=== PATIENT | female | born 1950 | race Caucasian/White ===

== ENCOUNTER 2017-05-07 11:38 | Inpatient (IN) | payer MEDICARE, MEDICAID ==
[~2017-05-07] VITALS: Ht 162.6 cm; Wt 60.8 kg
[2017-05-07] MEDS ORDERED: RT-ALBUTEROL/IPRATROPIUM 3 ML (DUONEB) VIAL ONE (11:46)
[2017-05-07] MEDS ORDERED: methylPREDNISolone 125 MG (Solu-MEDROL) VIAL ONE (11:46)
[2017-05-07] MEDS ORDERED: RT-ALBUTEROL SULF 2.5 MG/3 ML PRE-MIX VIAL INH ONE (11:57)
[2017-05-07] MEDS ORDERED: RT-ALBUTEROL SULF 2.5 MG/3 ML PRE-MIX VIAL INH SCH (12:00)
[2017-05-07] MEDS ORDERED: RT-ALBUTEROL/IPRATROPIUM 3 ML (DUONEB) VIAL INH ONE (12:00)
[2017-05-07] MEDS ORDERED: methylPREDNISolone 125 MG (Solu-MEDROL) VIAL IVP ONE (12:00)
--- NOTE | 2017-05-07 12:01 | ED Cough/URI ---
General Chief Complaint: Respiratory Problems Stated Complaint: SOA, CONGESTED Source: patient Exam Limitations: no limitations History of Present Illness Time seen by provider: 11:58 Initial Comments Patient is brought to the emergency room by her with reports of shortness of breath and congested. She arrives in respiratory distress with room air oxygen saturation at 75 percent. She has pursed lip tachypneic breathing pattern. Apparently she's been ill with a cough and shortness of breath for one week. She insists that she does not want to be intubated or resuscitated should the need arise. I told her that I do expect the need for intubation or resuscitation to arise and she again states that she does not want either of these things done, then looks to her son at the bedside and states "did you hear that?". Son agrees. She continues to smoke cigarettes even this morning. Timing/Duration: week, getting worse Severity/Quality: productive cough Associated Symptoms: cough, wheezing Allergies and Home Medications Allergies Coded Allergies: No Known Drug Allergies (Unverified , 05/07/17) Home Medications Albuterol Sulfate 18 Gm Hfa.aer.ad, (Reported) Amiodarone HCl 200 Mg Tablet, (Reported) Aspirin 81 Mg Tablet.dr, (Reported) Atorvastatin Calcium 10 Mg Tablet, (Reported) Dapagliflozin Propanediol 5 Mg Tablet, (Reported) Diazepam 5 Mg Tablet, (Reported) Furosemide 20 Mg Tablet, (Reported) Gabapentin 100 Mg Capsule, (Reported) Ibuprofen 800 Mg Tablet, (Reported) Lisinopril 20 Mg Tablet, (Reported) Metformin HCl 1,000 Mg Tablet, (Reported) Sitagliptin Phosphate 100 Mg Tablet, (Reported) Umeclidinium Dearing 62.5 Mcg Blst.w.dev, (Reported) Venlafaxine HCl 150 Mg Cap.er.24h, (Reported) Constitutional: see HPI EENTM: see HPI Respiratory: see HPI, cough, short of breath, wheezing Cardiovascular: no symptoms reported Genitourinary: no symptoms reported Musculoskeletal: no symptoms reported Skin: no symptoms reported Psychiatric/Neurological: No Symptoms Reported Past Vorvlqi-Xsuxpa-Dhaayk Hx Patient Social History Recent Foreign Travel: No Contact w/Someone Who Travel: No Physical Exam Vital Signs Vital Sign - Last 12Hours 05/07/17 05/07/17 11:38 12:06 Temp 97.3 Pulse 124 Resp 32 B/P (MAP) 193/52 (99) Pulse Ox 79 O2 Delivery Room Air O2 Flow Rate 45.00 Capillary Refill : General Appearance: WD/WN, no apparent distress Eyes: Bilateral Eye Normal Inspection, Bilateral Eye PERRL, Bilateral Eye EOMI HEENT: PERRL/EOMI, normal ENT inspection Neck: non-tender, full range of motion Respiratory: respiratory distress, decreased breath sounds (very little air movement in either lung), wheezing Cardiovascular: no murmur, tachycardia Gastrointestinal: normal bowel sounds, non tender, soft Extremities: normal range of motion, non-tender Neurologic/Psychiatric: alert, normal mood/affect, oriented x 3 Skin: normal color, warm/dry Focused Exam Evaluation Lactate Level Laboratory Tests 05/07/17 11:50: Lactic Acid Level 5.67*H Lactic Acid Level Laboratory Tests Test 05/07/17 11:50 Lactic Acid Level 5.67 MMOL/L (0.50-2.00) *H Progress/Results/Core Measures Suspected Sepsis SIRS Temperature: Pulse: Respiratory Rate: Laboratory Tests 05/07/17 11:40: White Blood Count 35.0*H Blood Pressure / Mean: Laboratory Tests 05/07/17 11:50: Lactic Acid Level 5.67*H Laboratory Tests 05/07/17 11:40: Creatinine 0.85, Platelet Count 461H, Total Bilirubin 0.8 Results/Orders Lab Results Laboratory Tests Test 05/07/17 11:40 05/07/17 11:49 05/07/17 11:50 05/07/17 11:53 Range/Units White Blood Count 35.0 *H 4.3-11.0 10^3/uL Red Blood Count 5.84 4.35-5.85 10^6/uL Hemoglobin 14.1 11.5-16.0 G/DL Hematocrit 45 35-52 % Mean Corpuscular Volume 77 L 80-99 FL Mean Corpuscular Hemoglobin 24 L 25-34 PG Mean Corpuscular Hemoglobin Concent 32 32-36 G/DL Red Cell Distribution Width 16.0 H 10.0-14.5 % Platelet Count 461 H 130-400 10^3/uL Mean Platelet Volume 9.8 7.4-10.4 FL Neutrophils (%) (Auto) 92 H 42-75 % Lymphocytes (%) (Auto) 3 L 12-44 % Monocytes (%) (Auto) 5 0-12 % Eosinophils (%) (Auto) 0 0-10 % Basophils (%) (Auto) 0 0-10 % Neutrophils # (Auto) 32.0 H 1.8-7.8 X 10^3 Lymphocytes # (Auto) 0.9 L 1.0-4.0 X 10^3 Monocytes # (Auto) 1.9 H 0.0-1.0 X 10^3 Eosinophils # (Auto) 0.0 0.0-0.3 10^3/uL Basophils # (Auto) 0.1 0.0-0.1 10^3/uL Neutrophils % (Manual) 93 % Lymphocytes % (Manual) 4 % Monocytes % (Manual) 3 % Eosinophils % (Manual) 0 % Basophils % (Manual) 0 % Band Neutrophils 0 % Anisocytosis MODERATE Sodium Level 139 135-145 MMOL/L Potassium Level 4.2 3.6-5.0 MMOL/L Chloride Level 95 L 98-107 MMOL/L Carbon Dioxide Level 23 21-32 MMOL/L Anion Gap 21 H 5-14 MMOL/L Blood Urea Nitrogen 26 H 7-18 MG/DL Creatinine 0.85 0.60-1.30 MG/DL Estimat Glomerular Filtration Rate > 60 BUN/Creatinine Ratio 31 Glucose Level 357 H 70-105 MG/DL Calcium Level 10.2 H 8.5-10.1 MG/DL Total Bilirubin 0.8 0.1-1.0 MG/DL Aspartate Amino Transf (AST/SGOT) 16 5-34 U/L Alanine Aminotransferase (ALT/SGPT) 14 0-55 U/L Alkaline Phosphatase 202 H 40-136 U/L Total Protein 8.3 H 6.4-8.2 GM/DL Albumin 3.6 3.2-4.5 GM/DL Troponin I 0.47 *H <0.30 NG/ML B-Type Natriuretic Peptide 1251.6 H <100.0 PG/ML Lactic Acid Level 5.67 *H 0.50-2.00 MMOL/L Blood Gas Puncture Site r rad Blood Gas Patient Temperature 96.9 Arterial Blood pH 7.40 7.37-7.43 Arterial Blood Partial Pressure CO2 41 35-45 MMHG Arterial Blood Partial Pressure O2 101 H 79-93 MMHG Arterial Blood HCO3 25 23-27 MMOL/L Arterial Blood Total CO2 26.5 21.0-31.0 MMOL/L Arterial Blood Oxygen Saturation 99 94-100 % Arterial Blood Base Excess 0.7 -2.5-2.5 MMOL/L Jossue Test YES-POS Blood Gas Ventilator Setting NO Blood Gas Inspired Oxygen 60% bipap My Orders Orders - LETICIA JADE APRN Albuterol/Ipra Inhalation Soln (Duoneb I (05/07/17 11:46) Methylprednisolone Sod Succ (Solu-Medrol (05/07/17 11:46) Ekg Tracing (05/07/17 11:49) Arterial Blood Gas (05/07/17 11:56) Cbc With Automated Diff (05/07/17 11:57) Comprehensive Metabolic Panel (05/07/17 11:57) Saline Lock/Iv-Start (05/07/17 11:57) Chest 1 View, Ap/Pa Only (05/07/17 11:57) Methylprednisolone Sod Succ (Solu-Medrol (05/07/17 12:00) Albuterol/Ipra Inhalation Soln (Duoneb I (05/07/17 12:00) Albuterol Pre-Mix Nebs (Rt) (Proventil (05/07/17 12:00) Svn Sm Volume Nebulizer Rt-Rfs (05/07/17 11:57) Svn Sm Volume Nebulizer Rt-Rfs (05/07/17 11:57) Albuterol Pre-Mix Nebs (Rt) (Proventil (05/07/17 11:57) Troponin I (05/07/17 12:05) BNP (05/07/17 12:05) Manual Differential (05/07/17 11:40) Blood Culture (05/07/17 12:28) Lactic Acid Analyzer (05/07/17 12:28) Piperacillin Sodium/Tazobactam (Zosyn Vi (05/07/17 12:30) Ns Iv 500 Ml (Sodium Chloride 0.9%) (05/07/17 12:30) Insulin (Regular) Human (Humulin R (Per (05/07/17 12:30) Aspirin Chewable Tablet (Baby Aspirin Ch (05/07/17 12:45) Metoprolol Succinate (Xl) Tab (Toprol Xl (05/07/17 13:00) Furosemide Injection (Lasix Injection) (05/07/17 13:00) Medications Given in ED Current Medications Medications Dose Ordered Sig/Vlad Route Start Time Stop Time Status Last Admin Dose Admin Albuterol/ Ipratropium 3 ml ONCE ONCE INH 05/07/17 12:00 05/07/17 12:01 DC 05/07/17 12:03 3 ML Aspirin 324 mg ONCE ONCE PO 05/07/17 12:45 05/07/17 12:46 DC 05/07/17 12:57 324 MG Insulin Human Regular 6 unit ONCE ONCE SC 05/07/17 12:30 05/07/17 12:31 DC 05/07/17 12:57 6 UNIT Methylprednisolone Sodium Succinate 125 mg STK-MED ONCE .ROUTE 05/07/17 11:46 05/07/17 11:48 DC 05/07/17 11:59 125 MG Vital Signs/I&O Vital Sign - Last 12Hours 05/07/17 05/07/17 11:38 12:06 Temp 97.3 Pulse 124 117 Resp 32 36 B/P (MAP) 193/52 (99) Pulse Ox 79 98 O2 Delivery Room Air O2 Flow Rate 45.00 Capillary Refill : Diagnostic Imaging Diagonstic Imaging: Xray Plain Films/CT/US/NM/MRI: chest Comments NAME: MARIA DE JESUS [facility] REC#: [id number] PT STATUS: REG ER : 1950 PHYSICIAN: LETICIA JADE APRN ADMIT DATE: 05/07/17/ER Draft Date of Exam:05/07/17 CHEST 1 VIEW, AP/PA ONLY INDICATION: Chest congestion and shortness of breath. EXAM: Frontal chest obtained at 1204 hrs. p.m. COMPARISON: No prior studies for comparison. FINDINGS: There is post sternotomy change. The heart is normal in size. There are diffuse increased interstitial markings which are probably chronic. There is COPD change. There is minimal infiltrate in the right lung base IMPRESSION: COPD changes and chronic appearing increased interstitial markings. There is alveolar infiltrate in the right medial base, suspect early pneumonia. Followup is recommended. Dictated on workstation # [id number] Dict: 05/07/17 1209 Trans: 05/07/[address] [facility] [id number] Interpreted by: ALDO RENTERIA MD Electronically signed by: Departure Communication (Admissions) Time/Spoke to Admitting Phy: 12:[address] cowan. She will admit, we'll consult cardiology for the elevated troponin and pulmonology Time/Spoke to Consulting Phy: 12:59 Communication/Consulting Spoke with Dr. Morales. Recommends 12.5 mg of Toprol-XL daily, aspirin, 20 mg of Lasix IV daily for the history of CHF with elevated BNP and adequate blood pressure currently. Patient denies having chest pain at any point during this illness Family Conversation Spoke with Dr. Salazar. He agrees to consult. Progress Notes 1301-Given the elevated lactic acid, leukocytosis, tachycardia and respiratory rate the patient would meet severe sepsis criteria. However given the history of congestive heart failure with elevated BNP I will not give 30 mL/kg bolus of fluids due to the concern of fluid overload with current adequate blood pressure. She remains on BiPAP currently and is feeling much better. Heart rate is down to 120 from 140. Oxygen saturation 97 percent on 60 percent FiO2 14/7. Blood pressure 111/50. Hour-long albuterol treatment is completed. Remains tachypneic Impression Impression: Primary Impression: Pneumonia Additional Impressions: COPD exacerbation Respiratory distress Severe sepsis Disposition: ADMITTED INPATIENT Condition: Stable Admissions Decision to Admit Reason: Admit from ER (General) Decision to Admit/Date: May 07, 2017 Time/Decision to Admit Time: 12:25 Departure-Patient Inst. Referrals: MEAGAN AKHTAR (PCP) Primary Care Physician LETICIA JADE APRN May 07, 2017 12:01
[2017-05-07 12:03] LABS: BASOPHILS # (AUTO) 0.1 10^3/uL (0.0-0.1); BASOPHILS % (AUTO) 0 % (0-10); EOSINOPHILS % (AUTO) 0 % (0-10); LYMPHOCYTES # (AUTO) 0.9 X 10^3 (1.0-4.0); LYMPHOCYTES % (AUTO) 3 % (12-44); MEAN CORPUSCULAR HEMOGLOBIN 24 PG (25-34); MEAN CORPUSCULAR HGB CONC 32 G/DL (32-36); MEAN CORPUSCULAR VOLUME 77 FL (80-99); MEAN PLATELET VOLUME 9.8 FL (7.4-10.4); MONOCYTES # (AUTO) 1.9 X 10^3 (0.0-1.0); MONOCYTES % (AUTO) 5 % (0-12); NEUTROPHILS % (AUTO) 92 % (42-75); PLATELET COUNT 461 10^3/uL (130-400); RED BLOOD COUNT 5.84 10^6/uL (4.35-5.85)
[2017-05-07 12:04] LABS: ABG BASE EXCESS 0.7 MMOL/L (-2.5-2.5); ABG HCO3 25 MMOL/L (23-27); ABG OXYGEN SATURATION 99 % (94-100); ABG PCO2 41 MMHG (35-45); ABG PO2 101 MMHG (79-93); ABG TCO2 26.5 MMOL/L (21.0-31.0)
[2017-05-07 12:06] VITALS: BP 85/62
[2017-05-07 12:06] LABS: ALLENS TEST YES-POS; PATIENT TEMP 96.9
[2017-05-07] MEDS ORDERED: UMEC62.5 INH (12:19)
[2017-05-07] MEDS ORDERED: SITA100T12 PO (12:19)
[2017-05-07] MEDS ORDERED: DIAZ5TAB3 (12:19)
[2017-05-07] MEDS ORDERED: AMIO200T2 PO (12:19)
[2017-05-07] MEDS ORDERED: ASPI-983 PO (12:19)
[2017-05-07] MEDS ORDERED: VENL150C98 PO (12:19)
[2017-05-07] MEDS ORDERED: LISI-552 PO (12:19)
[2017-05-07] MEDS ORDERED: FURO20TA4 PO (12:19)
[2017-05-07] MEDS ORDERED: GABA-486 PO (12:19)
[2017-05-07] MEDS ORDERED: ALBU18HF2 INH (12:19)
[2017-05-07] MEDS ORDERED: IBUP-1780 PO (12:19)
[2017-05-07] MEDS ORDERED: ATOR10TA66 PO (12:19)
[2017-05-07] MEDS ORDERED: DAPA5TAB PO (12:19)
[2017-05-07] MEDS ORDERED: METF1000 PO (12:19)
--- NOTE | 2017-05-07 12:20 | Diagnostic Imaging Report ---
INDICATION: Chest congestion and shortness of breath. EXAM: Frontal chest obtained at 1204 hrs. p.m. COMPARISON: No prior studies for comparison. FINDINGS: There is post sternotomy change. The heart is normal in size. There are diffuse increased interstitial markings which are probably chronic. There is COPD change. There is minimal infiltrate in the right lung base IMPRESSION: COPD changes and chronic appearing increased interstitial markings. There is alveolar infiltrate in the right medial base, suspect early pneumonia. Followup is recommended. Dictated by: Dictated on workstation # [id number]
[2017-05-07 12:22] LABS: ALANINE AMINOTRANSFERASE 14 U/L (0-55); ALBUMIN 3.6 GM/DL (3.2-4.5); ANION GAP 21 MMOL/L (5-14); ASPARTATE AMINO TRANSFERASE 16 U/L (5-34); BAND NEUTROPHILS 0 %; BASOPHILS % (MANUAL) 0 %; BILIRUBIN,TOTAL 0.8 MG/DL (0.1-1.0); BLOOD UREA NITROGEN 26 MG/DL (7-18); BUN/CREATININE RATIO 31; CALCIUM 10.2 MG/DL (8.5-10.1); CARBON DIOXIDE 23 MMOL/L (21-32); CHLORIDE 95 MMOL/L (98-107); CREATININE SERUM 0.85 MG/DL (0.60-1.30); EOSINOPHILS % (MANUAL) 0 %; GFR ESTIMATED > 60; GLUCOSE 357 MG/DL (70-105); LYMPHOCYTES % (MANUAL) 4 %; NEUTROPHILS % (MANUAL) 93 %; POTASSIUM 4.2 MMOL/L (3.6-5.0); SODIUM 139 MMOL/L (135-145); TOTAL PROTEIN 8.3 GM/DL (6.4-8.2)
[2017-05-07 12:23] LABS: ANISOCYTOSIS MODERATE
[2017-05-07] MEDS ORDERED: NS IV 500 ML 500 ML IV SCH (12:30)
[2017-05-07] MEDS ORDERED: PIPERACILLIN SODIUM/TAZOBACTAM 4.5 GM in NS (IVPB) 100 ML IV ONE (12:30)
[2017-05-07] MEDS ORDERED: inSUlin (REGULAR) HUMAN 1 UNIT/0.01 ML (CHARGE PER UNIT) SC ONE (12:30)
[2017-05-07] MEDS ORDERED: ASPIRIN 81 MG CHEW (CHILDREN'S ASA) PO ONE (12:45)
[2017-05-07] MEDS ORDERED: FUROSEMIDE 40 MG/4 ML INJ (LASIX) IVP ONE (13:00)
[2017-05-07 13:40] VITALS: BP 128/61
--- NOTE | 2017-05-07 14:15 | History & Physical-Hospitalist ---
HPI History of Present Illness: HPI/Chief Complaint Pt is a 67yoCF with a PMH of COPD, CAD s/p bypass who presented to the ER with CC of SOB. She was found to be satting in high 70s on arrival and was quickly escalated to BiPAP for respiratory support. She was on BiPAP during my exam. She denied cough or sputum production and only felt short of breath. She states she feels she's breathing better now than on arrival. She denies any fevers or chills. She reports she has been on a ventilator before and she would never want that again. I discussed with her and her son the severity of her illness and she states she would like ot continue on BiPAP and receiving antibiotics but she wants no further escalation of care (including central line, pressors, high volume fluid boluses, transfer to ICU). Her son believes this is consistent with previous statements but is not sure as she has only previously said she did not want intubated. Pt states her granddaughter Emma has her advanced directive and when questioned by her son about options for care she again declined fluids, pressors, central lines, etc. She did request medication to help her breath more comfortably and was agreeable to IV morphine for that. Date Seen 05/07/17 Time Seen by Provider: 13:45 Attending Physician Anjali Sharif MD PCP No,Local Physician Referring Physician Date of Admission May 07, 2017 at 12:29 Home Medications & Allergies Home Medications Reviewed patient Home Medication Reconciliation Form Allergies Allergies Coded Allergies No Known Drug Allergies (Ocmamtexhh74/21/17) Past Zwzbpol-Qnntbz-Tfvnuh Hx Patient Social History Alcohol Use: Denies Use Recreational Drug Use: No Smoking Status: Current Everyday Smoker Recent Foreign Travel: No Contact w/other who traveled: No Recent Infectious Disease Expo: No Surgeries Yes Cardiac (CABG) Respiratory COPD Cardiovascular Coronary Artery Disease, Hypertension Genitourinary No Gastrointestinal No Musculoskeletal No Review of Systems Constitutional: No chills, No fever, No weakness EENTM: no symptoms reported, No nose congestion, No throat pain Respiratory: cough, dyspnea on exertion, No orthopnea, No phlegm, short of breath Cardiovascular: No chest pain, No edema, No palpitations Gastrointestinal: No abdominal pain, No constipation, No diarrhea, No nausea, No vomiting Genitourinary: No dysuria, No frequency Musculoskeletal: no symptoms reported Skin: no symptoms reported, No rash Psychiatric/Neurological: No Symptoms Reported, Denies Numbness, Denies Tingling Physical Exam Physical Exam Vital Signs Vital Sign - Last 12Hours 05/07/17 05/07/17 05/07/17 11:38 12:06 15:41 Temp 97.3 Pulse 124 Resp 32 B/P (MAP) 193/52 (99) Pulse Ox 79 O2 Delivery Room Air O2 Flow Rate 45.00 FiO2 45 Capillary Refill : Less Than 3 Seconds General Appearance: WD/WN, Severe Distress HEENT: PERRL/EOMI, Moist Mucous Membranes Neck: Non Tender, Supple Respiratory: Accessory Muscle Use, Decreased Breath Sounds, Respiratory Distress, Other (tachypneic on bipap) Cardiovascular: No Murmur, Tachycardia Gastrointestinal: Normal Bowel Sounds, Non Tender, Soft Extremity: No Calf Tenderness, No Pedal Edema Neurologic/Psychiatric: Alert, Oriented x3 Skin: Normal Color, Warm/Dry Results Results/Procedures Lab Laboratory Tests 05/07/17 11:40 Assessment/Plan Admission Diagnosis Septic Shock Diagnosis/Problems Diagnosis/Problems (1) Septic shock Status: Acute Assessment & Plan: WBC 35, tachycardiac, tachypneic PNA on CXR Lactic 5.67 Zosyn in ER, blood cx obtained in ER Sputum cx ordered Will order strep pna and legionella She has declined any further fluid boluses, central line, or ICU level care after discussion of risks including so she will not receive her 30cc/kg bolus Palliative Care Consult, appreciate assistance (2) CAD (coronary artery disease) Status: Chronic Assessment & Plan: s/p CABG top elevated- likely due to septic shock Cardiology consulted Will trend Received ASA in ER Again has declined further escalation of care (3) Pneumonia Status: Acute Assessment & Plan: On Zosyn Continue management as above Await cultures Rapid Flu ordered (4) Respiratory distress Status: Acute Assessment & Plan: Pulm consulted, appreciate recs Continue on BiPAP MAT Protocol (5) Essential (primary) hypertension Assessment & Plan: Hold antihypertensives for shock (6) Non-insulin dependent type 2 diabetes mellitus Status: Chronic Assessment & Plan: SSI Hold home meds Accu Cheks Q6 ANJALI SHARIF MD May 07, 2017 14:15
[2017-05-07] MEDS: NS IV 1000 ML 1,000 ML IV SCH ×2 (14:31→23:22)
[2017-05-07] MEDS: morphine INJ 4 MG/ML 1 ML (VIAL/SYRINGE) IVP PRN ×2 (14:35→19:46)
[2017-05-07] MEDS ORDERED: BACL10TA PO (15:30)
[2017-05-07] MEDS ORDERED: TRAM50TA2 PO (15:30)
[2017-05-07] MEDS ORDERED: ZOLP10TA5 PO (15:30)
[2017-05-07 15:40] VITALS: BP 100/59
[2017-05-07] MEDS ORDERED: RT-ALBUTEROL/IPRATROPIUM 3 ML (DUONEB) VIAL INH PRN (15:45)
[2017-05-07] MEDS: ENOXAPARIN 40 MG/0.4 ML (LOVENOX) SYR SC SCH (15:48)
--- NOTE | 2017-05-07 15:52 | Consultation-Cardiology ---
HPI-Cardiology Cardiology Consultation: Date of Consultation 05/07/17 Time Seen by Provider: 15:00 Date of Admission 05-07-17 Attending Physician Anjali Sharif MD Admitting Physician No,Local Physician Consulting Physician JANELLE DVUAL HPI: Chief Complaint: Dyspnea Ms. Upton is a 67 year old female admitted to 401 from the ED. She is currently on Bi-Pap. Grand-daughter at the bedside. Patient reports she has been feeling increasingly short of breath over the last few weeks. She reports sweats at home. She reports some nausea and diarrhea. She denies any CP. She does report productive cough. She continues to smoke cigs. She reports CABG at [facility] approx 3 years ago, but has not followed with any cardiology services. Her son is also present. Communication is limited with her d/t dyspnea and Bi-Pap. Review of Systems-Cardiology Review of Systems Constitutional: fever, malaise, other (sweats) Eyes: No blindness, No blurred vision Ears/Nose/Throat: no symptoms reported Respiratory: As described under HPI Cardiovascular: As described under HPI Gastrointestinal: diarrhea, nausea Genitourinary: No burning, No dysuria Musculoskeletal: muscle pain (right sided) Skin: No rash, No ulcerations Psychiatric/Neurological: No focal weakness, No syncope Hematologic: No bleeding abnormalities QSI-Jskiga-Uclobu Hx Patient Social History Alcohol Use: Denies Use Recreational Drug Use: No Smoking Status: Current Everyday Smoker Recent Foreign Travel: No Recent Infectious Disease Expo: No Hospitalization with Isolation: Denies Past Medical History PMH As described under Assessment. Allergies and Home Medications Allergies Coded Allergies: No Known Drug Allergies (Unverified , 05/07/17) Home Medications Albuterol Sulfate 18 Gm Hfa.aer.ad, 2 PUFF INH Q6H PRN for SHORTNESS OF BREATH, (Reported) Amiodarone HCl 200 Mg Tablet, 200 MG PO DAILY, (Reported) Aspirin 81 Mg Tablet.dr, 81 MG PO DAILY, (Reported) Atorvastatin Calcium 10 Mg Tablet, 10 MG PO HS, (Reported) Baclofen 10 Mg Tablet, 10 MG PO TID PRN for PAIN-MILD, (Reported) Dapagliflozin Propanediol 5 Mg Tablet, 5 MG PO DAILY, (Reported) Furosemide 20 Mg Tablet, 20 MG PO DAILY, (Reported) Gabapentin 100 Mg Capsule, 200 MG PO TID, (Reported) TAKES 2 (100MG) CAPSULES Ibuprofen 800 Mg Tablet, 800 MG PO TID PRN for PAIN-MODERATE, (Reported) Lisinopril 20 Mg Tablet, 20 MG PO DAILY, (Reported) Metformin HCl 1,000 Mg Tablet, 1,000 MG PO BID, (Reported) Sitagliptin Phosphate 100 Mg Tablet, 100 MG PO DAILY, (Reported) Tramadol HCl 50 Mg Tablet, 50 MG PO TID PRN for PAIN-MODERATE, (Reported) Umeclidinium [place] 62.5 Mcg Blst.w.dev, 1 PUFF INH DAILY, (Reported) Venlafaxine HCl 150 Mg Cap.er.24h, 150 MG PO DAILY, (Reported) Zolpidem Tartrate 10 Mg Tablet, 10 MG PO HS, (Reported) Physical Exam-Cardiology Physical Exam Vital Signs/I&O Vital Sign - Last 12Hours 05/07/17 05/07/17 05/07/17 05/07/17 11:38 12:06 13:40 14:36 Temp 97.3 99.1 Pulse 124 117 115 110 Resp 32 36 22 22 B/P (MAP) 193/52 (99) 128/61 (83) Pulse Ox 79 98 99 97 O2 Delivery Room Air NIV Bilevel NIV Bilevel O2 Flow Rate 45.00 05/07/17 05/07/17 05/07/17 05/07/17 14:59 15:40 15:41 15:41 Temp 97.8 Pulse 122 103 102 Resp 42 24 B/P (MAP) 100/59 (73) Pulse Ox 99 99 99 O2 Delivery NIV Bilevel O2 Flow Rate 45.00 FiO2 45 05/07/17 16:56 Pulse 118 Resp 38 Pulse Ox 96 O2 Flow Rate 45.00 Capillary Refill : Less Than 3 Seconds Constitutional: AAO x 3 HEENT: oral hygience is good Neck: No carotid bruit, carotid pulses are 2 + bilaterally Respiratory: respiratory distress, crackles, rhonchi (scattered) Cardiovascular: regular rate-rhythm, tachycardia, S1 and S2, systolic murmur Gastrointestinal: No tender, soft, audible bowel sounds Extremities: No significant edema Neurologic/Psychiatric: grossly intact Skin: No rash, No ulcerations Data Review Labs Laboratory Tests 05/07/17 11:40: White Blood Count 35.0*H, Red Blood Count 5.84, Hemoglobin 14.1, Hematocrit 45, Mean Corpuscular Volume 77L, Mean Corpuscular Hemoglobin 24L, Mean Corpuscular Hemoglobin Concent 32, Red Cell Distribution Width 16.0H, Platelet Count 461H, Mean Platelet Volume 9.8, Neutrophils (%) (Auto) 92H, Lymphocytes (%) (Auto) 3L , Monocytes (%) (Auto) 5, Eosinophils (%) (Auto) 0, Basophils (%) (Auto) 0, Neutrophils # (Auto) 32.0H, Lymphocytes # (Auto) 0.9L, Monocytes # (Auto) 1.9H, Eosinophils # (Auto) 0.0, Basophils # (Auto) 0.1, Neutrophils % (Manual) 93, Lymphocytes % (Manual) 4, Monocytes % (Manual) 3, Eosinophils % (Manual) 0, Basophils % (Manual) 0, Band Neutrophils 0, Anisocytosis MODERATE, Sodium Level 139, Potassium Level 4.2, Chloride Level 95L, Carbon Dioxide Level 23, Anion Gap 21H, Blood Urea Nitrogen 26H, Creatinine 0.85, Estimat Glomerular Filtration Rate > 60, BUN/Creatinine Ratio 31, Glucose Level 357H, Calcium Level 10.2H, Total Bilirubin 0.8, Aspartate Amino Transf (AST/SGOT) 16, Alanine Aminotransferase (ALT/SGPT) 14, Alkaline Phosphatase 202H, Total Protein 8.3H, Albumin 3.6 05/07/17 11:49: Troponin I 0.47*H, B-Type Natriuretic Peptide 1251.6H 05/07/17 11:50: Lactic Acid Level 5.67*H 05/07/17 11:53: Blood Gas Puncture Site r rad, Blood Gas Patient Temperature 96.9, Arterial Blood pH 7.40, Arterial Blood Partial Pressure CO2 41, Arterial Blood Partial Pressure O2 101H, Arterial Blood HCO3 25, Arterial Blood Total CO2 26.5, Arterial Blood Oxygen Saturation 99, Arterial Blood Base Excess 0.7, Jossue Test YES-POS, Blood Gas Ventilator Setting NO, Blood Gas Inspired Oxygen 60% bipap 05/07/17 14:10: Lactic Acid Level 5.15*H 05/07/17 15:58: Glucometer 321H 05/07/17 16:50: 05/07/17 17:21: Microbiology 05/07/17 Influenza Types A,B Antigen (ANATOLY) - Final, Complete Radiology NAME: MARIA DE JESUS UPTON [facility] REC#: [id number] PT STATUS: REG ER : 1950 PHYSICIAN: LETICIA JADE APRN ADMIT DATE: 05/07/17/ER Draft Date of Exam:05/07/17 CHEST 1 VIEW, AP/PA ONLY INDICATION: Chest congestion and shortness of breath. EXAM: Frontal chest obtained at 1204 hrs. p.m. COMPARISON: No prior studies for comparison. FINDINGS: There is post sternotomy change. The heart is normal in size. There are diffuse increased interstitial markings which are probably chronic. There is COPD change. There is minimal infiltrate in the right lung base IMPRESSION: COPD changes and chronic appearing increased interstitial markings. There is alveolar infiltrate in the right medial base, suspect early pneumonia. Followup is recommended. Dictated on workstation # [id number] Dict: 05/07/17 1209 Trans: 05/07/17 1220 [facility] [id number] Interpreted by: ALDO RENTERIA MD Electronically signed by: A/P-Cardiology Assessment/Admission Diagnosis Multi-factorial respiratory failure - refuses intubation Acute exac of COPD due to pneumonia Acute diastolic CHF Pneumonia with sepsis - management per Medical Services Elevated troponin likely r/t hypoxia. No evidence of acute [place] H/O CABG approx 3 years ago at [facility] in [place], [place] - details unknown H/O left CEA - details unknown HTN HLP Tobaccoism - cessation advised Desires conservative tx; DNI, DNR Discussion and Recomendations Complex management issue Respiratory failure which is multifactorial Pneumonia with sepsis which is being managed by medical services Acute exacerbation of COPD which is being managed by medical services She is currently on Bi-Pap She has a h/o CAD with CABG in the past at [facility] in [place], [place], details of which are unknown - we have requested records She wishes to be managed conservatively She does not wish to be intubated We will manage empirically Give additional Lasix now and as needed Monitor lab Palliative consult has been ordered by medical services We would like to thank medical services for this consult Further rec will be based on her hospital course This consult is being scribed by Lesia Sanford APRN on behalf of Dr. Cameron after discussion regarding plan of care Physician Assessment Physician Assessment Notes some improvement of shortness of breath on BiPAP. Denies cp or palp or syncope. Does not believe that she had any kind of a heart attack. Specifically asks to be managed conservatively only. A son by her bedside Moderately dyspneic On BiPAP Cor: reg, tachy Lungs: diminished air entry at the bases Ext: no c/c/e A&R * As documented in our note above that I updated (italics) and as noted below * I discussed her CV issues with her and her son * She wishes to be managed conservatively and empirically. Does not wish to be resuscitated in case of card/resp arrest * Use beta-nas for heart rate control * Diuretics as needed and as tolerated for CHF * Monitor labs closely * Continue aspirin because of h/o CAD JANELLE SANFORD [facility] May 07, 2017 15:52 NOE CAMERON MD [facility] May 07, 2017 18:17
[2017-05-07] MEDS ORDERED: inSUlin (REGULAR) HUMAN 1 UNIT/0.01 ML (CHARGE PER UNIT) SC SCH (16:00)
--- NOTE | 2017-05-07 16:08 | Pulmonary Consultation ---
History of Present Illness History of Present Illness Date of Consultation 05/07/17 16:02 Time Seen by Provider: 16:02 Date of Admission History of Present Illness 67yo with PMH of COPD presented to ED secondary to worsening SOB and was found to have Sp02 of 70's upon arrival. Pt was found to have Sp02 of 70's on arrival. Pt states she is a DNR and does not want to ever be on the vent again. Denies sputum production and f/NS. I am consulted for pulmonary management. Allergies and Home Medications Allergies Coded Allergies: No Known Drug Allergies (Unverified , 05/07/17) Home Medications Albuterol Sulfate 18 Gm Hfa.aer.ad, 2 PUFF INH Q6H PRN for SHORTNESS OF BREATH, (Reported) Amiodarone HCl 200 Mg Tablet, 200 MG PO DAILY, (Reported) Aspirin 81 Mg Tablet.dr, 81 MG PO DAILY, (Reported) Atorvastatin Calcium 10 Mg Tablet, 10 MG PO HS, (Reported) Baclofen 10 Mg Tablet, 10 MG PO TID PRN for PAIN-MILD, (Reported) Dapagliflozin Propanediol 5 Mg Tablet, 5 MG PO DAILY, (Reported) Furosemide 20 Mg Tablet, 20 MG PO DAILY, (Reported) Gabapentin 100 Mg Capsule, 200 MG PO TID, (Reported) TAKES 2 (100MG) CAPSULES Ibuprofen 800 Mg Tablet, 800 MG PO TID PRN for PAIN-MODERATE, (Reported) Lisinopril 20 Mg Tablet, 20 MG PO DAILY, (Reported) Metformin HCl 1,000 Mg Tablet, 1,000 MG PO BID, (Reported) Sitagliptin Phosphate 100 Mg Tablet, 100 MG PO DAILY, (Reported) Tramadol HCl 50 Mg Tablet, 50 MG PO TID PRN for PAIN-MODERATE, (Reported) Umeclidinium [place] 62.5 Mcg Blst.w.dev, 1 PUFF INH DAILY, (Reported) Venlafaxine HCl 150 Mg Cap.er.24h, 150 MG PO DAILY, (Reported) Zolpidem Tartrate 10 Mg Tablet, 10 MG PO HS, (Reported) Past Ezwwuha-Epnvkv-Ywmomh Hx Patient Social History Alcohol Use: Denies Use Recreational Drug Use: No Smoking Status: Current Everyday Smoker Recent Foreign Travel: No Contact w/Someone Who Travel: No Recent Infectious Disease Expo: No Surgeries History of Surgeries: Yes Surgeries: Cardiac (CABG) Cardiovascular Cardiac Disorders: Coronary Artery Disease, Hypertension Genitourinary History of Genitourinary Disor: No Gastrointestinal History of Gastrointestinal Di: No Musculoskeletal History of Musculoskeletal Dis: No Review of Systems Time Seen by Provider: 16:15 Exam Exam Vital Signs Date Time Temp Pulse Resp B/P (MAP) Pulse Ox O2 Delivery O2 Flow Rate FiO2 05/07/17 15:41 99 45 05/07/17 15:41 102 05/07/17 14:59 122 42 99 45.00 05/07/17 14:36 110 22 97 NIV Bilevel 05/07/17 13:40 99.1 115 22 128/61 (83) 99 NIV Bilevel 05/07/17 12:06 117 36 98 45.00 05/07/17 11:38 97.3 124 32 193/52 (99) 79 Room Air General Appearance: WD/WN, Severe Distress HEENT: PERRL/EOMI, Moist Mucous Membranes Neck: Non Tender, Supple Respiratory: Accessory Muscle Use, Decreased Breath Sounds, Respiratory Distress, Other (tachypneic on bipap) Cardiovascular: No Murmur, Tachycardia Capillary Refill: Less Than 3 Seconds Gastrointestinal: normal bowel sounds, non tender, soft Extremity: No Calf Tenderness, No Pedal Edema Neurologic/Psychiatric: Alert, Oriented x3 Skin: Normal Color, Warm/Dry Results Lab Laboratory Tests 05/07/17 11:40 Assessment/Plan Assessment/Plan severe sepsis secondary to pneumonia -Continue zoysn -cowan cultures pending -IVF Acute respiratory failure -Pt is DNR refuses Ventilation -Continue BiPAP for now Metabolic lactic acidosis -IVF -Monitor CAD Prognosis is guarded. 255 MARGARITA CHAMORRO DO May 07, 2017 16:08
[2017-05-07] MEDS ORDERED: FUROSEMIDE 40 MG/4 ML INJ (LASIX) IVP NR (16:15)
[2017-05-07] MEDS ORDERED: RT-ALBUTEROL/IPRATROPIUM 3 ML (DUONEB) VIAL INH SCH (18:00)
[2017-05-07] MEDS ORDERED: PIPERACILLIN/TAZOBACTAM 4.5 GM/NS 100 ML IVPB IV SCH ×2 (18:00)
[2017-05-07] MEDS: inSUlin ASPART (NovoLOG) 1 UNIT/0.01 ML (CHARGE PER UNIT) SC SCH ×2 (18:10→23:31)
[2017-05-07 18:13] LABS: CALCIUM 9.6 MG/DL (8.5-10.1); CREATININE SERUM 0.95 MG/DL (0.60-1.30); POTASSIUM 3.2 MMOL/L (3.6-5.0)
[2017-05-07 18:34] LABS: TROPONIN I 1.82 NG/ML (<0.30)
[2017-05-07] MEDS: RT-ALBUTEROL/IPRATROPIUM 3 ML (DUONEB) VIAL INH SCH ×3 (18:43→22:48)
[2017-05-07 19:45] VITALS: BP 116/61
[2017-05-07] MEDS ORDERED: inSUlin ASPART (NovoLOG) 1 UNIT/0.01 ML (CHARGE PER UNIT) SC SCH (21:00)
[2017-05-07] MEDS: methylPREDNISolone 125 MG (Solu-MEDROL) VIAL IV SCH (21:04)
[2017-05-07] MEDS: PIPERACILLIN SODIUM/TAZOBACTAM 4.5 GM in NS (IVPB) 100 ML IV SCH (21:04)
[2017-05-08] VITALS: BP 116/60
[2017-05-08] MEDS: RT-ALBUTEROL/IPRATROPIUM 3 ML (DUONEB) VIAL INH SCH ×10 (01:17→22:54)
[2017-05-08] MEDS: NS IV 1000 ML 1,000 ML IV SCH ×3 (01:18→21:14)
[2017-05-08] MEDS: PIPERACILLIN SODIUM/TAZOBACTAM 4.5 GM in NS (IVPB) 100 ML IV SCH ×3 (03:53→21:14)
[2017-05-08 04:00] VITALS: BP 151/65
[2017-05-08 06:00] LABS: BASOPHILS # (AUTO) 0.1 10^3/uL (0.0-0.1); BASOPHILS % (AUTO) 0 % (0-10); EOSINOPHILS % (AUTO) 0 % (0-10); LYMPHOCYTES % (AUTO) 4 % (12-44); MEAN CORPUSCULAR HEMOGLOBIN 24 PG (25-34); MEAN CORPUSCULAR HGB CONC 31 G/DL (32-36); MEAN CORPUSCULAR VOLUME 78 FL (80-99); MONOCYTES # (AUTO) 0.5 X 10^3 (0.0-1.0); MONOCYTES % (AUTO) 2 % (0-12); NEUTROPHILS # (AUTO) 25.4 X 10^3 (1.8-7.8); NEUTROPHILS % (AUTO) 94 % (42-75); PLATELET COUNT 273 10^3/uL (130-400); RED BLOOD COUNT 4.78 10^6/uL (4.35-5.85); RED CELL DISTRIBUTION WIDTH 15.7 % (10.0-14.5); WHITE BLOOD COUNT 26.9 10^3/uL (4.3-11.0)
[2017-05-08] MEDS: inSUlin ASPART (NovoLOG) 1 UNIT/0.01 ML (CHARGE PER UNIT) SC SCH ×3 (06:16→16:17)
[2017-05-08] MEDS: methylPREDNISolone 125 MG (Solu-MEDROL) VIAL IV SCH ×3 (06:16→21:15)
[2017-05-08] MEDS: FUROSEMIDE 40 MG/4 ML INJ (LASIX) IV SCH (06:16)
[2017-05-08 06:19] LABS: ALANINE AMINOTRANSFERASE 13 U/L (0-55); ANION GAP 15 MMOL/L (5-14); ASPARTATE AMINO TRANSFERASE 17 U/L (5-34); BILIRUBIN,TOTAL 0.5 MG/DL (0.1-1.0); BLOOD UREA NITROGEN 31 MG/DL (7-18); BUN/CREATININE RATIO 40; CALCIUM 9.3 MG/DL (8.5-10.1); CARBON DIOXIDE 26 MMOL/L (21-32); CHLORIDE 103 MMOL/L (98-107); CREATININE SERUM 0.78 MG/DL (0.60-1.30); GFR ESTIMATED > 60; GLUCOSE 249 MG/DL (70-105); MAGNESIUM 1.7 MG/DL (1.8-2.4); SODIUM 144 MMOL/L (135-145); TOTAL PROTEIN 6.6 GM/DL (6.4-8.2)
--- NOTE | 2017-05-08 07:21 | Diagnostic Imaging Report ---
Portable upright radiograph of the chest. INDICATION: Fall. COMPARISON: 05/07/2017. FINDINGS: Again seen pulmonary hyperinflation and chronic appearing interstitial thickening. There is improving right basilar mild infiltrate or atelectasis. The heart size is normal. No effusion or pneumothorax The mediastinum and pravin appear unremarkable with sternotomy wires and post CABG changes seen. IMPRESSION: COPD. Improving minimal right basilar infiltrates or atelectasis. Dictated by: Dictated on workstation # [id number]
--- NOTE | 2017-05-08 07:56 | Pulmonary Progress Note ---
Subjective Time Seen by Provider: 06:56 Subjective/Events-last exam no complications noted. Exam Exam Vital Signs Date Time Temp Pulse Resp B/P (MAP) Pulse Ox O2 Delivery O2 Flow Rate FiO2 05/08/17 06:51 96 High Flow N/C 5.00 05/08/17 06:45 80 23 98 40.00 05/08/17 05:20 75 21 94 40.00 05/08/17 04:00 97.8 79 28 151/65 (93) 99 NIV Bilevel 05/08/17 03:37 74 19 97 40.00 05/08/17 01:17 71 21 97 40.00 05/08/17 01:00 72 05/08/17 00:00 96.7 78 20 116/60 (78) 97 NIV Bilevel 05/07/17 22:49 79 23 94 40.00 05/07/17 22:26 NIV Bilevel 45.00 05/07/17 21:16 82 26 98 40.00 05/07/17 19:45 99.3 94 30 116/61 (79) 99 NIV Bilevel 05/07/17 19:00 95 05/07/17 18:43 92 31 98 45.00 05/07/17 16:56 118 38 96 45.00 05/07/17 15:41 99 45 05/07/17 15:41 102 05/07/17 15:40 97.8 103 24 100/59 (73) 99 NIV Bilevel 05/07/17 14:59 122 42 99 45.00 05/07/17 14:36 110 22 97 NIV Bilevel 05/07/17 13:40 99.1 115 22 128/61 (83) 99 NIV Bilevel 05/07/17 12:06 117 36 98 45.00 05/07/17 11:38 97.3 124 32 193/52 (99) 79 Room Air I & O 05/08/17 07:00 Intake Total 1100 ml Output Total 425 ml Balance 675 ml General Appearance: WD/WN, Severe Distress HEENT: PERRL/EOMI, Moist Mucous Membranes Neck: Non Tender, Supple Respiratory: Accessory Muscle Use, Decreased Breath Sounds, Respiratory Distress, Other (tachypneic on bipap) Cardiovascular: No Murmur, Tachycardia Capillary Refill: Less Than 3 Seconds Gastrointestinal: normal bowel sounds, non tender, soft Extremity: No Calf Tenderness, No Pedal Edema Neurologic/Psychiatric: Alert, Oriented x3 Skin: Normal Color, Warm/Dry Results Lab Laboratory Tests 05/07/17 11:40 05/07/17 17:21 05/08/17 05:45 Assessment/Plan Assessment/Plan severe sepsis secondary to pneumonia - zoysn -cowan cultures pending -IVF Acute respiratory failure -Pt is DNR refuses Ventilation -Continue BiPAP for now Metabolic lactic acidosis -IVF -Monitor CAD Prognosis is guarded. 233 Clinical Quality Measures DVT/VTE Risk/Contraindication: Risk Factor Score Per Nursin RFS Level Per Nursing on Admit: 4+=Very High MARGARITA CHAMORRO DO May 08, 2017 07:56
[2017-05-08 08:00] VITALS: BP 146/62
[2017-05-08] MEDS ORDERED: KCL 20 MEQ TAB (K-DUR) PO NR ×2 (08:15→09:30)
--- NOTE | 2017-05-08 08:21 | Progress Note-Hospitalist ---
Subjective HPI/CC On Admission Date Seen by Provider: May 08, 2017 Time Seen by Provider: 08:05 Pt is a 67yoCF with a PMH of COPD, CAD s/p bypass who presented to the ER with CC of SOB. She was found to be satting in high 70s on arrival and was quickly escalated to BiPAP for respiratory support. She was on BiPAP during my exam. She denied cough or sputum production and only felt short of breath. She states she feels she's breathing better now than on arrival. She denies any fevers or chills. She reports she has been on a ventilator before and she would never want that again. I discussed with her and her son the severity of her illness and she states she would like ot continue on BiPAP and receiving antibiotics but she wants no further escalation of care (including central line, pressors, high volume fluid boluses, transfer to ICU). Her son believes this is consistent with previous statements but is not sure as she has only previously said she did not want intubated. Pt states her granddaughter Emma has her advanced directive and when questioned by her son about options for care she again declined fluids, pressors, central lines, etc. She did request medication to help her breath more comfortably and was agreeable to IV morphine for that. Subjective/Events-last exam Pt reports feeling much better this morning. No complaints. Now off BiPAP requested coffee and breakfast. Objective Exam Vital Signs Vital Sign - Last 12Hours 05/07/17 05/07/17 05/07/17 11:38 12:06 15:41 Temp 97.3 Pulse 124 Resp 32 B/P (MAP) 193/52 (99) Pulse Ox 79 O2 Delivery Room Air O2 Flow Rate 45.00 FiO2 45 Capillary Refill : Less Than 3 Seconds General Appearance: No Apparent Distress, WD/WN Respiratory: No Accessory Muscle Use, No Respiratory Distress, Wheezing Cardiovascular: Regular Rate, Rhythm, No Murmur Gastrointestinal: Normal Bowel Sounds, Non Tender, Soft Extremity: Non Tender, No Calf Tenderness Neurologic/Psychiatric: Alert, Oriented x3 Results/Procedures Lab Laboratory Tests 05/07/17 11:40 05/07/17 17:21 05/08/17 05:45 Assessment/Plan Assessment and Plan Assess & Plan/Chief Complaint Pneumonia Diagnosis/Problems Diagnosis/Problems (1) Septic shock Status: Resolved Assessment & Plan: WBC improving PNA on CXR Lactic acidosis resolved Continue Zosyn Sputum cx ordered Await strep pna and legionella She has declined any further fluid boluses, central line, or ICU level care after discussion of risks including so she did not receive her 30cc/kg bolus Palliative Care Consult, appreciate assistance (2) Pneumonia Status: Acute Assessment & Plan: On Zosyn, Day #2 High risk CAP given COPD Continue management as above Await cultures Rapid Flu negative (3) Respiratory distress Status: Acute Assessment & Plan: Pulm consulted, appreciate recs Off BiPAP MAT Protocol Continue Solu Medrol MAT Protocol Not on oxygen at home (4) CAD (coronary artery disease) Status: Chronic Assessment & Plan: s/p CABG troponin elevated- management per cardiology ASA ordered Again has declined further escalation of care (5) Essential (primary) hypertension Assessment & Plan: Metoprolol (6) Non-insulin dependent type 2 diabetes mellitus Status: Chronic Assessment & Plan: Accu Elma ACHS SSI SLOANE WEINER MD May 08, 2017 08:21
[2017-05-08] MEDS ORDERED: INFLUENZA TRIvalent 2017-2018 0.5 ML/45 MCG SYR IM ONE (08:30)
[2017-05-08] MEDS: ASPIRIN E.C. 81 MG (ECOTRIN) TAB PO SCH (08:32)
[2017-05-08] MEDS ORDERED: ASPIRIN 325 MG (5 GR) TABLET PO SCH (09:00)
--- NOTE | 2017-05-08 09:17 | Progress Note-Cardiology ---
Cardiology SOAP Progress Note Subjective: Sitting up in bed. Off of Bi-pap. States she feels much better today. She continues to feel short of breath, but better. No c/o CP or palpitations. Continues to desire conservative tx. Son at the bedside. Objective: I&O/Vital Signs Vital Sign - Last 12Hours 05/07/17 05/07/17 05/08/17 05/08/17 22:26 22:49 00:00 01:00 Temp 96.7 Pulse 79 78 72 Resp 23 20 B/P (MAP) 116/60 (78) Pulse Ox 94 97 O2 Delivery NIV Bilevel NIV Bilevel O2 Flow Rate 45.00 40.00 05/08/17 05/08/17 05/08/17 05/08/17 01:17 03:37 04:00 05:20 Temp 97.8 Pulse 71 74 79 75 Resp 21 19 28 21 B/P (MAP) 151/65 (93) Pulse Ox 97 97 99 94 O2 Delivery NIV Bilevel O2 Flow Rate 40.00 40.00 40.00 05/08/17 05/08/17 05/08/17 05/08/17 06:45 06:51 08:00 08:26 Temp 97.8 Pulse 80 93 Resp 23 16 B/P (MAP) 146/62 (90) Pulse Ox 98 96 93 92 O2 Delivery High Flow N/C High Flow N/C High Flow N/C O2 Flow Rate 40.00 5.00 5.00 5.00 Intake and Output 05/08/17 00:00 Intake Total 0 ml Output Total 250 ml Balance -250 ml Weight (Pounds): 130 Weight (Ounces): 2.0 Weight (Calculated Kilograms): 59.614800 Constitutional: AAO x 3 Respiratory: crackles, rhonchi (scattered) Cardiovascular: regular rate-rhythm, S1 and S2, systolic murmur Gastrointestional: No tender, soft, audible bowel sounds Extremities: No significant edema Neurologic/Psychiatric: grossly intact Skin: No rash, No ulcerations Results/Procedures: Labs Laboratory Tests 05/07/17 11:40: White Blood Count 35.0*H, Red Blood Count 5.84, Hemoglobin 14.1, Hematocrit 45, Mean Corpuscular Volume 77L, Mean Corpuscular Hemoglobin 24L, Mean Corpuscular Hemoglobin Concent 32, Red Cell Distribution Width 16.0H, Platelet Count 461H, Mean Platelet Volume 9.8, Neutrophils (%) (Auto) 92H, Lymphocytes (%) (Auto) 3L , Monocytes (%) (Auto) 5, Eosinophils (%) (Auto) 0, Basophils (%) (Auto) 0, Neutrophils # (Auto) 32.0H, Lymphocytes # (Auto) 0.9L, Monocytes # (Auto) 1.9H, Eosinophils # (Auto) 0.0, Basophils # (Auto) 0.1, Neutrophils % (Manual) 93, Lymphocytes % (Manual) 4, Monocytes % (Manual) 3, Eosinophils % (Manual) 0, Basophils % (Manual) 0, Band Neutrophils 0, Anisocytosis MODERATE, Sodium Level 139, Potassium Level 4.2, Chloride Level 95L, Carbon Dioxide Level 23, Anion Gap 21H, Blood Urea Nitrogen 26H, Creatinine 0.85, Estimat Glomerular Filtration Rate > 60, BUN/Creatinine Ratio 31, Glucose Level 357H, Calcium Level 10.2H, Total Bilirubin 0.8, Aspartate Amino Transf (AST/SGOT) 16, Alanine Aminotransferase (ALT/SGPT) 14, Alkaline Phosphatase 202H, Total Protein 8.3H, Albumin 3.6 05/07/17 11:49: Troponin I 0.47*H, B-Type Natriuretic Peptide 1251.6H 05/07/17 11:50: Lactic Acid Level 5.67*H 05/07/17 11:53: Blood Gas Puncture Site r rad, Blood Gas Patient Temperature 96.9, Arterial Blood pH 7.40, Arterial Blood Partial Pressure CO2 41, Arterial Blood Partial Pressure O2 101H, Arterial Blood HCO3 25, Arterial Blood Total CO2 26.5, Arterial Blood Oxygen Saturation 99, Arterial Blood Base Excess 0.7, Jossue Test YES-POS, Blood Gas Ventilator Setting NO, Blood Gas Inspired Oxygen 60% bipap 05/07/17 14:10: Lactic Acid Level 5.15*H 05/07/17 15:58: Glucometer 321H 05/07/17 16:50: 05/07/17 17:21: Sodium Level 142, Potassium Level 3.2L, Chloride Level 99, Carbon Dioxide Level 27, Anion Gap 16H, Blood Urea Nitrogen 28H, Creatinine 0.95, Estimat Glomerular Filtration Rate 58, BUN/Creatinine Ratio 29, Glucose Level 369H, Calcium Level 9.6, Troponin I 1.82*H 05/07/17 18:01: Glucometer 344H 05/07/17 23:21: Glucometer 237H 05/08/17 05:03: Glucometer 219H 05/08/17 05:45: White Blood Count 26.9H, Red Blood Count 4.78, Hemoglobin 11.6, Hematocrit 37, Mean Corpuscular Volume 78L, Mean Corpuscular Hemoglobin 24L, Mean Corpuscular Hemoglobin Concent 31L, Red Cell Distribution Width 15.7H, Platelet Count 273, Mean Platelet Volume 10.0, Neutrophils (%) (Auto) 94H, Lymphocytes (%) (Auto) 4L , Monocytes (%) (Auto) 2, Eosinophils (%) (Auto) 0, Basophils (%) (Auto) 0, Neutrophils # (Auto) 25.4H, Lymphocytes # (Auto) 1.0, Monocytes # (Auto) 0.5, Eosinophils # (Auto) 0.0, Basophils # (Auto) 0.1, Sodium Level 144, Potassium Level 3.0L, Chloride Level 103, Carbon Dioxide Level 26, Anion Gap 15H, Blood Urea Nitrogen 31H, Creatinine 0.78, Estimat Glomerular Filtration Rate > 60, BUN /Creatinine Ratio 40, Glucose Level 249H, Lactic Acid Level 1.30, Calcium Level 9.3, Magnesium Level 1.7L, Total Bilirubin 0.5, Aspartate Amino Transf (AST/SGOT ) 17, Alanine Aminotransferase (ALT/SGPT) 13, Alkaline Phosphatase 142H, Total Protein 6.6, Albumin 3.0L Microbiology 05/07/17 Influenza Types A,B Antigen (ANATOLY) - Final, Complete Laboratory Tests 05/07/17 11:40 05/07/17 17:21 05/08/17 05:45 A/P: Assessment: Multi-factorial respiratory failure - refuses intubation Acute exac of COPD due to pneumonia Acute diastolic CHF Pneumonia with sepsis - management per Medical Services Elevated troponin likely r/t hypoxia. No evidence of acute NH H/O CABG approx 3 years ago at [facility] in [place], [place] - details unknown H/O left CEA - details unknown HTN HLP DM Type 2 Tobaccoism - cessation advised Hypokalemia likely d/t diuretics - replace Desires conservative tx; DNI, DNR Plan: Complex management issue Respiratory failure which is multifactorial Pneumonia with sepsis which is being managed by medical services Acute exacerbation of COPD which is being managed by medical services She has a h/o CAD with CABG in the past at [facility] in [place], [place], details of which are unknown - we have requested records She wishes to be managed conservatively She does not wish to be intubated We will manage empirically Continue diuretics Echocardiogram today to evaluate LVEF We will restart Lisinopril at lower dose for BP Monitor lab Replace potassium Physician Assessment Physician Assessment Notes some improvement of shortness of breath compared to yesterday. Currently off BiPAP. Denies cp or palp or syncope. Her son by her bedside Mildly to moderately dyspneic Cor: reg, tachy (improved compared to yesterday) Lungs: diminished air entry at the bases; increased exp phase; scattered wheezes Ext: no c/c/e A&R * As documented in our note above that I updated (italics) and as noted below * I discussed her CV issues with her and her son * She wishes to be managed conservatively and empirically. Does not wish to be resuscitated in case of card/resp arrest * Use beta-nas for heart rate control * Diuretics as needed and as tolerated for CHF * Replenish K * Resume WAYLON-inhibitor * Echo to eval EF and valve function * Monitor labs closely * Continue aspirin because of h/o CAD JANELLE BRANNON May 08, 2017 09:17 NOE RUIZ MD FACP [facility] May 08, 2017 09:35
[2017-05-08] MEDS ORDERED: lisINopril 10 MG (PRINIVIL) TAB PO NR (09:30)
[2017-05-08] MEDS: MAGNESIUM 1 GM/100 ML IVPB 100 ML IV SCH ×2 (09:54→10:52)
[2017-05-08 12:00] VITALS: BP 144/66
[2017-05-08] MEDS ORDERED: NICOTINE 21 MG (NICODERM) PATCH TD NR (12:45)
[2017-05-08] MEDS: ENOXAPARIN 40 MG/0.4 ML (LOVENOX) SYR SC SCH (13:29)
[2017-05-08 16:00] VITALS: BP 132/63
[2017-05-08] MEDS: guaiFENesin/DM (ROBITUSSIN DM) 10 ML UDC PO PRN ×2 (17:43→21:48)
[2017-05-08 19:05] VITALS: BP 135/61
[2017-05-08] MEDS: LORazepam INJ 2 MG/ML (ATIVAN) VIAL IVP PRN (21:48)
[2017-05-08] MEDS: inSUlin (REGULAR) HUMAN 1 UNIT/0.01 ML (CHARGE PER UNIT) SC SCH (21:48)
[2017-05-09] VITALS: BP 134/63
[2017-05-09] MEDS: RT-ALBUTEROL/IPRATROPIUM 3 ML (DUONEB) VIAL INH SCH ×5 (01:06→23:05)
[2017-05-09 04:00] VITALS: BP 133/60
[2017-05-09] MEDS: guaiFENesin/DM (ROBITUSSIN DM) 10 ML UDC PO PRN ×4 (04:19→19:35)
[2017-05-09] MEDS: PIPERACILLIN SODIUM/TAZOBACTAM 4.5 GM in NS (IVPB) 100 ML IV SCH ×3 (04:20→20:05)
[2017-05-09 05:33] LABS: BASOPHILS # (AUTO) 0.1 10^3/uL (0.0-0.1); BASOPHILS % (AUTO) 0 % (0-10); EOSINOPHILS % (AUTO) 0 % (0-10); LYMPHOCYTES # (AUTO) 1.4 X 10^3 (1.0-4.0); LYMPHOCYTES % (AUTO) 4 % (12-44); MEAN CORPUSCULAR HEMOGLOBIN 24 PG (25-34); MEAN CORPUSCULAR HGB CONC 30 G/DL (32-36); MEAN CORPUSCULAR VOLUME 79 FL (80-99); MEAN PLATELET VOLUME 10.3 FL (7.4-10.4); MONOCYTES # (AUTO) 0.8 X 10^3 (0.0-1.0); MONOCYTES % (AUTO) 2 % (0-12); NEUTROPHILS # (AUTO) 31.2 X 10^3 (1.8-7.8); NEUTROPHILS % (AUTO) 93 % (42-75); PLATELET COUNT 276 10^3/uL (130-400); RED BLOOD COUNT 4.83 10^6/uL (4.35-5.85)
[2017-05-09 05:54] LABS: WHITE BLOOD COUNT 33.4 10^3/uL (4.3-11.0)
[2017-05-09 05:57] LABS: ALANINE AMINOTRANSFERASE 20 U/L (0-55); ALBUMIN 2.9 GM/DL (3.2-4.5); ANION GAP 12 MMOL/L (5-14); ASPARTATE AMINO TRANSFERASE 28 U/L (5-34); BILIRUBIN,TOTAL 0.3 MG/DL (0.1-1.0); BLOOD UREA NITROGEN 31 MG/DL (7-18); BUN/CREATININE RATIO 42; CALCIUM 8.9 MG/DL (8.5-10.1); CARBON DIOXIDE 25 MMOL/L (21-32); CHLORIDE 108 MMOL/L (98-107); CREATININE SERUM 0.74 MG/DL (0.60-1.30); GFR ESTIMATED > 60; GLUCOSE 229 MG/DL (70-105); MAGNESIUM 2.2 MG/DL (1.8-2.4); POTASSIUM 3.8 MMOL/L (3.6-5.0); SODIUM 145 MMOL/L (135-145); TOTAL PROTEIN 6.5 GM/DL (6.4-8.2)
[2017-05-09] MEDS: FUROSEMIDE 40 MG/4 ML INJ (LASIX) IV SCH (06:03)
[2017-05-09] MEDS: methylPREDNISolone 125 MG (Solu-MEDROL) VIAL IV SCH (06:03)
[2017-05-09] MEDS: KCL 10 MEQ TAB (MICRO K) PO SCH (06:03)
[2017-05-09] MEDS: inSUlin (REGULAR) HUMAN 1 UNIT/0.01 ML (CHARGE PER UNIT) SC SCH ×4 (06:04→20:43)
--- NOTE | 2017-05-09 08:17 | Progress Note-Hospitalist ---
Subjective HPI/CC On Admission Date Seen by Provider: May 09, 2017 Time Seen by Provider: 08:00 Pt is a 67yoCF with a PMH of COPD, CAD s/p bypass who presented to the ER with CC of SOB. She was found to be satting in high 70s on arrival and was quickly escalated to BiPAP for respiratory support. She was on BiPAP during my exam. She denied cough or sputum production and only felt short of breath. She states she feels she's breathing better now than on arrival. She denies any fevers or chills. She reports she has been on a ventilator before and she would never want that again. I discussed with her and her son the severity of her illness and she states she would like ot continue on BiPAP and receiving antibiotics but she wants no further escalation of care (including central line, pressors, high volume fluid boluses, transfer to ICU). Her son believes this is consistent with previous statements but is not sure as she has only previously said she did not want intubated. Pt states her granddaughter Emma has her advanced directive and when questioned by her son about options for care she again declined fluids, pressors, central lines, etc. She did request medication to help her breath more comfortably and was agreeable to IV morphine for that. Subjective/Events-last exam Pt reports doing well this AM. Still feels wheezy but much improved. Objective Exam Vital Signs Vital Sign - Last 12Hours 05/07/17 05/07/17 05/07/17 11:38 12:06 13:40 Temp 97.3 Pulse 124 Resp 32 B/P (MAP) 193/52 (99) Pulse Ox 79 O2 Delivery Room Air O2 Flow Rate 45.00 FiO2 45 Capillary Refill : Less Than 3 SecondsLess Than 3 Seconds General Appearance: No Apparent Distress, WD/WN Respiratory: Lungs Clear, No Respiratory Distress Cardiovascular: No Murmur Gastrointestinal: Normal Bowel Sounds, Non Tender, Soft Genital/Rectal: Other (newsome in place with pink tinged urine) Extremity: Non Tender, No Calf Tenderness Neurologic/Psychiatric: Alert, Oriented x3 Results/Procedures Lab Laboratory Tests 05/09/17 04:47 Assessment/Plan Assessment and Plan Assess & Plan/Chief Complaint Pneumonia Diagnosis/Problems Diagnosis/Problems (1) Pneumonia Status: Acute Assessment & Plan: On Zosyn, Day #3 High risk CAP given COPD Continue management as above Await cultures- blood cx negative Rapid Flu negative (2) Septic shock Status: Resolved Assessment & Plan: WBC improving PNA on CXR Lactic acidosis resolved Continue Zosyn Sputum cx ordered- pending Await strep pna and legionella- pending She has declined any further fluid boluses, central line, or ICU level care after discussion of risks including so she did not receive her 30cc/kg bolus Palliative Care Consult, appreciate assistance (3) Respiratory distress Status: Acute Assessment & Plan: Pulm consulted, appreciate recs Off BiPAP- on NC MAT Protocol transition to oral steroids Not on oxygen at home (4) CAD (coronary artery disease) Status: Chronic Assessment & Plan: s/p CABG troponin elevated- management per cardiology ASA ordered Again has declined further escalation of care (5) Oliguria Status: Acute Assessment & Plan: Newsome in place for strict I/Os 0.71ml/kg/hr yesterday Will monitor today Does not want boluses so will manage conservatively Would likely tolerate small bolus if needed (6) Essential (primary) hypertension Assessment & Plan: Metoprolol (7) Non-insulin dependent type 2 diabetes mellitus Status: Chronic Assessment & Plan: Accu Elma [facility]CHS SLOANE CHOUDHURY MD May 09, 2017 08:17
[2017-05-09 08:18] VITALS: BP 152/83
[2017-05-09] MEDS: predniSONE 10 MG TAB PO SCH (09:07)
[2017-05-09] MEDS: lisINopril 10 MG (PRINIVIL) TAB PO SCH (09:08)
[2017-05-09] MEDS: ASPIRIN E.C. 81 MG (ECOTRIN) TAB PO SCH (09:08)
[2017-05-09] MEDS: NS IV 1000 ML 1,000 ML IV SCH ×2 (11:24→19:29)
--- NOTE | 2017-05-09 12:56 | Progress Note-Cardiology ---
Cardiology SOAP Progress Note Subjective: Notes some improvement of shortness of breath. Denies cp or palp or syncope. Anxious to return to home. Son by bedside Objective: I&O/Vital Signs Vital Sign - Last 12Hours 05/09/17 05/09/17 05/09/17 05/09/17 01:06 04:00 06:54 08:18 Temp 96.1 96.4 Pulse 76 92 Resp 20 22 B/P (MAP) 133/60 (84) 152/83 (106) Pulse Ox 94 97 92 94 O2 Delivery High Flow N/C High Flow N/C High Flow N/C High Flow N/C O2 Flow Rate 4.00 4.00 5.00 4.00 05/09/17 09:00 O2 Delivery High Flow N/C O2 Flow Rate 5.00 Intake and Output 05/09/17 00:00 Intake Total 1530 ml Output Total 825 ml Balance 705 ml Weight (Pounds): 135 Weight (Ounces): 0.0 Weight (Calculated Kilograms): 61.504918 Constitutional: AAO x 3 Respiratory: crackles, rhonchi (scattered) Cardiovascular: regular rate-rhythm, S1 and S2, systolic murmur Gastrointestional: No tender, soft, audible bowel sounds Extremities: No significant edema Neurologic/Psychiatric: grossly intact Skin: No rash, No ulcerations Results/Procedures: Labs Laboratory Tests 05/08/17 16:07: Glucometer 235H 05/08/17 20:49: Glucometer 217H 05/09/17 04:47: White Blood Count 33.4*H, Red Blood Count 4.83, Hemoglobin 11.6, Hematocrit 38, Mean Corpuscular Volume 79L, Mean Corpuscular Hemoglobin 24L, Mean Corpuscular Hemoglobin Concent 30L, Red Cell Distribution Width 16.0H, Platelet Count 276, Mean Platelet Volume 10.3, Neutrophils (%) (Auto) 93H, Lymphocytes (%) (Auto) 4L , Monocytes (%) (Auto) 2, Eosinophils (%) (Auto) 0, Basophils (%) (Auto) 0, Neutrophils # (Auto) 31.2H, Lymphocytes # (Auto) 1.4, Monocytes # (Auto) 0.8, Eosinophils # (Auto) 0.0, Basophils # (Auto) 0.1, Sodium Level 145, Potassium Level 3.8, Chloride Level 108H, Carbon Dioxide Level 25, Anion Gap 12, Blood Urea Nitrogen 31H, Creatinine 0.74, Estimat Glomerular Filtration Rate > 60, BUN /Creatinine Ratio 42, Glucose Level 229H, Calcium Level 8.9, Magnesium Level 2.2 , Total Bilirubin 0.3, Aspartate Amino Transf (AST/SGOT) 28, Alanine Aminotransferase (ALT/SGPT) 20, Alkaline Phosphatase 133, Total Protein 6.5, Albumin 2.9L 05/09/17 05:53: Glucometer 202H 05/09/17 11:15: Glucometer 232H Microbiology 05/07/17 Blood Culture - Preliminary, Resulted No growth 05/07/17 Influenza Types A,B Antigen (ANATOLY) - Final, Complete Laboratory Tests 05/07/17 17:21 05/08/17 05:45 05/09/17 04:47 A/P: Assessment: Multi-factorial respiratory failure - refuses intubation Acute exac of COPD due to pneumonia Acute diastolic CHF Pneumonia with sepsis - management per Medical Services Continuing marked leucocytosis, managed by the Med Svce Elevated troponin likely r/t hypoxia. No evidence of acute [place] H/O CABG approx 3 years ago at [facility] in [place], [place] - details unknown H/O left CEA - details unknown HTN HLP DM Type 2 Tobaccoism - cessation advised Hypokalemia likely d/t diuretics - improved Desires conservative tx; DNI, DNR Plan: Complex management due to multiple comorbidities (see above) She wishes to be managed conservatively Monitor labs NOE RUIZ MD FACP [facility] May 09, 2017 12:56
[2017-05-09 12:57] VITALS: BP 163/87
[2017-05-09] MEDS ORDERED: NICOTINE PATCH REMOVAL TP SCH (13:00)
[2017-05-09] MEDS: ENOXAPARIN 40 MG/0.4 ML (LOVENOX) SYR SC SCH (13:15)
[2017-05-09] MEDS: NICOTINE 21 MG (NICODERM) PATCH TD SCH (15:06)
[2017-05-09 15:24] VITALS: BP 152/67
[2017-05-09 19:10] VITALS: BP 136/65
[2017-05-09] MEDS: LORazepam INJ 2 MG/ML (ATIVAN) VIAL IVP PRN (20:05)
[2017-05-09] MEDS: morphine INJ 4 MG/ML 1 ML (VIAL/SYRINGE) IVP PRN (22:42)
[2017-05-10] VITALS: BP 137/73
[2017-05-10] MEDS: guaiFENesin/DM (ROBITUSSIN DM) 10 ML UDC PO PRN ×3 (00:01→13:12)
[2017-05-10] MEDS: morphine INJ 4 MG/ML 1 ML (VIAL/SYRINGE) IVP PRN ×2 (00:31→13:12)
[2017-05-10] MEDS: RT-ALBUTEROL/IPRATROPIUM 3 ML (DUONEB) VIAL INH SCH ×8 (00:57→22:54)
[2017-05-10 04:00] VITALS: BP 116/68
[2017-05-10] MEDS: PIPERACILLIN SODIUM/TAZOBACTAM 4.5 GM in NS (IVPB) 100 ML IV SCH ×3 (04:10→20:40)
[2017-05-10] MEDS: inSUlin (REGULAR) HUMAN 1 UNIT/0.01 ML (CHARGE PER UNIT) SC SCH ×4 (06:09→20:40)
[2017-05-10] MEDS: KCL 10 MEQ TAB (MICRO K) PO SCH (06:10)
[2017-05-10] MEDS: FUROSEMIDE 40 MG/4 ML INJ (LASIX) IV SCH (06:10)
[2017-05-10] MEDS: NS IV 1000 ML 1,000 ML IV SCH (06:10)
[2017-05-10 06:32] LABS: BASOPHILS % (AUTO) 0 % (0-10); EOSINOPHILS % (AUTO) 0 % (0-10); LYMPHOCYTES # (AUTO) 1.9 X 10^3 (1.0-4.0); LYMPHOCYTES % (AUTO) 9 % (12-44); MEAN CORPUSCULAR HEMOGLOBIN 24 PG (25-34); MEAN CORPUSCULAR HGB CONC 31 G/DL (32-36); MEAN CORPUSCULAR VOLUME 79 FL (80-99); MEAN PLATELET VOLUME 9.7 FL (7.4-10.4); MONOCYTES # (AUTO) 1.1 X 10^3 (0.0-1.0); MONOCYTES % (AUTO) 5 % (0-12); NEUTROPHILS # (AUTO) 17.2 X 10^3 (1.8-7.8); NEUTROPHILS % (AUTO) 85 % (42-75); PLATELET COUNT 249 10^3/uL (130-400); RED BLOOD COUNT 4.81 10^6/uL (4.35-5.85); RED CELL DISTRIBUTION WIDTH 15.7 % (10.0-14.5); WHITE BLOOD COUNT 20.2 10^3/uL (4.3-11.0)
[2017-05-10 06:51] LABS: ALANINE AMINOTRANSFERASE 19 U/L (0-55); ANION GAP 11 MMOL/L (5-14); ASPARTATE AMINO TRANSFERASE 16 U/L (5-34); BILIRUBIN,TOTAL 0.4 MG/DL (0.1-1.0); BLOOD UREA NITROGEN 29 MG/DL (7-18); BUN/CREATININE RATIO 41; CALCIUM 8.7 MG/DL (8.5-10.1); CARBON DIOXIDE 29 MMOL/L (21-32); CHLORIDE 104 MMOL/L (98-107); CREATININE SERUM 0.71 MG/DL (0.60-1.30); GFR ESTIMATED > 60; GLUCOSE 120 MG/DL (70-105); POTASSIUM 3.4 MMOL/L (3.6-5.0); SODIUM 144 MMOL/L (135-145)
[2017-05-10] MEDS: predniSONE 10 MG TAB PO SCH (07:52)
[2017-05-10] MEDS: ASPIRIN E.C. 81 MG (ECOTRIN) TAB PO SCH (07:52)
[2017-05-10] MEDS: lisINopril 10 MG (PRINIVIL) TAB PO SCH (07:52)
[2017-05-10] MEDS: NICOTINE 21 MG (NICODERM) PATCH TD SCH (07:52)
[2017-05-10 08:00] VITALS: BP 149/71
--- NOTE | 2017-05-10 11:19 | Progress Note-Hospitalist ---
Subjective HPI/CC On Admission Date Seen by Provider: May 10, 2017 Time Seen by Provider: 11:00 Pt is a 67yoCF with a PMH of COPD, CAD s/p bypass who presented to the ER with CC of SOB. She was found to be satting in high 70s on arrival and was quickly escalated to BiPAP for respiratory support. She was on BiPAP during my exam. She denied cough or sputum production and only felt short of breath. She states she feels she's breathing better now than on arrival. She denies any fevers or chills. She reports she has been on a ventilator before and she would never want that again. I discussed with her and her son the severity of her illness and she states she would like ot continue on BiPAP and receiving antibiotics but she wants no further escalation of care (including central line, pressors, high volume fluid boluses, transfer to ICU). Her son believes this is consistent with previous statements but is not sure as she has only previously said she did not want intubated. Pt states her granddaughter Emma has her advanced directive and when questioned by her son about options for care she again declined fluids, pressors, central lines, etc. She did request medication to help her breath more comfortably and was agreeable to IV morphine for that. Subjective/Events-last exam patient is awake and alert and has to go home today. She says she wears oxygen at home. Has no complaints. She remains a little wheezy but says she gets that way Review of Systems Pulmonary: Dyspnea Neurological: Weakness Objective Exam Vital Signs Vital Sign - Last 12Hours 05/07/17 05/07/17 05/07/17 11:38 12:06 13:40 Temp 97.3 Pulse 124 Resp 32 B/P (MAP) 193/52 (99) Pulse Ox 79 O2 Delivery Room Air O2 Flow Rate 45.00 FiO2 45 Capillary Refill : Less Than 3 SecondsLess Than 3 Seconds General Appearance: No Apparent Distress, WD/WN HEENT: Other (left eye deviates to the left) Neck: Supple Respiratory: Wheezing Cardiovascular: Regular Rate, Rhythm, No Gallop Gastrointestinal: No Organomegaly, Non Tender, Soft Extremity: Non Tender, No Calf Tenderness, No Pedal Edema Neurologic/Psychiatric: Alert, Oriented x3, No Motor/Sensory Deficits, Normal Mood/Affect Skin: Normal Color, Warm/Dry Results/Procedures Lab Laboratory Tests 05/10/17 06:25 Assessment/Plan Assessment and Plan Assess & Plan/Chief Complaint (1) Pneumonia Status: Acute Assessment & Plan: On Zosyn, Day #4 High risk CAP given COPD Continue management as above Await cultures- blood cx negative Rapid Flu negative (2) Septic shock Status: Resolved Assessment & Plan: WBC improving-currently at 20,000 PNA on CXR Lactic acidosis resolved Continue Zosyn Sputum cx ordered- results not found it does not appear that this is been collected Await strep pna and legionella- pending She has declined any further fluid boluses, central line, or ICU level care after discussion of risks including so she did not receive her 30cc/kg bolus Palliative Care Consult, appreciate assistance (3) Respiratory distress Status: Acute Assessment & Plan: Pulm consulted, appreciate recs Off BiPAP- on NC MAT Protocol transition to oral steroids Will need oxygen at home (4) CAD (coronary artery disease) Status: Chronic Assessment & Plan: s/p CABG troponin elevated- management per cardiology ASA ordered Again has declined further escalation of care (5) Oliguria Status: Acute-resolving GFR greater than 60. Patient is eating and drinking without problems so will DC IV fluids at this time Assessment & Plan: DC Caro catheter (6) Essential (primary) hypertension Assessment & Plan: Metoprolol (7) Non-insulin dependent type 2 diabetes mellitus Status: Chronic Assessment & Plan: Accu CECILIA Espana MD May 10, 2017 11:19
[2017-05-10] MEDS: ENOXAPARIN 40 MG/0.4 ML (LOVENOX) SYR SC SCH (13:12)
--- NOTE | 2017-05-10 13:53 | Progress Note-Cardiology ---
Cardiology SOAP Progress Note Subjective: No cp, palp, syncope. Shortness of breath better compared to the time of admission Objective: I&O/Vital Signs Vital Sign - Last 12Hours 05/10/17 05/10/17 05/10/17 05/10/17 03:12 04:00 06:22 06:23 Temp 96.4 Pulse 72 73 Resp 18 B/P (MAP) 116/68 (84) Pulse Ox 94 97 93 93 O2 Delivery High Flow N/C High Flow N/C High Flow N/C O2 Flow Rate 5.00 4.00 5.00 FiO2 40 05/10/17 05/10/17 05/10/17 07:59 08:00 10:13 Temp 96.1 Pulse 69 Resp 16 B/P (MAP) 149/71 (97) Pulse Ox 96 94 O2 Delivery High Flow N/C High Flow N/C High Flow N/C O2 Flow Rate 5.00 5.00 5.00 Intake and Output 05/10/17 00:00 Intake Total 1490 ml Output Total 1376 ml Balance 114 ml Weight (Pounds): 142 Weight (Ounces): 0.0 Weight (Calculated Kilograms): 64.351189 Constitutional: AAO x 3 Respiratory: crackles, rhonchi (scattered) Cardiovascular: regular rate-rhythm, S1 and S2, systolic murmur Gastrointestional: No tender, soft, audible bowel sounds Extremities: No significant edema Neurologic/Psychiatric: grossly intact Skin: No rash, No ulcerations Results/Procedures: Labs Laboratory Tests 05/09/17 16:01: Glucometer 195H 05/09/17 20:21: Glucometer 295H 05/10/17 05:58: Glucometer 130H 05/10/17 06:25: White Blood Count 20.2H, Red Blood Count 4.81, Hemoglobin 11.7, Hematocrit 38, Mean Corpuscular Volume 79L, Mean Corpuscular Hemoglobin 24L, Mean Corpuscular Hemoglobin Concent 31L, Red Cell Distribution Width 15.7H, Platelet Count 249, Mean Platelet Volume 9.7, Neutrophils (%) (Auto) 85H, Lymphocytes (%) (Auto) 9L , Monocytes (%) (Auto) 5, Eosinophils (%) (Auto) 0, Basophils (%) (Auto) 0, Neutrophils # (Auto) 17.2H, Lymphocytes # (Auto) 1.9, Monocytes # (Auto) 1.1H, Eosinophils # (Auto) 0.0, Basophils # (Auto) 0.0, Sodium Level 144, Potassium Level 3.4L, Chloride Level 104, Carbon Dioxide Level 29, Anion Gap 11, Blood Urea Nitrogen 29H, Creatinine 0.71, Estimat Glomerular Filtration Rate > 60, BUN /Creatinine Ratio 41, Glucose Level 120H, Calcium Level 8.7, Total Bilirubin 0.4 , Aspartate Amino Transf (AST/SGOT) 16, Alanine Aminotransferase (ALT/SGPT) 19, Alkaline Phosphatase 111, Total Protein 6.0L, Albumin 3.0L 05/10/17 11:26: Glucometer 169H Microbiology 05/07/17 Blood Culture - Preliminary, Resulted No growth 05/07/17 Influenza Types A,B Antigen (ANATOLY) - Final, Complete Laboratory Tests 05/09/17 04:47 05/10/17 06:25 A/P: Assessment: Multi-factorial respiratory failure, clinically better, requires continuous supplemental oxyten Acute exac of COPD due to pneumonia Acute diastolic CHF Pneumonia with sepsis - management per Medical Services Continuing marked leucocytosis, managed by the Med Svce Elevated troponin likely r/t hypoxia. No evidence of acute [place] H/O CABG approx 3 years ago at [facility] in [place], [place] - details unknown H/O left CEA - details unknown HTN HLP DM Type 2 Tobaccoism - cessation advised Hypokalemia likely d/t diuretics - improved Desires conservative tx; DNI, DNR Plan: Complex management due to multiple comorbidities (see above) She wishes to be managed conservatively Monitor labs NOE RUIZ MD FACP [facility] May 10, 2017 13:53
[2017-05-10 15:52] VITALS: BP 143/60
[2017-05-10 17:47] VITALS: BP 143/60
[2017-05-10 19:32] VITALS: BP 153/78
[2017-05-10] MEDS: LORazepam INJ 2 MG/ML (ATIVAN) VIAL IVP PRN (22:21)
[2017-05-11] VITALS (7 sets, daily range): BP systolic 104–173; BP diastolic 53–75
[2017-05-11] MEDS: guaiFENesin/DM (ROBITUSSIN DM) 10 ML UDC PO PRN ×2 (01:15→06:30)
[2017-05-11] MEDS: RT-ALBUTEROL/IPRATROPIUM 3 ML (DUONEB) VIAL INH SCH ×6 (02:05→21:21)
[2017-05-11] MEDS: PIPERACILLIN SODIUM/TAZOBACTAM 4.5 GM in NS (IVPB) 100 ML IV SCH ×3 (04:02→20:01)
[2017-05-11 05:24] LABS: BASOPHILS % (AUTO) 0 % (0-10); EOSINOPHILS % (AUTO) 0 % (0-10); LYMPHOCYTES # (AUTO) 2.4 X 10^3 (1.0-4.0); LYMPHOCYTES % (AUTO) 18 % (12-44); MEAN CORPUSCULAR HEMOGLOBIN 24 PG (25-34); MEAN CORPUSCULAR HGB CONC 31 G/DL (32-36); MEAN CORPUSCULAR VOLUME 77 FL (80-99); MONOCYTES # (AUTO) 0.8 X 10^3 (0.0-1.0); MONOCYTES % (AUTO) 6 % (0-12); NEUTROPHILS # (AUTO) 10.2 X 10^3 (1.8-7.8); NEUTROPHILS % (AUTO) 76 % (42-75); PLATELET COUNT 199 10^3/uL (130-400); RED BLOOD COUNT 4.96 10^6/uL (4.35-5.85); RED CELL DISTRIBUTION WIDTH 15.1 % (10.0-14.5); WHITE BLOOD COUNT 13.5 10^3/uL (4.3-11.0)
[2017-05-11 05:47] LABS: ALANINE AMINOTRANSFERASE 15 U/L (0-55); ALBUMIN 2.6 GM/DL (3.2-4.5); ANION GAP 11 MMOL/L (5-14); ASPARTATE AMINO TRANSFERASE 16 U/L (5-34); BILIRUBIN,TOTAL 0.7 MG/DL (0.1-1.0); BLOOD UREA NITROGEN 19 MG/DL (7-18); BUN/CREATININE RATIO 28; CALCIUM 8.4 MG/DL (8.5-10.1); CARBON DIOXIDE 32 MMOL/L (21-32); CHLORIDE 98 MMOL/L (98-107); CREATININE SERUM 0.69 MG/DL (0.60-1.30); GFR ESTIMATED > 60; GLUCOSE 117 MG/DL (70-105); POTASSIUM 3.1 MMOL/L (3.6-5.0); SODIUM 141 MMOL/L (135-145); TOTAL PROTEIN 5.5 GM/DL (6.4-8.2)
[2017-05-11] MEDS: inSUlin (REGULAR) HUMAN 1 UNIT/0.01 ML (CHARGE PER UNIT) SC SCH ×4 (06:26→20:01)
[2017-05-11] MEDS: KCL 10 MEQ TAB (MICRO K) PO SCH (06:30)
--- NOTE | 2017-05-11 08:16 | Diagnostic Imaging Report ---
Portable upright radiograph of the chest. COMPARISON: 05/08/2017. INDICATION: Shortness of breath. FINDINGS: The heart is enlarged. There is pulmonary vascular congestion and increasing bibasilar infiltrates compared to 05/08/2017. There is a small left effusion and likely tiny right effusion. No pneumothorax. The mediastinum demonstrates post CABG changes with sternotomy wires seen. There is also a stent projecting over the upper mid thorax probably in the left common carotid artery. IMPRESSION: Increasing bibasilar infiltrates. Cardiomegaly with mild vascular congestion. Dictated by: Dictated on workstation # [id number]
--- NOTE | 2017-05-11 09:08 | Progress Note-Hospitalist ---
Subjective HPI/CC On Admission Date Seen by Provider: May 11, 2017 Time Seen by Provider: 07:00 Pt is a 67yoCF with a PMH of COPD, CAD s/p bypass who presented to the ER with CC of SOB. She was found to be satting in high 70s on arrival and was quickly escalated to BiPAP for respiratory support. She was on BiPAP during my exam. She denied cough or sputum production and only felt short of breath. She states she feels she's breathing better now than on arrival. She denies any fevers or chills. She reports she has been on a ventilator before and she would never want that again. I discussed with her and her son the severity of her illness and she states she would like ot continue on BiPAP and receiving antibiotics but she wants no further escalation of care (including central line, pressors, high volume fluid boluses, transfer to ICU). Her son believes this is consistent with previous statements but is not sure as she has only previously said she did not want intubated. Pt states her granddaughter Emma has her advanced directive and when questioned by her son about options for care she again declined fluids, pressors, central lines, etc. She did request medication to help her breath more comfortably and was agreeable to IV morphine for that. Subjective/Events-last exam patient complains of the room being cold and that she's having a little bit more shortness of breath. Her BNP has doubled up to over 2200.white count is down. She is anxious to be discharged tomorrow. Review of Systems Pulmonary: Dyspnea Objective Exam Vital Signs Vital Sign - Last 12Hours 05/07/17 05/07/17 05/07/17 11:38 12:06 13:40 Temp 97.3 Pulse 124 Resp 32 B/P (MAP) 193/52 (99) Pulse Ox 79 O2 Delivery Room Air O2 Flow Rate 45.00 FiO2 45 Capillary Refill : Less Than 3 SecondsLess Than 3 Seconds General Appearance: No Apparent Distress HEENT: Normal ENT Inspection Respiratory: No Accessory Muscle Use, No Respiratory Distress, Decreased Breath Sounds, Wheezing Cardiovascular: Regular Rate, Rhythm, Systolic Murmur Gastrointestinal: Soft Extremity: No Pedal Edema Neurologic/Psychiatric: Alert, Oriented x3, Normal Mood/Affect Results/Procedures Lab Laboratory Tests 05/11/17 05:05 Assessment/Plan Assessment and Plan Assess & Plan/Chief Complaint (1) Pneumonia Status: Acute Assessment & Plan: On Zosyn, Day #5 High risk CAP given COPD Continue management as above Await cultures- blood cx negative Rapid Flu negative chest x-ray appears to be worse with increased infiltrates although this may be related to fluid overload (2) Septic shock Status: Resolved Assessment & Plan: WBC improving-currently at 13.5 PNA on CXR Lactic acidosis resolved Continue Zosyn Sputum cx ordered- results not found it does not appear that this is been collected Await strep pna and legionella- pending She has declined any further fluid boluses, central line, or ICU level care after discussion of risks including so she did not receive her 30cc/kg bolus Palliative Care Consult, appreciate assistance (3) Respiratory distress Status: Acute Assessment & Plan: Pulm consulted, appreciate recs Off BiPAP- on [place] MAT Protocol transition to oral steroids Will need oxygen at home (4) CAD (coronary artery disease) Status: Chronic Assessment & Plan: s/p CABG troponin elevated- management per cardiology ASA ordered Again has declined further escalation of care (5) Oliguria Status: Acute-resolving GFR greater than 60. Patient is eating and drinking without problems so will DC IV fluids at this time Assessment & Plan: DC Caro catheter (6) Essential (primary) hypertension Assessment & Plan: Metoprolol (7) Non-insulin dependent type 2 diabetes mellitus Status: Chronic Assessment & Plan: Accu Elma ESPINOZA 8.congestive heart failure secondary to diastolic dysfunction with increased fluid overload and vascular congestion by chest x-ray. We'll give Lasix today and recheck BMP in the morning 9. Hypokalemia-we'll replace, and we'll check magnesium in the morning CECILIA SORIA MD May 11, 2017 09:08
[2017-05-11] MEDS: predniSONE 10 MG TAB PO SCH (09:39)
[2017-05-11] MEDS: lisINopril 10 MG (PRINIVIL) TAB PO SCH (09:40)
[2017-05-11] MEDS: ASPIRIN E.C. 81 MG (ECOTRIN) TAB PO SCH (09:40)
[2017-05-11] MEDS: NICOTINE 21 MG (NICODERM) PATCH TD SCH (09:40)
[2017-05-11] MEDS: FUROSEMIDE 40 MG/4 ML INJ (LASIX) IVP NR (09:40)
--- NOTE | 2017-05-11 12:13 | Progress Note-Cardiology ---
Cardiology SOAP Progress Note Subjective: Shortness of breath improved compared to day of adm No cp or palp or syncope Objective: I&O/Vital Signs Vital Sign - Last 12Hours 05/11/17 05/11/17 05/11/17 05/11/17 02:05 04:00 07:07 07:32 Temp 97.4 97.2 Pulse 72 91 Resp 20 26 B/P (MAP) 140/72 (94) 173/72 (105) Pulse Ox 92 91 90 90 O2 Delivery High Flow N/C Nasal Cannula High Flow N/C High Flow N/C O2 Flow Rate 2.00 2.00 2.00 3.00 05/11/17 05/11/17 09:00 11:15 Pulse Ox 90 O2 Delivery High Flow N/C High Flow N/C O2 Flow Rate 3.00 2.00 Intake and Output 05/11/17 00:00 Intake Total 1100 ml Output Total 3101 ml Balance -2001 ml Weight (Pounds): 137 Weight (Ounces): 9.0 Weight (Calculated Kilograms): 62.191134 Constitutional: AAO x 3 Respiratory: crackles, rhonchi (scattered) Cardiovascular: regular rate-rhythm, S1 and S2, systolic murmur Gastrointestional: No tender, soft, audible bowel sounds Extremities: No significant edema Neurologic/Psychiatric: grossly intact Skin: No rash, No ulcerations Results/Procedures: Labs Laboratory Tests 05/10/17 15:59: Glucometer 340H 05/10/17 20:31: Glucometer 141H 05/11/17 05:05: White Blood Count 13.5H, Red Blood Count 4.96, Hemoglobin 11.9, Hematocrit 38, Mean Corpuscular Volume 77L, Mean Corpuscular Hemoglobin 24L, Mean Corpuscular Hemoglobin Concent 31L, Red Cell Distribution Width 15.1H, Platelet Count 199, Mean Platelet Volume 10.0, Neutrophils (%) (Auto) 76H, Lymphocytes (%) (Auto) 18 , Monocytes (%) (Auto) 6, Eosinophils (%) (Auto) 0, Basophils (%) (Auto) 0, Neutrophils # (Auto) 10.2H, Lymphocytes # (Auto) 2.4, Monocytes # (Auto) 0.8, Eosinophils # (Auto) 0.0, Basophils # (Auto) 0.0, Sodium Level 141, Potassium Level 3.1L, Chloride Level 98, Carbon Dioxide Level 32, Anion Gap 11, Blood Urea Nitrogen 19H, Creatinine 0.69, Estimat Glomerular Filtration Rate > 60, BUN /Creatinine Ratio 28, Glucose Level 117H, Calcium Level 8.4L, Total Bilirubin 0.7, Aspartate Amino Transf (AST/SGOT) 16, Alanine Aminotransferase (ALT/SGPT) 15, Alkaline Phosphatase 94, B-Type Natriuretic Peptide 2488.8H, Total Protein 5.5L, Albumin 2.6L 05/11/17 10:52: Glucometer 188H Microbiology 05/07/17 Blood Culture - Preliminary, Resulted No growth 05/07/17 Influenza Types A,B Antigen (ANATOLY) - Final, Complete Laboratory Tests 05/10/17 06:25 05/11/17 05:05 A/P: Assessment: Multi-factorial respiratory failure, clinically better, requires continuous supplemental oxyten Acute exac of COPD due to pneumonia Acute diastolic CHF Pneumonia with sepsis - management per Medical Services Continuing marked leucocytosis, managed by the Med Svce Elevated troponin likely r/t hypoxia. No evidence of acute [place] H/O CABG approx 3 years ago at [facility] in [place], [place] - details unknown H/O left CEA - details unknown HTN HLP DM Type 2 Tobaccoism - cessation advised Hypokalemia likely d/t diuretics - improved Desires conservative tx; DNI, DNR Plan: Complex management due to multiple comorbidities (see above) She wishes to be managed conservatively Replenish K Monitor labs NOE RUIZ MD FACP [facility] CCDS May 11, 2017 12:13
[2017-05-11] MEDS: KCL 20 MEQ TAB (K-DUR) PO SCH (13:09)
[2017-05-11] MEDS: ENOXAPARIN 40 MG/0.4 ML (LOVENOX) SYR SC SCH (16:10)
[2017-05-11] MEDS: LORazepam INJ 2 MG/ML (ATIVAN) VIAL IVP PRN (21:38)
[2017-05-12] MEDS: RT-ALBUTEROL/IPRATROPIUM 3 ML (DUONEB) VIAL INH SCH ×3 (02:44→10:24)
[2017-05-12 03:17] VITALS: BP 144/63
[2017-05-12] MEDS: PIPERACILLIN SODIUM/TAZOBACTAM 4.5 GM in NS (IVPB) 100 ML IV SCH ×2 (04:45→11:42)
[2017-05-12] MEDS: inSUlin (REGULAR) HUMAN 1 UNIT/0.01 ML (CHARGE PER UNIT) SC SCH ×2 (05:00→11:42)
[2017-05-12 05:51] LABS: BASOPHILS % (AUTO) 0 % (0-10); EOSINOPHILS % (AUTO) 0 % (0-10); LYMPHOCYTES % (AUTO) 17 % (12-44); MEAN CORPUSCULAR HEMOGLOBIN 24 PG (25-34); MEAN CORPUSCULAR HGB CONC 32 G/DL (32-36); MEAN CORPUSCULAR VOLUME 76 FL (80-99); MEAN PLATELET VOLUME 10.4 FL (7.4-10.4); MONOCYTES # (AUTO) 0.7 X 10^3 (0.0-1.0); MONOCYTES % (AUTO) 6 % (0-12); NEUTROPHILS # (AUTO) 8.9 X 10^3 (1.8-7.8); NEUTROPHILS % (AUTO) 77 % (42-75); PLATELET COUNT 191 10^3/uL (130-400); RED BLOOD COUNT 5.06 10^6/uL (4.35-5.85); RED CELL DISTRIBUTION WIDTH 14.9 % (10.0-14.5); WHITE BLOOD COUNT 11.6 10^3/uL (4.3-11.0)
[2017-05-12 06:20] LABS: ALANINE AMINOTRANSFERASE 14 U/L (0-55); ALBUMIN 2.6 GM/DL (3.2-4.5); ANION GAP 13 MMOL/L (5-14); ASPARTATE AMINO TRANSFERASE 10 U/L (5-34); BILIRUBIN,TOTAL 0.8 MG/DL (0.1-1.0); BLOOD UREA NITROGEN 20 MG/DL (7-18); BUN/CREATININE RATIO 29; CALCIUM 8.2 MG/DL (8.5-10.1); CARBON DIOXIDE 35 MMOL/L (21-32); CHLORIDE 95 MMOL/L (98-107); CREATININE SERUM 0.68 MG/DL (0.60-1.30); GFR ESTIMATED > 60; GLUCOSE 114 MG/DL (70-105); MAGNESIUM 1.5 MG/DL (1.8-2.4); POTASSIUM 2.8 MMOL/L (3.6-5.0); SODIUM 143 MMOL/L (135-145); TOTAL PROTEIN 5.4 GM/DL (6.4-8.2)
[2017-05-12 06:44] LABS: LEGIONELLA PNEU ANTIGEN URINE Negative; STREP PNEUMOCOCCUS ANTIG Negative
--- NOTE | 2017-05-12 07:06 | Pulmonary Progress Note ---
Subjective Time Seen by Provider: 07:05 Subjective/Events-last exam PT appears to be doing better. Exam Exam Vital Signs Date Time Temp Pulse Resp B/P (MAP) Pulse Ox O2 Delivery O2 Flow Rate FiO2 05/12/17 03:17 97.7 70 16 144/63 (90) 100 High Flow N/C 3.00 05/12/17 02:44 97 High Flow N/C 4.00 05/11/17 23:50 96.4 73 16 127/64 (85) 94 High Flow N/C 3.00 05/11/17 21:21 90 High Flow N/C 3.00 05/11/17 20:00 95 Nasal Cannula 4.00 05/11/17 19:24 98.6 81 24 104/53 (70) 93 High Flow N/C 3.00 05/11/17 15:41 97.5 83 20 135/63 (87) 90 High Flow N/C 4.00 05/11/17 14:55 94 High Flow N/C 4.00 05/11/17 12:00 97.8 77 22 126/75 (92) 91 High Flow N/C 3.00 05/11/17 11:15 90 High Flow N/C 2.00 05/11/17 09:00 High Flow N/C 3.00 05/11/17 07:32 97.2 91 26 173/72 (105) 90 High Flow N/C 3.00 05/11/17 07:07 90 High Flow N/C 2.00 I & O 05/12/17 07:00 Intake Total 1160 ml Output Total 100 ml Balance 1060 ml General Appearance: No Apparent Distress HEENT: Normal ENT Inspection Neck: Supple Respiratory: No Accessory Muscle Use, No Respiratory Distress, Decreased Breath Sounds, Wheezing Cardiovascular: Regular Rate, Rhythm, Systolic Murmur Capillary Refill: Less Than 3 Seconds Gastrointestinal: normal bowel sounds, non tender, soft Extremity: No Pedal Edema Neurologic/Psychiatric: Alert, Oriented x3, Normal Mood/Affect Skin: Normal Color, Warm/Dry Results Lab Laboratory Tests 05/11/17 05:05 05/12/17 05:18 Assessment/Plan Assessment/Plan pneumonia - zoysn change to Augmentin if discharged. -IVF Acute respiratory failure -Pt is DNR CAD PT wants to go home. Continue prednisone taper. I will see her in my office in 2 -3 wks after discharge. 232 Clinical Quality Measures DVT/VTE Risk/Contraindication: Risk Factor Score Per Nursin RFS Level Per Nursing on Admit: 4+=Very High MARGARITA CHAMORRO DO May 12, 2017 07:06
[2017-05-12 08:00] VITALS: BP 127/76
[2017-05-12] MEDS: predniSONE 10 MG TAB PO SCH (08:52)
[2017-05-12] MEDS: lisINopril 10 MG (PRINIVIL) TAB PO SCH (08:52)
[2017-05-12] MEDS: NICOTINE 21 MG (NICODERM) PATCH TD SCH (08:52)
[2017-05-12] MEDS: ASPIRIN E.C. 81 MG (ECOTRIN) TAB PO SCH (08:52)
--- NOTE | 2017-05-12 11:08 | Progress Note-Hospitalist ---
Standard Progress Note Progress Notes/Assess & Plan Date Seen 05/12/17 Time Seen by Provider: 11:02 Diagnosis Septic Shock Assess & Plan/Chief Complaint The patient is anxious to go home. She reports she is dedicated to giving up smoking once and for all. She states that recently she has been smoking only about 8 cigarettes per day. Her oxygen testing qualifies her for home oxygen. She has no other immediate complaints. Physical exam: She appears much older than stated age. CV is regular. Lungs show very distant breath sounds without wheezing or rhonchi. Extremities show no pedal edema. Impression: Severe COPD with home oxygen requirements. 2.septic shock/ pneumonia now resolved. 3.coronary artery disease. 4.zhr-poeuuwa-nnhltljvc diabetes mellitus. 5.hypertension. Plan: Discharge to home. Arranged for home oxygen. SEE discharge sequence for medications and routines. Labs Laboratory Tests 05/11/17 05:05 05/12/17 05:18 KRISTIAN BURROUGHS MD May 12, 2017 11:08
[2017-05-12] MEDS ORDERED: Omnicef (11:19)
--- NOTE | 2017-05-12 11:26 | Discharge Summary-Hospitalist ---
Diagnosis/Chief Complaint Date of Admission May 07, 2017 at 12:29 Date of Discharge 05/12/17 Discharge Time: 11:21 Admission Diagnosis Septic Shock. 2.apparent pneumonia. 3.severe COPD. 4.coronary artery disease post-coronary artery bypass grafting. 5.diabetes mellitus type II, non-insulin- requiring Discharge Diagnosis (1) Pneumonia Status: Acute Assessment & Plan: On Zosyn, Day #3 High risk CAP given COPD Continue management as above Await cultures- blood cx negative Rapid Flu negative (2) Septic shock Status: Resolved Assessment & Plan: WBC improving PNA on CXR Lactic acidosis resolved Continue Zosyn Sputum cx ordered- pending Await strep pna and legionella- pending She has declined any further fluid boluses, central line, or ICU level care after discussion of risks including so she did not receive her 30cc/kg bolus Palliative Care Consult, appreciate assistance (3) Respiratory distress Status: Acute Assessment & Plan: Pulm consulted, appreciate recs Off BiPAP- on [place] MAT Protocol transition to oral steroids Not on oxygen at home (4) CAD (coronary artery disease) Status: Chronic Assessment & Plan: s/p CABG troponin elevated- management per cardiology ASA ordered Again has declined further escalation of care (5) Oliguria Status: Acute Assessment & Plan: Caro in place for strict I/Os 0.71ml/kg/hr yesterday Will monitor today Does not want boluses so will manage conservatively Would likely tolerate small bolus if needed (6) Essential (primary) hypertension Assessment & Plan: Metoprolol (7) Non-insulin dependent type 2 diabetes mellitus Status: Chronic Assessment & Plan: Accu Cheks ACHS SSI Discharge Summary Discharge Physical Examination Allergies: Coded Allergies: No Known Drug Allergies (Unverified , 05/07/17) Vitals & I&Os Vital Signs Date Time Temp Pulse Resp B/P (MAP) Pulse Ox O2 Delivery O2 Flow Rate FiO2 05/12/17 10:48 91 3.50 05/12/17 10:27 High Flow N/C 05/12/17 08:00 98.9 83 18 127/76 (93) 05/10/17 06:23 40 Hospital Course The patient is a 67-year-old white female who appeared in the emergency room on 05/07 with complaints of severe shortness of breath and dwindling capabilities. She had smoked on the morning of her presentation. She showed considerable hypoxia. This improved with BiPAP. She made it very clear in the emergency room and reiterated her wishes after admission. She desired no extreme measures. This included fluid resuscitation, pressors, intubation, or chest compressions. She was treated with Zosyn and vancomycin. She improved steadily. She strongly desires discharge today. This will be accommodated. Oxygen testing is qualifying for home oxygen. This will be arranged. She promises to stop smoking and states that she had in fact presently been smoking only about 8 cigarettes per day. Her prognosis is quite guarded. She is to return to the [facility] in [place]. Labs (last 24 hrs) Laboratory Tests 05/11/17 15:13: Glucometer 328H 05/11/17 19:51: Glucometer 326H 05/12/17 04:58: Glucometer 118H 05/12/17 05:18: White Blood Count 11.6H, Red Blood Count 5.06, Hemoglobin 12.1, Hematocrit 38, Mean Corpuscular Volume 76L, Mean Corpuscular Hemoglobin 24L, Mean Corpuscular Hemoglobin Concent 32, Red Cell Distribution Width 14.9H, Platelet Count 191, Mean Platelet Volume 10.4, Neutrophils (%) (Auto) 77H, Lymphocytes (%) (Auto) 17 , Monocytes (%) (Auto) 6, Eosinophils (%) (Auto) 0, Basophils (%) (Auto) 0, Neutrophils # (Auto) 8.9H, Lymphocytes # (Auto) 2.0, Monocytes # (Auto) 0.7, Eosinophils # (Auto) 0.0, Basophils # (Auto) 0.0, Sodium Level 143, Potassium Level 2.8L, Chloride Level 95L, Carbon Dioxide Level 35H, Anion Gap 13, Blood Urea Nitrogen 20H, Creatinine 0.68, Estimat Glomerular Filtration Rate > 60, BUN /Creatinine Ratio 29, Glucose Level 114H, Calcium Level 8.2L, Magnesium Level 1.5L, Total Bilirubin 0.8, Aspartate Amino Transf (AST/SGOT) 10, Alanine Aminotransferase (ALT/SGPT) 14, Alkaline Phosphatase 84, B-Type Natriuretic Peptide 1103.5H, Total Protein 5.4L, Albumin 2.6L Microbiology 05/07/17 Blood Culture - Preliminary, Resulted No growth 05/07/17 Influenza Types A,B Antigen (ANATOLY) - Final, Complete Pending Labs Laboratory Tests 05/12/17 04:58: Glucometer 118 05/12/17 05:18: White Blood Count 11.6, Red Blood Count 5.06, Hemoglobin 12.1, Hematocrit 38, Mean Corpuscular Volume 76, Mean Corpuscular Hemoglobin 24, Mean Corpuscular Hemoglobin Concent 32, Red Cell Distribution Width 14.9, Platelet Count 191, Mean Platelet Volume 10.4, Neutrophils (%) (Auto) 77, Lymphocytes (%) (Auto) 17 , Monocytes (%) (Auto) 6, Eosinophils (%) (Auto) 0, Basophils (%) (Auto) 0, Neutrophils # (Auto) 8.9, Lymphocytes # (Auto) 2.0, Monocytes # (Auto) 0.7, Eosinophils # (Auto) 0.0, Basophils # (Auto) 0.0, Sodium Level 143, Potassium Level 2.8, Chloride Level 95, Carbon Dioxide Level 35, Anion Gap 13, Blood Urea Nitrogen 20, Creatinine 0.68, Estimat Glomerular Filtration Rate > 60, BUN/ Creatinine Ratio 29, Glucose Level 114, Calcium Level 8.2, Magnesium Level 1.5, Total Bilirubin 0.8, Aspartate Amino Transf (AST/SGOT) 10, Alanine Aminotransferase (ALT/SGPT) 14, Alkaline Phosphatase 84, B-Type Natriuretic Peptide 1103.5, Total Protein 5.4, Albumin 2.6 Discharge Home Medications: Active Scripts Active [Omnicef] 300 TTWICE A DAY Reported Zolpidem Tartrate 10 Mg Tablet 10 Mg PO HS Tramadol HCl 50 Mg Tablet 50 Mg PO TID PRN Baclofen 10 Mg Tablet 10 Mg PO TID PRN Incruse Ellipta (Umeclidinium [place]) 62.5 Mcg Blst.w.dev 1 Puff INH DAILY Farxiga (Dapagliflozin Propanediol) 5 Mg Tablet 5 Mg PO DAILY Januvia (Sitagliptin Phosphate) 100 Mg Tablet 100 Mg PO DAILY Venlafaxine HCl ER (Venlafaxine HCl) 150 Mg Cap.er.24h 150 Mg PO DAILY Metformin HCl 1,000 Mg Tablet 1,000 Mg PO BID Atorvastatin Calcium 10 Mg Tablet 10 Mg PO HS Ventolin Hfa (Albuterol Sulfate) 18 Gm Hfa.aer.ad 2 Puff INH Q6H PRN Gabapentin 100 Mg Capsule 200 Mg PO TID TAKES 2 (100MG) CAPSULES Aspirin EC (Aspirin) 81 Mg Tablet.dr 81 Mg PO DAILY Ibuprofen 800 Mg Tablet 800 Mg PO TID PRN Furosemide 20 Mg Tablet 20 Mg PO DAILY Lisinopril 20 Mg Tablet 20 Mg PO DAILY Amiodarone HCl 200 Mg Tablet 200 Mg PO DAILY Instructions to patient/family Please see electronic discharge instructions given to patient. Clinical Quality Measures DVT/VTE Risk/Contraindication: Risk Factor Score Per Nursin RFS Level Per Nursing on Admit: 4+=Very High KRISTIAN BURROUGHS MD May 12, 2017 11:26
--- NOTE | 2017-05-12 11:31 | Discharge Instructions ---
Discharge Instructions Discharge Medications New, Converted or Re-Newed RX: RX on Chart Patient Instructions Patient Instructions: Medications as indicated on the discharge sequence. Make arrangements to see your provider this week. Use your oxygen at 3.5 L/m all at rest. This may be turned up to 5 L during periods of physical activity. Return to The Hospital For: Decline in condition Activity & Diet Discharge Diet: ADA Diet Activity as Tolerated: Yes KRISTIAN BURROUGHS MD May 12, 2017 11:31
[2017-05-12] MEDS ORDERED: PRD20T PO (11:32)
[2017-05-12] MEDS: KCL 20 MEQ TAB (K-DUR) PO SCH (11:41)
[2017-05-12 12:00] VITALS: BP 132/82
[2017-05-12] MEDS ORDERED: KCL 20 MEQ TAB (K-DUR) PO NR (12:45)
[2017-05-12] MEDS: ENOXAPARIN 40 MG/0.4 ML (LOVENOX) SYR SC SCH (13:18)
[2017-05-12] MEDS ORDERED: INFLUENZA TRIvalent 2017-2018 0.5 ML/45 MCG SYR IM ONE (13:23)
--- NOTE | 2017-05-12 13:39 | Progress Note-Cardiology ---
Cardiology SOAP Progress Note Subjective: Shortness of breath now at usual baseline. No cp or palp or syncope Anxious to go home Objective: I&O/Vital Signs Vital Sign - Last 12Hours 05/12/17 05/12/17 05/12/17 05/12/17 02:44 03:17 07:16 08:00 Temp 97.7 98.9 Pulse 70 83 Resp 16 18 B/P (MAP) 144/63 (90) 127/76 (93) Pulse Ox 97 100 90 93 O2 Delivery High Flow N/C High Flow N/C High Flow N/C High Flow N/C O2 Flow Rate 4.00 3.00 3.50 3.00 05/12/17 05/12/17 05/12/17 05/12/17 08:27 10:27 10:48 12:00 Temp 98.0 Pulse 96 Resp 20 B/P (MAP) 132/82 (99) Pulse Ox 91 91 94 O2 Delivery High Flow N/C High Flow N/C High Flow N/C O2 Flow Rate 4.00 3.50 3.50 3.00 Intake and Output 05/12/17 00:00 Intake Total 810 ml Output Total 100 ml Balance 710 ml Weight (Pounds): 134 Weight (Ounces): 9.0 Weight (Calculated Kilograms): 60.659564 Constitutional: AAO x 3 Respiratory: crackles, rhonchi (scattered) Cardiovascular: regular rate-rhythm, S1 and S2, systolic murmur Gastrointestional: No tender, soft, audible bowel sounds Extremities: No significant edema Neurologic/Psychiatric: grossly intact Skin: No rash, No ulcerations Results/Procedures: Labs Laboratory Tests 05/11/17 15:13: Glucometer 328H 05/11/17 19:51: Glucometer 326H 05/12/17 04:58: Glucometer 118H 05/12/17 05:18: White Blood Count 11.6H, Red Blood Count 5.06, Hemoglobin 12.1, Hematocrit 38, Mean Corpuscular Volume 76L, Mean Corpuscular Hemoglobin 24L, Mean Corpuscular Hemoglobin Concent 32, Red Cell Distribution Width 14.9H, Platelet Count 191, Mean Platelet Volume 10.4, Neutrophils (%) (Auto) 77H, Lymphocytes (%) (Auto) 17 , Monocytes (%) (Auto) 6, Eosinophils (%) (Auto) 0, Basophils (%) (Auto) 0, Neutrophils # (Auto) 8.9H, Lymphocytes # (Auto) 2.0, Monocytes # (Auto) 0.7, Eosinophils # (Auto) 0.0, Basophils # (Auto) 0.0, Sodium Level 143, Potassium Level 2.8L, Chloride Level 95L, Carbon Dioxide Level 35H, Anion Gap 13, Blood Urea Nitrogen 20H, Creatinine 0.68, Estimat Glomerular Filtration Rate > 60, BUN /Creatinine Ratio 29, Glucose Level 114H, Calcium Level 8.2L, Magnesium Level 1.5L, Total Bilirubin 0.8, Aspartate Amino Transf (AST/SGOT) 10, Alanine Aminotransferase (ALT/SGPT) 14, Alkaline Phosphatase 84, B-Type Natriuretic Peptide 1103.5H, Total Protein 5.4L, Albumin 2.6L 05/12/17 11:11: Glucometer 170H Microbiology 05/07/17 Blood Culture - Preliminary, Resulted No growth 05/07/17 Influenza Types A,B Antigen (ANATOLY) - Final, Complete A/P: Assessment: Multi-factorial respiratory failure, clinically better, requires continuous supplemental oxyten Acute exac of COPD due to pneumonia Acute diastolic CHF Pneumonia with sepsis - management per Medical Services Continuing marked leucocytosis, managed by the Med Svce Elevated troponin likely r/t hypoxia. No evidence of acute [place] H/O CABG approx 3 years ago at [facility] in [place], [place] - details unknown H/O left CEA - details unknown HTN HLP DM Type 2 Tobaccoism - cessation advised Hypokalemia likely d/t diuretics Desires conservative tx; DNI, DNR Plan: Complex management due to multiple comorbidities (see above) She wishes to be managed conservatively Replenish K Outpatient f/u advised I spoke with her and her son and reviewed her CV issues and also educated her in management of heart failure NOE RUIZ MD FACP [facility] May 12, 2017 13:39
== END 2017-05-12 14:10 | disposition home or self-care (01) | DRG 871 ==
LOC: EDUNIT# 11:38 → ER 11:39 → 4TH 12:29
PROVIDERS: ADMIT Family Medicine; ATTEND Family Medicine
DX: A41.9 Sepsis, unspecified organism (principal); R65.21 Severe sepsis with septic shock; J18.9 Pneumonia, unspecified organism; J96.01 Acute respiratory failure with hypoxia; I11.0 Hypertensive heart disease with heart failure; I50.31 Acute diastolic (congestive) heart failure; J44.0 Chronic obstructive pulmonary disease with (acute) lower respiratory infection; J44.1 Chronic obstructive pulmonary disease with (acute) exacerbation; Z66 Do not resuscitate; E11.9 Type 2 diabetes mellitus without complications; F17.210 Nicotine dependence, cigarettes, uncomplicated; I25.10 Atherosclerotic heart disease of native coronary artery without angina pectoris; R79.89 Other specified abnormal findings of blood chemistry; E78.5 Hyperlipidemia, unspecified; Z23 Encounter for immunization; E87.6 Hypokalemia; T50.1X5A Adverse effect of loop [high-ceiling] diuretics, initial encounter; R34 Anuria and oliguria; Z95.1 Presence of aortocoronary bypass graft; Z98.890 Other specified postprocedural states; Z79.84 Long term (current) use of oral hypoglycemic drugs
CPT/HCPCS: 36415; 71010; 80048; 80053; 82805; 82962; 83605; 83735; 83880; 84484; 85007; 85025; 85027; 87040; 87449; 87804; 87899; 93005; 93306; 94640; 94660; 94760; 94761

== ENCOUNTER → 2018-10-08 | Outpatient (CLI) | payer MEDICAID, MEDICARE ==
[~2018-10-08] MED LIST: ALBU18HF2 INH; AMIO200T4 PO; ASPI-983 PO; ATOR10TA66 PO; BACL10TA PO; DAPA5TAB PO; DIAZ5TAB3; FURO20TA4 PO; GABA-486 PO; IBUP-1780 PO; LISI-552 PO; METF-399 PO; Omnicef; PRD20T PO; SITA100T12 PO; TRAM50TA2 PO; UMEC62.5 INH; VENL150C98 PO; ZOLP10TA5 PO
[2018-10-08 11:37] LABS: ABG BASE EXCESS -0.7 MMOL/L (-2.5-2.5); ABG OXYGEN SATURATION 97 % (94-100); ABG PCO2 35 MMHG (35-45); ABG PH 7.44 (7.37-7.43); ABG PO2 77 MMHG (79-93); ABG TCO2 24.2 MMOL/L (21.0-31.0)
[2018-10-08 11:38] LABS: ALLENS TEST YES-POS; INSPIRED O2 ROOM AIR
[2018-10-08 11:39] LABS: VENTILATOR NO
== END ==
LOC: LAB 11:09
PROVIDERS: ATTEND Nurse Practitioner Family
DX: J44.9 Chronic obstructive pulmonary disease, unspecified (principal); R06.89 Other abnormalities of breathing; R05 Cough; R06.00 Dyspnea, unspecified; J30.9 Allergic rhinitis, unspecified; Z72.0 Tobacco use
CPT/HCPCS: 36600; 82805

== ENCOUNTER 2018-11-17 20:25 | Emergency (ER) | payer MEDICARE, MEDICAID ==
[~2018-11-17] VITALS: Ht 162.6 cm; Wt 59.0 kg
[2018-11-17 20:30] VITALS: BP 163/81
--- OUTSIDE RECORDS SUMMARY | 2018-11-17 20:30 | XMS REPORT | Continuity of Care Document ---
Author Organization Unknown Address Unknown Allergies Active Description Code Type Severity Reaction Onset Reported/Identified Relationship to Patient Clinical Status Yes No Known Drug Allergies [id number] Drug Allergy Unknown N/A 05/07/2017 Medications There is no data. Problems Date Dx Coded Attending Type Code Diagnosis Diagnosed By 08/07/2014 MEAGAN AKHTAR GAS ENGINE OPERATOR Ot 784.99 08/07/2014 MEAGAN AKHTAR GAS ENGINE OPERATOR Ot 787.22 08/07/2014 AKHTARMEAGAN GAS ENGINE OPERATOR Ot V12.54 08/07/2014 AKHTARMEAGAN GAS ENGINE OPERATOR Ot V57.3 08/07/2014 AKHTARMEAGAN GAS ENGINE OPERATOR Ot 784.99 08/07/2014 AKHTARMEAGAN GAS ENGINE OPERATOR Ot 787.22 08/07/2014 AKHTARMEAGAN GAS ENGINE OPERATOR Ot V12.54 08/07/2014 AKHTARMEAGAN GAS ENGINE OPERATOR Ot V57.3 08/16/2014 AKHTARMEAGAN GAS ENGINE OPERATOR Ot 784.99 08/16/2014 AKHTARMEAGAN GAS ENGINE OPERATOR Ot 787.22 08/16/2014 AKHTARMEAGAN GAS ENGINE OPERATOR Ot V12.54 08/16/2014 AKHTARMEAGAN GAS ENGINE OPERATOR Ot V57.3 08/16/2014 AKHTARMEAGAN GAS ENGINE OPERATOR Ot 784.99 08/16/2014 AKHTARMEAGAN GAS ENGINE OPERATOR Ot 787.22 08/16/2014 AKHTARMEAGAN GAS ENGINE OPERATOR Ot V12.54 08/16/2014 AKHTARMEAGAN GAS ENGINE OPERATOR Ot V57.3 08/23/2014 AKHTARMEAGAN GAS ENGINE OPERATOR Ot 784.99 08/23/2014 AKHTARMEAGAN GAS ENGINE OPERATOR Ot 787.22 08/23/2014 AKHTARMEAGAN GAS ENGINE OPERATOR Ot V12.54 08/23/2014 AKHTARMEAGAN GAS ENGINE OPERATOR Ot V57.3 09/19/2014 MEAGAN AKHTAR GAS ENGINE OPERATOR Ot 784.99 09/19/2014 MEAGAN AKHTAR GAS ENGINE OPERATOR Ot 787.22 09/19/2014 MEAGAN AKHTAR GAS ENGINE OPERATOR Ot V12.54 09/19/2014 MEAGAN AKHTAR GAS ENGINE OPERATOR Ot V57.3 10/16/2014 MEAGAN AKHTAR GAS ENGINE OPERATOR Ot 784.99 OTHER SYMPTOMS INVOLVING HEAD AND NECK 10/16/2014 MEAGAN AKHTAR GAS ENGINE OPERATOR Ot 787.22 DYSPHAGIA, OROPHARYNGEAL PHASE 10/16/2014 MEAGAN AKHTAR GAS ENGINE OPERATOR Ot V12.54 PERSONAL HX OF TIA, CEREBRAL INFARCTION 10/16/2014 MEAGAN AKHTAR GAS ENGINE OPERATOR Ot V57.3 CARE INVOLVING SPEECH-LANGUAGE THERAPY 05/12/2017 SLOANE WEINER MD Ot A41.9 SEPSIS, UNSPECIFIED ORGANISM 05/12/2017 SLOANE WEINER MD Ot E11.9 TYPE 2 DIABETES MELLITUS WITHOUT COMPLIC 05/12/2017 SLOANE WEINER MD Ot E78.5 HYPERLIPIDEMIA, UNSPECIFIED 05/12/2017 SLOANE WEINER MD Ot E87.6 HYPOKALEMIA 05/12/2017 SLOANE WEINER MD Ot F17.210 NICOTINE DEPENDENCE, CIGARETTES, UNCOMPL 05/12/2017 SLOANE WEINER MD Ot I11.0 HYPERTENSIVE HEART DISEASE WITH HEART FA 05/12/2017 SLOANE WEINER MD Ot I25.10 ATHSCL HEART DISEASE OF [place] CORONARY 05/12/2017 SLOANE WEINER MD Ot I50.31 ACUTE DIASTOLIC (CONGESTIVE) HEART FAILU 05/12/2017 SLOANE WEINER MD Ot J18.9 PNEUMONIA, UNSPECIFIED ORGANISM 05/12/2017 SLOANE WEINER MD, Ot J44.0 CHRONIC OBSTRUCTIVE PULMON DISEASE W ACU 05/12/2017 SLOANE WEINER MD, Ot J44.1 CHRONIC OBSTRUCTIVE PULMONARY DISEASE W 05/12/2017 SLOANE WEINER MD, Ot J96.01 ACUTE RESPIRATORY FAILURE WITH HYPOXIA 05/12/2017 SLOANE WEINER MD Ot R34 ANURIA AND OLIGURIA 05/12/2017 SLOANE WEINER MD Ot R65.21 SEVERE SEPSIS WITH SEPTIC SHOCK 05/12/2017 SLOANE WEINER MD Ot R79.89 OTHER SPECIFIED ABNORMAL FINDINGS OF BLO 05/12/2017 SLOANE WEINER MD Ot T50.1X5A ADVERSE EFFECT OF LOOP DIURETICS, INITIA 05/12/2017 SLOANE WEINER MD Ot Z23 ENCOUNTER FOR IMMUNIZATION 05/12/2017 SLOANE WEINER MD Ot Z66 DO NOT RESUSCITATE 05/12/2017 SLOANE WEINER MD Ot Z79.84 INTERMEDIATE (CURRENT) USE OF ORAL HYPOGLYC 05/12/2017 SLOANE WEINER MD Ot Z95.1 PRESENCE OF AORTOCORONARY BYPASS GRAFT 05/12/2017 SLOANE WEINER MD Ot Z98.890 OTHER SPECIFIED POSTPROCEDURAL STATES 10/12/2018 NEFTALI KEARNEY FARMWORKER GRAIN Ot J30.9 ALLERGIC RHINITIS, UNSPECIFIED 10/12/2018 NEFTALI KEARNEY FARMWORKER GRAIN Ot J44.9 CHRONIC OBSTRUCTIVE PULMONARY DISEASE, U 10/12/2018 NEFTALI KEARNEY FARMWORKER GRAIN Ot R05 COUGH 10/12/2018 NEFTALI KEARNEY FARMWORKER GRAIN Ot R06.00 DYSPNEA, UNSPECIFIED 10/12/2018 NEFTALI KEARNEY FARMWORKER GRAIN Ot R06.89 OTHER ABNORMALITIES OF BREATHING 10/12/2018 NEFTALI KEARNEY FARMWORKER GRAIN Ot Z72.0 TOBACCO USE 10/13/2018 NEFTALI KEARNEY FARMWORKER GRAIN Ot J30.9 ALLERGIC RHINITIS, UNSPECIFIED 10/13/2018 NEFTALI KEARNEY FARMWORKER GRAIN Ot J44.9 CHRONIC OBSTRUCTIVE PULMONARY DISEASE, U 10/13/2018 NEFTALI KEARNEY FARMWORKER GRAIN Ot R05 COUGH 10/13/2018 NEFTALI KEARNEY FARMWORKER GRAIN Ot R06.00 DYSPNEA, UNSPECIFIED 10/13/2018 NEFTALI KEARNEY FARMWORKER GRAIN Ot R06.89 OTHER ABNORMALITIES OF BREATHING 10/13/2018 NEFTALI KEARNEY FARMWORKER GRAIN Ot Z72.0 TOBACCO USE 11/08/2018 NEFTALI KEARNEY FARMWORKER GRAIN Ot J30.9 ALLERGIC RHINITIS, UNSPECIFIED 11/08/2018 NEFTALI KEARNEY FARMWORKER GRAIN Ot J44.9 CHRONIC OBSTRUCTIVE PULMONARY DISEASE, U 11/08/2018 NEFTALI KEARNEY FARMWORKER GRAIN Ot R05 COUGH 11/08/2018 NEFTALI KEARNEY FARMWORKER GRAIN Ot R06.00 DYSPNEA, UNSPECIFIED 11/08/2018 CUONG KEARNEYINE Rashad ISMAEL Ot R06.89 OTHER ABNORMALITIES OF BREATHING 11/08/2018 NEFTALI KEARNEY Rashad ISMAEL Ot Z72.0 TOBACCO USE Procedures There is no data. Results Test Result Range Complete blood count (CBC) with automated white blood cell (WBC) differential - 05/07/17 11:40 Blood leukocytes automated count (number/volume) 35.0 10*3/uL 4.3-11.0 Blood erythrocytes automated count (number/volume) 5.84 10*6/uL 4.35-5.85 Venous blood hemoglobin measurement (mass/volume) 14.1 g/dL 11.5-16.0 Blood hematocrit (volume fraction) 45 % 35-52 Automated erythrocyte mean corpuscular volume 77 [foz_us] 80-99 Automated erythrocyte mean corpuscular hemoglobin (mass per erythrocyte) 24 pg 25-34 Automated erythrocyte mean corpuscular hemoglobin concentration measurement (mass/volume) 32 g/dL 32-36 Automated erythrocyte distribution width ratio 16.0 % 10.0- 14.5 Automated blood platelet count (count/volume) 461 10*3/uL 130-400 Automated blood platelet mean volume measurement 9.8 [foz_us] 7.4-10.4 Automated blood neutrophils/100 leukocytes 92 % 42-75 Automated blood lymphocytes/100 leukocytes 3 % 12-44 Blood monocytes/100 leukocytes 5 % 0-12 Automated blood eosinophils/100 leukocytes 0 % 0-10 Automated blood basophils/100 leukocytes 0 % 0-10 Blood neutrophils automated count (number/volume) 32.0 10*3 1.8-7.8 Blood lymphocytes automated count (number/volume) 0.9 10*3 1.0-4.0 Blood monocytes automated count (number/volume) 1.9 10*3 0.0- 1.0 Automated eosinophil count 0.0 10*3/uL 0.0-0.3 Automated blood basophil count (count/volume) 0.1 10*3/uL 0.0-0.1 Comprehensive metabolic panel - 05/07/17 11:40 Serum or plasma sodium measurement (moles/volume) 139 mmol/L 135-145 Serum or plasma potassium measurement (moles/volume) 4.2 mmol/L 3.6-5.0 Serum or plasma chloride measurement (moles/volume) 95 mmol/L 98-107 Carbon dioxide 23 mmol/L 21-32 Serum or plasma anion gap determination (moles/volume) 21 mmol/L 5-14 Serum or plasma urea nitrogen measurement (mass/volume) 26 mg/dL 7-18 Serum or plasma creatinine measurement (mass/volume) 0.85 mg/dL 0.60-1.30 Serum or plasma urea nitrogen/creatinine mass ratio 31 NRG Serum or plasma creatinine measurement with calculation of estimated glomerular filtration rate > NRG Serum or plasma glucose measurement (mass/volume) 357 mg/dL 70-105 Serum or plasma calcium measurement (mass/volume) 10.2 mg/dL 8.5-10.1 Serum or plasma total bilirubin measurement (mass/volume) 0.8 mg/dL 0.1-1.0 Serum or plasma alkaline phosphatase measurement (enzymatic activity/volume) 202 U/L 40-136 Serum or plasma aspartate aminotransferase measurement (enzymatic activity/volume) 16 U/L 5-34 Serum or plasma alanine aminotransferase measurement (enzymatic activity/volume) 14 U/L 0-55 Serum or plasma protein measurement (mass/volume) 8.3 g/dL 6.4-8.2 Serum or plasma albumin measurement (mass/volume) 3.6 g/dL 3.2-4.5 Blood manual differential performed detection - 05/07/17 11:40 Blood monocytes/100 leukocytes 3 % NRG Manual blood segmented neutrophils/100 leukocytes 93 % NRG Blood band neutrophils/100 leukocytes 0 % NRG Manual blood lymphocytes/100 leukocytes 4 % NRG Manual eosinophils/100 leukocytes in nose 0 % NRG Manual blood basophils/100 leukocytes 0 % NRG Blood anisocytosis detection by light microscopy MODERATE NRG Serum or plasma troponin i.cardiac measurement (mass/volume) - 05/07/17 11:49 Serum or plasma troponin i.cardiac measurement (mass/volume) 0.47 ng/mL <0.30 Serum or plasma lithium measurement (moles/volume) - 05/07/17 11:49 BNP level 1251.6 pg/mL <100.0 Blood lactic acid measurement (moles/volume) - 05/07/17 11:50 Blood lactic acid measurement (moles/volume) 5.67 mmol/L 0.50- 2.00 Bacterial blood culture - 05/07/17 11:50 Bacterial blood culture NG NRG Arterial blood gas measurement - 05/07/17 11:53 Blood pCO2 41 mm[Hg] 35-45 Blood pO2 101 mm[Hg] 79-93 Arterial blood bicarbonate measurement (moles/volume) 25 mmol/L 23-27 Arterial blood base excess by calculation 0.7 mmol/L -2.5-2.5 Arterial blood oxygen saturation measurement 99 % 94-100 * Inhaled oxygen flow rate 60% bipap NRG Arterial blood pH measurement with patient temperature correction 7.40 7.37-7.43 Arterial blood carbon dioxide, total measurement (moles/volume) 26.5 mmol/L 21.0-31.0 Body site r rad NRG Assessment of wrist artery patency prior to arterial puncture YES-POS NRG Setting of ventilation mode NO NRG Measurement of body temperature 96.9 NRG Bacterial blood culture - 05/07/17 12:46 Bacterial blood culture NG NRG Serum or plasma lactate measurement (moles/volume) - 05/07/17 14:10 Serum or plasma lactate measurement (moles/volume) 5.15 mmol/L 0.50-2.00 Capillary blood glucose measurement by glucometer (mass/volume) - 05/07/17 15:58 Capillary blood glucose measurement by glucometer (mass/volume) 321 mg/dL 70-110 Influenza virus A and B antigen detection - 05/07/17 16:20 FLU RESULT NEGATIVE FOR INFLUENZA A AND B ANTIGENS BY IA NRG Urine Legionella pneumophila antigen assay - 05/07/17 16:50 Urine Legionella pneumophila antigen assay Negative NRG Streptococcus pneumoniae antigen detection - 05/07/17 16:50 Streptococcus pneumoniae antigen detection Negative NRG Whole blood basic metabolic panel - 05/07/17 17:21 Serum or plasma sodium measurement (moles/volume) 142 mmol/L 135-145 Serum or plasma potassium measurement (moles/volume) 3.2 mmol/L 3.6-5.0 Serum or plasma chloride measurement (moles/volume) 99 mmol/L 98-107 Carbon dioxide 27 mmol/L 21-32 Serum or plasma anion gap determination (moles/volume) 16 mmol/L 5-14 Serum or plasma urea nitrogen measurement (mass/volume) 28 mg/dL 7-18 Serum or plasma creatinine measurement (mass/volume) 0.95 mg/dL 0.60-1.30 Serum or plasma urea nitrogen/creatinine mass ratio 29 NRG Serum or plasma creatinine measurement with calculation of estimated glomerular filtration rate 58 NRG Serum or plasma glucose measurement (mass/volume) 369 mg/dL 70-105 Serum or plasma calcium measurement (mass/volume) 9.6 mg/dL 8.5-10.1 Serum or plasma troponin i.cardiac measurement (mass/volume) - 05/07/17 17:21 Serum or plasma troponin i.cardiac measurement (mass/volume) 1.82 ng/mL <0.30 Capillary blood glucose measurement by glucometer (mass/volume) - 05/07/17 18:01 Capillary blood glucose measurement by glucometer (mass/volume) 344 mg/dL 70-110 Capillary blood glucose measurement by glucometer (mass/volume) - 05/07/17 23:21 Capillary blood glucose measurement by glucometer (mass/volume) 237 mg/dL 70-110 Capillary blood glucose measurement by glucometer (mass/volume) - 05/08/17 05:03 Capillary blood glucose measurement by glucometer (mass/volume) 219 mg/dL 70-110 Complete blood count (CBC) with automated white blood cell (WBC) differential - 05/08/17 05:45 Blood leukocytes automated count (number/volume) 26.9 10*3/uL 4.3-11.0 Blood erythrocytes automated count (number/volume) 4.78 10*6/uL 4.35-5.85 Venous blood hemoglobin measurement (mass/volume) 11.6 g/dL 11.5-16.0 Blood hematocrit (volume fraction) 37 % 35-52 Automated erythrocyte mean corpuscular volume 78 [foz_us] 80-99 Automated erythrocyte mean corpuscular hemoglobin (mass per erythrocyte) 24 pg 25-34 Automated erythrocyte mean corpuscular hemoglobin concentration measurement (mass/volume) 31 g/dL 32-36 Automated erythrocyte distribution width ratio 15.7 % 10.0- 14.5 Automated blood platelet count (count/volume) 273 10*3/uL 130-400 Automated blood platelet mean volume measurement 10.0 [foz_us] 7.4-10.4 Automated blood neutrophils/100 leukocytes 94 % 42-75 Automated blood lymphocytes/100 leukocytes 4 % 12-44 Blood monocytes/100 leukocytes 2 % 0-12 Automated blood eosinophils/100 leukocytes 0 % 0-10 Automated blood basophils/100 leukocytes 0 % 0-10 Blood neutrophils automated count (number/volume) 25.4 10*3 1.8-7.8 Blood lymphocytes automated count (number/volume) 1.0 10*3 1.0-4.0 Blood monocytes automated count (number/volume) 0.5 10*3 0.0- 1.0 Automated eosinophil count 0.0 10*3/uL 0.0-0.3 Automated blood basophil count (count/volume) 0.1 10*3/uL 0.0-0.1 Blood lactic acid measurement (moles/volume) - 05/08/17 05:45 Blood lactic acid measurement (moles/volume) 1.30 mmol/L 0.50- 2.00 Comprehensive metabolic panel - 05/08/17 05:45 Serum or plasma sodium measurement (moles/volume) 144 mmol/L 135-145 Serum or plasma potassium measurement (moles/volume) 3.0 mmol/L 3.6-5.0 Serum or plasma chloride measurement (moles/volume) 103 mmol/L 98-107 Carbon dioxide 26 mmol/L 21-32 Serum or plasma anion gap determination (moles/volume) 15 mmol/L 5-14 Serum or plasma urea nitrogen measurement (mass/volume) 31 mg/dL 7-18 Serum or plasma creatinine measurement (mass/volume) 0.78 mg/dL 0.60-1.30 Serum or plasma urea nitrogen/creatinine mass ratio 40 NRG Serum or plasma creatinine measurement with calculation of estimated glomerular filtration rate > NRG Serum or plasma glucose measurement (mass/volume) 249 mg/dL 70-105 Serum or plasma calcium measurement (mass/volume) 9.3 mg/dL 8.5-10.1 Serum or plasma total bilirubin measurement (mass/volume) 0.5 mg/dL 0.1-1.0 Serum or plasma alkaline phosphatase measurement (enzymatic activity/volume) 142 U/L 40-136 Serum or plasma aspartate aminotransferase measurement (enzymatic activity/volume) 17 U/L 5-34 Serum or plasma alanine aminotransferase measurement (enzymatic activity/volume) 13 U/L 0-55 Serum or plasma protein measurement (mass/volume) 6.6 g/dL 6.4-8.2 Serum or plasma albumin measurement (mass/volume) 3.0 g/dL 3.2-4.5 Magnesium - 05/08/17 05:45 Magnesium 1.7 mg/dL 1.8-2.4 Capillary blood glucose measurement by glucometer (mass/volume) - 05/08/17 11:08 Capillary blood glucose measurement by glucometer (mass/volume) 313 mg/dL 70-110 Capillary blood glucose measurement by glucometer (mass/volume) - 05/08/17 16:07 Capillary blood glucose measurement by glucometer (mass/volume) 235 mg/dL 70-110 Capillary blood glucose measurement by glucometer (mass/volume) - 05/08/17 20:49 Capillary blood glucose measurement by glucometer (mass/volume) 217 mg/dL 70-110 Complete blood count (CBC) with automated white blood cell (WBC) differential - 05/09/17 04:47 Blood leukocytes automated count (number/volume) 33.4 10*3/uL 4.3-11.0 Blood erythrocytes automated count (number/volume) 4.83 10*6/uL 4.35-5.85 Venous blood hemoglobin measurement (mass/volume) 11.6 g/dL 11.5-16.0 Blood hematocrit (volume fraction) 38 % 35-52 Automated erythrocyte mean corpuscular volume 79 [foz_us] 80-99 Automated erythrocyte mean corpuscular hemoglobin (mass per erythrocyte) 24 pg 25-34 Automated erythrocyte mean corpuscular hemoglobin concentration measurement (mass/volume) 30 g/dL 32-36 Automated erythrocyte distribution width ratio 16.0 % 10.0- 14.5 Automated blood platelet count (count/volume) 276 10*3/uL 130-400 Automated blood platelet mean volume measurement 10.3 [foz_us] 7.4-10.4 Automated blood neutrophils/100 leukocytes 93 % 42-75 Automated blood lymphocytes/100 leukocytes 4 % 12-44 Blood monocytes/100 leukocytes 2 % 0-12 Automated blood eosinophils/100 leukocytes 0 % 0-10 Automated blood basophils/100 leukocytes 0 % 0-10 Blood neutrophils automated count (number/volume) 31.2 10*3 1.8-7.8 Blood lymphocytes automated count (number/volume) 1.4 10*3 1.0-4.0 Blood monocytes automated count (number/volume) 0.8 10*3 0.0- 1.0 Automated eosinophil count 0.0 10*3/uL 0.0-0.3 Automated blood basophil count (count/volume) 0.1 10*3/uL 0.0-0.1 Comprehensive metabolic panel - 05/09/17 04:47 Serum or plasma sodium measurement (moles/volume) 145 mmol/L 135-145 Serum or plasma potassium measurement (moles/volume) 3.8 mmol/L 3.6-5.0 Serum or plasma chloride measurement (moles/volume) 108 mmol/L 98-107 Carbon dioxide 25 mmol/L 21-32 Serum or plasma anion gap determination (moles/volume) 12 mmol/L 5-14 Serum or plasma urea nitrogen measurement (mass/volume) 31 mg/dL 7-18 Serum or plasma creatinine measurement (mass/volume) 0.74 mg/dL 0.60-1.30 Serum or plasma urea nitrogen/creatinine mass ratio 42 NRG Serum or plasma creatinine measurement with calculation of estimated glomerular filtration rate > NRG Serum or plasma glucose measurement (mass/volume) 229 mg/dL 70-105 Serum or plasma calcium measurement (mass/volume) 8.9 mg/dL 8.5-10.1 Serum or plasma total bilirubin measurement (mass/volume) 0.3 mg/dL 0.1-1.0 Serum or plasma alkaline phosphatase measurement (enzymatic activity/volume) 133 U/L 40-136 Serum or plasma aspartate aminotransferase measurement (enzymatic activity/volume) 28 U/L 5-34 Serum or plasma alanine aminotransferase measurement (enzymatic activity/volume) 20 U/L 0-55 Serum or plasma protein measurement (mass/volume) 6.5 g/dL 6.4-8.2 Serum or plasma albumin measurement (mass/volume) 2.9 g/dL 3.2-4.5 Magnesium - 05/09/17 04:47 Magnesium 2.2 mg/dL 1.8-2.4 Capillary blood glucose measurement by glucometer (mass/volume) - 05/09/17 05:53 Capillary blood glucose measurement by glucometer (mass/volume) 202 mg/dL 70-110 Capillary blood glucose measurement by glucometer (mass/volume) - 05/09/17 11:15 Capillary blood glucose measurement by glucometer (mass/volume) 232 mg/dL 70-110 Capillary blood glucose measurement by glucometer (mass/volume) - 05/09/17 16:01 Capillary blood glucose measurement by glucometer (mass/volume) 195 mg/dL 70-110 Capillary blood glucose measurement by glucometer (mass/volume) - 05/09/17 20:21 Capillary blood glucose measurement by glucometer (mass/volume) 295 mg/dL 70-110 Capillary blood glucose measurement by glucometer (mass/volume) - 05/10/17 05:58 Capillary blood glucose measurement by glucometer (mass/volume) 130 mg/dL 70-110 Complete blood count (CBC) with automated white blood cell (WBC) differential - 05/10/17 06:25 Blood leukocytes automated count (number/volume) 20.2 10*3/uL 4.3-11.0 Blood erythrocytes automated count (number/volume) 4.81 10*6/uL 4.35-5.85 Venous blood hemoglobin measurement (mass/volume) 11.7 g/dL 11.5-16.0 Blood hematocrit (volume fraction) 38 % 35-52 Automated erythrocyte mean corpuscular volume 79 [foz_us] 80-99 Automated erythrocyte mean corpuscular hemoglobin (mass per erythrocyte) 24 pg 25-34 Automated erythrocyte mean corpuscular hemoglobin concentration measurement (mass/volume) 31 g/dL 32-36 Automated erythrocyte distribution width ratio 15.7 % 10.0- 14.5 Automated blood platelet count (count/volume) 249 10*3/uL 130-400 Automated blood platelet mean volume measurement 9.7 [foz_us] 7.4-10.4 Automated blood neutrophils/100 leukocytes 85 % 42-75 Automated blood lymphocytes/100 leukocytes 9 % 12-44 Blood monocytes/100 leukocytes 5 % 0-12 Automated blood eosinophils/100 leukocytes 0 % 0-10 Automated blood basophils/100 leukocytes 0 % 0-10 Blood neutrophils automated count (number/volume) 17.2 10*3 1.8-7.8 Blood lymphocytes automated count (number/volume) 1.9 10*3 1.0-4.0 Blood monocytes automated count (number/volume) 1.1 10*3 0.0- 1.0 Automated eosinophil count 0.0 10*3/uL 0.0-0.3 Automated blood basophil count (count/volume) 0.0 10*3/uL 0.0-0.1 Comprehensive metabolic panel - 05/10/17 06:25 Serum or plasma sodium measurement (moles/volume) 144 mmol/L 135-145 Serum or plasma potassium measurement (moles/volume) 3.4 mmol/L 3.6-5.0 Serum or plasma chloride measurement (moles/volume) 104 mmol/L 98-107 Carbon dioxide 29 mmol/L 21-32 Serum or plasma anion gap determination (moles/volume) 11 mmol/L 5-14 Serum or plasma urea nitrogen measurement (mass/volume) 29 mg/dL 7-18 Serum or plasma creatinine measurement (mass/volume) 0.71 mg/dL 0.60-1.30 Serum or plasma urea nitrogen/creatinine mass ratio 41 NRG Serum or plasma creatinine measurement with calculation of estimated glomerular filtration rate > NRG Serum or plasma glucose measurement (mass/volume) 120 mg/dL 70-105 Serum or plasma calcium measurement (mass/volume) 8.7 mg/dL 8.5-10.1 Serum or plasma total bilirubin measurement (mass/volume) 0.4 mg/dL 0.1-1.0 Serum or plasma alkaline phosphatase measurement (enzymatic activity/volume) 111 U/L 40-136 Serum or plasma aspartate aminotransferase measurement (enzymatic activity/volume) 16 U/L 5-34 Serum or plasma alanine aminotransferase measurement (enzymatic activity/volume) 19 U/L 0-55 Serum or plasma protein measurement (mass/volume) 6.0 g/dL 6.4-8.2 Serum or plasma albumin measurement (mass/volume) 3.0 g/dL 3.2-4.5 Capillary blood glucose measurement by glucometer (mass/volume) - 05/10/17 11:26 Capillary blood glucose measurement by glucometer (mass/volume) 169 mg/dL 70-110 Capillary blood glucose measurement by glucometer (mass/volume) - 05/10/17 15:59 Capillary blood glucose measurement by glucometer (mass/volume) 340 mg/dL 70-110 Capillary blood glucose measurement by glucometer (mass/volume) - 05/10/17 20:31 Capillary blood glucose measurement by glucometer (mass/volume) 141 mg/dL 70-110 Complete blood count (CBC) with automated white blood cell (WBC) differential - 05/11/17 05:05 Blood leukocytes automated count (number/volume) 13.5 10*3/uL 4.3-11.0 Blood erythrocytes automated count (number/volume) 4.96 10*6/uL 4.35-5.85 Venous blood hemoglobin measurement (mass/volume) 11.9 g/dL 11.5-16.0 Blood hematocrit (volume fraction) 38 % 35-52 Automated erythrocyte mean corpuscular volume 77 [foz_us] 80-99 Automated erythrocyte mean corpuscular hemoglobin (mass per erythrocyte) 24 pg 25-34 Automated erythrocyte mean corpuscular hemoglobin concentration measurement (mass/volume) 31 g/dL 32-36 Automated erythrocyte distribution width ratio 15.1 % 10.0- 14.5 Automated blood platelet count (count/volume) 199 10*3/uL 130-400 Automated blood platelet mean volume measurement 10.0 [foz_us] 7.4-10.4 Automated blood neutrophils/100 leukocytes 76 % 42-75 Automated blood lymphocytes/100 leukocytes 18 % 12-44 Blood monocytes/100 leukocytes 6 % 0-12 Automated blood eosinophils/100 leukocytes 0 % 0-10 Automated blood basophils/100 leukocytes 0 % 0-10 Blood neutrophils automated count (number/volume) 10.2 10*3 1.8-7.8 Blood lymphocytes automated count (number/volume) 2.4 10*3 1.0-4.0 Blood monocytes automated count (number/volume) 0.8 10*3 0.0- 1.0 Automated eosinophil count 0.0 10*3/uL 0.0-0.3 Automated blood basophil count (count/volume) 0.0 10*3/uL 0.0-0.1 Comprehensive metabolic panel - 05/11/17 05:05 Serum or plasma sodium measurement (moles/volume) 141 mmol/L 135-145 Serum or plasma potassium measurement (moles/volume) 3.1 mmol/L 3.6-5.0 Serum or plasma chloride measurement (moles/volume) 98 mmol/L 98-107 Carbon dioxide 32 mmol/L 21-32 Serum or plasma anion gap determination (moles/volume) 11 mmol/L 5-14 Serum or plasma urea nitrogen measurement (mass/volume) 19 mg/dL 7-18 Serum or plasma creatinine measurement (mass/volume) 0.69 mg/dL 0.60-1.30 Serum or plasma urea nitrogen/creatinine mass ratio 28 NRG Serum or plasma creatinine measurement with calculation of estimated glomerular filtration rate > NRG Serum or plasma glucose measurement (mass/volume) 117 mg/dL 70-105 Serum or plasma calcium measurement (mass/volume) 8.4 mg/dL 8.5-10.1 Serum or plasma total bilirubin measurement (mass/volume) 0.7 mg/dL 0.1-1.0 Serum or plasma alkaline phosphatase measurement (enzymatic activity/volume) 94 U/L 40-136 Serum or plasma aspartate aminotransferase measurement (enzymatic activity/volume) 16 U/L 5-34 Serum or plasma alanine aminotransferase measurement (enzymatic activity/volume) 15 U/L 0-55 Serum or plasma protein measurement (mass/volume) 5.5 g/dL 6.4-8.2 Serum or plasma albumin measurement (mass/volume) 2.6 g/dL 3.2-4.5 Serum or plasma lithium measurement (moles/volume) - 05/11/17 05:05 BNP level 2488.8 pg/mL <100.0 Capillary blood glucose measurement by glucometer (mass/volume) - 05/11/17 10:52 Capillary blood glucose measurement by glucometer (mass/volume) 188 mg/dL 70-110 Capillary blood glucose measurement by glucometer (mass/volume) - 05/11/17 15:13 Capillary blood glucose measurement by glucometer (mass/volume) 328 mg/dL 70-110 Capillary blood glucose measurement by glucometer (mass/volume) - 05/11/17 19:51 Capillary blood glucose measurement by glucometer (mass/volume) 326 mg/dL 70-110 Capillary blood glucose measurement by glucometer (mass/volume) - 05/12/17 04:58 Capillary blood glucose measurement by glucometer (mass/volume) 118 mg/dL 70-110 Complete blood count (CBC) with automated white blood cell (WBC) differential - 05/12/17 05:18 Blood leukocytes automated count (number/volume) 11.6 10*3/uL 4.3-11.0 Blood erythrocytes automated count (number/volume) 5.06 10*6/uL 4.35-5.85 Venous blood hemoglobin measurement (mass/volume) 12.1 g/dL 11.5-16.0 Blood hematocrit (volume fraction) 38 % 35-52 Automated erythrocyte mean corpuscular volume 76 [foz_us] 80-99 Automated erythrocyte mean corpuscular hemoglobin (mass per erythrocyte) 24 pg 25-34 Automated erythrocyte mean corpuscular hemoglobin concentration measurement (mass/volume) 32 g/dL 32-36 Automated erythrocyte distribution width ratio 14.9 % 10.0- 14.5 Automated blood platelet count (count/volume) 191 10*3/uL 130-400 Automated blood platelet mean volume measurement 10.4 [foz_us] 7.4-10.4 Automated blood neutrophils/100 leukocytes 77 % 42-75 Automated blood lymphocytes/100 leukocytes 17 % 12-44 Blood monocytes/100 leukocytes 6 % 0-12 Automated blood eosinophils/100 leukocytes 0 % 0-10 Automated blood basophils/100 leukocytes 0 % 0-10 Blood neutrophils automated count (number/volume) 8.9 10*3 1.8-7.8 Blood lymphocytes automated count (number/volume) 2.0 10*3 1.0-4.0 Blood monocytes automated count (number/volume) 0.7 10*3 0.0- 1.0 Automated eosinophil count 0.0 10*3/uL 0.0-0.3 Automated blood basophil count (count/volume) 0.0 10*3/uL 0.0-0.1 Comprehensive metabolic panel - 05/12/17 05:18 Serum or plasma sodium measurement (moles/volume) 143 mmol/L 135-145 Serum or plasma potassium measurement (moles/volume) 2.8 mmol/L 3.6-5.0 Serum or plasma chloride measurement (moles/volume) 95 mmol/L 98-107 Carbon dioxide 35 mmol/L 21-32 Serum or plasma anion gap determination (moles/volume) 13 mmol/L 5-14 Serum or plasma urea nitrogen measurement (mass/volume) 20 mg/dL 7-18 Serum or plasma creatinine measurement (mass/volume) 0.68 mg/dL 0.60-1.30 Serum or plasma urea nitrogen/creatinine mass ratio 29 NRG Serum or plasma creatinine measurement with calculation of estimated glomerular filtration rate > NRG Serum or plasma glucose measurement (mass/volume) 114 mg/dL 70-105 Serum or plasma calcium measurement (mass/volume) 8.2 mg/dL 8.5-10.1 Serum or plasma total bilirubin measurement (mass/volume) 0.8 mg/dL 0.1-1.0 Serum or plasma alkaline phosphatase measurement (enzymatic activity/volume) 84 U/L 40-136 Serum or plasma aspartate aminotransferase measurement (enzymatic activity/volume) 10 U/L 5-34 Serum or plasma alanine aminotransferase measurement (enzymatic activity/volume) 14 U/L 0-55 Serum or plasma protein measurement (mass/volume) 5.4 g/dL 6.4-8.2 Serum or plasma albumin measurement (mass/volume) 2.6 g/dL 3.2-4.5 Magnesium - 05/12/17 05:18 Magnesium 1.5 mg/dL 1.8-2.4 Serum or plasma lithium measurement (moles/volume) - 05/12/17 05:18 BNP level 1103.5 pg/mL <100.0 Capillary blood glucose measurement by glucometer (mass/volume) - 05/12/17 11:11 Capillary blood glucose measurement by glucometer (mass/volume) 170 mg/dL 70-110 Arterial blood gas measurement - 10/08/18 11:31 Blood pCO2 35 mm[Hg] 35-45 Blood pO2 77 mm[Hg] 79-93 Arterial blood bicarbonate measurement (moles/volume) 23 mmol/L 23-27 Arterial blood base excess by calculation -0.7 mmol/L -2.5-2.5 Arterial blood oxygen saturation measurement 97 % 94-100 * Inhaled oxygen flow rate ROOM AIR NRG Arterial blood pH measurement with patient temperature correction 7.44 7.37-7.43 Arterial blood carbon dioxide, total measurement (moles/volume) 24.2 mmol/L 21.0-31.0 Body site RT RAD NRG Assessment of wrist artery patency prior to arterial puncture YES-POS NRG Setting of ventilation mode NO NRG Measurement of body temperature 97.0 NRG Encounters ACCT No. Visit Date/Time Discharge Status Pt. Type Provider Facility Loc./Unit Complaint [id number] 11/05/2018 13:20:00 11/05/2018 23:59:59 [facility] Outpatient [facility]MA [id number] 11/08/2018 08:15:00 11/08/2018 23:59:59 CLS Preadmit NEFTALI KEARNEY APRN [facility] PULM COUGH,ALLERGIC RHINITIS,TOBACCO USER,COPD [id number] 10/19/2018 08:45:00 10/19/2018 23:59:59 CLS Preadmit NEFTALI KEARNEY APRN [facility] RAD COUGH,ALLERGIC RHINITIS,TOBACCO USER,COPD [id number] 10/08/2018 11:09:00 10/08/2018 23:59:59 [facility] Outpatient NEFTALI KEARNEY APRN [facility] LAB COUGH,DYSPNEA [id number] 05/07/2017 12:29:00 05/12/2017 14:10:00 DIS Inpatient HUSAM ZHANG, SLOANE Ha [facility] 4TH RESPIRATORY DISTRESS COPD EXACERBATION PNEUMONIA [id number] 04/16/2017 10:06:00 04/16/2017 10:06:00 CAN Preadmit CRIS SO [facility] RAD BACK PAIN [id number] 07/31/2014 13:01:00 10/16/2014 14:19:00 DIS Outpatient MEAGAN AKHTAR [facility] REHAB CHOKING S/P STROKE [id number] 11/17/2018 20:26:00 ACT Emergency MORRO ZHANG, ROSE Stevenson [facility] NEIL OZUNA CP
[2018-11-17] MEDS ORDERED: NS IV 1000 ML 1,000 ML IV SCH (20:32)
--- NOTE | 2018-11-17 20:40 | ED Respiratory ---
General Chief Complaint: Respiratory Problems Stated Complaint: TOD OZUNA Source: patient, EMS Exam Limitations: no limitations History of Present Illness Date Seen by Provider: Nov 17, 2018 Time Seen by Provider: 20:26 Initial Comments The patient presents to ER by private conveyance with chief complaint that she is having shortness of breath today progressively worsening. She began to have chest pain all over starting at 1600, 4-1/2 hours prior to arrival. She has a history of coronary disease CABG and does not know if she has any stents. She is not necessarily fastidious about taking her medications. She does take amiodarone lisinopril. She also has a history of COPD. She's had wheezing and was given a breathing treatment by EMS which improved her to 95% on DuoNeb. Initial 12-lead EKG was unremarkable. She was given a dose of nitroglycerin which brought her pain down from an 8 to a 6 and a second dose brought her down to 0 pain. She had not taken any nitroglycerin of her own. She has been given 324 mg of aspirin to chew and swallow by EMS on route. She is okay with intubation if necessary and is a full code at this time. She follows with Dia [facility]. History of diastolic CHF, COPD and CABG approximately 5 years ago in [place], [place]. Left carotid endarterectomy, hypertension, hyperlipidemia, diabetes type 2, tobaccoism. Allergies and Home Medications Allergies Coded Allergies: No Known Drug Allergies (Unverified , 05/07/17) Home Medications Albuterol Sulfate 18 Gm Hfa.aer.ad, 2 PUFF INH Q6H PRN for SHORTNESS OF BREATH, (Reported) Amiodarone HCl 200 Mg Tablet, 200 MG PO DAILY, (Reported) Aspirin 81 Mg Tablet.dr, 81 MG PO DAILY, (Reported) Atorvastatin Calcium 10 Mg Tablet, 10 MG PO HS, (Reported) Baclofen 10 Mg Tablet, 10 MG PO TID PRN for PAIN-MILD, (Reported) Dapagliflozin Propanediol 5 Mg Tablet, 5 MG PO DAILY, (Reported) Furosemide 20 Mg Tablet, 20 MG PO DAILY, (Reported) Gabapentin 100 Mg Capsule, 200 MG PO TID, (Reported) TAKES 2 (100MG) CAPSULES Ibuprofen 800 Mg Tablet, 800 MG PO TID PRN for PAIN-MODERATE, (Reported) Lisinopril 20 Mg Tablet, 20 MG PO DAILY, (Reported) Metformin HCl 1,000 Mg Tablet, 1,000 MG PO BID, (Reported) Prednisone 20 Mg Tab, 20 MG PO DAILY Take 3 tabs(60mg)daily,decrease by 1/2 tab(10mg)every other day. Prescribed by: KRISTIAN BURROUGHS on 05/12/17 1132 Sitagliptin Phosphate 100 Mg Tablet, 100 MG PO DAILY, (Reported) Tramadol HCl 50 Mg Tablet, 50 MG PO TID PRN for PAIN-MODERATE, (Reported) Umeclidinium Kyle 62.5 Mcg Blst.w.dev, 1 PUFF INH DAILY, (Reported) Venlafaxine HCl 150 Mg Cap.er.24h, 150 MG PO DAILY, (Reported) Zolpidem Tartrate 10 Mg Tablet, 10 MG PO HS, (Reported) [Omnicef] , 300 ttwice a day Prescribed by: KRISTIAN BURROUGHS on 05/12/17 1119 Patient Home Medication List Home Medication List Reviewed: Yes Review of Systems Review of Systems Constitutional: No chills, No fever, No malaise EENTM: No ear discharge, No ear pain Respiratory: No cough, No hemoptysis, No phlegm; short of breath; No stridor; wheezing Cardiovascular: chest pain; No edema; Hx of Intervention Gastrointestinal: No abdominal pain, No constipation, No diarrhea, No nausea, No vomiting Genitourinary: No discharge, No dysuria Musculoskeletal: No back pain, No joint pain Past Lgcjiwk-Otwotp-Pnbdyf Hx Patient Social History Alcohol Use: Denies Use Recreational Drug Use: No Smoking Status: Current Everyday Smoker (0.5 ppd) Type Used: Cigarettes Recent Foreign Travel: No Contact w/Someone Who Travel: No Recent Hopitalizations: No Immunizations Up To Date Date of Influenza Vaccine: May 12, 2017 Seasonal Allergies Seasonal Allergies: No Past Medical History Surgeries: Yes Cardiac Respiratory: Yes Asthma, COPD Currently Using CPAP: No Currently Using BIPAP: No Cardiac: Yes Coronary Artery Disease, Hypertension Neurological: Yes Female Reproductive Disorders: Denies Sexually Transmitted Disease: No HIV/AIDS: No Genitourinary: No Gastrointestinal: No Musculoskeletal: No Osteoporosis, Arthritis, Fractures Endocrine: Yes HEENT: No Loss of Vision: Denies Hearing Impairment: Denies Cancer: Yes Breast Did You Recieve Any Treatments: Yes What Type of Treatment Did You: Chemotherapy, Surgical Intervention Psychosocial: Yes Anxiety Integumentary: No Blood Disorders: No Adverse Reaction/Blood Tranf: No Family Medical History Patient reports no known family medical history. Physical Exam Vital Signs - First Documented Capillary Refill : Height: 5'4.00" Weight: 134lbs. 9.0oz. 60.411226tt; 19.7 BMI Method:Stated General Appearance: moderate distress, thin Eyes: Bilateral Eye Normal Inspection, Bilateral Eye PERRL, Bilateral Eye EOMI HEENT: PERRL/EOMI, normal ENT inspection; No pharynx normal (oropharynx is dry) Neck: non-tender, full range of motion, other (firm, round, mobile nodule on the right neck just inferior to the angle of the jaw that she says has been there for 5 years non-changing.) Respiratory: respiratory distress (moderate), decreased breath sounds, accessory muscle use (moderate), rhonchi (bilateral), wheezing (mild) Cardiovascular: normal peripheral pulses, regular rate, rhythm Gastrointestinal: normal bowel sounds, non tender, soft Extremities: normal range of motion, normal capillary refill Neurologic/Psychiatric: alert, oriented x 3, other (very anxious) Skin: normal color, warm/dry Focused Exam Lactate Level 11/17/18 20:40: Lactic Acid Level 1.73 Lactic Acid Level Laboratory Tests Test 11/17/18 20:40 Lactic Acid Level 1.73 MMOL/L (0.50-2.00) Progress/Results/Core Measures Suspected Sepsis SIRS Temperature: Pulse: Respiratory Rate: Laboratory Tests 11/17/18 20:24: White Blood Count 12.9H Blood Pressure / Mean: 11/17/18 20:40: Lactic Acid Level 1.73 Laboratory Tests 11/17/18 20:24: Creatinine 0.83, INR Comment 1.0, Platelet Count 357, Total Bilirubin 1.2H Results/Orders Lab Results Laboratory Tests Test 11/17/18 20:24 11/17/18 20:35 11/17/18 20:40 11/17/18 21:40 Range/Units White Blood Count 12.9 H 4.3-11.0 10^3/uL Red Blood Count 5.26 4.35-5.85 10^6/uL Hemoglobin 11.6 11.5-16.0 G/DL Hematocrit 39 35-52 % Mean Corpuscular Volume 75 L 80-99 FL Mean Corpuscular Hemoglobin 22 L 25-34 PG Mean Corpuscular Hemoglobin Concent 30 L 32-36 G/DL Red Cell Distribution Width 15.5 H 10.0-14.5 % Platelet Count 357 130-400 10^3/uL Mean Platelet Volume 11.8 H 7.4-10.4 FL Neutrophils (%) (Auto) 61 42-75 % Lymphocytes (%) (Auto) 29 12-44 % Monocytes (%) (Auto) 9 0-12 % Eosinophils (%) (Auto) 1 0-10 % Basophils (%) (Auto) 0 0-10 % Neutrophils # (Auto) 7.9 H 1.8-7.8 X 10^3 Lymphocytes # (Auto) 3.8 1.0-4.0 X 10^3 Monocytes # (Auto) 1.1 H 0.0-1.0 X 10^3 Eosinophils # (Auto) 0.1 0.0-0.3 10^3/uL Basophils # (Auto) 0.0 0.0-0.1 10^3/uL Prothrombin Time 14.0 12.2-14.7 SEC INR Comment 1.0 0.8-1.4 Activated Partial Thromboplast Time 35 24-35 SEC D-Dimer 0.59 H 0.00-0.49 UG/ML Sodium Level 136 135-145 MMOL/L Potassium Level 4.0 3.6-5.0 MMOL/L Chloride Level 98 98-107 MMOL/L Carbon Dioxide Level 24 21-32 MMOL/L Anion Gap 14 5-14 MMOL/L Blood Urea Nitrogen 18 7-18 MG/DL Creatinine 0.83 0.60-1.30 MG/DL Estimat Glomerular Filtration Rate > 60 BUN/Creatinine Ratio 22 Glucose Level 163 H 70-105 MG/DL Calcium Level 9.5 8.5-10.1 MG/DL Corrected Calcium 9.6 8.5-10.1 MG/DL Magnesium Level 2.1 1.8-2.4 MG/DL Total Bilirubin 1.2 H 0.1-1.0 MG/DL Aspartate Amino Transf (AST/SGOT) 9 5-34 U/L Alanine Aminotransferase (ALT/SGPT) < 6 0-55 U/L Alkaline Phosphatase 132 40-136 U/L Myoglobin 51.1 10.0-92.0 NG/ML Troponin I < 0.028 <0.028 NG/ML B-Type Natriuretic Peptide 4122.8 H <100.0 PG/ML Total Protein 7.3 6.4-8.2 GM/DL Albumin 3.9 3.2-4.5 GM/DL Lipase 17 8-78 U/L Blood Gas Puncture Site LRAD Blood Gas Patient Temperature 98.0 Arterial Blood pH 7.43 7.37-7.43 Arterial Blood Partial Pressure CO2 39 35-45 MMHG Arterial Blood Partial Pressure O2 82 79-93 MMHG Arterial Blood HCO3 26 23-27 MMOL/L Arterial Blood Total CO2 26.7 21.0-31.0 MMOL/L Arterial Blood Oxygen Saturation 98 94-100 % Arterial Blood Base Excess 1.5 -2.5-2.5 MMOL/L Jossue Test YES-POS Blood Gas Ventilator Setting NO Blood Gas Inspired Oxygen 30% BIPAP Lactic Acid Level 1.73 0.50-2.00 MMOL/L Urine Color BROWN H Urine Clarity CLEAR Urine pH 5 5-9 Urine Specific [place] 1.030 H 1.016-1.022 Urine Protein 3+ H NEGATIVE Urine Glucose (UA) NEGATIVE NEGATIVE Urine Ketones 2+ H NEGATIVE Urine Nitrite POSITIVE H NEGATIVE Urine Bilirubin 1+ H NEGATIVE Urine Urobilinogen 4 H NORMAL MG/DL Urine Leukocyte Esterase 2+ H NEGATIVE Urine RBC (Auto) 2+ H NEGATIVE Urine RBC NONE /HPF Urine WBC 25-50 H /HPF Urine Crystals NONE /LPF Urine Bacteria LARGE H /HPF Urine Casts NONE /LPF Urine Mucus NEGATIVE /LPF Urine Culture Indicated CULTURE PENDING My Orders Orders - ROSE HOOKER Cbc With Automated Diff (11/17/18 20:32) Magnesium (11/17/18 20:32) Chest 1 View, Ap/Pa Only (11/17/18 20:32) Ekg Tracing (11/17/18 20:32) Cardiac Profile 1 (11/17/18 20:32) Comprehensive Metabolic Panel (11/17/18 20:32) Myoglobin Serum (11/17/18 20:32) Protime With Inr (11/17/18 20:32) Partial Thromboplastin Time (11/17/18 20:32) O2 (11/17/18 20:32) Monitor-Rhythm Ecg Trace Only (11/17/18 20:32) Lipid Panel (11/18/18 06:00) Ed Iv/Invasive Line Start (11/17/18 20:32) Lipase (11/17/18 20:32) BNP (11/17/18 20:32) Fibrin Degradation Products (11/17/18 20:32) Blood Culture (11/17/18 20:32) Sputum Culture (11/17/18 20:32) Urinalysis (11/17/18 20:32) Urine Culture (11/17/18 20:32) Ed Iv/Invasive Line Start (11/17/18 20:32) Ed Iv/Invasive Line Start (11/17/18 20:32) Vital Signs Adult Sepsis Patie Q15M (11/17/18 20:32) O2 (11/17/18 20:32) Remove Rings In Anticipation O (11/17/18 20:32) Lactic Acid Analyzer (11/17/18 20:32) Ns Iv 1000 Ml (Sodium Chloride 0.9%) (11/17/18 20:32) Cefepime Injection (Maxipime Injection) (11/17/18 20:45) Ed Iv/Invasive Line Start (11/17/18 20:32) Lorazepam Injection (Ativan Injection) (11/17/18 20:45) Arterial Blood Gas (11/17/18 20:32) Ekg Tracing (11/17/18 20:55) Furosemide Injection (Lasix Injection) (11/17/18 21:30) Catheter(Urinary) Insert & Ass 03,15 (11/17/18 21:26) Arterial Blood Draw (11/17/18 20:35) Medications Given in ED Current Medications Medications Dose Ordered Sig/Vlad Route Start Time Stop Time Status Last Admin Dose Admin Cefepime HCl 1000 mg/Sterile Water 10 ml @ 200 mls/hr ONCE ONCE IV 11/17/18 20:45 11/17/18 20:47 DC 11/17/18 20:53 200 MLS/HR Furosemide 40 mg ONCE ONCE IVP 11/17/18 21:30 11/17/18 21:31 DC 11/17/18 21:44 40 MG Lorazepam 0.5 mg ONCE ONCE IVP 11/17/18 20:45 11/17/18 20:46 DC 11/17/18 20:53 0.5 MG Vital Signs/I&O 11/17/18 11/17/18 11/17/18 20:25 20:25 20:30 Temp 98.0 Pulse 126 116 Resp 22 31 B/P (MAP) 163/81 (108) Pulse Ox 99 97 98 O2 Delivery NIV/Bilevel NIV Bilevel O2 Flow Rate 10.00 30.00 Capillary Refill : Progress Note #1: Time: 20:41 Progress Note Patient's DuoNeb was done and her wheezing was mild so we switched her to a BiPAP and we'll give her an ABG and another DuoNeb. We'll obtain a septic workup. She has already received aspirin and is now chest pain-free so a chest x-ray, EKG and troponins were ordered. BNP ordered as she does have a history of grade 1 diastolic dysfunction. She does not exert JVD or pedal edema. ED ACS scores 8 points. Low risk. If the patient also has: (1) EKG without new ischemic changes and (2) negative initial and 2-hour troponins, then this patient is safe for discharge to early outpatient follow-up investigation (or p roceed to earlier inpatient testing). If EKG with ischemic changes or positive troponin, they are not low risk and require normal risk stratification. Echocardiogram by Dr. Morales 2016 demonstrates a cavity and wall thickness normal. EF of 50-55%. Grade 1 diastolic dysfunction. Progress Note #2: Time: 22:49 Progress Note The patient was accepted conditionally by Dr. Pulliam, consult with Dr. Cameron and Dr. Salazar however are bed situation changed as a floor nurse had to move up the ICU to help take care of a more sick patient. The patient would prefer to go to [place] however [place] is [place] [address] so we called [facility] and got the patient accepted. ECG Initial ECG Impression Date: Nov 17, 2018 Initial ECG Impression Time: 20:34 Initial ECG Rate: 109 Initial ECG Rhythm: S.Tach Initial ECG Intervals: Normal Initial ECG Impression: Nonspecific Changes Initial ECG Comparisson: Changed Comment Anterior ST elevation in leads V1, V2, V3 of 1-1.5 boxes. Leads 2, 3 and aVF demonstrate reciprocal one half box depression. EKG : EKG Time: 20:51 Rate: 101 Rhythm: Normal Sinus Intervals: QT (489) ECG Comparisson: Unchanged ECG Impression: Nonspecific Changes Comment Mild ST elevation less than 2 blocks in the anterior leads with some reciprocal inferior changes likely due to left ventricular hypertrophy. Seen on previous EKGs. Diagnostic Imaging Diagonstic Imaging: Xray Plain Films/CT/US/NM/MRI: chest (1v) Comments COPD. No acute infiltrates. Mild left pleural effusion NAME: MAR[facility] REC#: [id number] PT STATUS: REG ER : 1950 PHYSICIAN: ROSE HOOKER MD ADMIT DATE: 11/17/18/ER Draft Date of Exam:11/17/18 CHEST 1 VIEW, AP/PA ONLY INDICATION: Chest pain and shortness of air. Time of exam: 8:56 PM Correlation is made with prior study of 05/11/2017. Changes of median sternotomy and CABG are noted. There is diffuse interstitial changes in both lungs, perhaps owing to interstitial edema. There are small effusions bilaterally, left greater. No pneumothorax is seen. IMPRESSION: Congestive changes with bilateral effusions, left greater. Dictated on workstation # [id number] Dict: 11/17/18 2100 Trans: 11/17/18 2104 [facility] [id number] Interpreted by: WESLEY TREVINO MD Electronically signed by: Reviewed: Reviewed by Me Consults Consults : Consulting Physician: NOE CAMERON MD FACP [facility] CCDS Consults Notes Discussed the case and EKG and the concerning strain pattern in the anterior with some reciprocal inferior depression and the microeconomics professor reviewed previous EKGs as well as the current EKG and asked us to get another EKG shortly and admit to medicine and with a cardiac consult. He feels this is most likely LVH pattern and it is not concerning acutely. Departure Impression Primary Impression: Acute exacerbation of CHF (congestive heart failure) Qualified Codes: I50.33 - Acute on chronic diastolic (congestive) heart failure Additional Impressions: COPD (chronic obstructive pulmonary disease) Qualified Codes: J44.1 - Chronic obstructive pulmonary disease with (acute) exacerbation Chest pain Qualified Codes: R07.1 - Chest pain on breathing Disposition: SHT-TRM HOSP Condition: Stable Transfer Time Spoke to Accepting Phy: 22:50 Transfer Progress Notes Rosa Salazar [place], [place] Accepting. They will call us back with a bed assignment and report number. Transfer Facility: [place], [place] Method of Transfer: EMS Departure-Patient Inst. Referrals: NO,LOCAL PHYSICIAN (PCP/Family) Primary Care Physician ROSE HOOKER Nov 17, 2018 20:40
[2018-11-17] MEDS ORDERED: LORazepam INJ 2 MG/ML (ATIVAN) VIAL IVP ONE (20:45)
[2018-11-17] MEDS ORDERED: CEFEPIME INJECTION 1,000 MG in WATER (STERILE) FOR INJECTION 10 ML IV ONE (20:45)
[2018-11-17 20:49] LABS: ABG BASE EXCESS 1.5 MMOL/L (-2.5-2.5); ABG OXYGEN SATURATION 98 % (94-100); ABG PCO2 39 MMHG (35-45); ABG PH 7.43 (7.37-7.43); ABG PO2 82 MMHG (79-93); ABG TCO2 26.7 MMOL/L (21.0-31.0)
[2018-11-17 20:49] LABS: BASOPHILS % (AUTO) 0 % (0-10); EOSINOPHILS # (AUTO) 0.1 10^3/uL (0.0-0.3); EOSINOPHILS % (AUTO) 1 % (0-10); HEMATOCRIT 39 % (35-52); HEMOGLOBIN 11.6 G/DL (11.5-16.0); LYMPHOCYTES # (AUTO) 3.8 X 10^3 (1.0-4.0); LYMPHOCYTES % (AUTO) 29 % (12-44); MEAN CORPUSCULAR HEMOGLOBIN 22 PG (25-34); MEAN CORPUSCULAR HGB CONC 30 G/DL (32-36); MEAN CORPUSCULAR VOLUME 75 FL (80-99); MEAN PLATELET VOLUME 11.8 FL (7.4-10.4); MONOCYTES # (AUTO) 1.1 X 10^3 (0.0-1.0); MONOCYTES % (AUTO) 9 % (0-12); NEUTROPHILS # (AUTO) 7.9 X 10^3 (1.8-7.8); NEUTROPHILS % (AUTO) 61 % (42-75); PLATELET COUNT 357 10^3/uL (130-400); RED CELL DISTRIBUTION WIDTH 15.5 % (10.0-14.5); WHITE BLOOD COUNT 12.9 10^3/uL (4.3-11.0)
[2018-11-17 20:50] LABS: ALLENS TEST YES-POS; INSPIRED O2 30% BIPAP; VENTILATOR NO
--- NOTE | 2018-11-17 21:05 | Diagnostic Imaging Report ---
INDICATION: Chest pain and shortness of air. Time of exam: 8:56 PM Correlation is made with prior study of 05/11/2017. Changes of median sternotomy and CABG are noted. There is diffuse interstitial changes in both lungs, perhaps owing to interstitial edema. There are small effusions bilaterally, left greater. No pneumothorax is seen. IMPRESSION: Congestive changes with bilateral effusions, left greater. Dictated by: Dictated on workstation # [id number]
[2018-11-17 21:14] LABS: ALANINE AMINOTRANSFERASE < 6 U/L (0-55); ALBUMIN 3.9 GM/DL (3.2-4.5); ALKALINE PHOSPHATASE 132 U/L (40-136); BILIRUBIN,TOTAL 1.2 MG/DL (0.1-1.0); BUN/CREATININE RATIO 22; CALCIUM 9.5 MG/DL (8.5-10.1); CARBON DIOXIDE 24 MMOL/L (21-32); CHLORIDE 98 MMOL/L (98-107); CREATININE SERUM 0.83 MG/DL (0.60-1.30); GFR ESTIMATED > 60; GLUCOSE 163 MG/DL (70-105); LIPASE 17 U/L (8-78); MAGNESIUM 2.1 MG/DL (1.8-2.4); SODIUM 136 MMOL/L (135-145); TOTAL PROTEIN 7.3 GM/DL (6.4-8.2)
[2018-11-17] MEDS ORDERED: FUROSEMIDE 40 MG/4 ML INJ (LASIX) IVP ONE (21:30)
--- NOTE | 2018-11-17 21:30 | NUR ---
DR. RUIZ HERE TO SEE PT FOR CONSULT.
[2018-11-17 21:48] LABS: CLARITY,URINE CLEAR; COLOR,URINE BROWN; GLUCOSE, URINE (UA) NEGATIVE (NEGATIVE); KETONES,URINE 2+ (NEGATIVE); LEUKOCYTE ESTERASE ,URINE 2+ (NEGATIVE); NITRITE,URINE POSITIVE (NEGATIVE); PH,URINE 5 (5-9); PROTEIN,URINE 3+ (NEGATIVE); UROBILINOGEN,URINE 4 MG/DL (NORMAL)
[2018-11-17 21:54] LABS: BACTERIA,URINE LARGE /HPF; WBC,URINE 25-50 /HPF
--- NOTE | 2018-11-17 22:50 | Consultation-Cardiology ---
HPI-Cardiology Cardiology Consultation: Date of Consultation 11/17/18 Time Seen by a Provider: 09:10 Date of Admission Attending Physician Admitting Physician No,Local Physician Consulting Physician NOE RUIZ MD, MA, FACP, FACC, FSCAI, CCDS HPI: Chief Complaint: CC: Shortness of breath HPI 68 yo woman with chronic exertional shortness of breath that has been progressive over the last several day. Has a feeling of generalized body discomfort, including the chest that is there all of the time. Denies leg swell ing. Denies palp or syncope. Denies fever or chills. Reports malaise. Review of Systems-Cardiology Review of Systems Constitutional: As described under HPI Eyes: No vision change Ears/Nose/Throat: No ear discharge, No nasal drainage, No recent hearing loss Respiratory: As described under HPI Cardiovascular: As described under HPI Gastrointestinal: No diarrhea, No vomiting Genitourinary: No dysuria, No hematuria, No urine frequency changes Musculoskeletal: back pain (chronic) Skin: No rash, No ulcerations Psychiatric/Neurological: No seizure, No focal weakness, No syncope Hematologic: No bleeding abnormalities [id number] Hx Patient Social History Alcohol Use: Denies Use Recreational Drug Use: No Smoking Status: Current Everyday Smoker (0.5 ppd) Type Used: Cigarettes Recent Foreign Travel: No Recent Infectious Disease Expo: No Hospitalization with Isolation: Denies Immunizations Up To Date Tetanus Booster (TDap): Unknown Date of Influenza Vaccine: May 12, 2017 Past Medical History PMH As described under Assessment. Family Medical History Family History: Patient reports no known family medical history. Allergies and Home Medications Allergies Coded Allergies: No Known Drug Allergies (Unverified , 05/07/17) Home Medications Albuterol Sulfate 18 Gm Hfa.aer.ad, 2 PUFF INH Q6H PRN for SHORTNESS OF BREATH, (Reported) Amiodarone HCl 200 Mg Tablet, 200 MG PO DAILY, (Reported) Aspirin 81 Mg Tablet.dr, 81 MG PO DAILY, (Reported) Atorvastatin Calcium 10 Mg Tablet, 10 MG PO HS, (Reported) Baclofen 10 Mg Tablet, 10 MG PO TID PRN for PAIN-MILD, (Reported) Dapagliflozin Propanediol 5 Mg Tablet, 5 MG PO DAILY, (Reported) Furosemide 20 Mg Tablet, 20 MG PO DAILY, (Reported) Gabapentin 100 Mg Capsule, 200 MG PO TID, (Reported) TAKES 2 (100MG) CAPSULES Ibuprofen 800 Mg Tablet, 800 MG PO TID PRN for PAIN-MODERATE, (Reported) Lisinopril 20 Mg Tablet, 20 MG PO DAILY, (Reported) Metformin HCl 1,000 Mg Tablet, 1,000 MG PO BID, (Reported) Prednisone 20 Mg Tab, 20 MG PO DAILY Take 3 tabs(60mg)daily,decrease by 1/2 tab(10mg)every other day. Prescribed by: KRISTIAN BURROUGHS on 05/12/17 1132 Sitagliptin Phosphate 100 Mg Tablet, 100 MG PO DAILY, (Reported) Tramadol HCl 50 Mg Tablet, 50 MG PO TID PRN for PAIN-MODERATE, (Reported) Umeclidinium [place] 62.5 Mcg Blst.w.dev, 1 PUFF INH DAILY, (Reported) Venlafaxine HCl 150 Mg Cap.er.24h, 150 MG PO DAILY, (Reported) Zolpidem Tartrate 10 Mg Tablet, 10 MG PO HS, (Reported) [Omnicef] , 300 ttwice a day Prescribed by: KRISTIAN BURROUGHS on 05/12/17 1119 Patient Home Medication List Home Medication List Reviewed: Yes Physical Exam-Cardiology Physical Exam Vital Signs/I&O 11/17/18 11/17/18 11/17/18 20:25 20:25 20:30 Temp 98.0 Pulse 126 116 Resp 22 31 B/P (MAP) 163/81 (108) Pulse Ox 99 97 98 O2 Delivery NIV/Bilevel NIV Bilevel O2 Flow Rate 10.00 30.00 Capillary Refill : Less Than 3 Seconds Constitutional: other (Thin-appearing, on BiPAP at time of my initial exam, appears alert and oriented) HEENT: PERRL, EOMI; No xanthelasmas are seen Neck: carotid pulses are 2 + bilaterally, with good upstrokes Respiratory: No accessory muscle use; other (fair air entry, prolonged exp, a few basal crackles) Cardiovascular: regular rate-rhythm, S1 and S2, systolic murmur (soft KASIE at card base) Gastrointestinal: No tender; soft; No guarding, No rebound; audible bowel sounds Extremities: No clubbing, No cyanosis, No significant edema Neurologic/Psychiatric: other (able to move all of her limbs equally) Skin: No rash on exposed areas, No ulcerations on exposed areas Data Review Labs Laboratory Tests 11/17/18 20:24: White Blood Count 12.9H, Red Blood Count 5.26, Hemoglobin 11.6, Hematocrit 39, Mean Corpuscular Volume 75L, Mean Corpuscular Hemoglobin 22L, Mean Corpuscular Hemoglobin Concent 30L, Red Cell Distribution Width 15.5H, Platelet Count 357, Mean Platelet Volume 11.8H, Neutrophils (%) (Auto) 61, Lymphocytes (%) (Auto) 29, Monocytes (%) (Auto) 9, Eosinophils (%) (Auto) 1, Basophils (%) (Auto) 0, Neutrophils # (Auto) 7.9H, Lymphocytes # (Auto) 3.8, Monocytes # (Auto) 1.1H, Eosinophils # (Auto) 0.1, Basophils # (Auto) 0.0, Prothrombin Time 14.0, INR Comment 1.0, Activated Partial Thromboplast Time 35, D-Dimer 0.59H, Sodium Level 136, Potassium Level 4.0, Chloride Level 98, Carbon Dioxide Level 24, Anion Gap 14, Blood Urea Nitrogen 18, Creatinine 0.83, Estimat Glomerular Filtration Rate > 60, BUN/Creatinine Ratio 22, Glucose Level 163H, Calcium Level 9.5, Corrected Calcium 9.6, Magnesium Level 2.1, Total Bilirubin 1.2H, Aspartate Amino Transf (AST/SGOT) 9, Alanine Aminotransferase (ALT/SGPT) < 6, Alkaline Phosphatase 132, Myoglobin 51.1, Troponin I < 0.028, B-Type Natriuretic Peptide 4122.8H, Total Protein 7.3, Albumin 3.9, Lipase 17 11/17/18 20:35: Blood Gas Puncture Site LRAD, Blood Gas Patient Temperature 98.0, Arterial Blood pH 7.43, Arterial Blood Partial Pressure CO2 39, Arterial Blood Partial Pressure O2 82, Arterial Blood HCO3 26, Arterial Blood Total CO2 26.7, Arterial Blood Oxygen Saturation 98, Arterial Blood Base Excess 1.5, Jossue Test YES-POS, Blood Gas Ventilator Setting NO, Blood Gas Inspired Oxygen 30% BIPAP 11/17/18 20:40: Lactic Acid Level 1.73 11/17/18 21:40: Urine Color BROWNH, Urine Clarity CLEAR, Urine pH 5, Urine Specific [place] 1.030H, Urine Protein 3+H, Urine Glucose (UA) NEGATIVE, Urine Ketones 2+H, Urine Nitrite POSITIVEH, Urine Bilirubin 1+H, Urine Urobilinogen 4H, Urine Leukocyte Esterase 2+H, Urine RBC (Auto) 2+H, Urine RBC NONE, Urine WBC 25-50H, Urine Crystals NONE, Urine Bacteria LARGEH, Urine Casts NONE, Urine Mucus NEGATIVE, Urine Culture Indicated CULTURE PENDING Laboratory Tests 11/17/18 20:24 A/P-Cardiology Assessment/Admission Diagnosis Multifactorial shortness of breath: ac heart failure, ac exacerbation of COPD H/O CABG approx 3 years ago at [facility] in [place], [place] - details unknown UTI CAD, s/p CABG Abnormal ECG: NSR with PVCs, LVH with repol abnormality H/O left CEA - details unknown HTN HLP DM Type 2 Tobaccoism Discussion and Recomendations * Diuretics * Continue ASA and home meds * Advised to quit smoking * Echo * Monitor labs NOE RUIZ MD FACP [facility] CCDS Nov 17, 2018 22:50
[2018-11-18] MEDS ORDERED: LORazepam INJ 2 MG/ML (ATIVAN) VIAL IVP ONE (00:15)
[2018-11-18 00:17] VITALS: BP 153/110
[2018-11-18 08:44] LABS: BILIRUBIN,URINE 1+ (NEGATIVE)
[2018-11-18] MEDS ORDERED: ASPIRIN 81 MG CHEW (CHILDREN'S ASA) PO SCH (09:00)
== END 2018-11-18 00:17 | disposition short-term general hospital (02) ==
LOC: EDUNIT# 20:25 → ER 20:26
DX: J44.9 Chronic obstructive pulmonary disease, unspecified (principal); I11.0 Hypertensive heart disease with heart failure; I50.9 Heart failure, unspecified; I25.10 Atherosclerotic heart disease of native coronary artery without angina pectoris; E78.5 Hyperlipidemia, unspecified; E11.9 Type 2 diabetes mellitus without complications; M81.0 Age-related osteoporosis without current pathological fracture; F41.9 Anxiety disorder, unspecified; F17.210 Nicotine dependence, cigarettes, uncomplicated; Z85.3 Personal history of malignant neoplasm of breast; Z95.1 Presence of aortocoronary bypass graft; Z79.82 Long term (current) use of aspirin; Z79.84 Long term (current) use of oral hypoglycemic drugs
CPT/HCPCS: 36415; 36600; 51702; 71045; 80053; 81000; 82805; 83605; 83690; 83735; 83874; 83880; 84484; 85025; 85379; 85610; 85730; 87040; 87077; 87088; 87186; 93005; 93041; 99291

== ENCOUNTER 2018-12-06 10:43 | Outpatient (RCR) | payer MEDICAID, MEDICARE ==
[2019-02-15] MEDS ORDERED: PARO10TA3 PO (10:22)
[2019-02-15] MEDS ORDERED: FURO40TA4 PO (10:22)
[2019-02-15] MEDS ORDERED: LISI10TA2 PO (10:22)
[2019-02-15] MEDS ORDERED: AMIO100T4 PO (10:22)
[2019-02-15] MEDS ORDERED: TRIA1TAB3 PO (10:22)
[2019-02-15] MEDS ORDERED: CETI10TA17 PO (10:22)
[2019-02-15] MEDS ORDERED: VORT10TA PO (10:22)
[2019-02-15] MEDS ORDERED: FLUT1AER IH (10:22)
[2019-02-15] MEDS ORDERED: TROS20TA3 PO (10:23)
[2019-02-16] MEDS ORDERED: CLOP75TA28 PO (08:41)
[2019-03-02] MEDS ORDERED: RT-ALBUINH INH (13:53)
[2019-03-02] MEDS ORDERED: CLOP75TA69 PO (13:53)
[2019-03-02] MEDS ORDERED: GABA-488 PO (13:53)
[2019-03-02] MEDS ORDERED: ROPI1TAB2 PO (13:53)
[2019-03-02] MEDS ORDERED: ACET-2267 PO (13:56)
[2019-03-02] MEDS ORDERED: ALBU2.5V4 NEB (13:56)
[2019-03-05] MEDS ORDERED: CARV6.252 PO (11:53)
[2019-03-05] MEDS ORDERED: ATOR80TA76 PO (11:53)
[2019-03-05] MEDS ORDERED: NICO-588 TD (11:53)
== END 2019-03-06 | disposition home or self-care (01) ==
LOC: PULM 10:43
PROVIDERS: ATTEND Nurse Practitioner Family
DX: J44.9 Chronic obstructive pulmonary disease, unspecified (principal); Z72.0 Tobacco use
CPT/HCPCS: 99211

== ENCOUNTER → 2019-02-04 | Outpatient (CLI) | payer MEDICARE, MEDICAID ==
[~2019-02-04] MED LIST changes: +AMIO100T4 PO; +CETI10TA17 PO; +FLUT1AER IH; +FURO40TA4 PO; +LISI10TA2 PO; +PARO10TA3 PO; +TRIA1TAB3 PO; +TROS20TA3 PO; +VORT10TA PO
== END ==
LOC: WOUNDCARE 10:15
PROVIDERS: ATTEND Surgery
DX: E11.621 Type 2 diabetes mellitus with foot ulcer (principal); E11.52 Type 2 diabetes mellitus with diabetic peripheral angiopathy with gangrene; E11.42 Type 2 diabetes mellitus with diabetic polyneuropathy; L97.422 Non-pressure chronic ulcer of left heel and midfoot with fat layer exposed; I70.262 Atherosclerosis of native arteries of extremities with gangrene, left leg; L03.116 Cellulitis of left lower limb; J44.9 Chronic obstructive pulmonary disease, unspecified; T65.222A Toxic effect of tobacco cigarettes, intentional self-harm, initial encounter; F17.218 Nicotine dependence, cigarettes, with other nicotine-induced disorders; E44.1 Mild protein-calorie malnutrition
CPT/HCPCS: 99214

== ENCOUNTER → 2019-02-11 | Outpatient (CLI) | payer MEDICARE, MEDICAID ==
[~2019-02-11] MED LIST changes: +CLOP75TA28 PO
== END ==
LOC: WOUNDCARE 10:15
PROVIDERS: ATTEND Surgery
DX: E11.621 Type 2 diabetes mellitus with foot ulcer (principal); E11.42 Type 2 diabetes mellitus with diabetic polyneuropathy; L97.422 Non-pressure chronic ulcer of left heel and midfoot with fat layer exposed; I70.244 Atherosclerosis of native arteries of left leg with ulceration of heel and midfoot; L03.116 Cellulitis of left lower limb; J44.9 Chronic obstructive pulmonary disease, unspecified; T65.222A Toxic effect of tobacco cigarettes, intentional self-harm, initial encounter; E44.1 Mild protein-calorie malnutrition; E11.52 Type 2 diabetes mellitus with diabetic peripheral angiopathy with gangrene; F17.218 Nicotine dependence, cigarettes, with other nicotine-induced disorders
CPT/HCPCS: 99213

== ENCOUNTER 2019-02-15 09:22 | Day surgery (SDC) | payer MEDICARE, MEDICAID ==
[~2019-02-15] VITALS: Ht 162 cm; Wt 56.6 kg
[2019-02-15] VITALS (12 sets, daily range): BP systolic 132–156; BP diastolic 65–96
[~2019-02-15 09:22] MED LIST changes: -AMIO100T4 PO; -CETI10TA17 PO; -CLOP75TA28 PO; -FLUT1AER IH; -FURO40TA4 PO; -LISI10TA2 PO; -PARO10TA3 PO; -TRIA1TAB3 PO; -TROS20TA3 PO; -VORT10TA PO
[2019-02-15] MEDS ORDERED: NS IV 1000 ML 1,000 ML IV SCH (09:23)
[2019-02-15] MEDS ORDERED: HEParin (CATH LAB) 2,000 ML IV ONE (09:26)
[2019-02-15] MEDS ORDERED: LIDOCAINE 1% INJ 20 ML 20 ML VIAL ONE (09:26)
[2019-02-15 09:48] LABS: HEMOGLOBIN 13.5 G/DL (11.5-16.0); MEAN PLATELET VOLUME 10.8 FL (7.4-10.4); RED CELL DISTRIBUTION WIDTH 19.2 % (10.0-14.5); WHITE BLOOD COUNT 10.4 10^3/uL (4.3-11.0)
[2019-02-15 10:03] LABS: INR 0.9 (0.8-1.4); PROTHROMBIN TIME PATIENT 12.9 SEC (12.2-14.7)
[2019-02-15 10:08] LABS: ALBUMIN 4.4 GM/DL (3.2-4.5); BILIRUBIN,TOTAL 0.8 MG/DL (0.1-1.0); CREATININE SERUM 1.07 MG/DL (0.60-1.30); TOTAL PROTEIN 8.3 GM/DL (6.4-8.2)
[2019-02-15] MEDS ORDERED: CETI10TA17 PO (10:22)
[2019-02-15] MEDS ORDERED: FURO40TA4 PO (10:22)
[2019-02-15] MEDS ORDERED: LISI10TA2 PO (10:22)
[2019-02-15] MEDS ORDERED: PARO10TA3 PO (10:22)
[2019-02-15] MEDS ORDERED: VORT10TA PO (10:22)
[2019-02-15] MEDS ORDERED: AMIO100T4 PO (10:22)
[2019-02-15] MEDS ORDERED: FLUT1AER IH (10:22)
[2019-02-15] MEDS ORDERED: TRIA1TAB3 PO (10:22)
[2019-02-15] MEDS ORDERED: TROS20TA3 PO (10:23)
[2019-02-15] MEDS ORDERED: FLU QUADRIvalent (5+ YOA) 2019-2020 (AFLURIA) 0.5 ML IM ONE (10:45)
[2019-02-15] MEDS ORDERED: fentaNYL INJECTION 100 MCG/2 ML AMP ONE (11:35)
--- NOTE | 2019-02-15 11:42 | Cardiac Procedure Note-CS/ASA ---
Pre-Procedure Note Pre-Op Procedure Note H&P Reviewed The H&P was reviewed, patient examined and no changes noted. Date H&P Reviewed: Feb 15, 2019 Time H&P Reviewed: 11:42 Conscious Sedation Pre-Proced Time 11:42 ASA Score 3 For ASA 3 and 4: Consider anesthesia and medical clearance. Also, for patients with a history of failed moderate sedation consider anesthesia. Airway Lungs Heart ASA score ASA 1: a normal healthy patient ASA 2: a patient with a mild systemic disease (mid diabetes, controlled hypertension, obesity ASA 3: a patient with a severe systemic disease that limits activity (angina, COPD, prior Myocardial infarction) ASA 4: a patient with an incapacitating disease that is a constant threat to life (CHF, renal failure) ASA 5: a moribund patient not expected to survive 24 hrs. (ruptured aneurysm) ASA 6: a declared brain- patient whose organs are being harvested. For emergent operations, add the letter E after the classification Mallampati Classification Grade 2 Sedation Plan Analgesia, Amnesia, Plan communicated to team members, Discussed options with patient/fam, Discussed risks with patient/fam The patient is an appropriate candidate to undergo the planned procedure, sedation, and anesthesia. The patient immediately re-assessed prior to indication. NOE RUIZ MD FACP FAC CCDS Feb 15, 2019 11:42
[2019-02-15] MEDS ORDERED: HEParin 1000 UNIT/ML (10ML VIAL) FOR BOLUS ONE (12:51)
[2019-02-15] MEDS ORDERED: NITRO DRIP 25000 MCG/D5W 250 ML IV ONE (12:52)
[2019-02-15] MEDS ORDERED: CLOPIDOGREL 300 MG (PLAVIX) TABLET PO ONE (13:56)
[2019-02-15] MEDS ORDERED: ASPIRIN 81 MG CHEW (CHILDREN'S ASA) ONE (13:56)
[2019-02-15] MEDS ORDERED: ACETAMINOPHEN 325 MG TABLET PO PRN (14:45)
[2019-02-15] MEDS ORDERED: PATIENT MAY USE OWN MEDS, ALL PO SCH (14:45)
[2019-02-15] MEDS: NS IV 1000 ML 1,000 ML IV SCH (15:34)
[2019-02-15] MEDS ORDERED: TROSPIUM 20 MG (SANCTURA) TAB PO SCH ×2 (16:00→21:00)
[2019-02-15] MEDS ORDERED: ENOXAPARIN 40 MG/0.4 ML (LOVENOX) SYR SC SCH (17:00)
[2019-02-15] MEDS ORDERED: BACLOFEN 10 MG (LIORESAL) TAB PO PRN (17:00)
[2019-02-15] MEDS: lisINopril 10 MG (PRINIVIL) TABLET PO SCH (17:31)
[2019-02-15] MEDS: AMIODARONE 200 MG (CORDARONE) TAB PO SCH (17:32)
[2019-02-15] MEDS ORDERED: BACLOFEN 10 MG (LIORESAL) TAB PO SCH (21:00)
[2019-02-15] MEDS: inSUlin ASPART (NovoLOG) 1 UNIT/0.01 ML (CHARGE PER UNIT) SC SCH (21:53)
[2019-02-15] MEDS: GABAPENTIN 100 MG (NEURONTIN) CAP PO SCH (22:02)
[2019-02-16] VITALS: BP 124/65
[2019-02-16 03:38] LABS: HEMOGLOBIN 10.7 G/DL (11.5-16.0); MEAN PLATELET VOLUME 10.8 FL (7.4-10.4); RED CELL DISTRIBUTION WIDTH 18.3 % (10.0-14.5); WHITE BLOOD COUNT 7.6 10^3/uL (4.3-11.0)
[2019-02-16 03:56] LABS: BUN/CREATININE RATIO 27; CALCIUM 8.8 MG/DL (8.5-10.1); CARBON DIOXIDE 23 MMOL/L (21-32); CHLORIDE 109 MMOL/L (98-107); CREATININE SERUM 0.78 MG/DL (0.60-1.30); GFR ESTIMATED > 60; GLUCOSE 97 MG/DL (70-105); POTASSIUM 4.4 MMOL/L (3.6-5.0); SODIUM 140 MMOL/L (135-145)
[2019-02-16 04:00] VITALS: BP 116/66
[2019-02-16] MEDS: NS IV 1000 ML 1,000 ML IV SCH (04:34)
[2019-02-16] MEDS: inSUlin ASPART (NovoLOG) 1 UNIT/0.01 ML (CHARGE PER UNIT) SC SCH ×2 (05:04→09:39)
[2019-02-16] MEDS ORDERED: TROSPIUM 20 MG (SANCTURA) TAB PO SCH (06:00)
[2019-02-16] MEDS: AMIODARONE 200 MG (CORDARONE) TAB PO SCH (07:29)
[2019-02-16] MEDS: lisINopril 10 MG (PRINIVIL) TABLET PO SCH (07:35)
[2019-02-16] MEDS: GABAPENTIN 100 MG (NEURONTIN) CAP PO SCH (07:37)
--- NOTE | 2019-02-16 07:50 | Progress Note - Cardiology ---
Cardiology SOAP Progress Note Subjective: Sitting up in bed. States she is ready to go home. C/O "tenderness" at groin access site. No c/o CP, palpitations. No c/o dyspnea this morning. Objective: I&O/Vital Signs Weight (Pounds): 130 Weight (Ounces): 9.0 Weight (Calculated Kilograms): 58.060671 Side: right Groin site without hematoma: Yes Condition: extremity w/d/p Bruising: mild bruising Constitutional: AAO x 3, well-developed, well-nourished Respiratory: No accessory muscle use, No respiratory distress; chest expansion is symmetric, chest is bilaterally symmetric, lungs clear to auscultation, other (prolonged exp phase) Cardiovascular: regular rate-rhythm; No JVD; S1 and S2 Gastrointestional: No tender; soft, audible bowel sounds Extremities: no lower extremity edema bilateral Neurologic/Psychiatric: grossly intact Skin: No rash on exposed areas, No ulcerations on exposed areas Results/Procedures: Labs Microbiology 02/15/19 MRSA Screen - Final, Complete MRSA not isolated A/P: Assessment: PAD - Seg pressures of 02/09/19 showed mod obs dz of R lower limb and severe obs dz of the L lower limb Chronic multifactorial shortness of breath: ch ni heart failure and COPD H/O CABG approx 3 years ago at [facility] in [place], [place] - details unknown UTI CAD, s/p CABG Abnormal ECG: NSR with PVCs, LVH with repol abnormality H/o left CEA - details unknown HTN HLP DM Type 2 Tobaccoism - cessation advised Plan: Ok to discharge home today Continue current medication regimen including new Rx for Plavix Discussed importance of medication compliance Advised immediate and complete smoking cessation F/U appt in one week CBC on Thursday JANELLE BRANNON Feb 16, 2019 07:50
[2019-02-16 08:00] VITALS: BP 151/87
[2019-02-16] MEDS ORDERED: RT-ADVAIR HFA 115/21 MCG PER PUFF IH SCH (08:00)
[2019-02-16] MEDS ORDERED: CLOP75TA28 PO (08:41)
--- NOTE | 2019-02-16 08:43 | Discharge Inst-Cardiology ---
Discharge Inst-Cardiac Discharge Medications New Medications: Clopidogrel Bisulfate (Clopidogrel) 75 Mg Tablet 75 MG PO DAILY, #30 TAB 5 Refills Continued Medications: Amiodarone HCl (Amiodarone HCl) 200 Mg Tablet 100 MG PO DAILY, TAB Aspirin (Aspirin EC) 81 Mg Tablet.dr 81 MG PO DAILY, TAB Baclofen (Baclofen) 10 Mg Tablet 5 MG PO BID, TAB Cetirizine HCl (Cetirizine HCl) 10 Mg Tablet 10 MG PO DAILY, TAB Fluticasone/Vilanterol (Breo Ellipta 100-25 Mcg INH) 1 Each Blst.w.dev 1 EACH IH DAILY Furosemide (Furosemide) 40 Mg Tablet 40 MG PO DAILY, TAB Gabapentin (Gabapentin) 100 Mg Capsule 100 MG PO TID, CAP Lisinopril (Lisinopril) 10 Mg Tablet 10 MG PO DAILY, TAB Metformin HCl (Metformin HCl) 1,000 Mg Tablet 1000 MG PO BID, TAB Paroxetine HCl (Paroxetine HCl) 10 Mg Tablet 10 MG PO DAILY, TAB Triamterene/Hydrochlorothiazid (Triamterene-Hctz 37.5-25 mg Tb) 1 Each Tablet 1 EACH PO DAILY, TAB Trospium Chloride (Trospium Chloride) 20 Mg Tablet 20 MG PO BID, TAB Vortioxetine Hydrobromide (Trintellix) 10 Mg Tablet 10 MG PO DAILY, TAB New, Converted or Re-Newed RX: Transmitted to Pharmacy Patient Instructions Patient Instructions: HOLD METFORMIN. RESUME ON MONDAY, FEBRUARY 18, 2019 PLEASE SCHEDULE FOLLOW UP APPT TO SEE DR. RUIZ IN 1-2 WEEKS LAB: CBC ON THURSDAY, FEBRUARY 21, 2019 AJNELLE BRANNON Feb 16, 2019 08:43
[2019-02-16] MEDS ORDERED: LORATADINE (CLARITIN) 10 MG TAB PO SCH (09:00)
[2019-02-16] MEDS ORDERED: BREO ELLIPTA IH SCH (09:00)
[2019-02-16] MEDS ORDERED: CLOPIDOGREL 75 MG (PLAVIX) TABLET PO SCH (09:00)
[2019-02-16] MEDS ORDERED: NON-FORMULARY MEDICATION 1 EA EA (Triamterene/Hydrochlorothiazid (Triamterene-Hctz 37.5-25 PO SCH (09:00)
[2019-02-16] MEDS ORDERED: TRINTELLIX 10 MG PO SCH (09:00)
[2019-02-16] MEDS ORDERED: FUROSEMIDE 40 MG (LASIX) TAB PO SCH ×2 (09:00)
[2019-02-16] MEDS ORDERED: lisINopril 10 MG (PRINIVIL) TABLET PO SCH (09:00)
[2019-02-16] MEDS ORDERED: ceTIRizine 10 MG (ZyrTEC) TAB NON-FORMULARY PO SCH (09:00)
[2019-02-16] MEDS ORDERED: PARoxetine 10 MG (PAXIL) TAB PO SCH ×2 (09:00)
[2019-02-16] MEDS ORDERED: ASPIRIN E.C. 81 MG (ECOTRIN) TAB PO SCH (09:00)
[2019-02-16] MEDS ORDERED: TRIAMTERENE/HCTZ 75-50 (MAXZIDE,DYAZIDE) TABLET PO SCH (09:00)
[2019-02-16] MEDS ORDERED: TRIAMT/HCTZ 37.5-25 MG TAB PO SCH (09:00)
[2019-02-16] MEDS ORDERED: NON-FORMULARY MEDICATION 1 EA EA (Cetirizine HCl 10 MG) PO SCH (09:00)
[2019-02-16] MEDS ORDERED: NON-FORMULARY MEDICATION 1 EA EA (Fluticasone/Vilanterol (Breo Ellipta 100-25 Mcg INH) 1 E IH SCH (09:00)
[2019-02-16] MEDS ORDERED: ASPIRIN 81 MG CHEW (CHILDREN'S ASA) PO SCH (09:00)
--- NOTE | 2019-02-16 10:35 | OPERATIVE REPORT ---
DATE OF SERVICE: 02/15/2019 PERIPHERAL ANGIOGRAPHY AND INTERVENTION REPORT The patient is a 68-year-old lady who has multiple risk factors for peripheral arterial disease. She has a nonhealing ulcer on the left foot. This is being followed by Dr. Shelton who has done segmental pressures, which indicated severe peripheral arterial disease involving the left lower leg. Because of a nonhealing ulcer, peripheral angiography was recommended with possible intervention to the leg. Informed consent was obtained. DESCRIPTION OF PROCEDURE: She was brought to the cardiac catheterization laboratory in a fasting state. The right groin was prepared and draped in the usual sterile fashion. Lidocaine 1% was used for local anesthesia. Modified Seldinger technique was used to advance a 5-Turkmen sheath in the right femoral artery. A 5-Turkmen pigtail catheter was used for abdominal aortic angiography. This was carried out with the catheter placed above the renal arteries at the level of L1. The catheter was then pulled down to just above the aortoiliac bifurcation and bilateral leg artery angiography was performed with runoff down to the level of the ankles. Subsequently, percutaneous intervention was carried out to the left superficial femoral artery, which was found to be totally occluded. This is described below. Percutaneous intervention to the left superficial femoral artery The left superficial femoral artery was occluded in a very long segment that extended from the proximal to the distal part of the artery. We performed selective angiography of the artery prior to intervention. We used a crossover catheter to advance a Storq wire into the left heart catheterization and left-sided arterial system of the lower limb. We then removed the catheter and also the 5-Turkmen sheath from the right femoral artery and replaced it with a long 6-Turkmen sheath, which extended into the left common femoral artery and allowed selective angiography and subsequent intervention. We were not able to advance the Storq wire across the long lesion in the left superficial femoral artery. We used a micro catheter to advance a Command wire. The microcatheter was placed just proximal to the total occlusion, with considerable effort, we were able to advance the Command wire across the entire length of the long occlusion in the left superficial femoral artery and the tip was introduced into the left popliteal and the trifurcation vessels. We then advanced the microcatheter to the distal left superficial femoral and removed the wire. We confirmed that the catheter was in the true lumen. We advanced a Storq wire through the microcatheter and the tip of the Storq wire was placed in the left popliteal artery. We removed the microcatheter. We advanced Butler 35.4 x 250 balloon over this wire. The balloon was carefully positioned to cover the lesion. The balloon further inflated at 4 atmospheres. The balloon was then pulled back to the more proximal part of the lesion and was reinflated to 4 atmospheres. Each inflation was held for 3 minutes. The balloon was then removed. Subsequent angiography revealed less than 30% residual stenosis where the patient previously had 100% occlusion. Intimal disruption is seen following balloon angioplasty, as expected. There are no major areas of any occlusive dissection. Flow throughout the vessel is normal and brisk. Therefore, we deliberately avoided stenting this small caliber vessel. We felt that the balloon results were good. The sheath was then pulled back and removed and replaced with a short 6-Turkmen sheath. The wire was removed. The sheath was sutured in place. The patient had received 5000 units of intravenous heparin at the beginning of the procedure. At the end of the procedure, ACT was 191 seconds. The patient was transferred to the floor for manual sheath removal. She tolerated the procedure well. ABDOMINAL AORTIC ANGIOGRAPHY: Abdominal aortic angiography indicates abdominal aortic calcification and atherosclerosis. Renal arteries are identified and do not exhibit significant stenosis. Abdominal aorta does not exhibit significant stenosis or aneurysm formation. There is calcification at the aortoiliac bifurcation. Common iliac arteries have mild to moderate disease in their ostial and proximal portions. The right external iliac and the right common femoral have severe disease and the stenosis is estimated to be approximately 80%. This was not intervened on because this is not currently causing her any significant issues. On the left side, the iliac arteries were intact, but with moderate diffuse disease. The common femoral and deep femoral were intact. The superficial femoral was occluded in its proximal to distal portion. This was intervened on, as described above. Following balloon angioplasty, there is less than 30% residual stenosis. There is 3-vessel runoff on both sides. On the left side, the anterior tibial artery has 70% to 80% proximal stenosis. This was a small caliber vessel and we did not intervene on it at this time. CONCLUSIONS: 1. 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 2. Other lesions include 70% to 80% stenosis of the right external iliac and the right common femoral and of the left ant tibial in its proximal portion. Job ID: [id number] DocumentID: [id number] Dictated Date: 02/16/2019 09:30:55 Social Problems Specialist Date: 02/16/2019 10:34:59 Dictated By: NOE RUIZ MD, MA, FACP, FACC, MTDD
[2019-02-16 10:50] VITALS: BP 151/87
--- NOTE | 2019-02-16 14:33 | Progress Note - Cardiology ---
Cardiology SOAP Progress Note Subjective: Feels well today and denies cp or groin pain or leg pain/discoloration Wishes to go home Has chronic exertional shortness of breath, unchanged No palp or syncope Objective: I&O/Vital Signs 02/16/19 02/16/19 02/16/19 02/16/19 04:00 07:00 08:00 09:05 Temp 36.2 36.1 Pulse 89 92 105 Resp 20 18 B/P (MAP) 116/66 (83) 151/87 (108) Pulse Ox 100 94 93 O2 Delivery Nasal Cannula Room Air Room Air O2 Flow Rate 2.00 02/16/19 10:50 Temp 36.1 Pulse 105 Resp 18 B/P (MAP) 151/87 Pulse Ox 93 O2 Delivery Room Air O2 Flow Rate 2.00 02/16/19 00:00 Intake Total 220 ml Balance 220 ml Weight (Pounds): 130 Weight (Ounces): 9.0 Weight (Calculated Kilograms): 58.234865 Side: right Groin site without hematoma: Yes Condition: extremity w/d/p Bruising: mild bruising Constitutional: AAO x 3, well-developed, well-nourished Respiratory: chest expansion is symmetric, chest is bilaterally symmetric, lungs clear to auscultation, other Cardiovascular: regular rate-rhythm, S1 and S2 Gastrointestional: soft, audible bowel sounds Extremities: no lower extremity edema bilateral Neurologic/Psychiatric: grossly intact Skin: No rash on exposed areas, No ulcerations on exposed areas Results/Procedures: Labs Laboratory Tests 02/15/19 20:26: Glucometer 109 02/16/19 03:00: White Blood Count 7.6, Red Blood Count 4.67, Hemoglobin 10.7#L, Hematocrit 35, Mean Corpuscular Volume 76L, Mean Corpuscular Hemoglobin 23L, Mean Corpuscular Hemoglobin Concent 30L, Red Cell Distribution Width 18.3H, Platelet Count 214, Mean Platelet Volume 10.8H, Sodium Level 140, Potassium Level 4.4, Chloride Level 109H, Carbon Dioxide Level 23, Anion Gap 8, Blood Urea Nitrogen 21H, Creatinine 0.78, Estimat Glomerular Filtration Rate > 60, BUN/Creatinine Ratio 27, Glucose Level 97, Calcium Level 8.8 02/16/19 08:42: Glucometer 94 Microbiology 02/15/19 MRSA Screen - Final, Complete MRSA not isolated Laboratory Tests 02/15/19 09:35 02/16/19 03:00 A/P: Assessment: PAD - Angio and intervention of 02/15/19: Long total occlusion of the left superficial femoral artery to which successful balloon angioplasty was carried out with reduction of stenosis to less than 30%; other lesions included 70% to 80% stenosis of the right external iliac and the right common femoral and of the left ant tibial in its proximal portion Seg pressures of 02/09/19 showed mod obs dz of R lower limb and severe obs dz of the L lower limb Chronic multifactorial shortness of breath: ch ni heart failure and COPD H/O CABG approx 3 years ago at [facility] in [place], [place] - details unknown UTI CAD, s/p CABG Abnormal ECG: NSR with PVCs, LVH with repol abnormality H/o left CEA - details unknown HTN HLP DM Type 2 Tobaccoism - cessation advised Plan: * Continue current medication regimen including new Rx for Plavix * Discussed importance of medication compliance * Advised immediate and complete smoking cessation * F/U appt in one week NOE RUIZ MD FACP FAC CCDS Feb 16, 2019 14:33
== END 2019-02-16 10:45 | disposition home or self-care (01) ==
LOC: CATH 09:22 → ICU 14:23 → CATH 02-16 10:45
PROVIDERS: ATTEND Internal Medicine Cardiovascular Disease
DX: I70.92 Chronic total occlusion of artery of the extremities (principal); I70.203 Unspecified atherosclerosis of native arteries of extremities, bilateral legs; I25.10 Atherosclerotic heart disease of native coronary artery without angina pectoris; E11.9 Type 2 diabetes mellitus without complications; J44.9 Chronic obstructive pulmonary disease, unspecified; E78.5 Hyperlipidemia, unspecified; I10 Essential (primary) hypertension; F17.210 Nicotine dependence, cigarettes, uncomplicated; Z95.1 Presence of aortocoronary bypass graft; Z79.01 Long term (current) use of anticoagulants; Z79.84 Long term (current) use of oral hypoglycemic drugs; Z79.82 Long term (current) use of aspirin; Z82.3 Family history of stroke
CPT/HCPCS: 36415; 75625; 75716; 80048; 80053; 80061; 82962; 85027; 85610; 85730; 87081; 93005

== ENCOUNTER → 2019-02-15 | Outpatient (CLI) | payer MEDICARE, MEDICAID | LOC: LAB 09:20 | PROVIDERS: ATTEND Surgery | DX: E11.621 Type 2 diabetes mellitus with foot ulcer (principal); E11.42 Type 2 diabetes mellitus with diabetic polyneuropathy; L97.422 Non-pressure chronic ulcer of left heel and midfoot with fat layer exposed; I70.244 Atherosclerosis of native arteries of left leg with ulceration of heel and midfoot; L03.116 Cellulitis of left lower limb; J44.9 Chronic obstructive pulmonary disease, unspecified; T65.222A Toxic effect of tobacco cigarettes, intentional self-harm, initial encounter; F17.218 Nicotine dependence, cigarettes, with other nicotine-induced disorders; E44.1 Mild protein-calorie malnutrition ==

== ENCOUNTER → 2019-02-18 | Outpatient (CLI) | payer MEDICARE, MEDICAID ==
[~2019-02-18] MED LIST changes: +AMIO100T4 PO; +CETI10TA17 PO; +CLOP75TA28 PO; +FLUT1AER IH; +FURO40TA4 PO; +LISI10TA2 PO; +PARO10TA3 PO; +TRIA1TAB3 PO; +TROS20TA3 PO; +VORT10TA PO
== END ==
LOC: WOUNDCARE 09:58
PROVIDERS: ATTEND Surgery
DX: E11.621 Type 2 diabetes mellitus with foot ulcer (principal); E11.42 Type 2 diabetes mellitus with diabetic polyneuropathy; E11.52 Type 2 diabetes mellitus with diabetic peripheral angiopathy with gangrene; L97.422 Non-pressure chronic ulcer of left heel and midfoot with fat layer exposed; I70.262 Atherosclerosis of native arteries of extremities with gangrene, left leg; L03.116 Cellulitis of left lower limb; J44.9 Chronic obstructive pulmonary disease, unspecified; T65.222A Toxic effect of tobacco cigarettes, intentional self-harm, initial encounter; F17.218 Nicotine dependence, cigarettes, with other nicotine-induced disorders; E44.1 Mild protein-calorie malnutrition
CPT/HCPCS: 99213

== ENCOUNTER 2019-03-02 06:53 | Inpatient (IN) | payer MEDICARE, MEDICAID ==
[~2019-03-02] VITALS: Ht 162.5 cm; Wt 51.3 kg
[~2019-03-02 06:53] MED LIST changes: -DIAZ5TAB3; +DIAZ5TAB49; -TRAM50TA2 PO; +TRM50T PO
[2019-03-02] MEDS ORDERED: RT-ALBUTEROL/IPRATROPIUM 3 ML (DUONEB) VIAL ONE (07:03)
[2019-03-02] MEDS ORDERED: RT-ALBUTEROL SULF 2.5 MG/3 ML PRE-MIX VIAL ONE (07:03)
[2019-03-02] MEDS ORDERED: RT-ALBUTEROL SULF 2.5 MG/3 ML PRE-MIX VIAL INH STA (07:09)
[2019-03-02 07:14] VITALS: BP 154/83
[2019-03-02] MEDS ORDERED: methylPREDNISolone 125 MG (Solu-MEDROL) VIAL IVP ONE (07:15)
[2019-03-02] MEDS ORDERED: RT-ALBUTEROL/IPRATROPIUM 3 ML (DUONEB) VIAL INH ONE (07:15)
[2019-03-02 07:23] LABS: BASOPHILS % (AUTO) 0 % (0-10); EOSINOPHILS # (AUTO) 0.5 10^3/uL (0.0-0.3); EOSINOPHILS % (AUTO) 5 % (0-10); HEMATOCRIT 32 % (35-52); HEMOGLOBIN 9.9 G/DL (11.5-16.0); LYMPHOCYTES # (AUTO) 2.6 X 10^3 (1.0-4.0); LYMPHOCYTES % (AUTO) 29 % (12-44); MEAN CORPUSCULAR HEMOGLOBIN 24 PG (25-34); MEAN CORPUSCULAR HGB CONC 31 G/DL (32-36); MEAN CORPUSCULAR VOLUME 78 FL (80-99); MEAN PLATELET VOLUME 10.1 FL (7.4-10.4); MONOCYTES # (AUTO) 0.6 X 10^3 (0.0-1.0); MONOCYTES % (AUTO) 7 % (0-12); NEUTROPHILS # (AUTO) 5.4 X 10^3 (1.8-7.8); NEUTROPHILS % (AUTO) 59 % (42-75); PLATELET COUNT 232 10^3/uL (130-400); RED CELL DISTRIBUTION WIDTH 17.5 % (10.0-14.5); WHITE BLOOD COUNT 9.1 10^3/uL (4.3-11.0)
[2019-03-02 07:35] LABS: ALANINE AMINOTRANSFERASE 9 U/L (0-55); ALBUMIN 3.4 GM/DL (3.2-4.5); ALKALINE PHOSPHATASE 96 U/L (40-136); BILIRUBIN,TOTAL 0.4 MG/DL (0.1-1.0); BUN/CREATININE RATIO 16; CALCIUM 8.4 MG/DL (8.5-10.1); CARBON DIOXIDE 25 MMOL/L (21-32); CHLORIDE 105 MMOL/L (98-107); CREATININE SERUM 0.89 MG/DL (0.60-1.30); GFR ESTIMATED > 60; GLUCOSE 109 MG/DL (70-105); POTASSIUM 3.1 MMOL/L (3.6-5.0); SODIUM 143 MMOL/L (135-145); TOTAL PROTEIN 6.4 GM/DL (6.4-8.2)
--- NOTE | 2019-03-02 08:21 | Diagnostic Imaging Report ---
INDICATION: Shortness of breath. Comparison is made with prior examination from 11/17/2018. FINDINGS: Heart size is normal. There is moderate central pulmonary venous congestion. There is bibasilar infiltrate, right greater than left. There is no pneumothorax. The mediastinum is unremarkable. There has been a previous median sternotomy and coronary artery bypass graft. IMPRESSION: Bibasilar infiltrates, right greater than left. Moderate central pulmonary venous congestion Dictated by: Dictated on workstation # [id number]
[2019-03-02] MEDS ORDERED: FUROSEMIDE 40 MG/4 ML INJ (LASIX) IVP ONE (08:45)
--- NOTE | 2019-03-02 08:52 | ED Respiratory ---
General Chief Complaint: Respiratory Problems Stated Complaint: COPD Nursing Triage Note: Pt arrived via EMS with c/o SOB x5 days. Pt is a known COPD pt whom still currently smokes. Source: patient, family, EMS Exam Limitations: no limitations History of Present Illness Date Seen by Provider: Mar 02, 2019 Time Seen by Provider: 06:56 Initial Comments This patient presents to the emergency room via EMS with complaints of shortness of breath and cough 5 days. She has been afebrile. She denies any chest pain. She does have a history of episodes of CHF in the past as well as COPD. She is a smoker. EMS reports oxygen saturation was in the high 90s but patient was very dyspneic. She did not improve much with a DuoNeb treatment. They started CPAP therapy. Allergies and Home Medications Allergies Coded Allergies: No Known Drug Allergies (Unverified , 05/07/17) Home Medications Acetaminophen 500 Mg Tablet, 1,000 MG PO Q4H PRN for PAIN-MILD, (Reported) Albuterol Sulfate 1 Puff Puff, 2 PUFF INH Q6H PRN for SHORTNESS OF BREATH, (Reported) Albuterol Sulfate 2.5 Mg/3 Ml Vial.neb, 2.5 MG NEB Q6H PRN for SHORTNESS OF BREATH, (Reported) Amiodarone HCl 200 Mg Tablet, 100 MG PO DAILY, (Reported) TAKES 1/2 (200MG) TABLET Aspirin 81 Mg Tablet.dr, 81 MG PO DAILY, (Reported) Baclofen 10 Mg Tablet, 5 MG PO BID, (Reported) TAKES 1/2 (10MG) TABLET Cetirizine HCl 10 Mg Tablet, 10 MG PO DAILY, (Reported) Clopidogrel Bisulfate 75 Mg Tablet, 75 MG PO DAILY, (Reported) Fluticasone/Vilanterol 1 Each Blst.w.dev, 1 PUFF IH DAILY, (Reported) Furosemide 40 Mg Tablet, 40 MG PO DAILY, (Reported) Gabapentin 100 Mg Capsule, 100 MG PO 0800,1600, (Reported) Gabapentin 300 Mg Capsule, 300 MG PO HS, (Reported) Lisinopril 10 Mg Tablet, 10 MG PO DAILY, (Reported) Metformin HCl 1,000 Mg Tablet, 1,000 MG PO BID, (Reported) Paroxetine HCl 10 Mg Tablet, 10 MG PO DAILY, (Reported) Ropinirole HCl 1 Mg Tablet, 1 MG PO HS, (Reported) Triamterene/Hydrochlorothiazid 1 Each Tablet, 1 TAB PO DAILY, (Reported) Trospium Chloride 20 Mg Tablet, 20 MG PO BID, (Reported) Vortioxetine Hydrobromide 10 Mg Tablet, 10 MG PO DAILY, (Reported) Patient Home Medication List Home Medication List Reviewed: Yes Review of Systems Review of Systems Constitutional: no symptoms reported EENTM: no symptoms reported Respiratory: see HPI Cardiovascular: no symptoms reported Gastrointestinal: no symptoms reported Genitourinary: no symptoms reported : No Musculoskeletal: no symptoms reported Skin: no symptoms reported Psychiatric/Neurological: No Symptoms Reported Hematologic/Lymphatic: No Symptoms Reported Immunological/Allergic: no symptoms reported Past Dqxkbpq-Lcvrvk-Axhkya Hx Past Med/Social Hx: Reviewed Nursing Past Med/Soc Hx Patient Social History Alcohol Use: Denies Use Number of Drinks Today: AA Alcohol Beverage of Choice: Beer Recreational Drug Use: No Type Used: Cigarettes Recent Foreign Travel: No Contact w/Someone Who Travel: No Recent Infectious Disease Expo: No Recent Hopitalizations: No Physical Abuse: No Sexual Abuse: No Mistreated: No Fear: No Immunizations Up To Date Tetanus Booster (TDap): Unknown PED Vaccines UTD: Yes Date of Pneumonia Vaccine: Feb 15, 2018 Date of Influenza Vaccine: May 12, 2017 Seasonal Allergies Seasonal Allergies: No Past Medical History Surgeries: Yes Cardiac, CABG, Hysterectomy Respiratory: Yes (OXYGEN PRN) Asthma, COPD Currently Using CPAP: No Currently Using BIPAP: No Cardiac: Yes Coronary Artery Disease, Hypertension Neurological: Yes Stroke : No Female Reproductive Disorders: Denies RN CHEMICAL DEPENDENCY History: Menopausal Sexually Transmitted Disease: No HIV/AIDS: No Genitourinary: No Gastrointestinal: No Musculoskeletal: No Osteoporosis, Arthritis, Fractures Endocrine: Yes HEENT: No Loss of Vision: Denies Hearing Impairment: Denies Cancer: Yes Breast Did You Recieve Any Treatments: Yes What Type of Treatment Did You: Chemotherapy, Surgical Intervention Psychosocial: Yes Anxiety Integumentary: No Blood Disorders: No Adverse Reaction/Blood Tranf: No Family Medical History Patient reports no known family medical history. Physical Exam Vital Signs - First Documented 03/02/19 07:07 Temp 35.7 Pulse 113 Resp 20 B/P (MAP) 136/81 (99) Pulse Ox 100 O2 Delivery Non Rebreather O2 Flow Rate 15.00 Capillary Refill : Less Than 3 Seconds Height: 5'4.00" Weight: 130lbs. 9.0oz. 58.691087wu; 19.00 BMI Method:Estimated General Appearance: WD/WN, mild distress (Respiratory) HEENT: PERRL/EOMI, normal ENT inspection Neck: normal inspection Respiratory: respiratory distress, accessory muscle use, crackles (Basilar crackles), wheezing Cardiovascular: regular rate, rhythm, no edema Gastrointestinal: normal bowel sounds, non tender, soft Extremities: normal inspection, no pedal edema Neurologic/Psychiatric: client professional II-XII nml as tested, no motor/sensory deficits, alert, normal mood/affect, oriented x 3 Skin: normal color, warm/dry Progress/Results/Core Measures Suspected Sepsis Recent Fever Within 48 Hours: No Infection Criteria Present: Suspected New Infection New/Unexplained Altered Menta: No Sepsis Screen: Possible Sepsis Risk SIRS Temperature: Pulse: 99 Respiratory Rate: 24 Laboratory Tests 03/02/19 07:00: White Blood Count 9.1 Blood Pressure 154 /83 Mean: 99 Laboratory Tests 03/02/19 07:00: Creatinine 0.89, Platelet Count 232, Total Bilirubin 0.4 Results/Orders Lab Results Laboratory Tests Test 03/02/19 07:00 Range/Units White Blood Count 9.1 4.3-11.0 10^3/uL Red Blood Count 4.15 L 4.35-5.85 10^6/uL Hemoglobin 9.9 L 11.5-16.0 G/DL Hematocrit 32 L 35-52 % Mean Corpuscular Volume 78 L 80-99 FL Mean Corpuscular Hemoglobin 24 L 25-34 PG Mean Corpuscular Hemoglobin Concent 31 L 32-36 G/DL Red Cell Distribution Width 17.5 H 10.0-14.5 % Platelet Count 232 130-400 10^3/uL Mean Platelet Volume 10.1 7.4-10.4 FL Neutrophils (%) (Auto) 59 42-75 % Lymphocytes (%) (Auto) 29 12-44 % Monocytes (%) (Auto) 7 0-12 % Eosinophils (%) (Auto) 5 0-10 % Basophils (%) (Auto) 0 0-10 % Neutrophils # (Auto) 5.4 1.8-7.8 X 10^3 Lymphocytes # (Auto) 2.6 1.0-4.0 X 10^3 Monocytes # (Auto) 0.6 0.0-1.0 X 10^3 Eosinophils # (Auto) 0.5 H 0.0-0.3 10^3/uL Basophils # (Auto) 0.0 0.0-0.1 10^3/uL Sodium Level 143 135-145 MMOL/L Potassium Level 3.1 L 3.6-5.0 MMOL/L Chloride Level 105 98-107 MMOL/L Carbon Dioxide Level 25 21-32 MMOL/L Anion Gap 13 5-14 MMOL/L Blood Urea Nitrogen 14 7-18 MG/DL Creatinine 0.89 0.60-1.30 MG/DL Estimat Glomerular Filtration Rate > 60 BUN/Creatinine Ratio 16 Glucose Level 109 H 70-105 MG/DL Calcium Level 8.4 L 8.5-10.1 MG/DL Corrected Calcium 8.9 8.5-10.1 MG/DL Total Bilirubin 0.4 0.1-1.0 MG/DL Aspartate Amino Transf (AST/SGOT) 12 5-34 U/L Alanine Aminotransferase (ALT/SGPT) 9 0-55 U/L Alkaline Phosphatase 96 40-136 U/L Troponin I 0.716 *H <0.028 NG/ML C-Reactive Protein High Sensitivity 2.85 H 0.00-0.50 MG/DL B-Type Natriuretic Peptide 3468.2 H <100.0 PG/ML Total Protein 6.4 6.4-8.2 GM/DL Albumin 3.4 3.2-4.5 GM/DL My Orders Orders - CRIS QUEZADA MD Albuterol Pre-Mix Nebs (Rt) (Proventil (03/02/19 07:03) Albuterol/Ipra Inhalation Soln (Duoneb I (03/02/19 07:03) BNP (03/02/19 07:07) Cbc With Automated Diff (03/02/19 07:07) Comprehensive Metabolic Panel (03/02/19 07:07) Hs C Reactive Protein (03/02/19 07:07) Ed Iv/Invasive Line Start (03/02/19 07:07) Chest 1 View, Ap/Pa Only (03/02/19 07:07) Methylprednisolone Sod Succ (Solu-Medrol (03/02/19 07:15) Albuterol Pre-Mix Nebs (Rt) (Proventil (03/02/19 07:09) Albuterol/Ipra Inhalation Soln (Duoneb I (03/02/19 07:15) Svn Small Volume Nebulizer (03/02/19 07:09) Svn Small Volume Nebulizer (03/02/19 07:09) Furosemide Injection (Lasix Injection) (03/02/19 08:45) Potassium Chloride (Tablet) (Klor Con Ta (03/02/19 09:00) Medications Given in ED Current Medications Medications Dose Ordered Sig/Vlad Route Start Time Stop Time Status Last Admin Dose Admin Albuterol/ Ipratropium 3 ml ONCE ONCE INH 03/02/19 07:15 03/02/19 07:16 DC 03/02/19 07:13 3 ML Furosemide 40 mg ONCE ONCE IVP 03/02/19 08:45 03/02/19 08:46 DC 03/02/19 08:59 40 MG Methylprednisolone Sodium Succinate 62.5 mg ONCE ONCE IVP 03/02/19 07:15 03/02/19 07:16 DC 03/02/19 07:17 62.5 MG Vital Signs/I&O 03/02/19 03/02/19 07:07 07:14 Temp 35.7 Pulse 113 99 Resp 20 24 B/P (MAP) 136/81 (99) Pulse Ox 100 97 O2 Delivery Non Rebreather O2 Flow Rate 15.00 24.00 Capillary Refill : Less Than 3 Seconds Blood Pressure Mean: 99 Progress Note #1: Time: 09:01 Progress Note Patient was started immediately on BiPAP therapy and given an hour-long nebulizer treatment. Solu-Medrol was administered. Chest x-ray suggested pulmonary venous congestion and bibasilar infiltrates. BNP was significantly elevated. Lasix 40 mg IV was ordered to start in the emergency room. Potassium is being corrected orally starting with 20 mEq in the emergency room. I discussed the case with Dr. Mathews who requested consultation with Dr. Salazar and Dr. Cameron. Dr. Cameron requested echocardiogram as one has not on file accessible to me at this time. Dr. Salazar will see the patient and determine if antibiotics are appropriate for this patient since labs and vitals do not suggest infection. Dr. Mathews requested a troponin and EKG before patient leaves the emergency room. Progress Note #2: Time: 09:29 Progress Note EKG was obtained and demonstrated ST depression in the lateral leads. I notified Dr. Cameron. Since she has not experienced chest pain, he would like to give aspirin only at this time until he has a chance to review her records. Troponin is pending. ECG Initial ECG Impression Date: Mar 02, 2019 Initial ECG Impression Time: 09:09 Initial ECG Rate: 119 Initial ECG Rhythm: S.Tach Comment Sinus tachycardia with no ST elevation. There is ST depression in the lateral leads, possibly secondary to repolarization abnormality and LVH. LVH is noted. No abnormal intervals. Diagnostic Imaging Diagonstic Imaging: Xray Plain Films/CT/US/NM/MRI: chest Comments Chest x-ray viewed by me and report reviewed. See report below: NAME: MARIA DE JESUS [facility] REC#: [id number] PT STATUS: REG ER : 1950 PHYSICIAN: CRIS QUEZADA MD ADMIT DATE: 03/02/19/ER Signed Date of Exam: 03/02/19 CHEST 1 VIEW, AP/PA ONLY INDICATION: Shortness of breath. Comparison is made with prior examination from 11/17/2018. FINDINGS: Heart size is normal. There is moderate central pulmonary venous congestion. There is bibasilar infiltrate, right greater than left. There is no pneumothorax. The mediastinum is unremarkable. There has been a previous median sternotomy and coronary artery bypass graft. IMPRESSION: Bibasilar infiltrates, right greater than left. Moderate central pulmonary venous congestion Dictated by: Dictated on workstation # [id number] Dict: 03/02/19816 Trans: 03/02/19839 Interpreted by: DANYA ALVARADO MD Electronically signed by: DANYA ALVARADO MD 03/02/19839 Departure Communication (Admissions) Time/Spoke to Admitting Phy: 08:45 Dr. Bisi Cameron 08:50 Dr. Salazar 05:55 Impression Primary Impression: COPD exacerbation Additional Impressions: CHF, acute Qualified Codes: I50.9 - Heart failure, unspecified Hypokalemia Disposition: ADMITTED INPATIENT Condition: Improved Admissions Decision to Admit Reason: Admit from ER (General) Decision to Admit/Date: Mar 02, 2019 Time/Decision to Admit Time: 07:00 Departure-Patient Inst. Referrals: MEAGAN AKHTAR (PCP/Family) Primary Care Physician CRIS QUEZADA MD Mar 02, 2019 08:52
[2019-03-02] MEDS ORDERED: KCL 10 MEQ TAB (MICRO K) PO ONE (09:00)
[2019-03-02] MEDS ORDERED: ASPIRIN 81 MG CHEW (CHILDREN'S ASA) PO ONE (09:30)
[2019-03-02 09:50] VITALS: BP 149/77
[2019-03-02] MEDS ORDERED: CATHETER FLUSH 10 ML SYR IV PRN (10:30)
[2019-03-02] MEDS ORDERED: RT-ALBUTEROL SULF 2.5 MG/3 ML PRE-MIX VIAL IH PRN (10:30)
[2019-03-02 10:45] VITALS: BP 154/83
[2019-03-02] MEDS ORDERED: meTOprolol SUCCINATE 100 MG (TOPROL XL) TAB PO NR (10:45)
[2019-03-02] MEDS ORDERED: KCL 20 MEQ TAB (K-DUR) PO SCH ×2 (11:00)
[2019-03-02] MEDS: CLOPIDOGREL 75 MG (PLAVIX) TABLET PO SCH (11:31)
[2019-03-02] MEDS: methylPREDNISolone 40 MG/ML (Solu-MEDROL) VIAL IV SCH ×2 (11:39→18:15)
[2019-03-02 12:00] VITALS: BP 120/59
[2019-03-02] MEDS: CATHETER FLUSH 10 ML SYR IV SCH ×2 (12:00→23:11)
--- NOTE | 2019-03-02 12:34 | Pulmonary Consultation ---
History of Present Illness History of Present Illness Date of Consultation 03/02/19 12:28 Time Seen by Provider: 12:37 Date of Admission History of Present Illness 68yo with hx of CHF, and severe oxygen dependent COPD, current tobacco use presented to ED secondary to worsening SOB over the last 5 days. Denies CP, f/ns/c. I am consulted for pulmonary management. Allergies and Home Medications Allergies Coded Allergies: No Known Drug Allergies (Unverified , 05/07/17) Home Medications Amiodarone HCl 200 Mg Tablet, 100 MG PO DAILY, (Reported) Aspirin 81 Mg Tablet.dr, 81 MG PO DAILY, (Reported) Baclofen 10 Mg Tablet, 5 MG PO BID, (Reported) Cetirizine HCl 10 Mg Tablet, 10 MG PO DAILY, (Reported) Clopidogrel Bisulfate 75 Mg Tablet, 75 MG PO DAILY Prescribed by: JANELLE BRANNON on 02/16/19 0841 Fluticasone/Vilanterol 1 Each Blst.w.dev, 1 EACH IH DAILY, (Reported) Furosemide 40 Mg Tablet, 40 MG PO DAILY, (Reported) Gabapentin 100 Mg Capsule, 100 MG PO TID, (Reported) Lisinopril 10 Mg Tablet, 10 MG PO DAILY, (Reported) Metformin HCl 1,000 Mg Tablet, 1,000 MG PO BID, (Reported) Paroxetine HCl 10 Mg Tablet, 10 MG PO DAILY, (Reported) Triamterene/Hydrochlorothiazid 1 Each Tablet, 1 EACH PO DAILY, (Reported) Trospium Chloride 20 Mg Tablet, 20 MG PO BID, (Reported) Vortioxetine Hydrobromide 10 Mg Tablet, 10 MG PO DAILY, (Reported) Past Mmupfkm-Gvifcs-Uozvhw Hx Patient Social History Alcohol Use: Denies Use Number of Drinks Today: AA Alcohol Beverage of Choice: Beer Recreational Drug Use: No Type Used: Cigarettes Recent Foreign Travel: No Contact w/Someone Who Travel: No Recent Infectious Disease Expo: No Recent Hopitalizations: No Physical Abuse: No Sexual Abuse: No Mistreated: No Fear: No Immunizations Up To Date Tetanus Booster (TDap): Unknown PED Vaccines UTD: Yes Date of Pneumonia Vaccine: Feb 15, 2018 Date of Influenza Vaccine: May 12, 2017 Seasonal Allergies Seasonal Allergies: No Past Medical History Surgeries: Yes Cardiac, Hysterectomy Respiratory: Yes (OXYGEN PRN) Asthma, COPD Currently Using CPAP: No Currently Using BIPAP: No Cardiac: Yes Coronary Artery Disease, Hypertension Neurological: Yes Stroke : No Female Reproductive Disorders: Denies 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 Review of Systems Time Seen by Provider: 12:32 Constitutional: Sweats, Weakness, Malaise; No: Fever, Chills, Other ENT: Nose congestion; No: Ear pain, Ear discharge, Nose pain, Nose discharge, Mouth pain, Mouth swelling, Throat pain, Throat swelling, Other Sepsis Event Evaluation Height, Weight, BMI Height: 5'4.00" Weight: 130lbs. 9.0oz. 58.589693ft; 19.27 BMI Method:Estimated Exam Exam Vital Signs Date Time Temp Pulse Resp B/P (MAP) Pulse Ox O2 Delivery O2 Flow Rate FiO2 03/02/19 10:45 102 29 98 24.00 03/02/19 10:06 36.7 120 22 143/68 98 NIV Bilevel 03/02/19 09:50 36.2 122 30 149/77 (101) 98 NIV Bilevel 24.00 03/02/19 07:14 99 24 97 24.00 03/02/19 07:07 35.7 113 20 136/81 (99) 100 Non Rebreather 15.00 Height & Weight Height: 5'4.00" Weight: 130lbs. 9.0oz. 58.244763qt; 19.27 BMI Method:Estimated General Appearance: Anxious, Chronically ill, Mild Distress, Thin HEENT: PERRL/EOMI, Normal ENT Inspection, Pharynx Normal Neck: Full Range of Motion, Non Tender, Supple Respiratory: Chest Non Tender, Accessory Muscle Use, Decreased Breath Sounds, Respiratory Distress Cardiovascular: Regular Rate, Rhythm, No Edema, No Murmur Capillary Refill: Less Than 3 Seconds Gastrointestinal: normal bowel sounds, non tender, soft Extremity: Normal Capillary Refill, Normal Inspection, No Pedal Edema Neurologic/Psychiatric: Alert, Oriented x3 Skin: Normal Color, Warm/Dry Lymphatic: No Adenopathy Results Lab Laboratory Tests 03/02/19 07:00 Assessment/Plan Assessment/Plan Acute on chronic respiratory failure -Currently requiring BiPAP -Check ABG -repeat labs COPDAE -SVNS add pulmicort -Solumedrol Bilateral pulmonary edema R>L -Continue Diuresis -Echo pending -repeat Troponin Hypokalemia -repeat labs CHFAE -Cardiology following Anemia -Monitor MARGARITA CHAMORRO DO Mar 02, 2019 12:34
[2019-03-02 12:47] LABS: ABG BASE EXCESS 0.7 MMOL/L (-2.5-2.5); ABG OXYGEN SATURATION 100 % (94-100); ABG PCO2 36 MMHG (35-45); ABG PH 7.45 (7.37-7.43); ABG PO2 125 MMHG (79-93); ABG TCO2 25.6 MMOL/L (21.0-31.0)
[2019-03-02 12:54] LABS: ALLENS TEST YES-POS; INSPIRED O2 24%; PATIENT TEMP 36.2; VENTILATOR NO
[2019-03-02 12:57] LABS: BASOPHILS % (AUTO) 0 % (0-10); EOSINOPHILS % (AUTO) 0 % (0-10); HEMATOCRIT 35 % (35-52); HEMOGLOBIN 10.2 G/DL (11.5-16.0); LYMPHOCYTES # (AUTO) 0.3 X 10^3 (1.0-4.0); LYMPHOCYTES % (AUTO) 3 % (12-44); MEAN CORPUSCULAR HEMOGLOBIN 23 PG (25-34); MEAN CORPUSCULAR HGB CONC 29 G/DL (32-36); MEAN CORPUSCULAR VOLUME 79 FL (80-99); MEAN PLATELET VOLUME 10.9 FL (7.4-10.4); MONOCYTES # (AUTO) 0.1 X 10^3 (0.0-1.0); MONOCYTES % (AUTO) 1 % (0-12); NEUTROPHILS # (AUTO) 10.1 X 10^3 (1.8-7.8); NEUTROPHILS % (AUTO) 97 % (42-75); PLATELET COUNT 276 10^3/uL (130-400); RED CELL DISTRIBUTION WIDTH 17.8 % (10.0-14.5); WHITE BLOOD COUNT 10.5 10^3/uL (4.3-11.0)
--- NOTE | 2019-03-02 13:08 | Consultation-Cardiology ---
HPI-Cardiology Cardiology Consultation: Date of Consultation 03/02/19 Time Seen by a Provider: 10:10 Date of Admission Attending Physician Yolanda Mathews MD Admitting Physician Katja Devine Consulting Physician NOE RUIZ MD, MA, FACP, FACC, FSCAI, CCDS HPI: Chief Complaint: CC: Shortness of breath HPI 68 yo woman with increasing shortness of breath for 4 days. Called EMS this am and was brought to the ER where she was diagnosed with decomp CHF. Has been treated with diuretics and is on BiPAP and is feeling better. No cp or palp or syncope. Mild bilateral leg swelling for several days. Denies fever or chills. Has gen malaise and weakness. Denies focal weakness Review of Systems-Cardiology Review of Systems Constitutional: As described under HPI Eyes: No vision change Ears/Nose/Throat: No ear discharge, No nasal drainage Respiratory: As described under HPI Cardiovascular: As described under HPI Gastrointestinal: No diarrhea, No vomiting, No stool coloration changes Genitourinary: No dysuria, No hematuria, No urine frequency changes Musculoskeletal: back pain (chronic) Skin: No rash, No ulcerations Psychiatric/Neurological: No seizure, No focal weakness, No syncope Hematologic: No bleeding abnormalities VAP-Aczhie-Upytxn Hx Patient Social History Alcohol Use: Denies Use Recreational Drug Use: No Type Used: Cigarettes Recent Foreign Travel: No Recent Infectious Disease Expo: No Hospitalization with Isolation: Denies Immunizations Up To Date Tetanus Booster (TDap): Unknown Date of Pneumonia Vaccine: Feb 15, 2018 Date of Influenza Vaccine: May 12, 2017 Past Medical History PMH As described under Assessment. Family Medical History Family History: Patient reports no known family medical history. Allergies and Home Medications Allergies Coded Allergies: No Known Drug Allergies (Unverified , 05/07/17) Home Medications Amiodarone HCl 200 Mg Tablet, 100 MG PO DAILY, (Reported) Aspirin 81 Mg Tablet.dr, 81 MG PO DAILY, (Reported) Baclofen 10 Mg Tablet, 5 MG PO BID, (Reported) Cetirizine HCl 10 Mg Tablet, 10 MG PO DAILY, (Reported) Clopidogrel Bisulfate 75 Mg Tablet, 75 MG PO DAILY Prescribed by: JANELLE BRANNON on 02/16/19 0841 Fluticasone/Vilanterol 1 Each Blst.w.dev, 1 EACH IH DAILY, (Reported) Furosemide 40 Mg Tablet, 40 MG PO DAILY, (Reported) Gabapentin 100 Mg Capsule, 100 MG PO TID, (Reported) Lisinopril 10 Mg Tablet, 10 MG PO DAILY, (Reported) Metformin HCl 1,000 Mg Tablet, 1,000 MG PO BID, (Reported) Paroxetine HCl 10 Mg Tablet, 10 MG PO DAILY, (Reported) Triamterene/Hydrochlorothiazid 1 Each Tablet, 1 EACH PO DAILY, (Reported) Trospium Chloride 20 Mg Tablet, 20 MG PO BID, (Reported) Vortioxetine Hydrobromide 10 Mg Tablet, 10 MG PO DAILY, (Reported) Patient Home Medication List Home Medication List Reviewed: Yes Physical Exam-Cardiology Physical Exam Vital Signs/I&O 03/02/19 03/02/19 03/02/19 03/02/19 07:07 07:14 09:50 10:06 Temp 35.7 36.2 36.7 Pulse 113 99 122 120 Resp 20 24 30 22 B/P (MAP) 136/81 (99) 149/77 (101) 143/68 Pulse Ox 100 97 98 98 O2 Delivery Non Rebreather NIV Bilevel NIV Bilevel O2 Flow Rate 15.00 24.00 24.00 03/02/19 03/02/19 10:45 12:26 Pulse 102 125 Resp 29 Pulse Ox 98 O2 Flow Rate 24.00 Capillary Refill : Less Than 3 Seconds Constitutional: AAO x 3, well-developed, other (thin-appearing) HEENT: PERRL, EOMI; No xanthelasmas are seen Neck: carotid pulses are 2 + bilaterally, with good upstrokes Respiratory: other (prolonged exp phase; bibasilar crackles, fine and coarse) Cardiovascular: regular rate-rhythm, S1 and S2, systolic murmur (HSM 2/6 at card apex) Gastrointestinal: No tender; soft; No guarding, No rebound; audible bowel sounds Extremities: No clubbing, No cyanosis, No significant edema Neurologic/Psychiatric: oriented x 3, grossly intact, power is 5/5 both on sides Skin: No rash on exposed areas, No ulcerations on exposed areas Data Review Labs Laboratory Tests 03/02/19 07:00: White Blood Count 9.1, Red Blood Count 4.15L, Hemoglobin 9.9L, Hematocrit 32L, Mean Corpuscular Volume 78L, Mean Corpuscular Hemoglobin 24L, Mean Corpuscular Hemoglobin Concent 31L, Red Cell Distribution Width 17.5H, Platelet Count 232, Mean Platelet Volume 10.1, Neutrophils (%) (Auto) 59, Lymphocytes (%) (Auto) 29, Monocytes (%) (Auto) 7, Eosinophils (%) (Auto) 5, Basophils (%) (Auto) 0, Neutrophils # (Auto) 5.4, Lymphocytes # (Auto) 2.6, Monocytes # (Auto) 0.6, Eosinophils # (Auto) 0.5H, Basophils # (Auto) 0.0, Sodium Level 143, Potassium Level 3.1L, Chloride Level 105, Carbon Dioxide Level 25, Anion Gap 13, Blood Urea Nitrogen 14, Creatinine 0.89, Estimat Glomerular Filtration Rate > 60, BUN/Creatinine Ratio 16, Glucose Level 109H, Calcium Level 8.4L, Corrected Calcium 8.9, Total Bilirubin 0.4, Aspartate Amino Transf (AST/SGOT) 12, Alanine Aminotransferase (ALT/SGPT) 9, Alkaline Phosphatase 96, Troponin I 0.716*H, C- Reactive Protein High Sensitivity 2.85H, B-Type Natriuretic Peptide 3468.2H, Total Protein 6.4, Albumin 3.4 03/02/19 12:35: Blood Gas Puncture Site RR, Blood Gas Patient Temperature 36.2, Arterial Blood pH 7.45H, Arterial Blood Partial Pressure CO2 36, Arterial Blood Partial Pressure O2 125H, Arterial Blood HCO3 24, Arterial Blood Total CO2 25.6, Arterial Blood Oxygen Saturation 100, Arterial Blood Base Excess 0.7, Jossue Test YES-POS, Blood Gas Ventilator Setting NO, Blood Gas Inspired Oxygen 24% 03/02/19 12:52: Laboratory Tests 03/02/19 07:00 03/02/19 12:52 A/P-Cardiology Assessment/Admission Diagnosis Ac systolic CHF Elevated troponin: Ac NSTEMI (type 1 NE) vs CHF (type 2 NE) Echo of 03/02/19: LVEF 15-20%, mod enlargement of LA, mod MR and TR, RVSP 57 mmHg Pulmonary hypertension, probably secondary to L heart failure PAD - Angio and intervention of 02/15/19: Long total occlusion of the left superficial femoral artery to which successful balloon angioplasty was carried out with reduction of stenosis to less than 30%; other lesions included 70% to 80% stenosis of the right external iliac and the right common femoral and of the left ant tibial in its proximal portion COPD H/O CABG approx 3 years ago at [facility] in [place], [place] - details unknown UTI Abnormal ECG: NSR with PVCs, LVH with repol abnormality H/o left CEA - details unknown HTN HLP DM Type 2 Chronic tobacco use Discussion and Recomendations * Treat decompensated CHF with diuretics * Treat cardiomyopathy with WAYLON-inhib and beta-nas * Consider cath to eval for obstructive CAD as the basis for systolic dysfunction * Replenish K * Monitor labs * Advised to quit smoking immediately and completely Clinical Quality Measures DVT/VTE Risk/Contraindication: Risk Factor Score Per Nursin RFS Level Per Nursing on Admit: 4+=Very High [facility]UIZ [facility] Mar 02, 2019 13:08
[2019-03-02 13:21] LABS: CALCIUM 9.1 MG/DL (8.5-10.1); CREATININE SERUM 1.1 MG/DL (0.60-1.30); MAGNESIUM 1.9 MG/DL (1.6-2.4); PHOSPHORUS 3.4 MG/DL (2.3-4.7); POTASSIUM 3.4 MMOL/L (3.6-5.0)
[2019-03-02 13:34] LABS: ANISOCYTOSIS SLIGHT; BAND NEUTROPHILS 0 %; BASOPHILS % (MANUAL) 0 %; EOSINOPHILS % (MANUAL) 1 %; HYPOCHROMASIA SLIGHT; LYMPHOCYTES % (MANUAL) 3 %; MICROCYTOSIS SLIGHT; MONOCYTES % (MANUAL) 0 %; NEUTROPHILS % (MANUAL) 96 %
[2019-03-02] MEDS: ENOXAPARIN 40 MG/0.4 ML (LOVENOX) SYR SC SCH (13:51)
[2019-03-02] MEDS ORDERED: GABA-488 PO (13:53)
[2019-03-02] MEDS ORDERED: RT-ALBUINH INH (13:53)
[2019-03-02] MEDS ORDERED: CLOP75TA69 PO (13:53)
[2019-03-02] MEDS ORDERED: ROPI1TAB2 PO (13:53)
[2019-03-02] MEDS ORDERED: ALBU2.5V4 NEB (13:56)
[2019-03-02] MEDS ORDERED: ACET-2267 PO (13:56)
--- NOTE | 2019-03-02 13:57 | NUR ---
WENT OVER THE EXT MED HX WITH THE PATIENT. SHE VERIFIED HOW SHE TAKES THEM. SHE STATES SHE ALSO TAKES TYLENOL OTC NEEDED.
[2019-03-02] MEDS: RT-ALBUTEROL/IPRATROPIUM 3 ML (DUONEB) VIAL IH SCH ×3 (15:05→22:18)
[2019-03-02 16:00] VITALS: BP 114/66
[2019-03-02] MEDS ORDERED: KCL 20 MEQ TAB (K-DUR) PO NR (16:00)
--- NOTE | 2019-03-02 16:27 | History & Physical ---
HPI History of Present Illness: 68 yo F that presents with increasing shortness of breath for the last 4 days. Patient was hypoxic in the 70s on admission to the ER and was placed on Bipap. She states that she has not had any changes in her diet. Denies missing any medications. Denies any chest pain or discomfort. No recent sick contacts. She was found to have elevated BNP and CXR with pulmonary congestion consistent with CHF exacerbation. Source: patient Exam Limitations: no limitations Date seen by provider: Mar 02, 2019 Time Seen by Provider: 10:25 Attending Physician Vincent Mathews MD PCP Katja Devine Consult Date of Admission Mar 02, 2019 at 08:54 Home Medications Home Medications Reviewed patient Home Medication Reconciliation performed by pharmacy medication reconciliations stage technician and/or nursing. Patients Allergies have been reviewed. Allergies Coded Allergies: No Known Drug Allergies (Unverified , 05/07/17) CEK-Lrnvuy-Ncidei Hx Patient Social History Alcohol Use: Denies Use Recreational Drug Use: No Type Used: Cigarettes Recent Foreign Travel: No Contact w/other who traveled: No Recent Hopitalizations: No Recent Infectious Disease Expo: No Immunizations Up To Date Tetanus Booster (TDap): Unknown Date of Pneumonia Vaccine: Feb 15, 2018 Date of Influenza Vaccine: May 12, 2017 Past Medical History Systolic CHF COPD HTN Family Medical History Family History: Patient reports no known family medical history. Review of Systems (CHC) Constitutional: No chills, No fever; malaise EENTM: no symptoms reported; No mouth pain, No mouth swelling, No nose congestion, No nose pain, No throat pain, No throat swelling Respiratory: cough, dyspnea on exertion, orthopnea Cardiovascular: No chest pain, No edema, No palpitations Gastrointestinal: no symptoms reported; No abdominal pain, No constipation, No diarrhea, No loss of appetite, No nausea, No vomiting Genitourinary: no symptoms reported; No dysuria, No frequency, No hematuria : No Musculoskeletal: no symptoms reported; No back pain, No joint pain, No muscle pain Skin: no symptoms reported Psychiatric/Neurological: No Symptoms Reported Reviewed Test Results Reviewed Test Results Lab Laboratory Tests Test 03/02/19 07:00 03/02/19 12:35 03/02/19 12:52 Range/Units White Blood Count 9.1 10.5 4.3-11.0 10^3/uL Red Blood Count 4.15 L 4.41 4.35-5.85 10^6/uL Hemoglobin 9.9 L 10.2 L 11.5-16.0 G/DL Hematocrit 32 L 35 35-52 % Mean Corpuscular Volume 78 L 79 L 80-99 FL Mean Corpuscular Hemoglobin 24 L 23 L 25-34 PG Mean Corpuscular Hemoglobin Concent 31 L 29 L 32-36 G/DL Red Cell Distribution Width 17.5 H 17.8 H 10.0-14.5 % Platelet Count 232 276 130-400 10^3/uL Mean Platelet Volume 10.1 10.9 H 7.4-10.4 FL Neutrophils (%) (Auto) 59 97 H 42-75 % Lymphocytes (%) (Auto) 29 3 L 12-44 % Monocytes (%) (Auto) 7 1 0-12 % Eosinophils (%) (Auto) 5 0 0-10 % Basophils (%) (Auto) 0 0 0-10 % Neutrophils # (Auto) 5.4 10.1 H 1.8-7.8 X 10^3 Lymphocytes # (Auto) 2.6 0.3 L 1.0-4.0 X 10^3 Monocytes # (Auto) 0.6 0.1 0.0-1.0 X 10^3 Eosinophils # (Auto) 0.5 H 0.0 0.0-0.3 10^3/uL Basophils # (Auto) 0.0 0.0 0.0-0.1 10^3/uL Sodium Level 143 142 135-145 MMOL/L Potassium Level 3.1 L 3.4 L 3.6-5.0 MMOL/L Chloride Level 105 100 98-107 MMOL/L Carbon Dioxide Level 25 24 21-32 MMOL/L Anion Gap 13 18 H 5-14 MMOL/L Blood Urea Nitrogen 14 14 7-18 MG/DL Creatinine 0.89 1.10 0.60-1.30 MG/DL Estimat Glomerular Filtration Rate > 60 49 BUN/Creatinine Ratio 16 13 Glucose Level 109 H 245 H 70-105 MG/DL Calcium Level 8.4 L 9.1 8.5-10.1 MG/DL Corrected Calcium 8.9 8.5-10.1 MG/DL Total Bilirubin 0.4 0.1-1.0 MG/DL Aspartate Amino Transf (AST/SGOT) 12 5-34 U/L Alanine Aminotransferase (ALT/SGPT) 9 0-55 U/L Alkaline Phosphatase 96 40-136 U/L Troponin I 0.716 *H 0.438 *H <0.028 NG/ML C-Reactive Protein High Sensitivity 2.85 H 0.00-0.50 MG/DL B-Type Natriuretic Peptide 3468.2 H <100.0 PG/ML Total Protein 6.4 6.4-8.2 GM/DL Albumin 3.4 3.2-4.5 GM/DL Blood Gas Puncture Site RR Blood Gas Patient Temperature 36.2 Arterial Blood pH 7.45 H 7.37-7.43 Arterial Blood Partial Pressure CO2 36 35-45 MMHG Arterial Blood Partial Pressure O2 125 H 79-93 MMHG Arterial Blood HCO3 24 23-27 MMOL/L Arterial Blood Total CO2 25.6 21.0-31.0 MMOL/L Arterial Blood Oxygen Saturation 100 94-100 % Arterial Blood Base Excess 0.7 -2.5-2.5 MMOL/L Jossue Test YES-POS Blood Gas Ventilator Setting NO Blood Gas Inspired Oxygen 24% Neutrophils % (Manual) 96 % Lymphocytes % (Manual) 3 % Monocytes % (Manual) 0 % Eosinophils % (Manual) 1 % Basophils % (Manual) 0 % Band Neutrophils 0 % Hypochromasia SLIGHT Anisocytosis SLIGHT Microcytosis SLIGHT Phosphorus Level 3.4 2.3-4.7 MG/DL Magnesium Level 1.9 1.6-2.4 MG/DL Physical Exam-(CHC) Physical Exam Vital Signs VS - Last 72 Hours, by Label 03/02/19 03/02/19 03/02/19 03/02/19 07:07 07:14 09:50 10:06 Temp 35.7 36.2 36.7 Pulse 113 99 122 120 Resp 20 24 30 22 B/P (MAP) 136/81 (99) 149/77 (101) 143/68 Pulse Ox 100 97 98 98 O2 Delivery Non Rebreather NIV Bilevel NIV Bilevel O2 Flow Rate 15.00 24.00 24.00 03/02/19 03/02/19 03/02/19 03/02/19 10:45 12:00 12:26 15:05 Temp 35.9 Pulse 102 99 125 Resp 29 23 B/P (MAP) 120/59 (79) Pulse Ox 98 97 91 O2 Delivery NIV Bilevel Nasal Cannula O2 Flow Rate 24.00 24.00 2.00 03/02/19 16:00 Temp 36.2 Pulse 98 Resp 22 B/P (MAP) 114/66 (82) Pulse Ox 96 O2 Delivery NIV Bilevel O2 Flow Rate 24.00 Capillary Refill : Less Than 3 Seconds General Appearance: moderate distress (on bipap this AM) HEENT: PERRL/EOMI Neck: non-tender, full range of motion, supple Respiratory: chest non-tender, lungs clear, accessory muscle use, crackles Cardiovascular: normal peripheral pulses, regular rate, rhythm, no edema, no murmur Gastrointestinal: normal bowel sounds, non tender, soft, no organomegaly Back: no CVA tenderness, no vertebral tenderness Extremities: normal range of motion, non-tender, normal inspection, no pedal edema, no calf tenderness, normal capillary refill Neurologic/Psychiatric: 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 welder II-XII nml as tested, no motor/sensory deficits, al ert, normal mood/affect, oriented x 3 Skin: normal color, warm/dry Lymphatic: no adenopathy Assessment/Plan Assessment/Plan Admission Status: Inpatient Order (span 2 midnights) Reason for Inpatient Admission: Patient needs bipap and needs cath in AM (1) Acute systolic (congestive) heart failure Status: Acute Assessment & Plan: - Echo with EF 15-20%, Cardiology consulted appreciate recommendations (2) NSTEMI (non-ST elevated myocardial infarction) Status: Acute Assessment & Plan: - Plans on Cath in AM (3) Microcytic anemia Status: Chronic Assessment & Plan: - Will get Iron studies (4) COPD exacerbation Status: Acute (5) Hypokalemia Status: Acute Assessment & Plan: - Replace and repeat in AM (6) Non-insulin dependent type 2 diabetes mellitus Status: Chronic (7) Essential (primary) hypertension Status: Chronic Assessment & Plan: - Continue home meds (8) CAD (coronary artery disease) Status: Chronic Qualifiers: Qualified Codes: I25.10 - Atherosclerotic heart disease of [place] coronary artery without angina pectoris (9) DVT prophylaxis Status: Acute Assessment & Plan: - Lovenox Clinical Quality Measures DVT/VTE Risk/Contraindication: Risk Factor Score Per Nursin RFS Level Per Nursing on Admit: 4+=Very High Copy Copies To 1: VINCENT JEAN-BAPTISTE MD Mar 02, 2019 16:27
[2019-03-02] MEDS: RT-BUDESONIDE NEBS 0.5 MG/2ML (PULMICORT) AMP INH SCH (18:45)
[2019-03-02 20:00] VITALS: BP 127/75
[2019-03-02] MEDS: rOPINIRole 1 MG (REQUIP) TABLET PO SCH (21:28)
[2019-03-02] MEDS: ACETAMINOPHEN 325 MG TABLET PO PRN (21:28)
[2019-03-03] MEDS: methylPREDNISolone 40 MG/ML (Solu-MEDROL) VIAL IV SCH ×3 (00:13→12:06)
[2019-03-03 00:29] VITALS: BP 121/70
[2019-03-03] MEDS: RT-ALBUTEROL/IPRATROPIUM 3 ML (DUONEB) VIAL IH SCH ×6 (02:20→22:00)
[2019-03-03 03:44] LABS: BASOPHILS % (AUTO) 0 % (0-10); EOSINOPHILS % (AUTO) 0 % (0-10); HEMATOCRIT 32 % (35-52); HEMOGLOBIN 9.5 G/DL (11.5-16.0); LYMPHOCYTES # (AUTO) 1.1 X 10^3 (1.0-4.0); LYMPHOCYTES % (AUTO) 11 % (12-44); MEAN CORPUSCULAR HEMOGLOBIN 24 PG (25-34); MEAN CORPUSCULAR HGB CONC 30 G/DL (32-36); MEAN CORPUSCULAR VOLUME 78 FL (80-99); MEAN PLATELET VOLUME 10.8 FL (7.4-10.4); MONOCYTES # (AUTO) 0.3 X 10^3 (0.0-1.0); MONOCYTES % (AUTO) 3 % (0-12); NEUTROPHILS # (AUTO) 8.3 X 10^3 (1.8-7.8); NEUTROPHILS % (AUTO) 86 % (42-75); PLATELET COUNT 223 10^3/uL (130-400); RED CELL DISTRIBUTION WIDTH 17.2 % (10.0-14.5); WHITE BLOOD COUNT 9.7 10^3/uL (4.3-11.0)
[2019-03-03 04:06] LABS: ALBUMIN 3.8 GM/DL (3.2-4.5); BILIRUBIN,TOTAL 0.4 MG/DL (0.1-1.0); CALCIUM 9.5 MG/DL (8.5-10.1); CREATININE SERUM 1.07 MG/DL (0.60-1.30); POTASSIUM 5.2 MMOL/L (3.6-5.0); TOTAL PROTEIN 6.9 GM/DL (6.4-8.2)
[2019-03-03 04:36] VITALS: BP 110/69
--- NOTE | 2019-03-03 05:42 | Pulmonary Progress Note ---
Subjective Time Seen by a Provider: 13:58 Sepsis Event Evaluation Height, Weight, BMI Height: 5'4.00" Weight: 130lbs. 9.0oz. 58.712828kl; 19.27 BMI Method:Estimated Exam Exam Vital Signs Date Time Temp Pulse Resp B/P (MAP) Pulse Ox O2 Delivery O2 Flow Rate FiO2 03/03/19 04:36 36.1 89 18 110/69 (83) 100 NIV Bilevel 24.00 03/03/19 04:00 NIV Bilevel 24 03/03/19 02:20 100 18 100 24.00 03/03/19 00:55 93 03/03/19 00:29 36.1 87 21 121/70 (87) 99 NIV Bilevel 24.00 03/03/19 00:00 NIV Bilevel 24 03/02/19 23:05 110 29 100 24.00 03/02/19 22:18 98 Nasal Cannula 3.00 03/02/19 21:00 Nasal Cannula 03/02/19 20:00 36.5 103 21 127/75 (92) 100 NIV Bilevel 24.00 03/02/19 20:00 Nasal Cannula 03/02/19 19:03 105 03/02/19 18:45 91 Nasal Cannula 3.00 03/02/19 18:45 Nasal Cannula 3.00 03/02/19 16:00 36.2 98 22 114/66 (82) 96 NIV Bilevel 24.00 03/02/19 16:00 92 Nasal Cannula 3.00 03/02/19 15:05 91 Nasal Cannula 2.00 03/02/19 12:26 125 03/02/19 12:00 35.9 99 23 120/59 (79) 97 NIV Bilevel 24.00 03/02/19 10:45 102 29 98 24.00 03/02/19 10:06 36.7 120 22 143/68 98 NIV Bilevel 03/02/19 09:50 36.2 122 30 149/77 (101) 98 NIV Bilevel 24.00 03/02/19 07:14 99 24 97 24.00 03/02/19 07:07 35.7 113 20 136/81 (99) 100 Non Rebreather 15.00 I & O 03/03/19 07:00 Intake Total 1020 ml Output Total 475 ml Balance 545 ml Height & Weight Height: 5'4.00" Weight: 130lbs. 9.0oz. 58.939691vl; 19.27 BMI Method:Estimated General Appearance: Anxious, Chronically ill, Mild Distress, Thin HEENT: PERRL/EOMI, Normal ENT Inspection, Pharynx Normal Neck: Full Range of Motion, Non Tender, Supple Respiratory: Chest Non Tender, Accessory Muscle Use, Decreased Breath Sounds, Respiratory Distress Cardiovascular: Regular Rate, Rhythm, No Edema, No Murmur Capillary Refill: Less Than 3 Seconds Gastrointestinal: normal bowel sounds, non tender, soft Extremity: Normal Capillary Refill, Normal Inspection, No Pedal Edema Neurologic/Psychiatric: Alert, Oriented x3 Skin: Normal Color, Warm/Dry Lymphatic: No Adenopathy Results Lab Laboratory Tests 03/02/19 07:00 03/02/19 12:52 03/03/19 03:35 Assessment/Plan Assessment/Plan Acute on chronic respiratory failure -Currently requiring BiPAP - trial back to NC -Repeat CXR -Lasix Hyperkalemia -Hold KCL -Continue lasix COPDAE -SVNS add pulmicort -Solumedrol Bilateral pulmonary edema R>L -Continue Diuresis -Echo pending -repeat Troponin Hypokalemia -repeat labs CHFAE -Cardiology following Anemia -Monitor MARGARITA CHAMORRO DO Mar 03, 2019 05:42 POS
[2019-03-03] MEDS: CATHETER FLUSH 10 ML SYR IV SCH ×3 (06:35→23:57)
--- NOTE | 2019-03-03 06:55 | Diagnostic Imaging Report ---
Indication: Shortness of breath Portable chest 6:45 AM There are postoperative changes from CABG surgery. Heart is mildly enlarged. There is interstitial edema which is improved slightly from the previous day. There is no effusions. IMPRESSION: Cardiomegaly within improving pulmonary venous hypertension interstitial edema. Dictated by: Dictated on workstation # [id number]
[2019-03-03] MEDS ORDERED: KCL 20 MEQ TAB (K-DUR) PO SCH (07:00)
[2019-03-03 07:50] VITALS: BP 117/70
[2019-03-03] MEDS ORDERED: PANTOPRAZOLE 40 MG (PROTONIX) VIAL IV SCH (09:00)
--- NOTE | 2019-03-03 09:24 | Progress Note - Cardiology ---
Cardiology SOAP Progress Note Subjective: Lying in bed. States she feels better, but not back to her baseline yet. No c/o CP or palpitations. Continues to feel SOB. Objective: I&O/Vital Signs 03/03/19 03/03/19 03/03/19 03/03/19 02:20 04:00 04:36 07:00 Temp 36.1 Pulse 100 89 91 Resp 18 18 B/P (MAP) 110/69 (83) Pulse Ox 100 100 O2 Delivery NIV Bilevel NIV Bilevel O2 Flow Rate 24.00 24.00 FiO2 24 03/03/19 03/03/19 03/03/19 03/03/19 07:10 07:50 08:00 09:00 Temp 35.9 Pulse 91 Resp 14 B/P (MAP) 117/70 (86) Pulse Ox 98 99 98 O2 Delivery Nasal Cannula NIV Bilevel Nasal Cannula O2 Flow Rate 3.00 3.00 FiO2 24 03/03/19 03/03/19 03/03/19 03/03/19 10:16 10:50 12:00 12:00 Temp 36.1 Pulse 80 Resp 18 B/P (MAP) 108/68 (81) Pulse Ox 83 98 O2 Delivery Room Air Room Air NIV Bilevel FiO2 24 03/03/19 00:00 Intake Total 1020 ml Output Total 475 ml Balance 545 ml Weight (Pounds): 130 Weight (Ounces): 9.0 Weight (Calculated Kilograms): 58.117050 Constitutional: AAO x 3, well-developed, other (thin-appearing) Respiratory: other (prolonged exp phase; bibasilar crackles, fine and coarse) Cardiovascular: regular rate-rhythm, S1 and S2, systolic murmur (HSM 2/6 at card apex) Gastrointestional: No tender; soft; No guarding, No rebound; audible bowel sounds Extremities: No clubbing, No cyanosis, No significant edema Neurologic/Psychiatric: oriented x 3, grossly intact, power is 5/5 both on sides Skin: No rash on exposed areas, No ulcerations on exposed areas Results/Procedures: Labs Laboratory Tests 03/03/19 03:35: White Blood Count 9.7, Red Blood Count 4.05L, Hemoglobin 9.5L, Hematocrit 32L, Mean Corpuscular Volume 78L, Mean Corpuscular Hemoglobin 24L, Mean Corpuscular Hemoglobin Concent 30L, Red Cell Distribution Width 17.2H, Platelet Count 223, Mean Platelet Volume 10.8H, Neutrophils (%) (Auto) 86H, Lymphocytes (%) (Auto) 11L, Monocytes (%) (Auto) 3, Eosinophils (%) (Auto) 0, Basophils (%) (Auto) 0, Neutrophils # (Auto) 8.3H, Lymphocytes # (Auto) 1.1, Monocytes # (Auto) 0.3, Eosinophils # (Auto) 0.0, Basophils # (Auto) 0.0, Sodium Level 138, Potassium Level 5.2H, Chloride Level 102, Carbon Dioxide Level 24, Anion Gap 12, Blood Urea Nitrogen 18, Creatinine 1.07, Estimat Glomerular Filtration Rate 51, BUN/Creatinine Ratio 17, Glucose Level 226H, Calcium Level 9.5, Corrected Calcium 9.7, Total Bilirubin 0.4, Aspartate Amino Transf (AST/SGOT) 19, Alanine Aminotransferase (ALT/SGPT) 12, Alkaline Phosphatase 116, B-Type Natriuretic Peptide 4984.7H, Total Protein 6.9, Albumin 3.8 03/03/19 09:36: Glucometer 276H 03/03/19 09:50: Potassium Level 5.5H A/P: Assessment: Ac systolic CHF Elevated troponin: Ac NSTEMI (type 1 [place]) vs CHF (type 2 [place]) Echo of 03/02/19: LVEF 15-20%, mod enlargement of LA, mod MR and TR, RVSP 57 mmHg Pulmonary hypertension, probably secondary to L heart failure PAD - Angio and intervention of 02/15/19: Long total occlusion of the left superficial femoral artery to which successful balloon angioplasty was carried out with reduction of stenosis to less than 30%; other lesions included 70% to 80% stenosis of the right external iliac and the right common femoral and of the left ant tibial in its proximal portion COPD H/O CABG approx 3 years ago at [facility] in [place], [place] - details unknown UTI Abnormal ECG: NSR with PVCs, LVH with repol abnormality H/o left CEA - details unknown HTN HLP DM Type 2 Chronic tobacco use Plan: * Treat decompensated CHF with diuretics * Treat cardiomyopathy with WAYLON-inhib and beta-nas * Hyperkalemia - repeat lab - hold potassium replacement today * Monitor labs * Advised to quit smoking immediately and completely Physician Assessment Physician Assessment Feels better. Denies cp or palp or syncope Chronic, exertional shortness of breath Lungs: fair bilat air entry, prolonged exp Cor: reg Ext: no c/c/e A&R * As documented in our note above that I updated (italics) and as noted below * Card cath discussed. She agrees and provides informed consent. Will schedule for tomorrow * Try to obtain the report of CABG from [place] * Monitor labs * Given low EF, would need Life Vest. Discussed. She agrees JANELLE BRANNON Mar 03, 2019 09:24 NOE RUIZ MD FACP FAC CCDS Mar 03, 2019 13:36
[2019-03-03] MEDS: FUROSEMIDE 40 MG/4 ML INJ (LASIX) IVP SCH (10:04)
[2019-03-03] MEDS: ASPIRIN E.C. 81 MG (ECOTRIN) TAB PO SCH (10:05)
[2019-03-03] MEDS: PARoxetine 10 MG (PAXIL) TAB PO SCH (10:05)
[2019-03-03] MEDS: meTOprolol SUCCINATE 100 MG (TOPROL XL) TAB PO SCH (10:05)
[2019-03-03] MEDS: CLOPIDOGREL 75 MG (PLAVIX) TABLET PO SCH (10:06)
[2019-03-03 12:00] VITALS: BP 108/68
[2019-03-03] MEDS: ENOXAPARIN 40 MG/0.4 ML (LOVENOX) SYR SC SCH (12:06)
[2019-03-03] MEDS ORDERED: SOD POLYSTERENE 15 GM/60 ML (KAYEXALATE) UNIT DOSE PO NR (13:30)
[2019-03-03] MEDS: RT-BUDESONIDE NEBS 0.5 MG/2ML (PULMICORT) AMP INH SCH ×2 (14:52→18:25)
[2019-03-03 15:42] VITALS: BP 101/62
--- NOTE | 2019-03-03 16:39 | Progress Note ---
Subjective Subjective/Events-last exam Patient states that she is feeling much better. Currently comfortable on home oxygen. Tolerating PO diet and ambulation Review of Systems Pulmonary: Cough Cardiovascular: No: Chest Pain, Palpitations, Edema Gastrointestinal: No: Nausea, Vomiting, Abdominal Pain Genitourinary: No Dysuria, No Frequency, No Incontinence Neurological: Weakness Objective Exam Last Set of Vital Signs Vital Signs Date Time Temp Pulse Resp B/P (MAP) Pulse Ox O2 Delivery O2 Flow Rate FiO2 03/03/19 16:00 Nasal Cannula 2.00 03/03/19 15:42 36.3 87 18 101/62 (75) 97 03/03/19 12:00 24 Capillary Refill : Less Than 3 Seconds I&O Intake and Output 03/03/19 00:00 Intake Total 1020 ml Output Total 475 ml Balance 545 ml Intake Oral 1020 ml Output Urine Total 475 ml # Voids 1 # Bowel Movements 1 Daily Weight Change No General: Alert, Oriented X3, Cooperative, No Acute Distress Lungs: Clear to Auscultation, Normal Air Movement Heart: Regular Rate, No Murmurs Abdomen: Normal Bowel Sounds, Soft, No Tenderness, No Masses Extremities: No Edema, No Tenderness/Swelling Skin: No Rashes, No Breakdown Neuro: Strength at 5/5 X4 Ext, Sensation Intact, Cranial Nerves 3-12 NL Results/Procedures Lab Laboratory Tests 03/03/19 03:35: White Blood Count 9.7, Red Blood Count 4.05L, Hemoglobin 9.5L, Hematocrit 32L, Mean Corpuscular Volume 78L, Mean Corpuscular Hemoglobin 24L, Mean Corpuscular Hemoglobin Concent 30L, Red Cell Distribution Width 17.2H, Platelet Count 223, Mean Platelet Volume 10.8H, Neutrophils (%) (Auto) 86H, Lymphocytes (%) (Auto) 11L, Monocytes (%) (Auto) 3, Eosinophils (%) (Auto) 0, Basophils (%) (Auto) 0, Neutrophils # (Auto) 8.3H, Lymphocytes # (Auto) 1.1, Monocytes # (Auto) 0.3, Eosinophils # (Auto) 0.0, Basophils # (Auto) 0.0, Sodium Level 138, Potassium Level 5.2H, Chloride Level 102, Carbon Dioxide Level 24, Anion Gap 12, Blood Urea Nitrogen 18, Creatinine 1.07, Estimat Glomerular Filtration Rate 51, BUN/Creatinine Ratio 17, Glucose Level 226H, Calcium Level 9.5, Corrected Calcium 9.7, Total Bilirubin 0.4, Aspartate Amino Transf (AST/SGOT) 19, Alanine Aminotransferase (ALT/SGPT) 12, Alkaline Phosphatase 116, B-Type Natriuretic Peptide 4984.7H, Total Protein 6.9, Albumin 3.8 03/03/19 09:36: Glucometer 276H 03/03/19 09:50: Potassium Level 5.5H 03/03/19 15:36: Glucometer 214H Assessment/Plan Assessment/Plan (1) Acute systolic (congestive) heart failure Status: Acute Assessment & Plan: - Echo with EF 15-20%, Cardiology consulted appreciate recommendations 03/03: Patient has diuresed well, continue lasix daily (2) NSTEMI (non-ST elevated myocardial infarction) Status: Acute Assessment & Plan: - Plans on Cath in AM 03/03: Will continue workup as outpatient, no cath during this admission (3) Microcytic anemia Status: Chronic Assessment & Plan: - Will get Iron studies (4) COPD exacerbation Status: Acute (5) Hypokalemia Status: Acute Assessment & Plan: - Replace and repeat in AM (6) Non-insulin dependent type 2 diabetes mellitus Status: Chronic (7) Essential (primary) hypertension Status: Chronic Assessment & Plan: - Continue home meds (8) CAD (coronary artery disease) Status: Chronic Qualifiers: Qualified Codes: I25.10 - Atherosclerotic heart disease of [place] coronary artery without angina pectoris (9) DVT prophylaxis Status: Acute Assessment & Plan: - Lovenox Clinical Quality Measures DVT/VTE Risk/Contraindication: Risk Factor Score Per Nursin RFS Level Per Nursing on Admit: 4+=Very High VINCENT DANG MD Mar 03, 2019 16:39
[2019-03-03] MEDS ORDERED: NS IV 1000 ML 1,000 ML IV SCH (16:45)
[2019-03-03 19:30] VITALS: BP 106/68
[2019-03-03] MEDS: rOPINIRole 1 MG (REQUIP) TABLET PO SCH (20:40)
[2019-03-03] MEDS: NICOTINE 21 MG (NICODERM) PATCH TD SCH (20:40)
[2019-03-03] MEDS: ACETAMINOPHEN 325 MG TABLET PO PRN (20:44)
[2019-03-04] VITALS (18 sets, daily range): BP systolic 86–119; BP diastolic 45–73
[2019-03-04] MEDS: RT-ALBUTEROL/IPRATROPIUM 3 ML (DUONEB) VIAL IH SCH ×6 (01:16→21:48)
[2019-03-04 03:45] LABS: BASOPHILS % (AUTO) 0 % (0-10); EOSINOPHILS % (AUTO) 0 % (0-10); HEMATOCRIT 33 % (35-52); LYMPHOCYTES # (AUTO) 1.9 X 10^3 (1.0-4.0); LYMPHOCYTES % (AUTO) 9 % (12-44); MEAN CORPUSCULAR HEMOGLOBIN 24 PG (25-34); MEAN CORPUSCULAR HGB CONC 30 G/DL (32-36); MEAN CORPUSCULAR VOLUME 78 FL (80-99); MEAN PLATELET VOLUME 10.8 FL (7.4-10.4); MONOCYTES # (AUTO) 1.3 X 10^3 (0.0-1.0); MONOCYTES % (AUTO) 6 % (0-12); NEUTROPHILS # (AUTO) 17.8 X 10^3 (1.8-7.8); NEUTROPHILS % (AUTO) 85 % (42-75); PLATELET COUNT 261 10^3/uL (130-400); RED CELL DISTRIBUTION WIDTH 17.6 % (10.0-14.5)
[2019-03-04 04:10] LABS: CREATININE SERUM 1.41 MG/DL (0.60-1.30); MAGNESIUM 2.3 MG/DL (1.6-2.4); POTASSIUM 5.9 MMOL/L (3.6-5.0)
[2019-03-04 04:13] LABS: BAND NEUTROPHILS 1 %; LYMPHOCYTES % (MANUAL) 6 %; MONOCYTES % (MANUAL) 6 %; NEUTROPHILS % (MANUAL) 87 %
[2019-03-04 04:14] LABS: ANISOCYTOSIS SLIGHT; HYPOCHROMASIA MODERATE; MICROCYTOSIS SLIGHT
[2019-03-04] MEDS: RT-BUDESONIDE NEBS 0.5 MG/2ML (PULMICORT) AMP INH SCH ×2 (06:44→21:48)
[2019-03-04] MEDS ORDERED: predniSONE 20 MG TAB PO SCH (07:00)
[2019-03-04] MEDS: CATHETER FLUSH 10 ML SYR IV SCH ×3 (07:03→22:00)
[2019-03-04] MEDS ORDERED: HEParin (CATH LAB) 2,000 ML IV ONE (08:16)
[2019-03-04] MEDS ORDERED: LIDOCAINE 1% INJ 20 ML 20 ML VIAL ONE (08:16)
[2019-03-04] MEDS: PANTOPRAZOLE 40 MG (PROTONIX) TAB PO SCH (08:20)
[2019-03-04] MEDS: ASPIRIN E.C. 81 MG (ECOTRIN) TAB PO SCH (08:20)
[2019-03-04] MEDS: CLOPIDOGREL 75 MG (PLAVIX) TABLET PO SCH (08:20)
[2019-03-04] MEDS: FUROSEMIDE 40 MG/4 ML INJ (LASIX) IVP SCH (08:20)
[2019-03-04] MEDS: meTOprolol SUCCINATE 100 MG (TOPROL XL) TAB PO SCH (08:20)
[2019-03-04] MEDS: PARoxetine 10 MG (PAXIL) TAB PO SCH (08:20)
[2019-03-04] MEDS ORDERED: NS IV 1000 ML 1,000 ML IV SCH ×2 (10:30→15:54)
--- NOTE | 2019-03-04 10:41 | NUR ---
DR DANG ON FLOOR NEW ORDERS RECEIVED. SEE ORDER HX
--- NOTE | 2019-03-04 11:39 | Physical Therapy Evaluation ---
PT Evaluation-General Medical Diagnosis Admission Date Mar 02, 2019 at 08:54 Medical Diagnosis: SOA Onset Date: Mar 02, 2019 Therapy Diagnosis Therapy Diagnosis: impaired mobility, strength, endurance Height/Weight Height (Feet): 5 Height (Inches): 4.00 Weight (Pounds): 130 Weight (Ounces): 9.0 Precautions Precautions/Isolations: Standard Precautions Weight Bear Status Right Lower Extremity: Right Weight Bearing/Tolerated Left Lower Extremity: Left Weight Bearing/Tolerated Referral Physician: Bisi Reason for Referral: Evaluation/Treatment Medical History Pertinent Medical History: COPD, HTN Social History Home: Single Level Current Living Status: Children Entry Into Home: Level Entry Prior Prior Level of Function SCALE: Activities may be completed with or without assistive devices. 6-Hliapwmlqo-dbrjbhy completes the activity by him/herself with no assistance from a helper. 5-Set-up or Clean-up Assistance-helper sets up or cleans up; patient completes activity. [place] assists only prior to or following the activity. 4-Supervision or Touching Assistance-helper provides verbal cues and/or touching/steadying and/or contact guard assistance as patient completes activity. Assistance may be provided throughout the activity or intermittently. 3-Partial/Moderate Assistance-helper does LESS THAN HALF the effort. [place] lifts, holds or supports trunk or limbs, but provides less than half the effort. 2-Substantial/Maximal Assistance-helper does MORE THAN HALF the effort. [place] lifts or holds trunk or limbs and provides more than half the effort. 0-Hhzqamjzr-wrrxcz does ALL the effort. Patient does none of the effort to complete the activity. Or, the assistance of 2 or more helpers is required for the patient to complete the activity. If activity was not attempted, code reason: 7-Patient Refused. 9-Not Applicable-not attempted and the patient did not perform the activity before the current illness, exacerbation or injury. 10-Not Attempted due to Environmental Limitations-(lack of equipment, weather restraints, etc.). 88-Not Attempted due to Medical Conditions or Safety Concerns. Bed Mobility: 6 Transfers (B,C,W/C): 6 Gait: 6 Stairs: 6 Indoor Mobility (Ambulation): Independent Stairs: Independent PT Evaluation-Current Subjective Patient in bed pre tx, agrees to PT, has 10/10 pain in her left foot, she has a wound on the top of her foot, refuses to wear a sock on that side but will wear one on the right side. Pt/Family Goals to be able to breathe better Objective Patient Orientation: Person, Place, Situation Attachments: Oxygen, Caro Catheter, IV 3L of O2 nasal canula ROM/Strength ROM Lower Extremities WNL Strength Lower Extremities 4/5 gross BLE Sensory Hearing: Functional Sensation Right Lower Extremit: Impaired Sensation Left Lower Extremity: Impaired Sensation Lower Extremities Numbness from mid calf down bilaterally. Transfers Roll Left to Right (QC): 6 Sit to Lying (QC): 6 Lying to Sitting/Side of Bed(Q: 6 Sit to Stand (QC): 6 Chair/Gry-jx-Scxro Xfer(QC): 6 Gait Does the Patient Walk?: Yes Mode of Locomotion: Walk Anticipated Mode of Locomotion: Walk Walk 10 feet (QC): 4 Distance: 20' Gait Assistive Device: None Comments/Gait Description Patient ambulated 20' without an assistive device with SBA. Patient had no LOB but ambulation was slow and she got a little SOB after returning back to her bed and laying down. Patient recovered quickly with purse lip breathing. Balance Sitting Static: Normal Sitting Dynamic: Normal Standing Static: Normal Standing Dynamic: Good Assessment/Needs Patient has impaired mobility, strength, endurance. Steady ambulation without assistive device but poor endurance. Rehab Potential: Fair PT Supply Chain Coordinator Goals Alf Goals PT Supply Chain Coordinator Goals Time Frame: Mar 11, 2019 Sit to Lying (QC): 6 Lying-Sitting on Side/Bed(QC): 6 Sit to Stand (QC): 6 Roll Left to Right (QC): 6 Chair/Noj-cv-Thmnm Xfer(QC): 6 Distance: 50' Walk 10 feet (QC): 6 Walk 50ft with 2 Turns (QC): 6 Gait Assistive Device: None PT Plan Problem List Problem List: Activity Tolerance, Functional Strength, Safety, Balance, Gait, Transfer Treatment/Plan Treatment Plan: Continue Plan of Care Treatment Plan: Education, Functional Activity Karli, Functional Strength, Gait, Safety, Therapeutic Exercise, Transfers Treatment Duration: Mar 11, 2019 Frequency: 6 times per week Estimated Hrs Per Day: .25 hour per day Patient and/or Family Agrees t: Yes Safety Risks/Education Patient Education: Gait Training, Transfer Techniques, Correct Positioning, Safety Issues Teaching Recipient: Patient Teaching Methods: Demonstration, Discussion Response to Teaching: Reinforcement Needed Discharge Recommendations Plan Patient will perform bed mobility and transfer training, balance and endurance training, functional strengthening, gait training, and education, to improve functional mobility and independence at home. Therapy Discharge Recommendati: Other, See Comments (home with family) Time/GCodes Time In: 1058 Time Out: 1111 Total Billed Treatment Time: 13 Total Billed Treatment 1 visit SHEY Cox' KAITYLNN RILEY PT Mar 04, 2019 11:38
[2019-03-04] MEDS ORDERED: PATIENT MAY USE OWN MED,SINGLE MED PO SCH (11:45)
[2019-03-04] MEDS: Vortioxetine Hydrobromide (Trintellix) 10 MG PO SCH (11:59)
[2019-03-04 12:30] LABS: CALCIUM 8.6 MG/DL (8.5-10.1); CREATININE SERUM 1.44 MG/DL (0.60-1.30); POTASSIUM 4.9 MMOL/L (3.6-5.0)
[2019-03-04] MEDS ORDERED: ENOXAPARIN 30 MG/0.3 ML (LOVENOX) SYR SC SCH (13:00)
--- NOTE | 2019-03-04 13:38 | NUR ---
Initial visit: Pt is Sabianism. Offered active listening and engaged in rapport building.
[2019-03-04] MEDS ORDERED: MIDAZOLAM 5 MG/5 ML (VERSED) VIAL ONE (14:21)
[2019-03-04] MEDS ORDERED: fentaNYL INJECTION 100 MCG/2 ML AMP ONE (14:21)
--- NOTE | 2019-03-04 14:33 | NUR ---
RD ASSESSMENT PMHx: CHF, COPD, HTN, DM PT INTERACTION: Pt was awake and pleasant during nutrition assessment. Pt states current appetite is "not good" and has been this way since admit. Pt states following a regular diet at home, and has some difficulty with swallowing food. Pt states no issues with n/v/c/d at this time, and last BM was 03/03. Pt states recent 10# wt loss x3mon. Note 6# wt loss x2d. Pt states current DM management is pretty good, and that she keeps her blood glucose levels at "137". Upon visual exam, pt appears less than adequately nourished with visual signs of muscle wasting in temporal region and hands/arms. Note pt appears to be frail with BMI of 18.2. ABNORMAL NUTRITION-RELATED LAB VALUES: K 5.9 (H); BUN 40 (H); cr 1.41 (H); glu 152 (H) Est. kcal needs: 2348-1385 kcal (30-35 kcal/kg) Est. Pro needs: 58-67 g Pro (1.2-1.4 g Pro/kg) PES STATEMENT: Inadequate oral intake (NI-2.1) related to loss of appetite as evidenced by 40% of meals x2day | pt interview INTERVENTION: Continue with current diet order of Clear Liquid diet. Encouraged pt to eat when able. Add Ensure clear (vary) to meals TID. Provides 180 kcal and 8 g Pro per serving. MONITOR/EVALUATE: PO Intake; Plan of Care; Hydration Status; Weight Status; Lab Values Eliel Barber, MS, RD, LD Ext. 133
[2019-03-04] MEDS ORDERED: PATIENT MAY USE OWN MEDS, ALL PO SCH (16:00)
--- NOTE | 2019-03-04 16:10 | Progress Note - Cardiology ---
Cardiology SOAP Progress Note Subjective: Notes malaise Short of breath with mild activity No cp or palp or syncope Objective: I&O/Vital Signs 03/04/19 03/04/19 03/04/19 03/04/19 06:46 06:47 07:00 08:00 Temp 36.4 Pulse 88 82 Resp 20 B/P (MAP) 119/69 (86) Pulse Ox 98 98 100 O2 Delivery Nasal Cannula Nasal Cannula Nasal Cannula O2 Flow Rate 3.00 3.00 3.00 03/04/19 03/04/19 03/04/19 03/04/19 08:15 09:00 12:00 12:15 Temp 36.6 Pulse 74 Resp 20 B/P (MAP) 119/73 (88) Pulse Ox 98 100 O2 Delivery Nasal Cannula Nasal Cannula Nasal Cannula Nasal Cannula O2 Flow Rate 3.00 3.00 3.00 3.00 03/04/19 13:00 Pulse 74 03/04/19 00:00 Intake Total 1250 ml Output Total 375 ml Balance 875 ml Weight (Pounds): 130 Weight (Ounces): 9.0 Weight (Calculated Kilograms): 58.831535 Constitutional: AAO x 3, well-developed, other (thin-appearing) Respiratory: other (prolonged exp phase; bibasilar crackles, fine and coarse) Cardiovascular: regular rate-rhythm, S1 and S2, systolic murmur (HSM 2/6 at card apex) Gastrointestional: No tender; soft; No guarding, No rebound; audible bowel sounds Extremities: No clubbing, No cyanosis, No significant edema Neurologic/Psychiatric: oriented x 3, grossly intact, power is 5/5 both on sides Skin: No rash on exposed areas, No ulcerations on exposed areas Results/Procedures: Labs Laboratory Tests 03/03/19 21:30: Glucometer 210H 03/04/19 03:30: White Blood Count 21.0H, Red Blood Count 4.21L, Hemoglobin 10.0L, Hematocrit 33L , Mean Corpuscular Volume 78L, Mean Corpuscular Hemoglobin 24L, Mean Corpuscular Hemoglobin Concent 30L, Red Cell Distribution Width 17.6H, Platelet Count 261, Mean Platelet Volume 10.8H, Neutrophils (%) (Auto) 85H, Lymphocytes (%) (Auto) 9L, Monocytes (%) (Auto) 6, Eosinophils (%) (Auto) 0, Basophils (%) (Auto) 0, Neutrophils # (Auto) 17.8H, Lymphocytes # (Auto) 1.9, Monocytes # (Auto) 1.3H, Eosinophils # (Auto) 0.0, Basophils # (Auto) 0.0, Neutrophils % (Manual) 87, Lymphocytes % (Manual) 6, Monocytes % (Manual) 6, Band Neutrophils 1, Hypochromasia MODERATE, Anisocytosis SLIGHT, Microcytosis SLIGHT, Sodium Level 137, Potassium Level 5.9H, Chloride Level 102, Carbon Dioxide Level 23, Anion Gap 12, Blood Urea Nitrogen 40H, Creatinine 1.41H, Estimat Glomerular Filtration Rate 37, BUN/Creatinine Ratio 28, Glucose Level 152H, Calcium Level 9.0, Magnesium Level 2.3 03/04/19 06:56: Glucometer 139H 03/04/19 07:05: Stool Occult Blood Immunoassay POSITIVEH 03/04/19 12:05: Sodium Level 139, Potassium Level 4.9, Chloride Level 102, Carbon Dioxide Level 26, Anion Gap 11, Blood Urea Nitrogen 43H, Creatinine 1.44H, Estimat Glomerular Filtration Rate 36, BUN/Creatinine Ratio 30, Glucose Level 112H, Calcium Level 8.6 Laboratory Tests 03/03/19 03:35 03/03/19 09:50 03/04/19 03:30 03/04/19 12:05 A/P: Assessment: Ac systolic CHF due to severe ischemic cardiomyopathy CAD. S/p CABG in 2012. Card cath of 03/04/19: 40% LMCA, multiple 60% in LAD, 60- 70% prox LCX, 100% mid LCX, 70-80% distal OM2 at distal bifurcation, 100% mid RCA in a long stented segment, patent DAIGLE to LAD, patent stented L subclavian, patent SVG to distal LCX, LVEDP 21, LVEF 10% Elevated troponin: CHF (type 2 [place]) Echo of 03/02/19: LVEF 15-20%, mod enlargement of LA, mod MR and TR, RVSP 57 mmHg Pulmonary hypertension, probably secondary to L heart failure PAD - Angio and intervention of 02/15/19: Long total occlusion of the left superficial femoral artery to which successful balloon angioplasty was carried out with reduction of stenosis to less than 30%; other lesions included 70% to 80% stenosis of the right external iliac and the right common femoral and of the left ant tibial in its proximal portion COPD and asthma, treated with steroids during this hospitalization. Leucocytosis on 03/04/19 probably due to steroids UTI Abnormal ECG: NSR with PVCs, LVH with repol abnormality H/o left CEA - details unknown HTN HLP DM Type 2 Chronic tobacco use Plan: * Severe cardiovascular disease (see above) * Treat decompensated CHF with diuretics. Start oral furosemide today * Treat cardiomyopathy with WAYLON-inhib and beta-nas. Start ramipril. Change beta-nas to carvedilol * Monitor labs * Advised to quit smoking immediately and completely * Life Vest recommended, awaited NOE RUIZ MD FACP [facility] CCDS Mar 04, 2019 16:10
[2019-03-04] MEDS ORDERED: FUROSEMIDE 40 MG (LASIX) TAB PO NR (16:15)
[2019-03-04] MEDS ORDERED: RAMIPRIL 2.5 MG (ALTACE) CAP PO NR (16:15)
--- NOTE | 2019-03-04 16:21 | Progress Note ---
Subjective Subjective/Events-last exam Patient states that she is feeling much better. Plan for cath today. She is on her home oxygen. Denies any chest pain or shortness of breath. Review of Systems Pulmonary: Dyspnea (with exertion) Cardiovascular: No: Chest Pain, Palpitations Gastrointestinal: No: Nausea, Vomiting, Abdominal Pain Neurological: Weakness Objective Exam Last Set of Vital Signs Vital Signs Date Time Temp Pulse Resp B/P (MAP) Pulse Ox O2 Delivery O2 Flow Rate FiO2 03/04/19 13:00 74 03/04/19 12:15 Nasal Cannula 3.00 03/04/19 12:00 36.6 20 119/73 (88) 100 03/03/19 12:00 24 Capillary Refill : Less Than 3 Seconds I&O Intake and Output 03/04/19 00:00 Intake Total 1550 ml Output Total 375 ml Balance 1175 ml Intake Oral 1550 ml Output Urine Total 375 ml # Bowel Movements 2 General: Alert, Oriented X3, Cooperative Lungs: Clear to Auscultation, Normal Air Movement Heart: Regular Rate, No Murmurs Abdomen: Normal Bowel Sounds, Soft, No Tenderness, No Masses Extremities: No Edema, No Tenderness/Swelling Skin: Other (Wound on the top of left foot, healing) Results/Procedures Lab Laboratory Tests 03/03/19 21:30: Glucometer 210H 03/04/19 03:30: White Blood Count 21.0H, Red Blood Count 4.21L, Hemoglobin 10.0L, Hematocrit 33L , Mean Corpuscular Volume 78L, Mean Corpuscular Hemoglobin 24L, Mean Corpuscular Hemoglobin Concent 30L, Red Cell Distribution Width 17.6H, Platelet Count 261, Mean Platelet Volume 10.8H, Neutrophils (%) (Auto) 85H, Lymphocytes (%) (Auto) 9L, Monocytes (%) (Auto) 6, Eosinophils (%) (Auto) 0, Basophils (%) (Auto) 0, Neutrophils # (Auto) 17.8H, Lymphocytes # (Auto) 1.9, Monocytes # (Auto) 1.3H, Eosinophils # (Auto) 0.0, Basophils # (Auto) 0.0, Neutrophils % (Manual) 87, Lymphocytes % (Manual) 6, Monocytes % (Manual) 6, Band Neutrophils 1, Hypochromasia MODERATE, Anisocytosis SLIGHT, Microcytosis SLIGHT, Sodium Level 137, Potassium Level 5.9H, Chloride Level 102, Carbon Dioxide Level 23, Anion Gap 12, Blood Urea Nitrogen 40H, Creatinine 1.41H, Estimat Glomerular Filtration Rate 37, BUN/Creatinine Ratio 28, Glucose Level 152H, Calcium Level 9.0, Magnesium Level 2.3 03/04/19 06:56: Glucometer 139H 03/04/19 07:05: Stool Occult Blood Immunoassay POSITIVEH 03/04/19 12:05: Sodium Level 139, Potassium Level 4.9, Chloride Level 102, Carbon Dioxide Level 26, Anion Gap 11, Blood Urea Nitrogen 43H, Creatinine 1.44H, Estimat Glomerular Filtration Rate 36, BUN/Creatinine Ratio 30, Glucose Level 112H, Calcium Level 8.6 Assessment/Plan Assessment/Plan (1) Acute systolic (congestive) heart failure Status: Acute Assessment & Plan: - Echo with EF 15-20%, Cardiology consulted appreciate recommendations 03/03: Patient has diuresed well, continue lasix daily 03/04: Cath today with Dr Cameron (2) NSTEMI (non-ST elevated myocardial infarction) Status: Acute Assessment & Plan: - Plans on Cath in AM 03/03: Will continue workup as outpatient, no cath during this admission (3) ARF (acute renal failure) Status: Acute Assessment & Plan: 03/04: Likely 2/2 to over diuresis, holding lasix today, will monitor closely since patient is getting cath, 500 cc bolus given today Qualifiers: Qualified Codes: N17.9 - Acute kidney failure, unspecified (4) Microcytic anemia Status: Chronic Assessment & Plan: - Will get Iron studies 03/04: Will need outpatient workup (5) COPD exacerbation Status: Acute (6) Hypokalemia Status: Acute Assessment & Plan: - Replace and repeat in AM 03/04: Hyperkalemia yesterday, now normal, Repeat BMP in AM (7) Non-insulin dependent type 2 diabetes mellitus Status: Chronic (8) Essential (primary) hypertension Status: Chronic Assessment & Plan: - Continue home meds (9) CAD (coronary artery disease) Status: Chronic Qualifiers: Qualified Codes: I25.10 - Atherosclerotic heart disease of [place] coronary artery without angina pectoris (10) DVT prophylaxis Status: Acute Assessment & Plan: - Lovenox Clinical Quality Measures DVT/VTE Risk/Contraindication: Risk Factor Score Per Nursin RFS Level Per Nursing on Admit: 4+=Very High VINCENT DANG MD Mar 04, 2019 16:21
--- NOTE | 2019-03-04 17:24 | CARDIAC CATHETERIZATION ---
DATE OF SERVICE: 03/04/2019 CARDIAC CATHETERIZATION REPORT PRIMARY PHYSICIAN: Dr. Mathews. The patient is a 69-year-old lady, who is known to have coronary artery disease and has had coronary artery bypass surgery in [place], [place], apparently in 2012. She presents with acute systolic congestive heart failure. Troponin was also elevated, suggesting acute non-ST elevation myocardial infarction. Cardiac catheterization was carried out today after having obtained an informed consent. PROCEDURE IN DETAIL: She was brought to the cardiac catheterization laboratory. Right groin was prepared and draped in the usual sterile fashion. Lidocaine 1% was used for local anesthesia. Modified Seldinger technique was used to advance a 5-English sheath in right femoral artery. A 5-English JL4 catheter for left coronary angiography. A 5-English JR4 catheter for right coronary angiography. A 5-English pigtail catheter was used for left heart catheterization and left ventricular angiography. A 5-English JR4 catheter was used for angiography of the saphenous vein graft to the obtuse marginal and for the left internal mammary artery graft to the left anterior descending. At the end of the procedure, manual pressure was used to achieve hemostasis following sheath removal. She tolerated the procedure well. HEMODYNAMICS: Left ventricular end-diastolic pressure following coronary angiography was 21 mmHg. There was no significant pressure gradient on pullback across the aortic valve. Ascending aortic pressure was 110/53 with a mean of 75 mmHg. LEFT VENTRICULAR ANGIOGRAPHY: Left ventricular angiography was carried out in the right anterior oblique projection. Global left ventricular systolic function is markedly impaired. There is posterobasal and diaphragmatic akinesis and global hypokinesis, in this view. Left ventricular ejection fraction is approximately 10%. CORONARY ANGIOGRAPHY: Coronary calcification is seen. Left main coronary artery has approximately 40% distal stenosis. Left anterior descending artery has diffuse moderate disease with multiple stenoses of 50 to 60%. Left circumflex artery has 60 to 70% proximal stenosis. First obtuse marginal is of a small caliber and has moderate ostial and proximal disease. Second obtuse marginal has 70 to 80% stenosis in its distal portion at its bifurcation. Here the vessels, following bifurcation, are of a very small caliber. The left circumflex is occluded past the second obtuse marginal. The distal left circumflex is supplied by a patent saphenous vein graft. The right coronary artery is extensively stented and is occluded in its mid portion. SAPHENOUS VEIN GRAFT ANGIOGRAPHY: A single saphenous vein graft is seen. It is patent and supplies the distal left circumflex. LEFT INTERNAL MAMMARY ARTERY GRAFT ANGIOGRAPHY: Left internal mammary artery graft is patent and supplies the distal left anterior descending. Competitive flow is seen in the distal left anterior descending. The left subclavian artery is stented and does not seem to have significant stenosis. CONCLUSIONS: 1. Multivessel coronary artery disease consisting of 40% distal stenosis in the left anterior descending, diffuse, moderate to moderately severe disease of the left anterior descending, 60 to 70% proximal stenosis in the left circumflex, severe 70 to 80% bifurcation stenosis of the distal second obtuse marginal (small caliber vessels, not amenable to intervention at the bifurcation) and mid vessel occlusion of the left circumflex. The right coronary artery is occluded in its mid portion in an extensively stented segment. 2. Patent saphenous vein graft to distal left circumflex. 3. Patent left internal mammary artery graft to distal left anterior descending. 4. Severe impairment of global left ventricular systolic function with an ejection fraction of 10%. 5. Posterior basal and diaphragmatic akinesis and anterobasal, anterolateral and apical severe hypokinesis. DISCUSSION AND RECOMMENDATIONS: Based on the results of the study, it appears reasonable to continue a conservative approach. Focus is on treatment of ischemic cardiomyopathy that has led to acute systolic heart failure. Given severe impairment of global left ventricular systolic function, external defibrillator vest is recommended for the time of the device and medications are being titrated and ejection fraction is to be reevaluated at the end of three months. Job ID: [id number] DocumentID: [id number] Dictated Date: 03/04/2019 15:45:27 Technical Solution Architect Date: 03/04/2019 17:23:59 Dictated By: NOE RUIZ MD, MA, FACP, FACC,
[2019-03-04] MEDS ORDERED: NICOTINE PATCH REMOVAL TP SCH (18:59)
[2019-03-04] MEDS: NICOTINE 21 MG (NICODERM) PATCH TD SCH (20:13)
[2019-03-04] MEDS: ACETAMINOPHEN 325 MG TABLET PO PRN (20:18)
[2019-03-04] MEDS: rOPINIRole 1 MG (REQUIP) TABLET PO SCH (20:18)
[2019-03-04] MEDS: CARVEDILOL 6.25 MG (COREG) TAB PO SCH (20:18)
[2019-03-05] MEDS: RT-ALBUTEROL/IPRATROPIUM 3 ML (DUONEB) VIAL IH SCH ×3 (02:39→11:40)
[2019-03-05 04:19] LABS: MEAN PLATELET VOLUME 11.3 FL (7.4-10.4); RED CELL DISTRIBUTION WIDTH 17.1 % (10.0-14.5)
[2019-03-05 04:29] LABS: CALCIUM 8.4 MG/DL (8.5-10.1); CREATININE SERUM 1.36 MG/DL (0.60-1.30); POTASSIUM 4.7 MMOL/L (3.6-5.0)
[2019-03-05 04:45] VITALS: BP 135/66
[2019-03-05] MEDS: CATHETER FLUSH 10 ML SYR IV SCH (06:00)
[2019-03-05] MEDS ORDERED: predniSONE 20 MG TAB PO SCH (07:00)
[2019-03-05] MEDS: RT-BUDESONIDE NEBS 0.5 MG/2ML (PULMICORT) AMP INH SCH (07:17)
[2019-03-05 08:00] VITALS: BP 134/71
[2019-03-05] MEDS ORDERED: RAMIPRIL 2.5 MG (ALTACE) CAP PO SCH (09:00)
[2019-03-05] MEDS ORDERED: FUROSEMIDE 40 MG (LASIX) TAB PO SCH (09:00)
[2019-03-05] MEDS ORDERED: ASPIRIN 81 MG CHEW (CHILDREN'S ASA) PO SCH (09:00)
[2019-03-05] MEDS: CLOPIDOGREL 75 MG (PLAVIX) TABLET PO SCH (09:22)
[2019-03-05] MEDS: PARoxetine 10 MG (PAXIL) TAB PO SCH (09:22)
[2019-03-05] MEDS: PANTOPRAZOLE 40 MG (PROTONIX) TAB PO SCH (09:22)
[2019-03-05] MEDS: CARVEDILOL 6.25 MG (COREG) TAB PO SCH (09:22)
[2019-03-05] MEDS: Vortioxetine Hydrobromide (Trintellix) 10 MG PO SCH (09:23)
--- NOTE | 2019-03-05 10:04 | Physical Therapy Daily Note ---
PT Daily Note-Current Subjective Pt agreeable to PT session although stating "just to walk to the door and then I'm going back to bed". States she is hoping to go home today. Pain Numeric Pain Scale: 0-No Pain Appearance Upon arrival, pt in bed awake and alert. Denies need for BRP. At end of session, pt supine in bed with HOB elevated, call light, phone and bedside table within reach. Mental Status Patient Orientation: Person, Place, Time, Eyes Open, Situation Attachments: Oxygen, Caro Catheter Transfers SCALE: Activities may be completed with or without assistive devices. 7-Ryxchxckzf-zhssgyy completes the activity by him/herself with no assistance from a helper. 5-Set-up or Clean-up Assistance-helper sets up or cleans up; patient completes activity. [place] assists only prior to or following the activity. 4-Supervision or Touching Assistance-helper provides verbal cues and/or touching/steadying and/or contact guard assistance as patient completes activity. Assistance may be provided throughout the activity or intermittently. 3-Partial/Moderate Assistance-helper does LESS THAN HALF the effort. [place] lifts, holds or supports trunk or limbs, but provides less than half the effort. 2-Substantial/Maximal Assistance-helper does MORE THAN HALF the effort. [place] lifts or holds trunk or limbs and provides more than half the effort. 4-Cdqanipkh-ovzavt does ALL the effort. Patient does none of the effort to complete the activity. Or, the assistance of 2 or more helpers is required for the patient to complete the activity. If activity was not attempted, code reason: 7-Patient Refused. 9-Not Applicable-not attempted and the patient did not perform the activity before the current illness, exacerbation or injury. 10-Not Attempted due to Environmental Limitations-(lack of equipment, weather restraints, etc.). 88-Not Attempted due to Medical Conditions or Safety Concerns. Roll Left to Right (QC): 6 Sit to Lying (QC): 6 Sit to Stand (QC): 6 Pt demonstrating safe techniques with all transitions Weight Bearing Right Lower Extremity: Right Weight Bearing/Tolerated Left Lower Extremity: Left Weight Bearing/Tolerated Gait Training Does the Patient Walk?: Yes Distance: 50 Walk 10 feet (QC): 4 (slight unsteadiness at beginning of gait distance c/o some dizziness) Walk 50 ft with 2 Turns(QC): 5 (no unsteadiness after 1st 5 ft, lightheadednsess subsided) Gait Persons Needed: 1 Gait Assistive Device: None slow pace, fwd flexed posture/kyphotic, decreased step length and height, unsteady within 1st 5 ft due to report of lightheadedness which subsided quickly, steady with gait after lightheadedness subsided Treatments education, safety, bed mobility, transfers, gait, activity tolerance, functional mobility Assessment Current Status: Good Progress increased gait distance with decreased SOA. Slight unsteadiness with lightheadedness initiating gait, subsided quickly with no issue during gait after that. Safe with all transfers/transitions. Does not wear sock or shoe on LLE due to wound on top of foot. PT Bed Operator Goals Assisted Goals PT Assisted Goals Time Frame: Mar 11, 2019 Sit to Lying (QC): 6 Lying-Sitting on Side/Bed(QC): 6 Sit to Stand (QC): 6 Roll Left to Right (QC): 6 Chair/Nde-vh-Icpxf Xfer(QC): 6 Distance: 50' Walk 10 feet (QC): 6 Walk 50ft with 2 Turns (QC): 6 Gait Assistive Device: None PT Plan Treatment/Plan Treatment Plan: Continue Plan of Care Treatment Plan: Education, Functional Activity Karli, Functional Strength, Gait, Safety, Therapeutic Exercise, Transfers Treatment Duration: Mar 11, 2019 Frequency: 6 times per week Estimated Hrs Per Day: .25 hour per day Patient and/or Family Agrees t: Yes Safety Risks/Education Patient Education: Gait Training, Transfer Techniques, Safety Issues Teaching Recipient: Patient Teaching Methods: Discussion Response to Teaching: Verbalize Understanding, Return Demonstration Time/GCodes Time In: 932 Time Out: 957 Total Billed Treatment Time: 25 Total Billed Treatment 1 visit, FA x15 min, GT x10 min DINO WHITT TOOL REPAIR TECHNICIAN Mar 05, 2019 10:04
[2019-03-05] MEDS ORDERED: NICO-588 TD (11:53)
[2019-03-05] MEDS ORDERED: CARV6.252 PO (11:53)
[2019-03-05] MEDS ORDERED: ATOR80TA76 PO (11:53)
--- NOTE | 2019-03-05 11:57 | Discharge Instructions ---
Discharge Instructions Reconcile Patient Problems Problems Reviewed?: Yes Discharge Medications New, Converted or Re-Newed RX: Transmitted to Pharmacy Patient Instructions Patient Instructions: Stop Smoking. Will need to consider an outpatient colonoscopy . Restart Metformin in 1 week . Follow up withDia Devine in [address] Cameron as he instructs Activity & Diet Discharge Diet: Cardiac Diet CECILIA SORIA MD Mar 05, 2019 11:56
[2019-03-05 12:00] VITALS: BP 142/68
--- NOTE | 2019-03-05 13:16 | Progress Note - Cardiology ---
Cardiology SOAP Progress Note Subjective: No cp or palp or syncope No groin discomfort Shortness of breath much improved compared to time of admission Insists on going home LifeVest in place Objective: I&O/Vital Signs 03/05/19 03/05/19 03/05/19 03/05/19 02:39 04:15 04:45 07:00 Temp 35.6 Pulse 70 73 Resp 18 B/P (MAP) 135/66 (89) Pulse Ox 95 100 98 O2 Delivery Nasal Cannula Nasal Cannula Nasal Cannula O2 Flow Rate 2.00 2.00 2.00 03/05/19 03/05/19 03/05/19 03/05/19 07:15 07:20 08:00 08:00 Temp 36.4 Pulse 71 Resp 18 B/P (MAP) 134/71 (92) Pulse Ox 92 95 100 98 O2 Delivery Nasal Cannula Nasal Cannula Nasal Cannula O2 Flow Rate 2.00 2.00 2.00 03/05/19 03/05/19 03/05/19 09:00 11:29 11:40 Pulse Ox 98 100 85 O2 Delivery Nasal Cannula Nasal Cannula Room Air O2 Flow Rate 2.00 2.00 03/05/19 00:00 Intake Total 1150 ml Output Total 800 ml Balance 350 ml Weight (Pounds): 130 Weight (Ounces): 9.0 Weight (Calculated Kilograms): 58.596538 Device Insertion Site: without hematoma Bruising: mild bruising Constitutional: AAO x 3, well-developed, other (thin-appearing) Respiratory: other (prolonged exp phase; bibasilar crackles, fine and coarse) Cardiovascular: regular rate-rhythm, S1 and S2, systolic murmur (HSM 2/6 at card apex) Gastrointestional: No tender; soft; No guarding, No rebound; audible bowel sounds Extremities: No clubbing, No cyanosis, No significant edema Neurologic/Psychiatric: oriented x 3, grossly intact, power is 5/5 both on sides Skin: No rash on exposed areas, No ulcerations on exposed areas Results/Procedures: Labs Laboratory Tests 03/04/19 19:40: Glucometer 105 03/05/19 03:55: White Blood Count 11.0, Red Blood Count 4.25L, Hemoglobin 10.0L, Hematocrit 34L, Mean Corpuscular Volume 81, Mean Corpuscular Hemoglobin 24L, Mean Corpuscular Hemoglobin Concent 29L, Red Cell Distribution Width 17.1H, Platelet Count 249, Mean Platelet Volume 11.3H, Sodium Level 138, Potassium Level 4.7, Chloride Level 104, Carbon Dioxide Level 22, Anion Gap 12, Blood Urea Nitrogen 48H, Creatinine 1.36H, Estimat Glomerular Filtration Rate 38, BUN/Creatinine Ratio 35, Glucose Level 123H, Calcium Level 8.4L A/P: Assessment: Ac systolic CHF due to severe ischemic cardiomyopathy CAD. S/p CABG in 2012. Card cath of 03/04/19: 40% LMCA, multiple 60% in LAD, 60- 70% prox LCX, 100% mid LCX, 70-80% distal OM2 at distal bifurcation, 100% mid RCA in a long stented segment, patent DAIGLE to LAD, patent stented L subclavian, patent SVG to distal LCX, LVEDP 21, LVEF 10% Elevated troponin: CHF (type 2 [place]) Acute renal insufficiency, probably due to systolic CHF (impaired cardiac output / EF), stable / improving Echo of 03/02/19: LVEF 15-20%, mod enlargement of LA, mod MR and TR, RVSP 57 mmHg Pulmonary hypertension, probably secondary to L heart failure PAD - Angio and intervention of 02/15/19: Long total occlusion of the left superficial femoral artery to which successful balloon angioplasty was carried out with reduction of stenosis to less than 30%; other lesions included 70% to 80% stenosis of the right external iliac and the right common femoral and of the left ant tibial in its proximal portion COPD and asthma, treated with steroids during this hospitalization. Leucocytosis on 03/04/19 probably due to steroids UTI Abnormal ECG: NSR with PVCs, LVH with repol abnormality H/o left CEA - details unknown HTN HLP DM Type 2 Chronic tobacco use Plan: * I had a long and detailed discussion with her regarding her CV issues and her CV w/u during this hospitalization * Severe cardiovascular disease (see above) * I discussed our treatment plan with her * Have advised close outpt f/u * Advised to quit smoking immediately and completely * Have advised to keep Life Vest on NOE RUIZ MD FACP [facility] CCDS Mar 05, 2019 13:16
--- NOTE | 2019-03-05 14:00 | NUR ---
Pt refused to wear her home oxygen on discharge, this RN explained to pt that her oxygen does drop when she does not have it on. Pt stated she would be fine and refused to wear her oxygen home.
--- NOTE | 2019-03-05 14:30 | NUR ---
This RN tried to call pt and pt family to inform them that a home med must have fallen out of pt bag of meds and was found in pt room. Pt nor family had voicemail to leave a message. Will inform next shift RN in case pt calls.
--- NOTE | 2019-03-15 10:24 | Discharge Summary ---
Discharge Summary Hospital Course Was the Problem List Reviewed?: Yes Problems/Dx: (1) Acute systolic (congestive) heart failure Status: Acute (2) ARF (acute renal failure) Status: Acute Qualifiers: Qualified Codes: N17.9 - Acute kidney failure, unspecified (3) Microcytic anemia Status: Chronic (4) CAD (coronary artery disease) Status: Chronic Qualifiers: Qualified Codes: I25.10 - Atherosclerotic heart disease of [place] coronary artery without angina pectoris (5) Non-insulin dependent type 2 diabetes mellitus Status: Chronic (6) Anemia Qualifiers: (7) RESPIRATORY FAILURE, UNSP, UNSP W HYPOXIA OR HYPERCAPNIA Status: Chronic Hospital Course Date of Admission: Mar 02, 2019 at 08:54 Admission Diagnosis : Family Physician/Provider: Katja Devine Date of Discharge: 03/15/19 Discharge Diagnosis: [ ]Ac systolic CHF due to severe ischemic cardiomyopathy-EF 15-20% CAD NSTEMI Acute renal Insufficiency Pulmonary Hypertension PAD COPD- acute exacerbation HTN UTI DM Type 2 Chronic tobacco use Hospital Course: Pt was admitted with hypoxia and elevated BNP, and troponin. CXR showed CHF. Pt had a heart cath that revealed severe ischemic cardiomyopathy , nothing amenable to intervention. Dr. Salazar saw the patient for exacerbation of COPD and placed her on steroids and pulmonary toilet. She was diuresed. Counseled extensively to cease Smoking. Life vest ordered and placed before d/c. [ ] Labs and Pending Lab Test: Home Meds Active Atorvastatin Calcium 80 Mg Tablet 80 Mg PO HS 30 Days Carvedilol 6.25 Mg Tablet 6.25 Mg PO BID 30 Days Nicotine Patch (Nicotine) 1 Each Patch.td24 21 Mg TD DAILY@1900 14 Days On in am off at bedtime Reported Tylenol Extra Strength (Acetaminophen) 500 Mg Tablet 1,000 Mg PO Q4H PRN Albuterol Sulfate 2.5 Mg/3 Ml Vial.neb 2.5 Mg NEB Q6H PRN Ropinirole HCl 1 Mg Tablet 1 Mg PO HS Proair Hfa (Albuterol Sulfate) 1 Puff Puff 2 Puff INH Q6H PRN Gabapentin 300 Mg Capsule 300 Mg PO HS Plavix (Clopidogrel Bisulfate) 75 Mg Tablet 75 Mg PO DAILY Trospium Chloride 20 Mg Tablet 20 Mg PO BID Trintellix (Vortioxetine Hydrobromide) 10 Mg Tablet 10 Mg PO DAILY Paroxetine HCl 10 Mg Tablet 10 Mg PO DAILY Breo Ellipta 100-25 Mcg INH (Fluticasone/Vilanterol) 1 Each Blst.w.dev 1 Puff IH DAILY Furosemide 40 Mg Tablet 40 Mg PO DAILY Lisinopril 10 Mg Tablet 10 Mg PO DAILY Gabapentin 100 Mg Capsule 100 Mg PO 0800,1600 Aspirin EC (Aspirin) 81 Mg Tablet.dr 81 Mg PO DAILY Amiodarone HCl 200 Mg Tablet 100 Mg PO DAILY TAKES 1/2 (200MG) TABLET Assessment/Pt Instructions CHF-ischemic , acute, EF 10-15 % CAD COPD with acute exacerbation HTN Acute renal failure DM- type 2 Tobaccoism Discharge Planning: <30 minutes discharge planning Discharge Instructions Discharge Diet: Cardiac Diet Activity as Tolerated: Yes Orders & Referrals Life vest Consultations Rakesh Salazar Discharge Physical Examination General Appearance: Chronically ill Respiratory: Decreased Breath Sounds Cardiovascular: Regular Rate, Rhythm, Systolic Murmur, Gallop/S3 Gastrointestinal: Normal Bowel Sounds, Non Tender, Soft Extremity: No Calf Tenderness Skin: Normal Color Neurologic/Psychiatric: Alert, Oriented x3, No Motor/Sensory Deficits, Normal Mood/Affect Allergies: Coded Allergies: No Known Drug Allergies (Unverified , 05/07/17) Copy Copies To 1: [facility] Discharge Summary Date of Admission Mar 02, 2019 at 08:54 Date of Discharge Mar 05, 2019 at 13:55 Discharge Date: Mar 05, 2019 Discharge Time: 1500 Clinical Quality Measures DVT/VTE Risk/Contraindication: Risk Factor Score Per Nursin RFS Level Per Nursing on Admit: 4+=Very High CECILIA SORIA MD Mar 15, 2019 10:17 POS
== END 2019-03-05 13:55 | disposition home or self-care (01) | DRG 280 ==
LOC: EDUNIT# 06:53 → ER 06:56 → CSD 08:54
PROVIDERS: ADMIT Family Medicine; ATTEND Family Medicine
PROC: 4A023N7 Measurement of Cardiac Sampling and Pressure, Left Heart, Percutaneous Approach (ICD-10-PCS; principal; 2019-03-04)
PROC: B2111ZZ Fluoroscopy of Multiple Coronary Arteries using Low Osmolar Contrast (ICD-10-PCS; 2019-03-04)
PROC: B2151ZZ Fluoroscopy of Left Heart using Low Osmolar Contrast (ICD-10-PCS; 2019-03-04)
PROC: B41G1ZZ Fluoroscopy of Left Lower Extremity Arteries using Low Osmolar Contrast (ICD-10-PCS; 2019-03-04)
PROC: B31N1ZZ Fluoroscopy of Other Upper Arteries using Low Osmolar Contrast (ICD-10-PCS; 2019-03-04)
DX: I11.0 Hypertensive heart disease with heart failure (principal); I50.21 Acute systolic (congestive) heart failure; J96.20 Acute and chronic respiratory failure, unspecified whether with hypoxia or hypercapnia; J44.1 Chronic obstructive pulmonary disease with (acute) exacerbation; I21.A1 Myocardial infarction type 2; I25.5 Ischemic cardiomyopathy; I25.10 Atherosclerotic heart disease of native coronary artery without angina pectoris; N17.9 Acute kidney failure, unspecified; T82.855A Stenosis of coronary artery stent, initial encounter; E87.6 Hypokalemia; D50.9 Iron deficiency anemia, unspecified; E11.9 Type 2 diabetes mellitus without complications; I08.1 Rheumatic disorders of both mitral and tricuspid valves; E87.5 Hyperkalemia; I27.22 Pulmonary hypertension due to left heart disease; I70.203 Unspecified atherosclerosis of native arteries of extremities, bilateral legs; I50.1 Left ventricular failure, unspecified; E78.5 Hyperlipidemia, unspecified; F17.210 Nicotine dependence, cigarettes, uncomplicated; M81.0 Age-related osteoporosis without current pathological fracture; M19.91 Primary osteoarthritis, unspecified site; F41.9 Anxiety disorder, unspecified; Z86.73 Personal history of transient ischemic attack (TIA), and cerebral infarction without residual deficits; Z85.3 Personal history of malignant neoplasm of breast; Z92.21 Personal history of antineoplastic chemotherapy; Z95.1 Presence of aortocoronary bypass graft; Z99.81 Dependence on supplemental oxygen; Z79.84 Long term (current) use of oral hypoglycemic drugs
CPT/HCPCS: 36415; 36600; 71045; 80048; 80053; 82274; 82805; 82962; 83735; 83880; 84100; 84132; 84484; 85007; 85025; 85027; 86141; 93005; 93306; 93459; 94640; 94660; 94760; 96374; 96375

== ENCOUNTER → 2019-03-11 | Outpatient (CLI) | payer MEDICARE, MEDICAID ==
[~2019-03-11] MED LIST changes: +ACET-2267 PO; +ALBU2.5V4 NEB; +ATOR80TA76 PO; +CARV6.252 PO; +CLOP75TA69 PO; +DIAZ5TAB3; -DIAZ5TAB49; +GABA-488 PO; +NICO-588 TD; +ROPI1TAB2 PO; +RT-ALBUINH INH; +TRAM50TA2 PO; -TRM50T PO
== END ==
LOC: WOUNDCARE 10:02
PROVIDERS: ATTEND Surgery
DX: L97.422 Non-pressure chronic ulcer of left heel and midfoot with fat layer exposed (principal); I70.244 Atherosclerosis of native arteries of left leg with ulceration of heel and midfoot; E11.621 Type 2 diabetes mellitus with foot ulcer; E11.42 Type 2 diabetes mellitus with diabetic polyneuropathy; E11.52 Type 2 diabetes mellitus with diabetic peripheral angiopathy with gangrene; J44.9 Chronic obstructive pulmonary disease, unspecified; T65.222A Toxic effect of tobacco cigarettes, intentional self-harm, initial encounter; F17.218 Nicotine dependence, cigarettes, with other nicotine-induced disorders; E44.1 Mild protein-calorie malnutrition
CPT/HCPCS: 11042

== ENCOUNTER → 2019-03-16 | Outpatient (CLI) | payer MEDICARE, MEDICAID | LOC: LAB 09:45 | PROVIDERS: ATTEND Surgery | DX: L97.422 Non-pressure chronic ulcer of left heel and midfoot with fat layer exposed (principal); I70.244 Atherosclerosis of native arteries of left leg with ulceration of heel and midfoot; E11.621 Type 2 diabetes mellitus with foot ulcer; E11.42 Type 2 diabetes mellitus with diabetic polyneuropathy; J44.9 Chronic obstructive pulmonary disease, unspecified; T65.222A Toxic effect of tobacco cigarettes, intentional self-harm, initial encounter; F17.218 Nicotine dependence, cigarettes, with other nicotine-induced disorders; E44.1 Mild protein-calorie malnutrition | CPT/HCPCS: 36415; 84134 ==

== ENCOUNTER → 2019-03-18 | Outpatient (CLI) | payer MEDICARE, MEDICAID ==
[~2019-03-18] MED LIST changes: +ATOR40TA70 PO; +CARV12.53 PO; +CARV25TA PO; +CEFD300C3 PO; +CITA10TA7 PO; +CLIN300C11 PO; -DIAZ5TAB3; +DIAZ5TAB49; +IPRA3AMP31 NEB; +LORA2ORA PO; +MORP20SO PO; +POTA10CA43 PO; +POTA20TA15 PO; +SPIR25TA PO; +SPIR25TA5 PO; -TRAM50TA2 PO; +TRM50T PO
== END ==
LOC: WOUNDCARE 10:18
PROVIDERS: ATTEND Surgery
DX: L97.422 Non-pressure chronic ulcer of left heel and midfoot with fat layer exposed (principal); I70.244 Atherosclerosis of native arteries of left leg with ulceration of heel and midfoot; E11.621 Type 2 diabetes mellitus with foot ulcer; E11.42 Type 2 diabetes mellitus with diabetic polyneuropathy; E44.1 Mild protein-calorie malnutrition; J44.9 Chronic obstructive pulmonary disease, unspecified; T65.222A Toxic effect of tobacco cigarettes, intentional self-harm, initial encounter; E11.52 Type 2 diabetes mellitus with diabetic peripheral angiopathy with gangrene; F17.218 Nicotine dependence, cigarettes, with other nicotine-induced disorders
CPT/HCPCS: 11042

== ENCOUNTER → 2019-03-25 | Outpatient (CLI) | payer MEDICARE, MEDICAID ==
[~2019-03-25] MED LIST changes: -ATOR40TA70 PO; -CARV12.53 PO; -CARV25TA PO; -CEFD300C3 PO; -CITA10TA7 PO; -CLIN300C11 PO; +DIAZ5TAB3; -DIAZ5TAB49; -IPRA3AMP31 NEB; -LORA2ORA PO; -MORP20SO PO; -POTA10CA43 PO; -POTA20TA15 PO; -SPIR25TA PO; -SPIR25TA5 PO; +TRAM50TA2 PO; -TRM50T PO
[2019-03-25 10:49] LABS: CALCIUM 9.6 MG/DL (8.5-10.1); CREATININE SERUM 0.95 MG/DL (0.60-1.30); MAGNESIUM 1.8 MG/DL (1.6-2.4); POTASSIUM 3.4 MMOL/L (3.6-5.0)
== END ==
LOC: LAB 10:01
PROVIDERS: ATTEND Nurse Practitioner Family
DX: I25.5 Ischemic cardiomyopathy (principal); I25.10 Atherosclerotic heart disease of native coronary artery without angina pectoris; I65.23 Occlusion and stenosis of bilateral carotid arteries; I73.9 Peripheral vascular disease, unspecified; Z72.0 Tobacco use
CPT/HCPCS: 36415; 80048; 83735

== ENCOUNTER → 2019-03-25 | Outpatient (CLI) | payer MEDICARE, MEDICAID | LOC: WOUNDCARE 10:20 | PROVIDERS: ATTEND Surgery | DX: L97.422 Non-pressure chronic ulcer of left heel and midfoot with fat layer exposed (principal); I70.234 Atherosclerosis of native arteries of right leg with ulceration of heel and midfoot; E11.621 Type 2 diabetes mellitus with foot ulcer; E11.42 Type 2 diabetes mellitus with diabetic polyneuropathy; J44.9 Chronic obstructive pulmonary disease, unspecified; T65.222A Toxic effect of tobacco cigarettes, intentional self-harm, initial encounter; E44.1 Mild protein-calorie malnutrition; E11.52 Type 2 diabetes mellitus with diabetic peripheral angiopathy with gangrene; F17.218 Nicotine dependence, cigarettes, with other nicotine-induced disorders | CPT/HCPCS: 11042 ==

== ENCOUNTER → 2019-04-01 | Outpatient (CLI) | payer MEDICARE, MEDICAID ==
[~2019-04-01] MED LIST changes: +ATOR40TA70 PO; +CARV12.53 PO; +CLIN300C11 PO; +IPRA3AMP31 NEB; +POTA20TA15 PO
== END ==
LOC: WOUNDCARE 10:35
PROVIDERS: ATTEND Surgery
DX: L97.422 Non-pressure chronic ulcer of left heel and midfoot with fat layer exposed (principal); I70.244 Atherosclerosis of native arteries of left leg with ulceration of heel and midfoot; E11.621 Type 2 diabetes mellitus with foot ulcer; E11.42 Type 2 diabetes mellitus with diabetic polyneuropathy; E11.52 Type 2 diabetes mellitus with diabetic peripheral angiopathy with gangrene; J44.9 Chronic obstructive pulmonary disease, unspecified; T65.222A Toxic effect of tobacco cigarettes, intentional self-harm, initial encounter; F17.218 Nicotine dependence, cigarettes, with other nicotine-induced disorders; E44.1 Mild protein-calorie malnutrition
CPT/HCPCS: 99213

== ENCOUNTER 2019-04-05 18:25 | Inpatient (IN) | payer MEDICARE, MEDICAID ==
[2019-04-05] VITALS (9 sets, daily range): BP systolic 151–175; BP diastolic 73–118
[~2019-04-05] VITALS: Ht 162.6 cm; Wt 51.1 kg
[~2019-04-05 18:25] MED LIST changes: -ATOR40TA70 PO; -CARV12.53 PO; -CLIN300C11 PO; -IPRA3AMP31 NEB; -POTA20TA15 PO
[2019-04-05] MEDS ORDERED: NS IV 1000 ML 1,000 ML IV SCH (18:40)
[2019-04-05] MEDS ORDERED: RT-ALBUTEROL/IPRATROPIUM 3 ML (DUONEB) VIAL INH ONE (18:45)
[2019-04-05 18:47] LABS: BASOPHILS % (AUTO) 0 % (0-10); EOSINOPHILS # (AUTO) 0.1 10^3/uL (0.0-0.3); EOSINOPHILS % (AUTO) 1 % (0-10); HEMATOCRIT 36 % (35-52); LYMPHOCYTES # (AUTO) 1.9 X 10^3 (1.0-4.0); LYMPHOCYTES % (AUTO) 18 % (12-44); MEAN CORPUSCULAR HEMOGLOBIN 23 PG (25-34); MEAN CORPUSCULAR HGB CONC 30 G/DL (32-36); MEAN CORPUSCULAR VOLUME 76 FL (80-99); MEAN PLATELET VOLUME 10.8 FL (7.4-10.4); MONOCYTES # (AUTO) 0.7 X 10^3 (0.0-1.0); MONOCYTES % (AUTO) 6 % (0-12); NEUTROPHILS # (AUTO) 7.7 X 10^3 (1.8-7.8); NEUTROPHILS % (AUTO) 74 % (42-75); PLATELET COUNT 301 10^3/uL (130-400); RED CELL DISTRIBUTION WIDTH 16.4 % (10.0-14.5); WHITE BLOOD COUNT 10.3 10^3/uL (4.3-11.0)
--- NOTE | 2019-04-05 18:49 | ED Respiratory ---
General Chief Complaint: Respiratory Problems Stated Complaint: SOA Source: patient Exam Limitations: no limitations History of Present Illness Date Seen by Provider: Apr 05, 2019 Time Seen by Provider: 18:29 Initial Comments Patient presents to ER by private conveyance with chief complaint of shortness of breath for the past 3 or 4 days. She is having some mild pain in her left lower ribs on deep inspiration or direct palpation. She has a history of COPD. She has a history of heart disease as well and has been using her breathing treatments more frequently with less effect. Tonight she said she was so wore out that she decided to come to the ER. She follows with Dr. Rakesh Tejada for cardiology and has seen Dr. Salazar in the past for pulmonology. She is not on any steroids. She is not on any antibiotics and has not had any fevers chills or productive cough. She denies any nausea sweats or edema. She has a wound being cared for by Dr. Bhatt in wound care on the top of her left foot. She is diabetic with her blood sugar running in the 130 to 140 range fasting. She still smokes about a quarter pack of cigarettes per day. History of systolic heart failure with an EF of 15-20% on an echocardiogram from March 02, 2019. Pulmonary hypertension secondary to left heart failure. Peripheral arterial disease. COPD. CABG 3 years ago in [place], [place]. History of Left carotid endarterectomy Hypertension, hyperlipidemia and type 2 diabetes with tobacco use. Allergies and Home Medications Allergies Coded Allergies: No Known Drug Allergies (Unverified , 05/07/17) Home Medications Acetaminophen 500 Mg Tablet, 1,000 MG PO Q4H PRN for PAIN-MILD, (Reported) Albuterol Sulfate 1 Puff Puff, 2 PUFF INH Q6H PRN for SHORTNESS OF BREATH, (Reported) Albuterol Sulfate 2.5 Mg/3 Ml Vial.neb, 2.5 MG NEB Q6H PRN for SHORTNESS OF BREATH, (Reported) Amiodarone HCl 200 Mg Tablet, 100 MG PO DAILY, (Reported) TAKES 1/2 (200MG) TABLET Aspirin 81 Mg Tablet.dr, 81 MG PO DAILY, (Reported) Atorvastatin Calcium 80 Mg Tablet, 80 MG PO HS Prescribed by: CECILIA SORIA on 03/05/19 1153 Carvedilol 6.25 Mg Tablet, 6.25 MG PO BID Prescribed by: CECILIA SORIA on 03/05/19 1153 Clopidogrel Bisulfate 75 Mg Tablet, 75 MG PO DAILY, (Reported) Fluticasone/Vilanterol 1 Each Blst.w.dev, 1 PUFF IH DAILY, (Reported) Furosemide 40 Mg Tablet, 40 MG PO DAILY, (Reported) Gabapentin 100 Mg Capsule, 100 MG PO 0800,1600, (Reported) Gabapentin 300 Mg Capsule, 300 MG PO HS, (Reported) Lisinopril 10 Mg Tablet, 10 MG PO DAILY, (Reported) Nicotine 1 Each Patch.td24, 21 MG TD DAILY@1900 On in am off at bedtime Prescribed by: CECILIA SORIA on 03/05/19 115 Paroxetine HCl 10 Mg Tablet, 10 MG PO DAILY, (Reported) Ropinirole HCl 1 Mg Tablet, 1 MG PO HS, (Reported) Trospium Chloride 20 Mg Tablet, 20 MG PO BID, (Reported) Vortioxetine Hydrobromide 10 Mg Tablet, 10 MG PO DAILY, (Reported) Patient Home Medication List Home Medication List Reviewed: Yes Review of Systems Review of Systems Constitutional: No chills, No fever; malaise, weakness EENTM: No ear discharge, No ear pain Respiratory: No cough; short of breath, wheezing Cardiovascular: see HPI, chest pain; No edema; Hx of Intervention; No palpitations, No vascular heart diseas Gastrointestinal: No abdominal pain, No constipation, No diarrhea, No nausea Genitourinary: No discharge, No dysuria Skin: see HPI All Other Systems Reviewed Negative Unless Noted: Yes Past Hicvlom-Pnputj-Rtypvv Hx Patient Social History Alcohol Use: Past History Alcohol Beverage of Choice: Beer Recreational Drug Use: No Smoking Status: Current Everyday Smoker Type Used: Cigarettes (0.25 ppd) Recent Foreign Travel: No Contact w/Someone Who Travel: No Recent Hopitalizations: No Immunizations Up To Date Tetanus Booster (TDap): Unknown PED Vaccines UTD: Yes Date of Pneumonia Vaccine: Feb 22, 2019 Date of Influenza Vaccine: Feb 22, 2019 Seasonal Allergies Seasonal Allergies: No Past Medical History Surgeries: Yes Cardiac, CABG, Hysterectomy Respiratory: Yes (OXYGEN PRN) Asthma, COPD Currently Using CPAP: No Currently Using BIPAP: No Cardiac: Yes Coronary Artery Disease, Hypertension Neurological: Yes Stroke Female 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 Physical Exam Vital Signs - First Documented Capillary Refill : Height: 5'4.00" Weight: 130lbs. 9.0oz. 58.659683cp; 19.27 BMI Method:Estimated General Appearance: mild distress, thin Eyes: Bilateral Eye Normal Inspection, Bilateral Eye PERRL, Bilateral Eye EOMI HEENT: PERRL/EOMI, normal ENT inspection, TMs normal; No pharynx normal (oropharynx mucosa is dry) Neck: non-tender, full range of motion, supple, normal inspection Respiratory: respiratory distress (mild to moderate), decreased breath sounds, accessory muscle use, wheezing, expiration (prolonged), other (left mid axillary line ribs at the lower costal margin are tender to direct palpation) Cardiovascular: normal peripheral pulses, regular rate, rhythm Gastrointestinal: normal bowel sounds, non tender, soft Extremities: normal range of motion, non-tender, no pedal edema, normal capillary refill Neurologic/Psychiatric: alert, normal mood/affect, oriented x 3 Skin: normal color, warm/dry, other (there is a 1 x 2 cm chronic, healing ulcer on the dorsum of the left foot that is well dressed and without erythema discharge or fluctuance) Focused Exam Lactate Level 04/05/19 18:35: Lactic Acid Level 1.37 Lactic Acid Level Laboratory Tests Test 04/05/19 18:35 Lactic Acid Level 1.37 MMOL/L (0.50-2.00) Progress/Results/Core Measures Suspected Sepsis SIRS Temperature: Pulse: Respiratory Rate: Laboratory Tests 04/05/19 18:35: White Blood Count 10.3 Blood Pressure / Mean: 04/05/19 18:35: Lactic Acid Level 1.37 Laboratory Tests 04/05/19 18:35: Creatinine 0.95, INR Comment 1.0, Platelet Count 301, Total Bilirubin 0.5 Results/Orders Lab Results Laboratory Tests Test 04/05/19 18:35 04/05/19 19:11 04/05/19 20:07 Range/Units White Blood Count 10.3 4.3-11.0 10^3/uL Red Blood Count 4.78 4.35-5.85 10^6/uL Hemoglobin 11.0 L 11.5-16.0 G/DL Hematocrit 36 35-52 % Mean Corpuscular Volume 76 L 80-99 FL Mean Corpuscular Hemoglobin 23 L 25-34 PG Mean Corpuscular Hemoglobin Concent 30 L 32-36 G/DL Red Cell Distribution Width 16.4 H 10.0-14.5 % Platelet Count 301 130-400 10^3/uL Mean Platelet Volume 10.8 H 7.4-10.4 FL Neutrophils (%) (Auto) 74 42-75 % Lymphocytes (%) (Auto) 18 12-44 % Monocytes (%) (Auto) 6 0-12 % Eosinophils (%) (Auto) 1 0-10 % Basophils (%) (Auto) 0 0-10 % Neutrophils # (Auto) 7.7 1.8-7.8 X 10^3 Lymphocytes # (Auto) 1.9 1.0-4.0 X 10^3 Monocytes # (Auto) 0.7 0.0-1.0 X 10^3 Eosinophils # (Auto) 0.1 0.0-0.3 10^3/uL Basophils # (Auto) 0.0 0.0-0.1 10^3/uL Prothrombin Time 13.3 12.2-14.7 SEC INR Comment 1.0 0.8-1.4 Activated Partial Thromboplast Time 34 24-35 SEC Sodium Level 138 135-145 MMOL/L Potassium Level 4.2 3.6-5.0 MMOL/L Chloride Level 99 98-107 MMOL/L Carbon Dioxide Level 26 21-32 MMOL/L Anion Gap 13 5-14 MMOL/L Blood Urea Nitrogen 15 7-18 MG/DL Creatinine 0.95 0.60-1.30 MG/DL Estimat Glomerular Filtration Rate 58 BUN/Creatinine Ratio 16 Glucose Level 184 H 70-105 MG/DL Lactic Acid Level 1.37 0.50-2.00 MMOL/L Calcium Level 9.6 8.5-10.1 MG/DL Corrected Calcium 9.6 8.5-10.1 MG/DL Total Bilirubin 0.5 0.1-1.0 MG/DL Aspartate Amino Transf (AST/SGOT) 12 5-34 U/L Alanine Aminotransferase (ALT/SGPT) 9 0-55 U/L Alkaline Phosphatase 103 40-136 U/L Troponin I < 0.028 <0.028 NG/ML B-Type Natriuretic Peptide 4334.8 H <100.0 PG/ML Total Protein 7.2 6.4-8.2 GM/DL Albumin 4.0 3.2-4.5 GM/DL Blood Gas Puncture Site LT BRACH RIGHT BRACHIAL Blood Gas Patient Temperature 97.5 36.6 Arterial Blood pH 7.37 7.46 H 7.37-7.43 Arterial Blood Partial Pressure CO2 20 L 38 35-45 MMHG Arterial Blood Partial Pressure O2 24 *L 83 79-93 MMHG Arterial Blood HCO3 11 *L 27 23-27 MMOL/L Arterial Blood Total CO2 11.7 L 27.9 21.0-31.0 MMOL/L Arterial Blood Oxygen Saturation 42 L 98 94-100 % Arterial Blood Base Excess -13.4 L 3.0 H -2.5-2.5 MMOL/L Jossue Test POS NA Blood Gas Ventilator Setting NO NO Blood Gas Inspired Oxygen 1.5 1.5L My Orders Orders - ROSE HOOKER Ed Iv/Invasive Line Start (04/05/19 18:40) Ns Iv 1000 Ml (Sodium Chloride 0.9%) (04/05/19 18:40) Albuterol/Ipra Inhalation Soln (Duoneb I (04/05/19 18:45) Rt Request For Service (04/05/19 18:40) Chest 1 View, Ap/Pa Only (04/05/19 18:40) Svn Small Volume Nebulizer (04/05/19 18:40) Cbc With Automated Diff (04/05/19 18:40) Comprehensive Metabolic Panel (04/05/19 18:40) BNP (04/05/19 18:40) Continuous Ekg Monitoring (04/05/19 18:40) Ekg Tracing (04/05/19 18:40) Troponin I (04/05/19 18:40) Aspirin Chewable Tablet (Baby Aspirin Ch (04/05/19 19:00) Ed Iv/Invasive Line Start (04/05/19 18:54) Ns Iv 500 Ml (Sodium Chloride 0.9%) (04/05/19 18:54) Blood Culture (04/05/19 19:07) Sputum Culture (04/05/19 19:07) Urinalysis (04/05/19 19:07) Urine Culture (04/05/19 19:07) Protime With Inr (04/05/19 19:07) Partial Thromboplastin Time (04/05/19 19:07) Ed Iv/Invasive Line Start (04/05/19 19:07) Vital Signs Adult Sepsis Patie Q15M (04/05/19 19:07) O2 (04/05/19 19:07) Remove Rings In Anticipation O (04/05/19:07) Lactic Acid Analyzer (04/05/19 19:07) Ceftriaxone For Iv Use (Rocephin For I (04/05/19 19:15) Azithromycin Injection (Zithromax Inject (04/05/19 19:15) Cefepime Injection (Maxipime Injection) (04/05/19 19:15) Arterial Blood Gas (04/05/19 19:13) Ekg Tracing (04/05/19 19:21) Ondansetron Oral Dissolve Tab (Zofran (04/05/19 20:00) Enoxaparin Injection (Lovenox Injection) (04/05/19 20:15) Labetalol Injection (Normodyne Injection (04/05/19 20:15) Arterial Blood Gas (04/05/19 20:07) Medications Given in ED Current Medications Medications Dose Ordered Sig/Vlad Route Start Time Stop Time Status Last Admin Dose Admin Albuterol/ Ipratropium 3 ml ONCE ONCE INH 04/05/19 18:45 04/05/19 18:46 DC 04/05/19 19:24 3 ML Aspirin 324 mg ONCE ONCE PO 04/05/19 19:00 04/05/19 19:01 DC 04/05/19 18:59 324 MG Cefepime HCl 1000 mg/Sterile Water 10 ml @ 200 mls/hr ONCE ONCE IV 04/05/19 19:15 04/05/19 19:17 DC 04/05/19 19:58 200 MLS/HR Sodium Chloride 500 ml @ 0 mls/hr Q0M ONCE IV 04/05/19 18:54 04/05/19 18:55 DC 04/05/19 19:00 0 MLS/HR Vital Signs/I&O 04/05/19 04/05/19 04/05/19 18:30 18:30 19:19 Temp 36.6 Pulse 119 101 Resp 40 28 B/P (MAP) 117/100 (106) Pulse Ox 98 98 100 O2 Delivery Nasal Cannula Nasal Cannula O2 Flow Rate 1.50 1.50 30.00 04/05/19 23:59 Intake Total 510 ml Balance 510 ml Capillary Refill : Progress Note #1: Time: 18:48 Progress Note We'll give her a liter fluids, aspirin to chew and swallow and get a x-ray breathing treatment and put her on BiPAP. She appears to be in [id number] respiratory distress secondary to COPD. 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 EKG demonstrates a lot of respiratory artifact and will have to repeat it after our interventions as she does have some lateral ST depression. Because of her tachypnea and tachycardia we'll obtain a septic workup as well. Cefepime as she does have recent hospitalizations for cardiac reasons. We'll go cautious with her fluids at first. BNP. Progress Note #2: Time: 20:00 Progress Note ABG appears to be a venous draw. The patient is 9900% on room air since she came here. We have asked to have it redrawn and the patient has refused. ECG Initial ECG Impression Date: Apr 05, 2019 Initial ECG Impression Time: 18:32 Initial ECG Rate: 113 Initial ECG Rhythm: S.Tach Initial ECG Intervals: QT (500) Initial ECG Impression: Nonspecific Changes Comment Sinus tachycardia with some lateral leads V5 and V6 ST depression but no ST elevation appreciable. Lots of respiratory artifact. EKG : EKG Time: 19:31 Rate: 103 Rhythm: S.Tach Intervals: QT (482) ECG Comparisson: Changed ECG Impression: Nonspecific Changes Comment There is significant ST depression in leads V4, V5 and V6 1-2 blocks. There is subtle ST elevation 1-2 blocks in leads V1, V2 and V3. This seems consistent with a repolarization abnormality and not an ST elevation [place]. Diagnostic Imaging Diagonstic Imaging: Xray Plain Films/CT/US/NM/MRI: chest (1v) Comments NAME: MARIA DE JESUS SUNSHINE REC#: [id number] PT STATUS: REG ER : 1950 PHYSICIAN: ROSE HOOKER MD ADMIT DATE: 04/05/19/ER Signed POSDate of Exam:04/05/19 CHEST 1 VIEW, AP/PA ONLY INDICATION: COPD and shortness of air. TIME OF EXAM: 6:55 PM Correlation is made with prior chest from 03/03/2019. FINDINGS: The heart is enlarged but stable. There are changes of median sternotomy and CABG. There are some interstitial changes throughout both lungs. No parenchymal consolidation is seen. There is no effusion or pneumothorax. IMPRESSION: Cardiomegaly and interstitial changes. Acuity is indeterminate. This could be owing to chronic interstitial fibrotic scarring versus interstitial edema. Dictated by: Dictated on workstation # [id number] Dict: 04/05/191858 Trans: 04/05/191902 [id number] Interpreted by: WESLEY TREVINO MD Electronically signed by: WESLEY TREVINO MD 04/05/191902 Reviewed: Reviewed by De Departure Communication (Admissions) Time/Spoke to Admitting Phy: 20:30 Discussed case lab imaging with Dr. Rivas and that ABG is pending. Time/Spoke to Consulting Phy: 19:46 Discussed EKG imaging labs and findings. Dr. Shields reviewed the EKG. He agrees that this does not look like an acute ST elevation [place] but rather repolarization abnormality secondary to rate. He would still be in agreement with aspirin and Lovenox tonight and he will consult on the patient. Impression Primary Impression: Acute and chronic respiratory failure ([id number]) Qualified Codes: J96.20 - Acute and chronic respiratory failure, unspecified whether with hypoxia or hypercapnia Additional Impression: Rib pain on left side Disposition: ADMITTED INPATIENT Condition: Critical Admissions Decision to Admit Reason: Admit from ER (General) Decision to Admit/Date: Apr 06, 2019 Time/Decision to Admit Time: 05:36 Departure-Patient Inst. Referrals: NOE RUIZ MD FACP FAC CCDS (PCP) Primary Care Physician MEAGAN AKHTAR [employer] (Family) Primary Care Physician ROSE HOOKER Apr 05, 2019 18:49 POS
[2019-04-05] MEDS ORDERED: NS IV 500 ML 500 ML IV ONE (18:54)
[2019-04-05] MEDS ORDERED: ASPIRIN 81 MG CHEW (CHILDREN'S ASA) PO ONE (19:00)
--- NOTE | 2019-04-05 19:02 | Diagnostic Imaging Report ---
INDICATION: COPD and shortness of air. TIME OF EXAM: 6:55 PM Correlation is made with prior chest from 03/03/2019. FINDINGS: The heart is enlarged but stable. There are changes of median sternotomy and CABG. There are some interstitial changes throughout both lungs. No parenchymal consolidation is seen. There is no effusion or pneumothorax. IMPRESSION: Cardiomegaly and interstitial changes. Acuity is indeterminate. This could be owing to chronic interstitial fibrotic scarring versus interstitial edema. Dictated by: Dictated on workstation # [id number]
[2019-04-05 19:04] LABS: ALANINE AMINOTRANSFERASE 9 U/L (0-55); ALKALINE PHOSPHATASE 103 U/L (40-136); BILIRUBIN,TOTAL 0.5 MG/DL (0.1-1.0); BUN/CREATININE RATIO 16; CALCIUM 9.6 MG/DL (8.5-10.1); CARBON DIOXIDE 26 MMOL/L (21-32); CHLORIDE 99 MMOL/L (98-107); CREATININE SERUM 0.95 MG/DL (0.60-1.30); GFR ESTIMATED 58; GLUCOSE 184 MG/DL (70-105); POTASSIUM 4.2 MMOL/L (3.6-5.0); SODIUM 138 MMOL/L (135-145); TOTAL PROTEIN 7.2 GM/DL (6.4-8.2)
[2019-04-05] MEDS ORDERED: CEFEPIME INJECTION 1,000 MG in WATER (STERILE) FOR INJECTION 10 ML IV ONE (19:15)
[2019-04-05] MEDS ORDERED: AZITHROMYCIN INJECTION 500 MG in NS (IVPB) 250 ML IV ONE (19:15)
[2019-04-05] MEDS ORDERED: cefTRIAXone FOR IV USE 1,000 MG in WATER (STERILE) FOR INJECTION 10 ML IV ONE (19:15)
[2019-04-05 19:18] LABS: ABG BASE EXCESS -13.4 MMOL/L (-2.5-2.5); ABG OXYGEN SATURATION 42 % (94-100); ABG PCO2 20 MMHG (35-45); ABG PH 7.37 (7.37-7.43); ABG TCO2 11.7 MMOL/L (21.0-31.0)
[2019-04-05 19:20] LABS: ABG PO2 24 MMHG (79-93)
[2019-04-05 19:20] LABS: PROTHROMBIN TIME PATIENT 13.3 SEC (12.2-14.7)
[2019-04-05 19:22] LABS: ALLENS TEST POS; INSPIRED O2 1.5
[2019-04-05 19:23] LABS: PATIENT TEMP 97.5; VENTILATOR NO
[2019-04-05] MEDS ORDERED: ONDANSETRON 4 MG (ZOFRAN) ORAL DISSOLVE TAB PO ONE (20:00)
[2019-04-05 20:14] LABS: ABG OXYGEN SATURATION 98 % (94-100); ABG PCO2 38 MMHG (35-45); ABG PH 7.46 (7.37-7.43); ABG PO2 83 MMHG (79-93); ABG TCO2 27.9 MMOL/L (21.0-31.0)
[2019-04-05] MEDS ORDERED: LABETALOL HCL 20 MG/4 ML VIAL IV ONE (20:15)
[2019-04-05] MEDS ORDERED: ENOXAPARIN 60 MG/0.6 ML (LOVENOX) SYR SC ONE (20:15)
[2019-04-05 20:16] LABS: INSPIRED O2 1.5L; PATIENT TEMP 36.6; VENTILATOR NO
[2019-04-05] MEDS ORDERED: NS IV 1000 ML 1,000 ML ONE (20:59)
[2019-04-05] MEDS ORDERED: ACETAMINOPHEN 500 MG TAB (TYLENOL) PO PRN (21:45)
[2019-04-05] MEDS ORDERED: RT-ALBUTEROL/IPRATROPIUM 3 ML (DUONEB) VIAL INH PRN (21:45)
[2019-04-05] MEDS ORDERED: ONDANSETRON 4 MG/2 ML (SDV) Z0FRAN IV PRN (21:45)
[2019-04-05] MEDS: RT-ALBUTEROL/IPRATROPIUM 3 ML (DUONEB) VIAL INH SCH (22:20)
[2019-04-05] MEDS: methylPREDNISolone 40 MG/ML (Solu-MEDROL) VIAL IV SCH (22:55)
[2019-04-05] MEDS: PARoxetine 10 MG (PAXIL) TAB PO SCH (22:55)
[2019-04-05] MEDS: GABAPENTIN 300 MG (NEURONTIN) CAP PO SCH (22:56)
[2019-04-05] MEDS: rOPINIRole 1 MG (REQUIP) TABLET PO SCH (22:56)
[2019-04-05] MEDS: LORazepam 0.5 MG (ATIVAN) TABLET PO PRN (22:56)
[2019-04-05] MEDS: NS IV 1000 ML 1,000 ML IV SCH (23:49)
[2019-04-06] VITALS (11 sets, daily range): BP systolic 119–157; BP diastolic 58–95
[2019-04-06 00:46] LABS: BASOPHILS % (AUTO) 0 % (0-10); EOSINOPHILS # (AUTO) 0.1 10^3/uL (0.0-0.3); EOSINOPHILS % (AUTO) 1 % (0-10); HEMATOCRIT 34 % (35-52); HEMOGLOBIN 10.3 G/DL (11.5-16.0); LYMPHOCYTES # (AUTO) 1.5 X 10^3 (1.0-4.0); LYMPHOCYTES % (AUTO) 17 % (12-44); MEAN CORPUSCULAR HEMOGLOBIN 23 PG (25-34); MEAN CORPUSCULAR HGB CONC 31 G/DL (32-36); MEAN CORPUSCULAR VOLUME 76 FL (80-99); MEAN PLATELET VOLUME 10.7 FL (7.4-10.4); MONOCYTES # (AUTO) 0.4 X 10^3 (0.0-1.0); MONOCYTES % (AUTO) 5 % (0-12); NEUTROPHILS # (AUTO) 6.5 X 10^3 (1.8-7.8); NEUTROPHILS % (AUTO) 76 % (42-75); PLATELET COUNT 250 10^3/uL (130-400); RED CELL DISTRIBUTION WIDTH 16.3 % (10.0-14.5); WHITE BLOOD COUNT 8.5 10^3/uL (4.3-11.0)
[2019-04-06 01:06] LABS: BUN/CREATININE RATIO 18; CALCIUM 8.9 MG/DL (8.5-10.1); CARBON DIOXIDE 24 MMOL/L (21-32); CHLORIDE 104 MMOL/L (98-107); CREATININE SERUM 0.79 MG/DL (0.60-1.30); GFR ESTIMATED > 60; GLUCOSE 136 MG/DL (70-105); MAGNESIUM 1.9 MG/DL (1.6-2.4); PHOSPHORUS 2.8 MG/DL (2.3-4.7); POTASSIUM 4.2 MMOL/L (3.6-5.0); SODIUM 141 MMOL/L (135-145)
[2019-04-06] MEDS: RT-ALBUTEROL/IPRATROPIUM 3 ML (DUONEB) VIAL INH SCH ×6 (02:35→22:02)
[2019-04-06] MEDS: KCL 20 MEQ TAB (K-DUR) PO SCH (05:12)
[2019-04-06] MEDS: MAGNESIUM 1 GM/100 ML IVPB 100 ML IV SCH (05:12)
[2019-04-06] MEDS: POTASSIUM CL 10MEQ/50ML IVPB 50 ML IV SCH (05:12)
[2019-04-06] MEDS: inSUlin ASPART (NovoLOG) 1 UNIT/0.01 ML (CHARGE PER UNIT) SC SCH ×4 (05:13→21:41)
[2019-04-06] MEDS: TROSPIUM 20 MG (SANCTURA) TAB PO SCH ×2 (05:20→18:18)
[2019-04-06] MEDS: methylPREDNISolone 40 MG/ML (Solu-MEDROL) VIAL IV SCH (05:20)
[2019-04-06] MEDS ORDERED: CARVEDILOL 6.25 MG (COREG) TAB PO SCH ×2 (07:00→17:00)
--- NOTE | 2019-04-06 07:33 | Diagnostic Imaging Report ---
INDICATION: Dyspnea. Comparison with 04/05/2019. FINDINGS: Cardiomegaly with median sternotomy changes again noted. Diffuse interstitial infiltrates are again present. No consolidated infiltrate. No pneumothorax or pleural effusion. IMPRESSION: Chronic interstitial lung disease with cardiomegaly. No acute changes demonstrated. Dictated by: Dictated on workstation # [id number]
[2019-04-06] MEDS: AMIODARONE 200 MG (CORDARONE) TAB PO SCH (08:25)
[2019-04-06] MEDS: CLOPIDOGREL 75 MG (PLAVIX) TABLET PO SCH (08:25)
[2019-04-06] MEDS: lisINopril 10 MG (PRINIVIL) TABLET PO SCH (08:25)
[2019-04-06] MEDS: ENOXAPARIN 60 MG/0.6 ML (LOVENOX) SYR SC SCH ×2 (08:25→21:41)
[2019-04-06] MEDS ORDERED: NON-FORMULARY MEDICATION 1 EA EA (Vortioxetine Hydrobromide (Trintellix) 10 MG) PO SCH (09:00)
[2019-04-06] MEDS ORDERED: VORTIOXETINE 20 MG PO SCH (09:00)
--- NOTE | 2019-04-06 09:03 | History & Physical-Hospitalist ---
History of Present Illness HPI/Chief Complaint Pt is a 69yoCF with a PMH of COPD, ischemic cardiomyopathy, CAD s/p CABG, NIDDMII who presented to the ER due to shortness of breath. She states she has known COPD and her symptoms were consistent with her previous COPD exacerbations. She tried increasing her home oxygen from her baseline 2lpm to 3lpm and had increased inhaler use without improvement. Last night she could not catch her breath and decided to seek evaluation in the ER. She was placed on BiPAP and her symptoms improved. She was admitted for COPD exacerbation. She improved overnight and is now off BiPAP. She reports feeling better this morning and breathing is easier. Source: patient Date Seen 04/06/19 Time Seen by a Provider: 08:58 Attending Physician Dameon Rivas MD PCP Lizzette Cameron MD Facp Fac Ccds Referring Physician Date of Admission Apr 05, 2019 at 20:10 Home Medications & Allergies Home Medications Reviewed patient Home Medication Reconciliation performed by pharmacy medication reconciliations wind technician and/or nursing. Patients Allergies have been reviewed. Allergies Allergies Coded Allergies No Known Drug Allergies ([id number]/17) Past Aripxgv-Kcczqo-Rnbond Hx Past Med/Social Hx: Reviewed Nursing Past Med/Soc Hx Patient Social History Alcohol Use: Past History Alcohol Beverage of Choice: Beer Recreational Drug Use: No Smoking Status: Current Everyday Smoker Type Used: Cigarettes (0.25 ppd) Recent Foreign Travel: No Contact w/other who traveled: No Recent Hopitalizations: No Recent Infectious Disease Expo: No Immunizations Up To Date Tetanus Booster (TDap): Unknown Pediatric: Yes Date of Pneumonia Vaccine: Nov 15, 2018 Date of Influenza Vaccine: Feb 22, 2019 Seasonal Allergies Seasonal Allergies: No Past Medical History Surgeries: Cardiac, CABG, Hysterectomy, Open Heart Surgery Respiratory: COPD Currently Using CPAP: No Currently Using BIPAP: No Cardiac: Coronary Artery Disease, Hypertension Neurological: Stroke Sexually Transmitted Disease: No HIV/AIDS: No Female Reproductive Disorders: Denies Menopausal Musculoskeletal: Osteoporosis, Arthritis, Fractures Endocrine: Diabetes, Non-Insulin dep Loss of Vision: Denies Hearing Impairment: Denies Cancer: Breast Did You Recieve Any Treatments: Yes What Type of Treatment Did You: Chemotherapy, Surgical Intervention Psychosocial: Anxiety History of Blood Disorders: No Adverse Reaction to Blood Fermin: No Family History Reviewed Nursing Family Hx Patient reports no known family medical history. No Pertinent Family Hx Review of Systems Constitutional: No chills, No fever, No malaise EENTM: no symptoms reported Respiratory: cough, dyspnea on exertion; No hemoptysis, No phlegm; short of breath, wheezing Cardiovascular: No chest pain, No edema; palpitations Gastrointestinal: No abdominal pain, No nausea, No vomiting Genitourinary: no symptoms reported Musculoskeletal: no symptoms reported Skin: no symptoms reported Psychiatric/Neurological: No Symptoms Reported Physical Exam Physical Exam Vital Signs Vital Signs - First Documented 04/05/19 21:00 FiO2 21 Capillary Refill : Less Than 3 Seconds Height, Weight, BMI Height: 5'4.00" Weight: 130lbs. 9.0oz. 58.223981me; 18.83 BMI Method:Estimated General Appearance: No Apparent Distress, Chronically ill, Thin HEENT: Moist Mucous Membranes; No Scleral Icterus (L), No Scleral Icterus (R) Neck: No Thyromegaly; Other (right sided cystic mobile mass just below mandible) Respiratory: No Accessory Muscle Use, No Respiratory Distress, Decreased Breath Sounds Cardiovascular: No Murmur, Tachycardia Gastrointestinal: Normal Bowel Sounds, Non Tender, Soft Extremity: Normal Capillary Refill, No Calf Tenderness, No Pedal Edema, Other (bandage over left dorsal foot covering wound) Neurologic/Psychiatric: Alert, Oriented x3, Normal Mood/Affect Skin: Normal Color, Warm/Dry Results Results/Procedures Labs Laboratory Tests 04/05/19 18:35 04/06/19 00:40 Patient resulted labs reviewed. Imaging: Reviewed Imaging Report Assessment/Plan Admission Diagnosis COPD Exacerbation Admission Status: Inpatient Order (span 2 midnights) Reason for Inpatient Admission: Acute respiratory failure Assessment and Plan COPD Exacerbation Acute on Chronic Hypoxemic Respiratory Failure Continue on Prednisone MAT Protocol with scheduled/prn SVNs Pulm consulted, appreciate recs May need BiPAP overnight CAD s/p CABG Elevated troponin No chest pain on arrival or overnight Cardiology consulted, appreciate recs NIDDMII SSI Anticipate higher blood sugars with steroid use Diagnosis/Problems Diagnosis/Problems (1) COPD exacerbation (2) Acute and chronic respiratory failure ([id number]) Status: Acute Qualifiers: Respiratory failure complication: unspecified whether with hypoxia or hypercapnia Qualified Codes: J96.20 - Acute and chronic respiratory failure, unspecified whether with hypoxia or hypercapnia (3) CHF (congestive heart failure) Qualifiers: Heart failure type: systolic Heart failure chronicity: chronic Qualified Codes: I50.22 - Chronic systolic (congestive) heart failure (4) Essential (primary) hypertension Status: Chronic (5) Non-insulin dependent type 2 diabetes mellitus Status: Chronic (6) PAD (peripheral artery disease) Status: Chronic (7) Normocytic anemia Status: Chronic (8) Ischemic cardiomyopathy Status: Chronic Clinical Quality Measures DVT/VTE Risk/Contraindication: Risk Factor Score Per Nursin RFS Level Per Nursing on Admit: 4+=Very High SLOANE WEINER MD Apr 06, 2019 09:03 POS
[2019-04-06] MEDS: NS IV 1000 ML 1,000 ML IV SCH (09:17)
--- NOTE | 2019-04-06 09:46 | Consultation-Cardiology ---
HPI-Cardiology Cardiology Consultation: Date of Consultation 04/06/19 Time Seen by a Provider: 09:00 Date of Admission Attending Physician Dameon Rivas MD Admitting Physician Consulting Physician NOE RUIZ MD, MA, FACP, FACC, FSCAI, CCDS HPI: Chief Complaint: CC: Increasing shortness of breath HPI 69 yo woman with multiple CV and pulmonary issues, see below, admitted on 04/05/19 with increasing shortness of breath for 2-3 days prior to admission. Some continuous chest soreness that she feels is related to the work of breathing, present for 2-3 day, non-radiating, w/o relieving factors, without associated symptoms (other than shortness of breath), not experienced before. Denies palp or syncope or leg swelling. Has had Life Vest that she took off and still refuses to wear Review of Systems-Cardiology Review of Systems Constitutional: malaise, tiredness; No weight loss, No weight gain Eyes: No vision change Ears/Nose/Throat: No ear discharge, No nasal drainage, No recent hearing loss Respiratory: As described under HPI Cardiovascular: As described under HPI Gastrointestinal: No diarrhea, No vomiting Genitourinary: No dysuria, No urine frequency changes Musculoskeletal: back pain (chronic) Skin: No rash, No ulcerations Psychiatric/Neurological: No focal weakness, No syncope Hematologic: No bleeding abnormalities All Other Systems Reviewed Negative Unless Noted: Yes ENC-Ma[place]et-Fjkrqc Hx Patient Social History Alcohol Use: Past History Recreational Drug Use: No Smoking Status: Current Everyday Smoker Type Used: Cigarettes (0.25 ppd) Recent Foreign Travel: No Recent Infectious Disease Expo: No Hospitalization with Isolation: Denies Immunizations Up To Date Tetanus Booster (TDap): Unknown Date of Pneumonia Vaccine: Nov 15, 2018 Date of Influenza Vaccine: Feb 22, 2019 Past Medical History PMH As described under Assessment. Family Medical History Family History: Patient reports no known family medical history. Allergies and Home Medications Allergies Coded Allergies: No Known Drug Allergies (Unverified , 05/07/17) Home Medications Acetaminophen 500 Mg Tablet, 1,000 MG PO Q4H PRN for PAIN-MILD, (Reported) Albuterol Sulfate 1 Puff Puff, 2 PUFF INH Q6H PRN for SHORTNESS OF BREATH, (Reported) Albuterol Sulfate 2.5 Mg/3 Ml Vial.neb, 2.5 MG NEB Q6H PRN for SHORTNESS OF BREATH, (Reported) Amiodarone HCl 200 Mg Tablet, 100 MG PO DAILY, (Reported) TAKES 1/2 (200MG) TABLET Aspirin 81 Mg Tablet.dr, 81 MG PO DAILY, (Reported) Atorvastatin Calcium 80 Mg Tablet, 80 MG PO HS Prescribed by: CECILIA SORIA on 03/05/19 115 Carvedilol 6.25 Mg Tablet, 6.25 MG PO BID Prescribed by: CECILIA SORIA on 03/05/19 115 Clopidogrel Bisulfate 75 Mg Tablet, 75 MG PO DAILY, (Reported) Fluticasone/Vilanterol 1 Each Blst.w.dev, 1 PUFF IH DAILY, (Reported) Furosemide 40 Mg Tablet, 40 MG PO DAILY, (Reported) Gabapentin 100 Mg Capsule, 100 MG PO 0800,1600, (Reported) Gabapentin 300 Mg Capsule, 300 MG PO HS, (Reported) Lisinopril 10 Mg Tablet, 10 MG PO DAILY, (Reported) Nicotine 1 Each Patch.td24, 21 MG TD DAILY@1900 On in am off at bedtime Prescribed by: CECILIA SORIA on 03/05/19 115 Paroxetine HCl 10 Mg Tablet, 10 MG PO DAILY, (Reported) Ropinirole HCl 1 Mg Tablet, 1 MG PO HS, (Reported) Trospium Chloride 20 Mg Tablet, 20 MG PO BID, (Reported) Vortioxetine Hydrobromide 10 Mg Tablet, 10 MG PO DAILY, (Reported) Patient Home Medication List Home Medication List Reviewed: Yes Physical Exam-Cardiology Physical Exam Vital Signs/I&O 04/05/19 04/05/19 04/05/19 04/05/19 21:45 22:00 22:20 23:00 Pulse 80 86 80 91 Resp 26 24 27 30 B/P (MAP) 157/79 (105) 161/92 (115) 166/83 (110) Pulse Ox 99 100 98 97 O2 Delivery NIV Bilevel NIV Bilevel NIV Bilevel O2 Flow Rate 21.00 21.00 21.00 21.00 04/05/19 04/06/19 04/06/19 04/06/19 23:01 00:00 00:00 01:00 Temp 36.5 Pulse 94 98 Resp 21 21 B/P (MAP) 119/74 (89) 151/95 (113) Pulse Ox 91 91 91 O2 Delivery Nasal Cannula Nasal Cannula Nasal Cannula Nasal Cannula O2 Flow Rate 2.00 2.00 2.00 2.00 04/06/19 04/06/19 04/06/19 04/06/19 01:03 02:00 02:36 03:00 Pulse 98 93 93 Resp 21 20 B/P (MAP) 157/82 (107) 143/79 (100) Pulse Ox 90 90 95 O2 Delivery Nasal Cannula Room Air Nasal Cannula O2 Flow Rate 2.00 2.00 04/06/19 04/06/19 04/06/19 04/06/19 04:00 04:00 05:00 06:00 Pulse 99 99 104 Resp 16 20 22 B/P (MAP) 148/90 (109) 146/74 (98) 144/65 (91) Pulse Ox 95 90 90 92 O2 Delivery Nasal Cannula Nasal Cannula Nasal Cannula Nasal Cannula O2 Flow Rate 2.00 2.00 2.00 2.00 04/06/19 04/06/19 04/06/19 06:56 07:30 07:30 Temp 36.5 Pulse Ox 94 94 O2 Delivery Room Air Nasal Cannula O2 Flow Rate 2.00 04/06/19 00:00 Intake Total 510 ml Balance 510 ml Capillary Refill : Less Than 3 Seconds Constitutional: AAO x 3, well-developed, other (thin-appearing) HEENT: PERRL, EOMI; No xanthelasmas are seen Neck: carotid pulses are 2 + bilaterally, with good upstrokes Respiratory: No accessory muscle use; other (generally diminished air entry and prolonged exp; basal fine and coarse crackles) Cardiovascular: regular rate-rhythm, S1 and S2, systolic murmur (soft KASIE at card base) Gastrointestinal: No tender; soft; No guarding, No rebound; audible bowel sounds Extremities: No clubbing, No cyanosis, No significant edema Neurologic/Psychiatric: oriented x 3, other (moves all limbs equally) Skin: No rash on exposed areas, No ulcerations on exposed areas Data Review Labs Laboratory Tests 04/05/19 18:35: White Blood Count 10.3, Red Blood Count 4.78, Hemoglobin 11.0L, Hematocrit 36, Mean Corpuscular Volume 76L, Mean Corpuscular Hemoglobin 23L, Mean Corpuscular Hemoglobin Concent 30L, Red Cell Distribution Width 16.4H, Platelet Count 301, Mean Platelet Volume 10.8H, Neutrophils (%) (Auto) 74, Lymphocytes (%) (Auto) 18, Monocytes (%) (Auto) 6, Eosinophils (%) (Auto) 1, Basophils (%) (Auto) 0, Neutrophils # (Auto) 7.7, Lymphocytes # (Auto) 1.9, Monocytes # (Auto) 0.7, Eosinophils # (Auto) 0.1, Basophils # (Auto) 0.0, Prothrombin Time 13.3, INR Comment 1.0, Activated Partial Thromboplast Time 34, Sodium Level 138, Potassium Level 4.2, Chloride Level 99, Carbon Dioxide Level 26, Anion Gap 13, Blood Urea Nitrogen 15, Creatinine 0.95, Estimat Glomerular Filtration Rate 58, BUN/Creat inine Ratio 16, Glucose Level 184H, Lactic Acid Level 1.37, Calcium Level 9.6, Corrected Calcium 9.6, Total Bilirubin 0.5, Aspartate Amino Transf (AST/SGOT) 12, Alanine Aminotransferase (ALT/SGPT) 9, Alkaline Phosphatase 103, Troponin I < 0.028, B-Type Natriuretic Peptide 4334.8H, Total Protein 7.2, Albumin 4.0 04/05/19 19:11: Blood Gas Puncture Site LT BRACH, Blood Gas Patient Temperature 97.5, Arterial Blood pH 7.37, Arterial Blood Partial Pressure CO2 20L, Arterial Blood Partial Pressure O2 24*L, Arterial Blood HCO3 11*L, Arterial Blood Total CO2 11.7L, Arterial Blood Oxygen Saturation 42L, Arterial Blood Base Excess -13.4L, Jossue Test POS, Blood Gas Ventilator Setting NO, Blood Gas Inspired Oxygen 1.5 04/05/19 20:07: Blood Gas Puncture Site RIGHT BRACHIAL, Blood Gas Patient Temperature 36.6, Arterial Blood pH 7.46H, Arterial Blood Partial Pressure CO2 38, Arterial Blood Partial Pressure O2 83, Arterial Blood HCO3 27, Arterial Blood Total CO2 27.9, A rterial Blood Oxygen Saturation 98, Arterial Blood Base Excess 3.0H, Jossue Test NA, Blood Gas Ventilator Setting NO, Blood Gas Inspired Oxygen 1.5L 04/05/19 21:05: Glucometer 150H 04/06/19 00:40: White Blood Count 8.5, Red Blood Count 4.45, Hemoglobin 10.3L, Hematocrit 34L, Mean Corpuscular Volume 76L, Mean Corpuscular Hemoglobin 23L, Mean Corpuscular Hemoglobin Concent 31L, Red Cell Distribution Width 16.3H, Platelet Count 250, Mean Platelet Volume 10.7H, Neutrophils (%) (Auto) 76H, Lymphocytes (%) (Auto) 17, Monocytes (%) (Auto) 5, Eosinophils (%) (Auto) 1, Basophils (%) (Auto) 0, Neutrophils # (Auto) 6.5, Lymphocytes # (Auto) 1.5, Monocytes # (Auto) 0.4, Eosinophils # (Auto) 0.1, Basophils # (Auto) 0.0, Sodium Level 141, Potassium Level 4.2, Chloride Level 104, Carbon Dioxide Level 24, Anion Gap 13, Blood Urea Nitrogen 14, Creatinine 0.79, Estimat Glomerular Filtration Rate > 60, BUN/Creatinine Ratio 18, Glucose Level 136H, Calcium Level 8.9, Phosphorus Level 2.8, Magnesium Level 1.9, Troponin I 0.030H 04/06/19 06:18: Troponin I < 0.028 Laboratory Tests 04/05/19 18:35 04/06/19 00:40 A/P-Cardiology Assessment/Admission Diagnosis Ac on chronic systolic CHF due to severe ischemic cardiomyopathy - clinically compensated No evidence of ac VA, type 1 or type 2. Serial troponin during this admission: <0.028, 0.030, <0.028 (this rules out acute VA) Slow atrial flutter with 2:1 AV conduction vs sinus tach on ECG of 04/06/19 CAD. S/p CABG in 2012. Card cath of 03/04/19: 40% LMCA, multiple 60% in LAD, 60- 70% prox LCX, 100% mid LCX, 70-80% distal OM2 at distal bifurcation, 100% mid RCA in a long stented segment, patent DAIGLE to LAD, patent stented L subclavian, patent SVG to distal LCX, LVEDP 21, LVEF 10% Echo of 03/02/19: LVEF 15-20%, mod enlargement of LA, mod MR and TR, RVSP 57 mmHg Pulmonary hypertension, probably secondary to L heart failure H/o L-sided, ischemic foot ulcer, improved after L SFA intervention on 02/15/19 and improvement of L TBI from less than 0.3 to 0.72. Considerable disease on the R, but no symptoms or ischemic ulcers on the R PAD - Angio and intervention of 02/15/19: Long total occlusion of the left superficial femoral artery to which successful balloon angioplasty was carried out with reduction of stenosis to less than 30%; other lesions included 70% to 80% stenosis of the right external iliac and the right common femoral and of the left ant tibial in its proximal portion H/o COPD and asthma Abnormal ECG: NSR with PVCs, LVH with repol abnormality H/o left CEA - details unknown HTN HLP DM Type 2 Chronic tobacco use - cessation advised Discussion and Recomendations * Complex management * Treat CHF with diuretics * Treat ischemic cm with bb and WAYLON-inhib * Advised to quit smoking * Advised Life Vest, she refuses * Monitor labs * Continue antiplatelet therapy and anticoag Clinical Quality Measures DVT/VTE Risk/Contraindication: Risk Factor Score Per Nursin RFS Level Per Nursing on Admit: 4+=Very High NOE RUIZ MD FACP [facility] CCDS Apr 06, 2019 09:46 POS
[2019-04-06] MEDS ORDERED: LISI-552 PO (09:58)
[2019-04-06] MEDS ORDERED: CARV12.53 PO (09:58)
[2019-04-06] MEDS ORDERED: IPRA3AMP31 NEB (09:58)
[2019-04-06] MEDS ORDERED: TRIA1TAB3 PO (09:58)
[2019-04-06] MEDS ORDERED: NICO-588 TD (09:58)
[2019-04-06] MEDS ORDERED: CLIN300C11 PO (09:58)
[2019-04-06] MEDS ORDERED: ATOR40TA70 PO (09:58)
[2019-04-06] MEDS ORDERED: CLOP75TA28 PO (09:58)
[2019-04-06] MEDS ORDERED: BACL10TA PO (09:58)
[2019-04-06] MEDS ORDERED: CETI10TA17 PO (09:58)
[2019-04-06] MEDS ORDERED: METF-399 PO (09:58)
[2019-04-06] MEDS ORDERED: POTA20TA15 PO (09:58)
--- NOTE | 2019-04-06 10:01 | NUR ---
WENT OVER THE EXT MED HX WITH THE PATIENT AND SHE VERIFIED HOW SHE TAKES THEM. HER TROSPIUM 20MG WAS FILLED BID #60 -- HOWEVER SHE STATES SHE ONLY TAKES 1 TAB ONCE DAILY IN THE MORNING. SHE TAKES TYLENOL OTC NEEDED. SHE HAS SOME OTHER OTC MEDS BUT THEY ARE DISPENSED BY THE PHARMACY AND NOTED ON THE EXT MED HX.
--- NOTE | 2019-04-06 10:07 | Pulmonary Consultation ---
History of Present Illness History of Present Illness Date Seen by Provider: Apr 06, 2019 Time Seen by Provider: 07:00 Date of Admission History of Present Illness 69yo with hx of severe oxygen dependent COPD, ischemic cardiomyopathy, CAD presented to ED secondary to worsening SOB. SHe has had similar episodes. While in the ED she was found to have acute respiratory distress. SHe was placed on BiPAP which did improve symptoms. SHe was also given IV Lasix. I am consulted for pulmonary/ICU management. Allergies and Home Medications Allergies Coded Allergies: No Known Drug Allergies (Unverified , 05/07/17) Home Medications Acetaminophen 500 Mg Tablet, 1,000 MG PO Q4H PRN for PAIN-MILD, (Reported) Albuterol Sulfate 1 Puff Puff, 2 PUFF INH Q6H PRN for SHORTNESS OF BREATH, (Reported) Amiodarone HCl 200 Mg Tablet, 100 MG PO DAILY, (Reported) TAKES 1/2 (200MG) TABLET Aspirin 81 Mg Tablet.dr, 81 MG PO DAILY, (Reported) Atorvastatin Calcium 40 Mg Tablet, 40 MG PO HS, (Reported) Baclofen 10 Mg Tablet, 10 MG PO HS PRN for MUSCLE SPASMS, (Reported) Carvedilol 12.5 Mg Tablet, 12.5 MG PO BID, (Reported) Cetirizine HCl 10 Mg Tablet, 10 MG PO DAILY PRN for ALLERGIES, (Reported) Clindamycin HCl 300 Mg Capsule, 300 MG PO QID, (Reported) 10 DAY SUPPLY FILLED 04-01-19 Clopidogrel Bisulfate 75 Mg Tablet, 75 MG PO DAILY, (Reported) Fluticasone/Vilanterol 1 Each Blst.w.dev, 1 PUFF IH HS, (Reported) Furosemide 40 Mg Tablet, 40 MG PO DAILY, (Reported) Gabapentin 300 Mg Capsule, 300 MG PO HS, (Reported) Ipratropium/Albuterol Sulfate 3 Ml Ampul.neb, 3 ML NEB QID PRN for SHORTNESS OF BREATH, (Reported) Lisinopril 20 Mg Tablet, 20 MG PO DAILY, (Reported) Metformin HCl 1,000 Mg Tablet, 1,000 MG PO BID, (Reported) Nicotine 1 Each Patch.td24, 21 MG TD DAILY, (Reported) Paroxetine HCl 10 Mg Tablet, 10 MG PO DAILY, (Reported) Potassium Chloride 20 Meq Tab.er.prt, 20 MEQ PO BID, (Reported) Ropinirole HCl 1 Mg Tablet, 1 MG PO HS, (Reported) Triamterene/Hydrochlorothiazid 1 Each Tablet, 1 TAB PO DAILY, (Reported) Trospium Chloride 20 Mg Tablet, 20 MG PO DAILY, (Reported) Vortioxetine Hydrobromide 10 Mg Tablet, 10 MG PO DAILY, (Reported) Past Wttnloz-Nkzylh-Qmjnra Hx Past Med/Social Hx: Reviewed Nursing Past Med/Soc Hx Patient Social History Alcohol Use: Past History Alcohol Beverage of Choice: Beer Recreational Drug Use: No Smoking Status: Current Everyday Smoker Type Used: Cigarettes (0.25 ppd) Recent Foreign Travel: No Contact w/Someone Who Travel: No Recent Infectious Disease Expo: No Recent Hopitalizations: No Physical Abuse: No Sexual Abuse: No Immunizations Up To Date Tetanus Booster (TDap): Unknown PED Vaccines UTD: Yes Date of Pneumonia Vaccine: Nov 15, 2018 Date of Influenza Vaccine: Feb 22, 2019 Seasonal Allergies Seasonal Allergies: No Past Medical History Surgeries: Yes Cardiac, CABG, Hysterectomy, Open Heart Surgery Respiratory: Yes (OXYGEN PRN) Asthma, COPD Currently Using CPAP: No Currently Using BIPAP: No Cardiac: Yes Coronary Artery Disease, Hypertension Neurological: Yes Stroke Female Reproductive Disorders: Denies 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 No Pertinent Family Hx Review of Systems Time Seen by Provider: 10:04 Constitutional: Chills, Sweats, Weakness, Malaise, Other; No: Fever Eyes: No: Pain, Vision change, Conjunctivae inflammation, Eyelid inflammation, Other, Redness ENT: Nose congestion; No: Ear pain, Ear discharge, Nose pain, Nose discharge, Mouth pain, Mouth swelling, Throat pain, Throat swelling, Other Respiratory: Cough, Shortness of breath, Wheezing, Sputum; No: Hemoptysis Cardiovascular: Palpitations, Paroxysmal Noc. Dyspnea Gastrointestinal: No: Nausea, Vomiting, Abdominal Pain, Diarrhea, Constipation, Melena, Hematochezia, Other Neurological: Weakness Sepsis Event Evaluation Height, Weight, BMI Height: 5'4.00" Weight: 130lbs. 9.0oz. 58.488496rx; 18.83 BMI Method:Estimated Exam Exam Vital Signs Date Time Temp Pulse Resp B/P (MAP) Pulse Ox O2 Delivery O2 Flow Rate FiO2 04/06/19 08:00 121 21 145/86 (105) 93 Nasal Cannula 2.00 04/06/19 07:30 36.5 04/06/19 07:30 94 Nasal Cannula 2.00 04/06/19 06:56 94 Room Air 04/06/19 06:00 104 22 144/65 (91) 92 Nasal Cannula 2.00 04/06/19 05:00 99 20 146/74 (98) 90 Nasal Cannula 2.00 04/06/19 04:00 90 Nasal Cannula 2.00 04/06/19 04:00 99 16 148/90 (109) 95 Nasal Cannula 2.00 04/06/19 03:00 93 20 143/79 (100) 95 Nasal Cannula 2.00 04/06/19 02:36 90 Room Air 04/06/19 02:00 93 21 157/82 (107) 90 Nasal Cannula 2.00 04/06/19 01:03 98 04/06/19 01:00 98 21 151/95 (113) 91 Nasal Cannula 2.00 04/06/19 00:00 36.5 94 21 119/74 (89) 91 Nasal Cannula 2.00 04/06/19 00:00 91 Nasal Cannula 2.00 04/05/19 23:01 Nasal Cannula 2.00 04/05/19 23:00 91 30 166/83 (110) 97 NIV Bilevel 21.00 04/05/19 22:20 80 27 98 21.00 04/05/19 22:00 86 24 161/92 (115) 100 NIV Bilevel 21.00 04/05/19 21:45 80 26 157/79 (105) 99 NIV Bilevel 21.00 04/05/19 21:30 79 27 157/73 (101) 100 NIV Bilevel 21.00 04/05/19 21:15 81 21 161/85 (110) 100 NIV Bilevel 21.00 04/05/19 21:06 80 04/05/19 21:04 36.2 83 30 151/78 (102) 99 NIV Bilevel 21.00 04/05/19 21:00 82 30 161/79 (106) NIV Bilevel 21.00 04/05/19 21:00 93 NIV Bilevel 21 04/05/19 20:50 36.8 80 30 148/102 (106) 98 NIV Bilevel 04/05/19 19:19 101 28 100 30.00 04/05/19 18:30 98 Nasal Cannula 1.50 04/05/19 18:30 36.6 119 40 117/100 (106) 98 Nasal Cannula 1.50 I & O 04/06/19 07:00 Intake Total 760 ml Balance 760 ml Height & Weight Height: 5'4.00" Weight: 130lbs. 9.0oz. 58.455871sk; 18.83 BMI Method:Estimated General Appearance: No Apparent Distress, Chronically ill, Thin HEENT: Moist Mucous Membranes; No Scleral Icterus (L), No Scleral Icterus (R) Neck: No Thyromegaly; Other (right sided cystic mobile mass just below mandibl e) Respiratory: No Accessory Muscle Use, No Respiratory Distress, Decreased Breath Sounds Cardiovascular: No Murmur, Tachycardia Capillary Refill: Less Than 3 Seconds Gastrointestinal: normal bowel sounds, non tender, soft Extremity: Normal Capillary Refill, No Calf Tenderness, No Pedal Edema, Other (bandage over left dorsal foot covering wound) Neurologic/Psychiatric: Alert, Oriented x3, Normal Mood/Affect Skin: Normal Color, Warm/Dry Results Lab Laboratory Tests 04/05/19 18:35 04/06/19 00:40 Assessment/Plan Assessment/Plan Acute on chronic respiratory failure COPDAE -SVNS -Oxygen -Prednisone CHF with EF of 15-20% -Cardiology following NIDDM PAD Tobacco dependance MARGARITA CHAMORRO DO Apr 06, 2019 10:07 POS
--- NOTE | 2019-04-06 11:05 | NUR ---
Pastoral care visit.
--- NOTE | 2019-04-06 11:11 | NUR ---
"RD ASSESSMENT PMHx: COPD; CAD; HTN; CA(breast); stroke PT INTERACTION: Pt was awake and pleasant during consult for MST score. Pt states current appetite is poor and has been this way for the last week. Pt states following a regular diet at home and currently has no issues chewing/swallowing food. Note pt states having no lower teeth. Pt states having recent issues with n/v at this time. Note pt currently on zofran PRN, per chart review. Pt states no recent issues with c/d at this time, and last BM was 04/05. Pt states some recent wt loss, but could not give details on amount or timeframe. Note unable to determine recent wt hx, per chart review. Upon visual exam, pt appears frail with visible signs of muscle/fat wasting in temporal region and clavicles. Note pt has BMI of 18.8. Given pt's poor PO intake and visual exam, pt meets criteria for malnutrition per ASPEN guidelines. ABNORMAL NUTRITION-RELATED LAB VALUES: glu 136 (H) Est. kcal needs: 5905-6282 kcal | 30-35 kcal/kg d/t COPD diagnosis Est. Pro needs: 59-70 g Pro | 1.2-1.4 g Pro/kg d/t COPD PES STATEMENT: Inadequate oral intake (NI-2.1) related to increased needs d/t catabolic illness (COPD) | loss of appetite | nausea as evidenced by pt interview INTERVENTION: Continue with current diet order of CHO 75g/m 0snack diet. Add Glucerna (vary) to meals TID to increase kcal intake. Provides 220 kcal and 10 g Pro per serving. Will continue to follow and reassess as pt needs and status change. MONITOR/EVALUATE: PO Intake; Plan of Care; Hydration Status; Weight Status; Lab Values Eliel Barber, MS, RD, LD"
[2019-04-06] MEDS: predniSONE 20 MG TAB PO SCH (11:34)
[2019-04-06] MEDS ORDERED: FUROSEMIDE 40 MG (LASIX) TAB PO NR (13:15)
[2019-04-06] MEDS ORDERED: CARVEDILOL 12.5 MG (COREG) TABLET PO NR (13:15)
[2019-04-06] MEDS ORDERED: SPIRONOLACTONE 25 MG (ALDACTONE) TAB PO NR (13:15)
[2019-04-06] MEDS: CARVEDILOL 12.5 MG (COREG) TABLET PO SCH (18:18)
--- NOTE | 2019-04-06 18:29 | NUR ---
REPORT CALLED TO [facility] ON 4TH FLOOR. PT TRANSFERRED VIA BED WITH ALL PERSONAL BELONGINGS TO ROOM 409.
--- NOTE | 2019-04-06 18:30 | NUR ---
this RN took over patient care at this time, patient orientated to room, call light within reach, verbalizes no additional needs at this time
[2019-04-06] MEDS: NICOTINE 21 MG (NICODERM) PATCH TD SCH (18:38)
[2019-04-06] MEDS: GABAPENTIN 300 MG (NEURONTIN) CAP PO SCH (21:40)
[2019-04-06] MEDS: LORazepam 0.5 MG (ATIVAN) TABLET PO PRN (21:40)
[2019-04-06] MEDS: rOPINIRole 1 MG (REQUIP) TABLET PO SCH (21:40)
[2019-04-06] MEDS: PARoxetine 10 MG (PAXIL) TAB PO SCH (21:41)
[2019-04-07] MEDS: RT-ALBUTEROL/IPRATROPIUM 3 ML (DUONEB) VIAL INH SCH ×3 (02:55→10:24)
[2019-04-07 03:37] LABS: BASOPHILS % (AUTO) 0 % (0-10); EOSINOPHILS % (AUTO) 0 % (0-10); HEMATOCRIT 31 % (35-52); HEMOGLOBIN 9.3 G/DL (11.5-16.0); LYMPHOCYTES # (AUTO) 1.2 X 10^3 (1.0-4.0); LYMPHOCYTES % (AUTO) 16 % (12-44); MEAN CORPUSCULAR HEMOGLOBIN 23 PG (25-34); MEAN CORPUSCULAR HGB CONC 30 G/DL (32-36); MEAN CORPUSCULAR VOLUME 77 FL (80-99); MEAN PLATELET VOLUME 11.4 FL (7.4-10.4); MONOCYTES # (AUTO) 0.5 X 10^3 (0.0-1.0); MONOCYTES % (AUTO) 7 % (0-12); NEUTROPHILS # (AUTO) 5.9 X 10^3 (1.8-7.8); NEUTROPHILS % (AUTO) 78 % (42-75); PLATELET COUNT 230 10^3/uL (130-400); RED CELL DISTRIBUTION WIDTH 16.1 % (10.0-14.5); WHITE BLOOD COUNT 7.6 10^3/uL (4.3-11.0)
[2019-04-07 03:50] VITALS: BP 124/65
[2019-04-07 03:59] LABS: CALCIUM 9.1 MG/DL (8.5-10.1); CREATININE SERUM 0.99 MG/DL (0.60-1.30); PHOSPHORUS 3.6 MG/DL (2.3-4.7); POTASSIUM 4.6 MMOL/L (3.6-5.0)
[2019-04-07] MEDS: KCL 20 MEQ TAB (K-DUR) PO SCH (05:20)
[2019-04-07] MEDS: POTASSIUM CL 10MEQ/50ML IVPB 50 ML IV SCH (05:20)
[2019-04-07] MEDS: MAGNESIUM 1 GM/100 ML IVPB 100 ML IV SCH (05:20)
[2019-04-07] MEDS: inSUlin ASPART (NovoLOG) 1 UNIT/0.01 ML (CHARGE PER UNIT) SC SCH (05:52)
[2019-04-07] MEDS: TROSPIUM 20 MG (SANCTURA) TAB PO SCH (06:17)
[2019-04-07] MEDS: CARVEDILOL 12.5 MG (COREG) TABLET PO SCH (06:17)
[2019-04-07] MEDS: predniSONE 20 MG TAB PO SCH (06:17)
--- NOTE | 2019-04-07 08:00 | Diagnostic Imaging Report ---
INDICATION: Dyspnea Upright portable AP view of the chest is obtained. Since examination of one day earlier, prominent interstitial markings persist throughout the lungs. There is mild cardiomegaly. No pneumothorax is seen. IMPRESSION: Cardiomegaly and interstitial prominence which could be related to chronic scarring. Overall, there has been no adverse change. Dictated by: Dictated on workstation # [id number]
[2019-04-07] MEDS: CLOPIDOGREL 75 MG (PLAVIX) TABLET PO SCH (08:48)
[2019-04-07] MEDS: lisINopril 10 MG (PRINIVIL) TABLET PO SCH (08:48)
[2019-04-07] MEDS: ENOXAPARIN 60 MG/0.6 ML (LOVENOX) SYR SC SCH (08:49)
[2019-04-07] MEDS: AMIODARONE 200 MG (CORDARONE) TAB PO SCH (08:49)
[2019-04-07] MEDS: NICOTINE 21 MG (NICODERM) PATCH TD SCH (08:49)
[2019-04-07 08:53] VITALS: BP 125/65
[2019-04-07] MEDS ORDERED: FUROSEMIDE 40 MG (LASIX) TAB PO SCH (09:00)
[2019-04-07] MEDS ORDERED: SPIRONOLACTONE 25 MG (ALDACTONE) TAB PO SCH (09:00)
[2019-04-07] MEDS ORDERED: NICOTINE PATCH REMOVAL TP SCH (09:00)
--- NOTE | 2019-04-07 09:18 | Pulmonary Progress Note ---
ARMIN FINN A MEDICAL STUDENT 04/07/19 0918: Subjective Date Seen by a Provider: Apr 07, 2019 Time Seen by a Provider: 09:13 Subjective/Events-last exam Pt denies any complaints, satting 96% on home O2 with distress. Pt ready to go home Sepsis Event Evaluation Height, Weight, BMI Height: 5'4.00" Weight: 130lbs. 9.0oz. 58.769382qu; 18.83 BMI Method:Estimated Focused Exam Lactate Level 04/05/19 18:35: Lactic Acid Level 1.37 Exam Exam Vital Signs Date Time Temp Pulse Resp B/P (MAP) Pulse Ox O2 Delivery O2 Flow Rate FiO2 04/07/19 08:53 36.4 77 18 125/65 (85) 96 Nasal Cannula 2.00 04/07/19 06:41 93 Nasal Cannula 2.00 04/07/19 03:50 35.8 84 16 124/65 (84) 98 Nasal Cannula 2.00 04/07/19 02:55 94 Nasal Cannula 2.00 04/06/19 23:22 36.2 89 20 126/67 (86) 97 Nasal Cannula 2.00 04/06/19 22:03 94 Nasal Cannula 2.00 04/06/19 20:35 Nasal Cannula 2.00 04/06/19 19:39 93 Nasal Cannula 2.00 04/06/19 19:25 37.1 92 20 120/58 (78) 96 Nasal Cannula 2.00 04/06/19 16:00 36.7 04/06/19 14:42 95 Nasal Cannula 1.00 04/06/19 12:43 98 04/06/19 11:37 36.7 106 24 133/66 (88) 98 Nasal Cannula 1.00 04/06/19 11:28 94 Nasal Cannula 1.00 I & O 04/07/19 07:00 Intake Total 1125 ml Balance 1125 ml Height & Weight Height: 5'4.00" Weight: 130lbs. 9.0oz. 58.216964aj; 18.83 BMI Method:Estimated General Appearance: No Apparent Distress, Chronically ill, Thin HEENT: Moist Mucous Membranes; No Scleral Icterus (L), No Scleral Icterus (R) Neck: No Thyromegaly; Other (right sided cystic mobile mass just below mandible) Respiratory: No Accessory Muscle Use, No Respiratory Distress, Decreased Breath Sounds Cardiovascular: No Murmur, Tachycardia Capillary Refill: Less Than 3 Seconds Gastrointestinal: normal bowel sounds, non tender, soft Extremity: Normal Capillary Refill, No Calf Tenderness, No Pedal Edema, Other (bandage over left dorsal foot covering wound) Neurologic/Psychiatric: Alert, Oriented x3, Normal Mood/Affect Skin: Normal Color, Warm/Dry Results Lab Laboratory Tests 04/05/19 18:35 04/06/19 00:40 04/07/19 03:10 Assessment/Plan Assessment/Plan Acute on chronic respiratory failure COPDAE - improved -satting 96% on 2L NC -SVNS -Oxygen -Prednisone CHF with EF of 15-20% -Cardiology following -lasix 40mg daily -spironolactone 25mg -carvedilol NIDDM PAD Tobacco dependance Pt clear from a pulmonary standpoint for discharge F/U in clinic in 2 weeks MARGARITA SALAZAR DO 04/07/19 1033: Subjective Time Seen by a Provider: 10:30 Subjective/Events-last exam No complications noted. Pt wants to go home. Exam Exam General Appearance: No Apparent Distress HEENT: Moist Mucous Membranes Neck: Other (right sided cystic mobile mass just below mandible) Gastrointestinal: normal bowel sounds, non tender, soft Extremity: Normal Capillary Refill, No Calf Tenderness, No Pedal Edema Neurologic/Psychiatric: Alert, Oriented x3, Normal Mood/Affect Skin: Normal Color, Warm/Dry Assessment/Plan Assessment/Plan Acute on chronic respiratory failure COPDAE - improved -satting 96% on 2L NC -SVNS -Oxygen -Prednisone CHF with EF of 15-20% -Cardiology following -lasix 40mg daily -spironolactone 25mg -carvedilol NIDDM PAD Tobacco dependance Pt clear from a pulmonary standpoint for discharge F/U in clinic in 2 weeks Supervisory-Addendum Brief Verification & Attestation Participated in pt care: history Personally performed: exam Care discussed with: Medical Student Procedures: n/a Verification and Attestation of Medical Student E/M Service A medical student performed and documented this service in my presence. I revie wed and verified all information documented by the medical student and made modifications to such information, when appropriate. I personally performed the physical exam and medical decision making. Margarita Salazar, Apr 07, 2019,10:32 ARMIN FINN MEDICAL STUDENT Apr 07, 2019 09:18 MARGARITA ESPINOZA DO Apr 07, 2019 10:33 POS
--- NOTE | 2019-04-07 09:20 | Discharge Summary ---
Diagnosis/Chief Complaint Date of Admission Apr 05, 2019 at 20:10 Date of Discharge Admission Diagnosis COPD Exacerbation Primary Care Katja Devine [facility] Discharge Diagnosis (1) COPD exacerbation (2) Acute and chronic respiratory failure ([id number]) Status: Acute (3) CHF (congestive heart failure) (4) Essential (primary) hypertension Status: Chronic (5) Non-insulin dependent type 2 diabetes mellitus Status: Chronic (6) PAD (peripheral artery disease) Status: Chronic (7) Normocytic anemia Status: Chronic (8) Ischemic cardiomyopathy Status: Chronic Discharge Summary Discharge Physical Exam Allergies: Coded Allergies: No Known Drug Allergies (Unverified , 05/07/17) Vitals & I&Os Vital Signs Date Time Temp Pulse Resp B/P (MAP) Pulse Ox O2 Delivery O2 Flow Rate FiO2 04/07/19 08:53 36.4 77 18 125/65 (85) 96 Nasal Cannula 2.00 04/05/19 21:00 21 Hospital Course Labs (last 24 hrs) Laboratory Tests 04/06/19 16:04: Glucometer 182H 04/07/19 03:10: White Blood Count 7.6, Red Blood Count 4.02L, Hemoglobin 9.3L, Hematocrit 31L, Mean Corpuscular Volume 77L, Mean Corpuscular Hemoglobin 23L, Mean Corpuscular Hemoglobin Concent 30L, Red Cell Distribution Width 16.1H, Platelet Count 230, Mean Platelet Volume 11.4H, Neutrophils (%) (Auto) 78H, Lymphocytes (%) (Auto) 16, Monocytes (%) (Auto) 7, Eosinophils (%) (Auto) 0, Basophils (%) (Auto) 0, Neutrophils # (Auto) 5.9, Lymphocytes # (Auto) 1.2, Monocytes # (Auto) 0.5, Eosinophils # (Auto) 0.0, Basophils # (Auto) 0.0, Sodium Level 140, Potassium Level 4.6, Chloride Level 104, Carbon Dioxide Level 24, Anion Gap 12, Blood Urea Nitrogen 22H, Creatinine 0.99, Estimat Glomerular Filtration Rate 55, BUN/Creatinine Ratio 22, Glucose Level 164H, Calcium Level 9.1, Phosphorus Level 3.6, Magnesium Level 2.0 04/07/19 05:35: Glucometer 167H Microbiology 04/05/19 Blood Culture - Preliminary, Resulted No growth Patient resulted labs reviewed. Pending Labs Laboratory Tests 04/07/19 03:10: White Blood Count 7.6, Red Blood Count 4.02, Hemoglobin 9.3, Hematocrit 31, Mean Corpuscular Volume 77, Mean Corpuscular Hemoglobin 23, Mean Corpuscular Hemoglobin Concent 30, Red Cell Distribution Width 16.1, Platelet Count 230, Mean Platelet Volume 11.4, Neutrophils (%) (Auto) 78, Lymphocytes (%) (Auto) 16, Monocytes (%) (Auto) 7, Eosinophils (%) (Auto) 0, Basophils (%) (Auto) 0, Neutrophils # (Auto) 5.9, Lymphocytes # (Auto) 1.2, Monocytes # (Auto) 0.5, Eosinophils # (Auto) 0.0, Basophils # (Auto) 0.0, Sodium Level 140, Potassium Level 4.6, Chloride Level 104, Carbon Dioxide Level 24, Anion Gap 12, Blood Urea Nitrogen 22, Creatinine 0.99, Estimat Glomerular Filtration Rate 55, BUN/Creatinine Ratio 22, Glucose Level 164, Calcium Level 9.1, Phosphorus Level 3.6, Magnesium Level 2.0 04/07/19 05:35: Glucometer 167 Imaging: Reviewed Imaging Report Discharge Home Medications: Active Scripts Active Reported Iprat-Albut 0.5-3(2.5) mg/3 ml (Ipratropium/Albuterol Sulfate) 3 Ml Ampul.neb 3 Ml NEB QID PRN Cetirizine HCl 10 Mg Tablet 10 Mg PO DAILY PRN Baclofen 10 Mg Tablet 10 Mg PO HS PRN Clindamycin HCl 300 Mg Capsule 300 Mg PO QID 10 Days 10 DAY SUPPLY FILLED 04-01-19 Nicotine Patch (Nicotine) 1 Each Patch.td24 21 Mg TD DAILY Lisinopril 20 Mg Tablet 20 Mg PO DAILY Metformin HCl 1,000 Mg Tablet 1,000 Mg PO BID Triamterene-Hctz 37.5-25 mg Tb (Triamterene/Hydrochlorothiazid) 1 Each Tablet 1 Tab PO DAILY Carvedilol 12.5 Mg Tablet 12.5 Mg PO BID Atorvastatin Calcium 40 Mg Tablet 40 Mg PO HS Potassium Chloride 20 Meq Tab.er.prt 20 Meq PO BID Clopidogrel (Clopidogrel Bisulfate) 75 Mg Tablet 75 Mg PO DAILY Tylenol Extra Strength (Acetaminophen) 500 Mg Tablet 1,000 Mg PO Q4H PRN Ropinirole HCl 1 Mg Tablet 1 Mg PO HS Proair Hfa (Albuterol Sulfate) 1 Puff Puff 2 Puff INH Q6H PRN Gabapentin 300 Mg Capsule 300 Mg PO HS Trospium Chloride 20 Mg Tablet 20 Mg PO DAILY Trintellix (Vortioxetine Hydrobromide) 10 Mg Tablet 10 Mg PO DAILY Paroxetine HCl 10 Mg Tablet 10 Mg PO DAILY Breo Ellipta 100-25 Mcg INH (Fluticasone/Vilanterol) 1 Each Blst.w.dev 1 Puff IH HS Furosemide 40 Mg Tablet 40 Mg PO DAILY Aspirin EC (Aspirin) 81 Mg Tablet.dr 81 Mg PO DAILY Amiodarone HCl 200 Mg Tablet 100 Mg PO DAILY TAKES 1/2 (200MG) TABLET Instructions to patient/family Please see electronic discharge instructions given to patient. Clinical Quality Measures DVT/VTE Risk/Contraindication: Risk Factor Score Per Nursin RFS Level Per Nursing on Admit: 4+=Very High Problem Qualifiers (1) Acute and chronic respiratory failure ([id number]): Respiratory failure complication: unspecified whether with hypoxia or hypercapnia Qualified Codes: J96.20 - Acute and chronic respiratory failure, unspecified whether with hypoxia or hypercapnia (2) CHF (congestive heart failure): Heart failure type: systolic Heart failure chronicity: chronic Qualified Codes: I50.22 - Chronic systolic (congestive) heart failure SLOANE WEINER MD Apr 07, 2019 09:20 POS
[2019-04-07] MEDS ORDERED: CARV25TA PO (09:26)
[2019-04-07] MEDS ORDERED: PRD20T PO (09:26)
[2019-04-07] MEDS ORDERED: SPIR25TA5 PO (09:26)
[2019-04-07] MEDS ORDERED: LISI10TA2 PO ×2 (09:26)
[2019-04-07] MEDS ORDERED: ATOR80TA76 PO (09:26)
--- NOTE | 2019-04-07 09:27 | Discharge Inst-Simple/Standard ---
Discharge Inst-Standard Discharge Medications New, Converted or Re-Newed RX: Transmitted to Pharmacy Patient Instructions/Follow Up Plan of Care/Instructions/FU: Please continue to take your medications as written. Please follow up with your PCP and with Dr Salazar as scheduled. Activity as Tolerated: Yes Discharge Diet: Cardiac Diet Return to The Hospital For: Shortness of breath, chest pain, fever, if you feel you are getting worse. SLOANE WEINER MD Apr 07, 2019 09:27 POS
[2019-04-07 11:06] VITALS: BP 125/65
[2019-04-07] MEDS ORDERED: POTA10CA43 PO (11:06)
--- NOTE | 2019-04-07 11:58 | Progress Note - Cardiology ---
Cardiology SOAP Progress Note Subjective: Shortness of breath much improved No cp or palp or syncope Wishes to go home Objective: I&O/Vital Signs 04/07/19 04/07/19 04/07/19 04/07/19 02:55 03:50 06:41 08:53 Temp 35.8 36.4 Pulse 84 77 Resp 16 18 B/P (MAP) 124/65 (84) 125/65 (85) Pulse Ox 94 98 93 96 O2 Delivery Nasal Cannula Nasal Cannula Nasal Cannula Nasal Cannula O2 Flow Rate 2.00 2.00 2.00 2.00 04/07/19 04/07/19 04/07/19 09:00 10:22 10:24 Pulse Ox 97 97 O2 Delivery Nasal Cannula Nasal Cannula Nasal Cannula O2 Flow Rate 2.00 2.00 2.00 04/06/19 23:59 Intake Total 900 ml Balance 900 ml Weight (Pounds): 130 Weight (Ounces): 9.0 Weight (Calculated Kilograms): 58.013749 Constitutional: AAO x 3, well-developed, other (thin-appearing) Respiratory: No accessory muscle use; other (generally diminished air entry and prolonged exp; basal fine and coarse crackles) Cardiovascular: regular rate-rhythm, S1 and S2, systolic murmur (soft KASIE at card base) Gastrointestional: No tender; soft; No guarding, No rebound; audible bowel sounds Extremities: No clubbing, No cyanosis, No significant edema Neurologic/Psychiatric: oriented x 3, other (moves all limbs equally) Skin: No rash on exposed areas, No ulcerations on exposed areas Results/Procedures: Labs Laboratory Tests 04/06/19 16:04: Glucometer 182H 04/07/19 03:10: White Blood Count 7.6, Red Blood Count 4.02L, Hemoglobin 9.3L, Hematocrit 31L, Mean Corpuscular Volume 77L, Mean Corpuscular Hemoglobin 23L, Mean Corpuscular Hemoglobin Concent 30L, Red Cell Distribution Width 16.1H, Platelet Count 230, Mean Platelet Volume 11.4H, Neutrophils (%) (Auto) 78H, Lymphocytes (%) (Auto) 16, Monocytes (%) (Auto) 7, Eosinophils (%) (Auto) 0, Basophils (%) (Auto) 0, Neutrophils # (Auto) 5.9, Lymphocytes # (Auto) 1.2, Monocytes # (Auto) 0.5, Eosinophils # (Auto) 0.0, Basophils # (Auto) 0.0, Sodium Level 140, Potassium Level 4.6, Chloride Level 104, Carbon Dioxide Level 24, Anion Gap 12, Blood Urea Nitrogen 22H, Creatinine 0.99, Estimat Glomerular Filtration Rate 55, BUN/Creatinine Ratio 22, Glucose Level 164H, Calcium Level 9.1, Phosphorus Level 3.6, Magnesium Level 2.0 04/07/19 05:35: Glucometer 167H Microbiology 04/05/19 Blood Culture - Preliminary, Resulted No growth A/P: Assessment: Ac on chronic systolic CHF due to severe ischemic cardiomyopathy - clinically compensated No evidence of ac KS, type 1 or type 2. Serial troponin during this admission: <0.028, 0.030, <0.028 (this rules out acute KS) Slow atrial flutter with 2:1 AV conduction vs sinus tach on ECG of 04/06/19 CAD. S/p CABG in 2012. Card cath of 03/04/19: 40% LMCA, multiple 60% in LAD, 60- 70% prox LCX, 100% mid LCX, 70-80% distal OM2 at distal bifurcation, 100% mid RCA in a long stented segment, patent DAIGLE to LAD, patent stented L subclavian, patent SVG to distal LCX, LVEDP 21, LVEF 10% Echo of 03/02/19: LVEF 15-20%, mod enlargement of LA, mod MR and TR, RVSP 57 mmHg Pulmonary hypertension, probably secondary to L heart failure H/o L-sided, ischemic foot ulcer, improved after L SFA intervention on 02/15/19 and improvement of L TBI from less than 0.3 to 0.72. Considerable disease on the R, but no symptoms or ischemic ulcers on the R PAD - Angio and intervention of 02/15/19: Long total occlusion of the left superficial femoral artery to which successful balloon angioplasty was carried out with reduction of stenosis to less than 30%; other lesions included 70% to 80% stenosis of the right external iliac and the right common femoral and of the left ant tibial in its proximal portion H/o COPD and asthma Abnormal ECG: NSR with PVCs, LVH with repol abnormality H/o left CEA - details unknown HTN HLP DM Type 2 Chronic tobacco use - cessation advised Plan: * Complex management * Treat CHF with diuretics * Treat ischemic cm with bb and WAYLON-inhib * Again advised to quit smoking * Advised Life Vest, she again refuses * Continue antiplatelet therapy and anticoag * We have advised close outpt f/u * I answered her CV-related questions in detail NOE RUIZ MD FACP FAC CCDS Apr 07, 2019 11:58 POS
== END 2019-04-07 11:00 | disposition home or self-care (01) | DRG 291 ==
LOC: EDUNIT# 18:25 → ER 18:26 → ICU 20:10 → 4TH 04-06 18:28
PROVIDERS: ADMIT Internal Medicine; ATTEND Internal Medicine
DX: I50.23 Acute on chronic systolic (congestive) heart failure (principal); J96.21 Acute and chronic respiratory failure with hypoxia; J44.1 Chronic obstructive pulmonary disease with (acute) exacerbation; I48.92 Unspecified atrial flutter; I25.5 Ischemic cardiomyopathy; I10 Essential (primary) hypertension; I27.22 Pulmonary hypertension due to left heart disease; I25.10 Atherosclerotic heart disease of native coronary artery without angina pectoris; E11.9 Type 2 diabetes mellitus without complications; I70.245 Atherosclerosis of native arteries of left leg with ulceration of other part of foot; L97.529 Non-pressure chronic ulcer of other part of left foot with unspecified severity; I70.201 Unspecified atherosclerosis of native arteries of extremities, right leg; E78.5 Hyperlipidemia, unspecified; I08.1 Rheumatic disorders of both mitral and tricuspid valves; R79.89 Other specified abnormal findings of blood chemistry; F17.210 Nicotine dependence, cigarettes, uncomplicated; F41.9 Anxiety disorder, unspecified; D64.9 Anemia, unspecified; M81.0 Age-related osteoporosis without current pathological fracture; M19.91 Primary osteoarthritis, unspecified site; Z95.1 Presence of aortocoronary bypass graft; Z85.3 Personal history of malignant neoplasm of breast; Z92.21 Personal history of antineoplastic chemotherapy; Z86.73 Personal history of transient ischemic attack (TIA), and cerebral infarction without residual deficits
CPT/HCPCS: 36415; 36600; 71045; 80048; 80053; 82805; 82962; 83605; 83735; 83880; 84100; 84484; 85025; 85610; 85730; 87040; 87081; 93005; 94640; 94660; 94760; 96372; 96374; 96375

== ENCOUNTER → 2019-04-22 | Outpatient (CLI) | payer MEDICARE, MEDICAID ==
[~2019-04-22] MED LIST changes: +ATOR40TA70 PO; +CARV12.53 PO; +CARV25TA PO; +CEFD300C3 PO; +CITA10TA7 PO; +CLIN300C11 PO; -DIAZ5TAB3; +DIAZ5TAB49; +IPRA3AMP31 NEB; +LORA2ORA PO; +MORP20SO PO; +POTA10CA43 PO; +POTA20TA15 PO; +SPIR25TA PO; +SPIR25TA5 PO; -TRAM50TA2 PO; +TRM50T PO
[2019-04-22 13:21] LABS: BUN/CREATININE RATIO 20; CALCIUM 9.9 MG/DL (8.5-10.1); CARBON DIOXIDE 23 MMOL/L (21-32); CHLORIDE 99 MMOL/L (98-107); CREATININE SERUM 0.88 MG/DL (0.60-1.30); GFR ESTIMATED > 60; GLUCOSE 98 MG/DL (70-105); POTASSIUM 5.4 MMOL/L (3.6-5.0); SODIUM 135 MMOL/L (135-145)
== END ==
LOC: LAB 12:14
PROVIDERS: ATTEND Internal Medicine Cardiovascular Disease
DX: I25.10 Atherosclerotic heart disease of native coronary artery without angina pectoris (principal); I25.5 Ischemic cardiomyopathy; J44.9 Chronic obstructive pulmonary disease, unspecified; I73.9 Peripheral vascular disease, unspecified; Z72.0 Tobacco use
CPT/HCPCS: 36415; 80048; 83735

== ENCOUNTER → 2019-04-22 | Outpatient (CLI) | payer MEDICARE, MEDICAID ==
[~2019-04-22] MED LIST changes: +DIAZ5TAB3; -DIAZ5TAB49; -LORA2ORA PO; -MORP20SO PO; +TRAM50TA2 PO; -TRM50T PO
== END ==
LOC: WOUNDCARE 10:31
PROVIDERS: ATTEND Surgery
DX: E11.621 Type 2 diabetes mellitus with foot ulcer (principal); E11.52 Type 2 diabetes mellitus with diabetic peripheral angiopathy with gangrene; E11.42 Type 2 diabetes mellitus with diabetic polyneuropathy; I70.262 Atherosclerosis of native arteries of extremities with gangrene, left leg; L97.422 Non-pressure chronic ulcer of left heel and midfoot with fat layer exposed; J44.9 Chronic obstructive pulmonary disease, unspecified; T65.222A Toxic effect of tobacco cigarettes, intentional self-harm, initial encounter; F17.218 Nicotine dependence, cigarettes, with other nicotine-induced disorders; E44.1 Mild protein-calorie malnutrition
CPT/HCPCS: 11042

== ENCOUNTER → 2019-04-22 | Outpatient (CLI) | payer MEDICARE, MEDICAID ==
[~2019-04-22] MED LIST changes: -DIAZ5TAB3; +DIAZ5TAB49; +LORA2ORA PO; +MORP20SO PO; -TRAM50TA2 PO; +TRM50T PO
== END ==
LOC: LAB 12:18
PROVIDERS: ATTEND Surgery
DX: L97.422 Non-pressure chronic ulcer of left heel and midfoot with fat layer exposed (principal); I70.244 Atherosclerosis of native arteries of left leg with ulceration of heel and midfoot; E11.621 Type 2 diabetes mellitus with foot ulcer; E11.42 Type 2 diabetes mellitus with diabetic polyneuropathy; J44.9 Chronic obstructive pulmonary disease, unspecified; T65.222A Toxic effect of tobacco cigarettes, intentional self-harm, initial encounter; E44.1 Mild protein-calorie malnutrition; F17.218 Nicotine dependence, cigarettes, with other nicotine-induced disorders
CPT/HCPCS: 36415; 84134

== ENCOUNTER 2019-04-28 18:11 | Inpatient (IN) | payer MEDICARE, MEDICAID ==
[~2019-04-28] VITALS: Ht 162.5 cm; Wt 47.0 kg
[~2019-04-28 18:11] MED LIST changes: -CEFD300C3 PO; -CITA10TA7 PO; +DIAZ5TAB3; -DIAZ5TAB49; -LORA2ORA PO; -MORP20SO PO; -SPIR25TA PO; +TRAM50TA2 PO; -TRM50T PO
[2019-04-28] MEDS ORDERED: RT-ALBUTEROL/IPRATROPIUM 3 ML (DUONEB) VIAL ONE (18:20)
[2019-04-28] MEDS ORDERED: RT-ALBUTEROL SULF 2.5 MG/3 ML PRE-MIX VIAL ONE (18:21)
[2019-04-28] MEDS ORDERED: NS IV 1000 ML 1,000 ML IV SCH (18:22)
[2019-04-28] MEDS ORDERED: methylPREDNISolone 125 MG (Solu-MEDROL) VIAL IV STA (18:22)
[2019-04-28] MEDS ORDERED: RT-ALBUTEROL SULF 2.5 MG/3 ML PRE-MIX VIAL INH STA (18:22)
[2019-04-28] MEDS ORDERED: CEFEPIME INJECTION 1,000 MG in WATER (STERILE) FOR INJECTION 10 ML IV ONE (18:30)
[2019-04-28] MEDS ORDERED: RT-ALBUTEROL/IPRATROPIUM 3 ML (DUONEB) VIAL INH ONE (18:30)
--- NOTE | 2019-04-28 18:31 | ED Respiratory ---
General Chief Complaint: Respiratory Problems Stated Complaint: SOA Source: patient, family Exam Limitations: no limitations History of Present Illness Date Seen by Provider: Apr 28, 2019 Time Seen by Provider: 18:15 Initial Comments Patient ER by private conveyance with a complaint of nonproductive cough wheezing tightness in her chest. She has a history of COPD seen by Dr. Salazar and [facility]. She is not having fevers aware of. No n ausea vomiting chest pain. She has weakness and shortness of breath. She is on oxygen 2-3 L by nasal cannula at baseline. She smokes 2-3 cigarettes per day. She uses albuterol to 3 times a day with minimal relief lately for the past 2 days when she is progressively gotten worse. She's not been on any steroids in the past couple months. Allergies and Home Medications Allergies Coded Allergies: No Known Drug Allergies (Unverified , 05/07/17) Home Medications Acetaminophen 500 Mg Tablet, 1,000 MG PO Q4H PRN for PAIN-MILD, (Reported) Albuterol Sulfate 1 Puff Puff, 2 PUFF INH Q6H PRN for SHORTNESS OF BREATH, (Reported) Amiodarone HCl 200 Mg Tablet, 100 MG PO DAILY, (Reported) TAKES 1/2 (200MG) TABLET Aspirin 81 Mg Tablet.dr, 81 MG PO DAILY, (Reported) Atorvastatin Calcium 80 Mg Tablet, 80 MG PO HS Prescribed by: SLOANE WEINER on 04/07/19925 Baclofen 10 Mg Tablet, 10 MG PO HS PRN for MUSCLE SPASMS, (Reported) Carvedilol 25 Mg Tablet, 25 MG PO BID Prescribed by: SLOANE WEINER on 04/07/19925 Cetirizine HCl 10 Mg Tablet, 10 MG PO DAILY PRN for ALLERGIES, (Reported) Clindamycin HCl 300 Mg Capsule, 300 MG PO QID, (Reported) 10 DAY SUPPLY FILLED 04-01-19 Clopidogrel Bisulfate 75 Mg Tablet, 75 MG PO DAILY, (Reported) Fluticasone/Vilanterol 1 Each Blst.w.dev, 1 PUFF IH HS, (Reported) Furosemide 40 Mg Tablet, 40 MG PO DAILY, (Reported) Gabapentin 300 Mg Capsule, 300 MG PO HS, (Reported) Ipratropium/Albuterol Sulfate 3 Ml Ampul.neb, 3 ML NEB QID PRN for SHORTNESS OF BREATH, (Reported) Lisinopril 10 Mg Tablet, 10 MG PO DAILY Prescribed by: SLOANE WEINER on 04/07/19925 Lisinopril 10 Mg Tablet, 10 MG PO DAILY@0900 Prescribed by: SLOANE WEINER on 04/07/19925 Metformin HCl 1,000 Mg Tablet, 1,000 MG PO BID, (Reported) Nicotine 1 Each Patch.td24, 21 MG TD DAILY, (Reported) Paroxetine HCl 10 Mg Tablet, 10 MG PO DAILY, (Reported) Potassium Chloride 10 Meq Capsule.er, 10 MEQ PO DAILY Prescribed by: JANELLE BRANNON on 04/07/191105 Prednisone 20 Mg Tab, 40 MG PO DAILY@0700 Prescribed by: SLOANE WEINER on 04/07/19925 Ropinirole HCl 1 Mg Tablet, 1 MG PO HS, (Reported) Spironolactone 25 Mg Tablet, 25 MG PO DAILY Prescribed by: SLOANE WEINER on 04/07/19925 Trospium Chloride 20 Mg Tablet, 20 MG PO DAILY, (Reported) Vortioxetine Hydrobromide 10 Mg Tablet, 10 MG PO DAILY, (Reported) Patient Home Medication List Home Medication List Reviewed: Yes Review of Systems Review of Systems Constitutional: No chills, No fever; malaise, weakness EENTM: No ear discharge, No ear pain Respiratory: cough, dyspnea on exertion, phlegm, short of breath, wheezing Cardiovascular: No chest pain, No edema; Hx of Intervention; No palpitations; vascular heart diseas Gastrointestinal: No see HPI, No abdominal pain, No constipation, No diarrhea, No nausea Genitourinary: No discharge, No dysuria Musculoskeletal: No back pain, No joint pain Skin: No pruritus, No rash Psychiatric/Neurological: Denies Headache, Denies Numbness Past Zbqakku-Yydlaq-Gdlmln Hx Patient Social History Alcohol Use: Past History Alcohol Beverage of Choice: Beer Recreational Drug Use: No Smoking Status: Current Everyday Smoker Type Used: Cigarettes Recent Foreign Travel: No Contact w/Someone Who Travel: No Recent Hopitalizations: No Immunizations Up To Date Tetanus Booster (TDap): Unknown PED Vaccines UTD: Yes Date of Pneumonia Vaccine: Nov 15, 2018 Date of Influenza Vaccine: Feb 22, 2019 Seasonal Allergies Seasonal Allergies: No Past Medical History Surgeries: Yes Cardiac, CABG, Hysterectomy, Open Heart Surgery Respiratory: Yes (OXYGEN PRN) Asthma, COPD Currently Using CPAP: No Currently Using BIPAP: No Cardiac: Yes Coronary Artery Disease, Hypertension Neurological: Yes Stroke Female Reproductive Disorders: Denies [employer] History: Menopausal Sexually Transmitted Disease: No HIV/AIDS: No Genitourinary: No Gastrointestinal: No Musculoskeletal: No Osteoporosis, Arthritis, Fractures Endocrine: Yes Diabetes, Non-Insulin dep HEENT: No Loss of Vision: Denies Hearing Impairment: Denies Cancer: Yes Breast Did You Recieve Any Treatments: Yes What Type of Treatment Did You: Chemotherapy, Surgical Intervention Psychosocial: Yes Anxiety Integumentary: No Blood Disorders: No Adverse Reaction/Blood Tranf: No Family Medical History Patient reports no known family medical history. No Pertinent Family Hx Physical Exam Vital Signs - First Documented 04/28/19 04/28/19 18:14 18:20 Temp 36.2 Pulse 105 Resp 28 B/P (MAP) 195/87 (123) Pulse Ox 95 O2 Delivery Room Air O2 Flow Rate 10.00 Capillary Refill : Height: 5'4.00" Weight: 130lbs. 9.0oz. 58.188669zl; 18.83 BMI Method:Estimated General Appearance: WD/WN, moderate distress Eyes: Bilateral Eye Normal Inspection, Bilateral Eye PERRL, Bilateral Eye EOMI HEENT: PERRL/EOMI, normal ENT inspection, pharynx normal (oral mucosa is mildly dry) Neck: full range of motion, normal inspection Respiratory: respiratory distress ([id number]-uwzjcisz), decreased breath sounds, accessory muscle use, wheezing (inspiratory and expiratory), expiration (prolonged) Cardiovascular: normal peripheral pulses, regular rate, rhythm, tachycardia (100) Gastrointestinal: normal bowel sounds, non tender, soft Neurologic/Psychiatric: alert, normal mood/affect, oriented x 3 Skin: normal color, warm/dry Focused Exam Lactate Level 04/28/19 18:30: Lactic Acid Level 1.51 Lactic Acid Level Laboratory Tests Test 04/28/19 18:30 Lactic Acid Level 1.51 MMOL/L (0.50-2.00) Progress/Results/Core Measures Suspected Sepsis SIRS Temperature: Pulse: Respiratory Rate: Laboratory Tests 04/28/19 18:20: White Blood Count 16.1H Blood Pressure / Mean: 04/28/19 18:30: Lactic Acid Level 1.51 Laboratory Tests 04/28/19 18:20: Creatinine 1.51H, INR Comment 1.0, Platelet Count 348, Total Bilirubin 0.4 Results/Orders Lab Results Laboratory Tests Test 04/28/19 18:20 04/28/19 18:30 04/28/19 18:33 04/28/19 19:52 Range/Units White Blood Count 16.1 H 4.3-11.0 10^3/uL Red Blood Count 5.41 4.35-5.85 10^6/uL Hemoglobin 12.4 11.5-16.0 G/DL Hematocrit 41 35-52 % Mean Corpuscular Volume 76 L 80-99 FL Mean Corpuscular Hemoglobin 23 L 25-34 PG Mean Corpuscular Hemoglobin Concent 30 L 32-36 G/DL Red Cell Distribution Width 17.6 H 10.0-14.5 % Platelet Count 348 130-400 10^3/uL Mean Platelet Volume 10.6 H 7.4-10.4 FL Neutrophils (%) (Auto) 81 H 42-75 % Lymphocytes (%) (Auto) 13 12-44 % Monocytes (%) (Auto) 6 0-12 % Eosinophils (%) (Auto) 0 0-10 % Basophils (%) (Auto) 0 0-10 % Neutrophils # (Auto) 13.0 H 1.8-7.8 X 10^3 Lymphocytes # (Auto) 2.1 1.0-4.0 X 10^3 Monocytes # (Auto) 0.9 0.0-1.0 X 10^3 Eosinophils # (Auto) 0.0 0.0-0.3 10^3/uL Basophils # (Auto) 0.1 0.0-0.1 10^3/uL Neutrophils % (Manual) 79 % Lymphocytes % (Manual) 10 % Monocytes % (Manual) 7 % Eosinophils % (Manual) 0 % Basophils % (Manual) 0 % Band Neutrophils 4 % Anisocytosis SLIGHT Prothrombin Time 13.4 12.2-14.7 SEC INR Comment 1.0 0.8-1.4 Activated Partial Thromboplast Time 33 24-35 SEC Sodium Level 137 135-145 MMOL/L Potassium Level 5.8 H 3.6-5.0 MMOL/L Chloride Level 99 98-107 MMOL/L Carbon Dioxide Level 23 21-32 MMOL/L Anion Gap 15 H 5-14 MMOL/L Blood Urea Nitrogen 34 H 7-18 MG/DL Creatinine 1.51 H 0.60-1.30 MG/DL Estimat Glomerular Filtration Rate 34 BUN/Creatinine Ratio 23 Glucose Level 230 H 70-105 MG/DL Calcium Level 10.2 H 8.5-10.1 MG/DL Corrected Calcium 9.8 8.5-10.1 MG/DL Total Bilirubin 0.4 0.1-1.0 MG/DL Aspartate Amino Transf (AST/SGOT) 14 5-34 U/L Alanine Aminotransferase (ALT/SGPT) 11 0-55 U/L Alkaline Phosphatase 113 40-136 U/L Troponin I 0.032 H <0.028 NG/ML B-Type Natriuretic Peptide 2206.0 H <100.0 PG/ML Total Protein 8.1 6.4-8.2 GM/DL Albumin 4.5 3.2-4.5 GM/DL Lactic Acid Level 1.51 0.50-2.00 MMOL/L Blood Gas Puncture Site LT BRACHIAL RIGHT RADIAL Blood Gas Patient Temperature 36.2 97.6 Arterial Blood pH 7.23 *L 7.24 *L 7.37-7.43 Arterial Blood Partial Pressure CO2 63 H 59 H 35-45 MMHG Arterial Blood Partial Pressure O2 174 H 52 L 79-93 MMHG Arterial Blood HCO3 26 24 23-27 MMOL/L Arterial Blood Total CO2 27.8 26.1 21.0-31.0 MMOL/L Arterial Blood Oxygen Saturation 99 76 L 94-100 % Arterial Blood Base Excess -1.0 -2.3 -2.5-2.5 MMOL/L Jossue Test NA YES-POS Blood Gas Ventilator Setting NO NO Blood Gas Inspired Oxygen 8 40 Micro Results Microbiology 04/28/19 Influenza Types A,B Antigen (ANATOLY) - Final, Complete My Orders Orders - ROSE HOOKER Cbc With Automated Diff (04/28/19 18:22) Comprehensive Metabolic Panel (04/28/19 18:22) Blood Culture (04/28/19 18:22) Sputum Culture (04/28/19 18:22) Urinalysis (04/28/19 18:22) Urine Culture (04/28/19 18:22) Protime With Inr (04/28/19 18:22) Partial Thromboplastin Time (04/28/19 18:22) Chest 1 View, Ap/Pa Only (04/28/19 18:22) Ed Iv/Invasive Line Start (04/28/19 18:22) Ed Iv/Invasive Line Start (04/28/19 18:) Vital Signs Adult Sepsis Patie Q15M (04/28/19 18:22) O2 (04/28/19 18:22) Remove Rings In Anticipation O (04/28/19 18:) Lactic Acid Analyzer (04/28/19 18:) Influenza A And B Antigens (04/28/19 18:) Ns Iv 1000 Ml (Sodium Chloride 0.9%) (04/28/19 18:22) Cefepime Injection (Maxipime Injection) (04/28/19 18:30) Ed Iv/Invasive Line Start (04/28/19 18:) Albuterol Pre-Mix Nebs (Rt) (Proventil (04/28/19 18:22) Albuterol/Ipra Inhalation Soln (Duoneb I (04/28/19 18:30) Methylprednisolone Sod Succ (Solu-Medrol (04/28/19 18:22) Svn Small Volume Nebulizer (04/28/19 18:22) Albuterol/Ipra Inhalation Soln (Duoneb I (04/28/19 18:20) Vapotherm - Admin Rt Rfs (04/28/19 18:24) Albuterol Pre-Mix Nebs (Rt) (Proventil (04/28/19 18:21) Continuous Ekg Monitoring (04/28/19 18:31) Ekg Tracing (04/28/19 18:31) Troponin I (04/28/19 18:20) Arterial Blood Gas (04/28/19 18:44) Manual Differential (04/28/19 18:20) BNP (04/28/19 19:00) Arterial Blood Gas (04/28/19 19:39) Aspirin Chewable Tablet (Baby Aspirin Ch (04/28/19 19:45) Medications Given in ED Current Medications Medications Dose Ordered Sig/Vlad Route Start Time Stop Time Status Last Admin Dose Admin Albuterol Sulfate 2.5 mg STK-MED ONCE .ROUTE 04/28/19 18:21 04/28/19 18:25 DC 04/28/19 18:21 2.5 MG Albuterol/ Ipratropium 3 ml ONCE ONCE INH 04/28/19 18:30 04/28/19 18:31 DC 04/28/19 18:21 3 ML Aspirin 324 mg ONCE ONCE PO 04/28/19 19:45 04/28/19 19:46 DC 04/28/19 19:59 324 MG Cefepime HCl 1000 mg/Sterile Water 10 ml @ 200 mls/hr ONCE ONCE IV 04/28/19 18:30 04/28/19 18:32 DC 04/28/19 19:44 200 MLS/HR Vital Signs/I&O 04/28/19 04/28/19 04/28/19 18:14 18:20 19:01 Temp 36.2 Pulse 105 Resp 28 B/P (MAP) 195/87 (123) Pulse Ox 95 99 O2 Delivery Room Air OxyMask OxyMask O2 Flow Rate 10.00 8.00 Capillary Refill : Progress Note #1: Time: 18:30 Progress Note She is doing a lot of extra work of breathing swelling her on Vapotherm get an ABG and give her some fluids and do a septic workup given her tachycardia. Suspect she is having COPD exacerbation and pneumonia is a possibility. We will check labs and urine and x-ray. The patient was 77% on 2 L by nasal cannula on arrival. Immediately switched her to a simple mask at 10 L and brought her up to the mid 90s. Cardiac catheterization by Dr. Cameron: Extensive arterial stenosis with patent grafts from CABG. EF of 10%. Posterior basal and diaphragmatic akinesis and anterior basal, anterolateral and apical severe hypokinesis. Progress Note #2: Time: 20:29 Progress Note Repeat ABG shows marginal improvement. We initiated BiPAP at 15/5 radial 15 FiO2 to keep her sats 94-98%. ECG Initial ECG Impression Date: Apr 28, 2019 Initial ECG Impression Time: 19:10 Initial ECG Rate: 94 Initial ECG Rhythm: Normal Sinus Initial ECG Intervals: Normal Initial ECG Impression: Normal, Nonspecific Changes Initial ECG Comparisson: Unchanged Comment Unchanged EKG compared to previous. Sinus rhythm without clinically relevant ST elevation or depression. Diagnostic Imaging Diagonstic Imaging: Xray Plain Films/CT/US/NM/MRI: chest Comments NAME: MARIA [facility] REC#: [id number] PT STATUS: REG ER : 1950 PHYSICIAN: ROSE HOOKER MD ADMIT DATE: 04/28/19/ER Draft POSDate of Exam:04/28/19 CHEST 1 VIEW, AP/PA ONLY EXAMINATION: Chest 1 view HISTORY: Short of breath COMPARISON: 04/07/2019 FINDINGS: Median sternotomy wires are aligned. There are coronary artery bypass graft markers. Vascular stent projects over the upper mediastinum. Lungs are hyperinflated. There is mild to moderate pulmonary edema. There is distortion of the left hilum. Heart size normal. IMPRESSION: 1. Hyperinflated lungs with mild to moderate pulmonary edema. 2. Distortion of the left hilum, consider CT for further evaluation and to exclude an underlying mass. Dictated on workstation # [id number] Dict: 04/28/191931 Trans: 04/28/191933 [facility] [id number] Interpreted by: CHINTAN DAVILA MD Electronically signed by: Reviewed: Reviewed by Me Departure Communication (Admissions) Time/Spoke to Admitting Phy: 19:50 Discussed case lab imaging findings with Dr. Mathews. She agrees to admit the patient. Antibiotics, steroids and will follow-up in the morning. Impression Primary Impression: COPD exacerbation Additional Impressions: Acute respiratory failure with hypoxia and hypercapnia BRIANNE (acute kidney injury) Pneumonia Qualified Codes: J18.9 - Pneumonia, unspecified organism Tobacco dependence due to cigarettes Disposition: ADMITTED INPATIENT Condition: Critical Admissions Decision to Admit Reason: Admit from ER (General) Decision to Admit/Date: Apr 28, 2019 Time/Decision to Admit Time: 18:31 Departure-Patient Inst. Referrals: NOE CAMERON MD FACP FACC CCDS (PCP) Primary Care Physician MEAGAN AKHTAR (Family) Primary Care Physician ROSE HOOKER Apr 28, 2019 18:30 POS
[2019-04-28 18:44] LABS: BASOPHILS # (AUTO) 0.1 10^3/uL (0.0-0.1); BASOPHILS % (AUTO) 0 % (0-10); EOSINOPHILS % (AUTO) 0 % (0-10); HEMATOCRIT 41 % (35-52); HEMOGLOBIN 12.4 G/DL (11.5-16.0); LYMPHOCYTES # (AUTO) 2.1 X 10^3 (1.0-4.0); LYMPHOCYTES % (AUTO) 13 % (12-44); MEAN CORPUSCULAR HEMOGLOBIN 23 PG (25-34); MEAN CORPUSCULAR HGB CONC 30 G/DL (32-36); MEAN CORPUSCULAR VOLUME 76 FL (80-99); MEAN PLATELET VOLUME 10.6 FL (7.4-10.4); MONOCYTES # (AUTO) 0.9 X 10^3 (0.0-1.0); MONOCYTES % (AUTO) 6 % (0-12); NEUTROPHILS % (AUTO) 81 % (42-75); PLATELET COUNT 348 10^3/uL (130-400); RED CELL DISTRIBUTION WIDTH 17.6 % (10.0-14.5); WHITE BLOOD COUNT 16.1 10^3/uL (4.3-11.0)
[2019-04-28 18:53] LABS: ABG OXYGEN SATURATION 99 % (94-100); ABG PCO2 63 MMHG (35-45); ABG PO2 174 MMHG (79-93); ABG TCO2 27.8 MMOL/L (21.0-31.0)
[2019-04-28 18:58] LABS: ABG PH 7.23 (7.37-7.43)
[2019-04-28 18:59] LABS: INSPIRED O2 8; PATIENT TEMP 36.2; VENTILATOR NO
[2019-04-28 18:59] LABS: ALBUMIN 4.5 GM/DL (3.2-4.5); BILIRUBIN,TOTAL 0.4 MG/DL (0.1-1.0); CALCIUM 10.2 MG/DL (8.5-10.1); CREATININE SERUM 1.51 MG/DL (0.60-1.30); POTASSIUM 5.8 MMOL/L (3.6-5.0); TOTAL PROTEIN 8.1 GM/DL (6.4-8.2)
[2019-04-28 19:03] LABS: PROTHROMBIN TIME PATIENT 13.4 SEC (12.2-14.7)
[2019-04-28 19:04] LABS: ANISOCYTOSIS SLIGHT; BAND NEUTROPHILS 4 %; BASOPHILS % (MANUAL) 0 %; EOSINOPHILS % (MANUAL) 0 %; LYMPHOCYTES % (MANUAL) 10 %; MONOCYTES % (MANUAL) 7 %; NEUTROPHILS % (MANUAL) 79 %
--- NOTE | 2019-04-28 19:35 | Diagnostic Imaging Report ---
EXAMINATION: Chest 1 view HISTORY: Short of breath COMPARISON: 04/07/2019 FINDINGS: Median sternotomy wires are aligned. There are coronary artery bypass graft markers. Vascular stent projects over the upper mediastinum. Lungs are hyperinflated. There is mild to moderate pulmonary edema. There is distortion of the left hilum. Heart size normal. IMPRESSION: 1. Hyperinflated lungs with mild to moderate pulmonary edema. 2. Distortion of the left hilum, consider CT for further evaluation and to exclude an underlying mass. Dictated by: Dictated on workstation # [id number]
[2019-04-28] MEDS ORDERED: ASPIRIN 81 MG CHEW (CHILDREN'S ASA) PO ONE (19:45)
[2019-04-28 19:59] LABS: ABG BASE EXCESS -2.3 MMOL/L (-2.5-2.5); ABG OXYGEN SATURATION 76 % (94-100); ABG PCO2 59 MMHG (35-45); ABG PO2 52 MMHG (79-93); ABG TCO2 26.1 MMOL/L (21.0-31.0)
[2019-04-28 20:01] LABS: ABG PH 7.24 (7.37-7.43); ALLENS TEST YES-POS; INSPIRED O2 40; VENTILATOR NO
[2019-04-28 20:02] LABS: PATIENT TEMP 97.6
[2019-04-28 22:49] VITALS: BP 195/87
[2019-04-28 22:55] VITALS: BP 150/63
[2019-04-28 23:00] VITALS: BP 119/86
[2019-04-28 23:15] VITALS: BP 125/60
[2019-04-28] MEDS ORDERED: ONDANSETRON 4 MG/2 ML (SDV) Z0FRAN IV PRN (23:15)
[2019-04-28 23:30] VITALS: BP 115/56
[2019-04-28 23:45] VITALS: BP 124/58
[2019-04-28] MEDS: methylPREDNISolone 40 MG/ML (Solu-MEDROL) VIAL IV SCH (23:55)
[2019-04-28] MEDS: ACETAMINOPHEN 500 MG TAB (TYLENOL) PO PRN (23:55)
[2019-04-28] MEDS: NS IV 1000 ML 1,000 ML IV SCH (23:55)
[2019-04-29] VITALS (25 sets, daily range): BP systolic 110–154; BP diastolic 50–83
[2019-04-29] MEDS ORDERED: RT-ALBUTEROL/IPRATROPIUM 3 ML (DUONEB) VIAL INH PRN (01:00)
[2019-04-29] MEDS ORDERED: DEXMEDETOMIDINE INJECTION 200 MCG in NS (IVPB) 50 ML IV SCH (01:46)
[2019-04-29] MEDS ORDERED: NS (IVPB) 50 ML ONE (01:48)
[2019-04-29 02:04] LABS: BILIRUBIN,URINE NEGATIVE (NEGATIVE); CLARITY,URINE CLEAR; COLOR,URINE YELLOW; GLUCOSE, URINE (UA) NEGATIVE (NEGATIVE); KETONES,URINE NEGATIVE (NEGATIVE); LEUKOCYTE ESTERASE ,URINE NEGATIVE (NEGATIVE); NITRITE,URINE NEGATIVE (NEGATIVE); PH,URINE 5.5 (5-9); PROTEIN,URINE NEGATIVE (NEGATIVE)
[2019-04-29 02:23] LABS: BACTERIA,URINE NEGATIVE /HPF; SQUAMOUS EPITHELIAL CELL,UR 0-2 /HPF; YEAST,URINE LARGE /HPF
[2019-04-29 03:29] LABS: BASOPHILS % (AUTO) 0 % (0-10); EOSINOPHILS % (AUTO) 0 % (0-10); HEMATOCRIT 36 % (35-52); LYMPHOCYTES # (AUTO) 0.9 X 10^3 (1.0-4.0); LYMPHOCYTES % (AUTO) 8 % (12-44); MEAN CORPUSCULAR HEMOGLOBIN 23 PG (25-34); MEAN CORPUSCULAR HGB CONC 30 G/DL (32-36); MEAN CORPUSCULAR VOLUME 77 FL (80-99); MEAN PLATELET VOLUME 10.3 FL (7.4-10.4); MONOCYTES # (AUTO) 0.1 X 10^3 (0.0-1.0); MONOCYTES % (AUTO) 1 % (0-12); NEUTROPHILS % (AUTO) 92 % (42-75); PLATELET COUNT 233 10^3/uL (130-400); RED CELL DISTRIBUTION WIDTH 17.2 % (10.0-14.5); WHITE BLOOD COUNT 10.9 10^3/uL (4.3-11.0)
[2019-04-29 03:49] LABS: ALANINE AMINOTRANSFERASE < 6 U/L (0-55); ALBUMIN 3.8 GM/DL (3.2-4.5); ALKALINE PHOSPHATASE 93 U/L (40-136); BILIRUBIN,TOTAL 0.3 MG/DL (0.1-1.0); BUN/CREATININE RATIO 29; CALCIUM 9.2 MG/DL (8.5-10.1); CARBON DIOXIDE 17 MMOL/L (21-32); CHLORIDE 104 MMOL/L (98-107); CREATININE SERUM 1.26 MG/DL (0.60-1.30); GFR ESTIMATED 42; GLUCOSE 176 MG/DL (70-105); MAGNESIUM 2.1 MG/DL (1.6-2.4); PHOSPHORUS 3.5 MG/DL (2.3-4.7); POTASSIUM 5.8 MMOL/L (3.6-5.0); SODIUM 137 MMOL/L (135-145); TOTAL PROTEIN 6.9 GM/DL (6.4-8.2)
[2019-04-29] MEDS: methylPREDNISolone 40 MG/ML (Solu-MEDROL) VIAL IV SCH ×3 (06:01→19:30)
--- NOTE | 2019-04-29 06:55 | NUR ---
UNABLE TO GET ABG. THIS RN ATTEMPTED ONCE, AND ANOTHER RN ATTEMPTED TWICE WITH NO SUCCESS. WILL NOTIFY
[2019-04-29] MEDS ORDERED: CEFEPIME INJECTION 2,000 MG in WATER (STERILE) FOR INJECTION 20 ML IV SCH (07:00)
--- NOTE | 2019-04-29 08:04 | Consultation-Cardiology ---
HPI-Cardiology Cardiology Consultation: Date of Consultation 04/29/19 Time Seen by a Provider: 08:30 Date of Admission 04-28-19 Attending Physician Yolanda Mathews MD Admitting Physician [facility]izzette [facility] Lizzette Cameron MD HPI: Chief Complaint: Progressive dyspnea Ms. Upton is a 69 year old female admitted to ICU 9 with increasing dyspnea, chills and frequent lose productive cough. She is currently on Bi-pap. She reports chest pain with coughing. No c/o palpitations, syncope, near syncope or LE swelling. She reports she has been compliant with her medications at home. Her daughter is at the bedside. Review of Systems-Cardiology Review of Systems Constitutional: chills; No fever; malaise Eyes: No vision change Ears/Nose/Throat: No epistaxis, No recent hearing loss Respiratory: As described under HPI Cardiovascular: As described under HPI Gastrointestinal: No constipation, No diarrhea, No vomiting Genitourinary: No dysuria, No hematuria Musculoskeletal: no symptoms reported Skin: No rash on exposed areas, No ulcerations on exposed areas Psychiatric/Neurological: No seizure, No focal weakness, No syncope Hematologic: No bleeding abnormalities QSK-Dogfdi-Acieaz Hx Patient Social History Alcohol Use: Past History Recreational Drug Use: No Smoking Status: Current Everyday Smoker Type Used: Cigarettes Recent Foreign Travel: No Recent Infectious Disease Expo: No Hospitalization with Isolation: Denies Immunizations Up To Date Tetanus Booster (TDap): Unknown Date of Pneumonia Vaccine: Mar 18, 2019 Date of Influenza Vaccine: Feb 15, 2019 Past Medical History PMH As described under Assessment. Family Medical History Family History: Patient reports no known family medical history. Allergies and Home Medications Allergies Coded Allergies: No Known Drug Allergies (Unverified , 05/07/17) Home Medications Acetaminophen 500 Mg Tablet, 1,000 MG PO Q4H PRN for PAIN-MILD, (Reported) Albuterol Sulfate 1 Puff Puff, 2 PUFF INH Q6H PRN for SHORTNESS OF BREATH, (Reported) Amiodarone HCl 200 Mg Tablet, 100 MG PO DAILY, (Reported) TAKES 1/2 (200MG) TABLET Aspirin 81 Mg Tablet.dr, 81 MG PO DAILY, (Reported) Atorvastatin Calcium 80 Mg Tablet, 80 MG PO HS, (Reported) Baclofen 10 Mg Tablet, 10 MG PO HS PRN for MUSCLE SPASMS, (Reported) Carvedilol 25 Mg Tablet, 25 MG PO BID, (Reported) Cefdinir 300 Mg Capsule, 300 MG PO BID, (Reported) 7 DAY SUPPLY FILLED 04-22-19 Cetirizine HCl 10 Mg Tablet, 10 MG PO DAILY PRN for ALLERGIES, (Reported) Citalopram Hydrobromide 10 Mg Tablet, 10 MG PO DAILY, (Reported) Clopidogrel Bisulfate 75 Mg Tablet, 75 MG PO DAILY, (Reported) Fluticasone/Vilanterol 1 Each Blst.w.dev, 1 PUFF IH HS, (Reported) Furosemide 40 Mg Tablet, 40 MG PO DAILY, (Reported) Gabapentin 300 Mg Capsule, 300 MG PO HS, (Reported) Ipratropium/Albuterol Sulfate 3 Ml Ampul.neb, 3 ML NEB QID PRN for SHORTNESS OF BREATH, (Reported) Lisinopril 10 Mg Tablet, 10 MG PO DAILY, (Reported) Metformin HCl 1,000 Mg Tablet, 1,000 MG PO BID, (Reported) Nicotine 1 Each Patch.td24, 21 MG TD DAILY, (Reported) Potassium Chloride 10 Meq Capsule.er, 10 MEQ PO DAILY, (Reported) Ropinirole HCl 1 Mg Tablet, 1 MG PO HS, (Reported) Spironolactone 25 Mg Tablet, 25 MG PO DAILY, (Reported) Triamterene/Hydrochlorothiazid 1 Each Tablet, 1 TAB PO DAILY, (Reported) Trospium Chloride 20 Mg Tablet, 20 MG PO BID, (Reported) Physical Exam-Cardiology Physical Exam Vital Signs/I&O 05/01/19 05/02/19 05/02/19 05/02/19 22:46 00:00 02:26 04:00 Temp 36.4 36.2 Pulse 67 71 70 70 Resp 26 14 15 14 B/P (MAP) 187/74 (111) 145/84 (104) Pulse Ox 99 100 95 99 O2 Delivery NIV Bilevel NIV Bilevel O2 Flow Rate 45.00 40.00 40.00 40.00 05/02/19 05/02/19 08:33 08:39 Pulse 82 Resp 29 Pulse Ox 99 99 O2 Delivery Nasal Cannula O2 Flow Rate 5.00 40.00 05/02/19 00:00 Intake Total 1030 ml Output Total 450 ml Balance 580 ml Capillary Refill : Less Than 3 Seconds Constitutional: AAO x 3, other (cachexia) HEENT: PERRL, hearing is well preserved Respiratory: No accessory muscle use, No respiratory distress; chest expansion is symmetric, chest is bilaterally symmetric, other (fair air entry) Cardiovascular: regular rate-rhythm; No JVD; S1 and S2, systolic murmur (soft), other (ACW tenderness with palpation) Gastrointestinal: No tender; soft, audible bowel sounds Extremities: no lower extremity edema bilateral Neurologic/Psychiatric: grossly intact (moves all extremiteis) Skin: No rash on exposed areas, No ulcerations on exposed areas Data Review Labs Laboratory Tests 05/02/19 05:10: White Blood Count 11.9H, Red Blood Count 3.84L, Hemoglobin 9.1L, Hematocrit 31L, Mean Corpuscular Volume 81, Mean Corpuscular Hemoglobin 24L, Mean Corpuscular Hemoglobin Concent 29L, Red Cell Distribution Width 17.2H, Platelet Count 169, Mean Platelet Volume 11.4H, Neutrophils (%) (Auto) 86H, Lymphocytes (%) (Auto) 9L, Monocytes (%) (Auto) 5, Eosinophils (%) (Auto) 0, Basophils (%) (Auto) 0, Neutrophils # (Auto) 10.2H, Lymphocytes # (Auto) 1.1, Monocytes # (Auto) 0.6, Eosinophils # (Auto) 0.0, Basophils # (Auto) 0.0, Sodium Level 144, Potassium Level 4.3, Chloride Level 114H, Carbon Dioxide Level 21, Anion Gap 9, Blood Urea Nitrogen 46H, Creatinine 0.93, Estimat Glomerular Filtration Rate 59, BUN/Creatinine Ratio 49, Glucose Level 181H, Calcium Level 8.4L, Phosphorus Level 2.6, Magnesium Level 2.3 Microbiology 04/28/19 Blood Culture - Preliminary, Resulted No growth 04/28/19 Influenza Types A,B Antigen (ANATOLY) - Final, Complete 04/29/19 Urine Culture - Final, Complete YEAST Mixed Bacterial [facility] NAME: MARIA DE [facility] REC#: [id number] PT STATUS: REG ER : 1950 PHYSICIAN: ROSE HOOKER MD ADMIT DATE: 04/28/19/ER Signed Date of Exam:04/28/19 CHEST 1 VIEW, AP/PA ONLY EXAMINATION: Chest 1 view HISTORY: Short of breath COMPARISON: 04/07/2019 FINDINGS: Median sternotomy wires are aligned. There are coronary artery bypass graft markers. Vascular stent projects over the upper mediastinum. Lungs are hyperinflated. There is mild to moderate pulmonary edema. There is distortion of the left hilum. Heart size normal. IMPRESSION: 1. Hyperinflated lungs with mild to moderate pulmonary edema. 2. Distortion of the left hilum, consider CT for further evaluation and to exclude an underlying mass. Dictated by: Dictated on workstation # [id number] Dict: 04/28/191931 Trans: 04/28/191940 [facility] [id number] Interpreted by: CHINTAN DAVILA MD Electronically signed by: CHINTAN DAVILA MD 04/28/191940 ECG Impression ECG Initial ECG Rhythm: Normal Sinus A/P-Cardiology Assessment/Admission Diagnosis Acute on chronic exacerbation of COPD Ac on chronic systolic CHF due to severe ischemic cardiomyopathy Type 2 CA likely secondary to hypoxia Slow atrial flutter with 2:1 AV conduction vs sinus tach on ECG of 04/06/19 CAD. S/p CABG in 2012. Card cath of 03/04/19: 40% LMCA, multiple 60% in LAD, 60- 70% prox LCX, 100% mid LCX, 70-80% distal OM2 at distal bifurcation, 100% mid RCA in a long stented segment, patent DAIGLE to LAD, patent stented L subclavian, patent SVG to distal LCX, LVEDP 21, LVEF 10% Echo of 03/02/19: LVEF 15-20%, mod enlargement of LA, mod MR and TR, RVSP 57 mmHg - refuses Life Vest Pulmonary hypertension, probably secondary to L heart failure H/o L-sided, ischemic foot ulcer, improved after L SFA intervention on 02/15/19 and improvement of L TBI from less than 0.3 to 0.72. Considerable disease on the R, but no symptoms or ischemic ulcers on the R PAD - Angio and intervention of 02/15/19: Long total occlusion of the left superficial femoral artery to which successful balloon angioplasty was carried out with reduction of stenosis to less than 30%; other lesions included 70% to 80% stenosis of the right external iliac and the right common femoral and of the left ant tibial in its proximal portion H/o COPD and asthma Abnormal ECG: NSR with PVCs, LVH with repol abnormality H/o left CEA - details unknown HTN HLP DM Type 2 Chronic tobacco use - cessation advised Hyperkalemia Discussion and Recomendations Acute on chronic exacerbation of COPD - management per medical/pulmonary services Acute on chronic systolic CHF - treat with diuretics Clinical Quality Measures DVT/VTE Risk/Contraindication: Risk Factor Score Per Nursin RFS Level Per Nursing on Admit: 4+=Very High JANELLE BRANNON Apr 29, 2019 08:04 POS
[2019-04-29] MEDS: NICOTINE 7 MG (NICODERM) PATCH TD SCH (08:50)
[2019-04-29] MEDS ORDERED: FUROSEMIDE 40 MG/4 ML INJ (LASIX) IVP ONE (09:00)
[2019-04-29] MEDS ORDERED: CARV25TA PO (09:01)
[2019-04-29] MEDS ORDERED: SPIR25TA PO (09:01)
[2019-04-29] MEDS ORDERED: TRIA1TAB3 PO (09:01)
[2019-04-29] MEDS ORDERED: CEFD300C3 PO (09:01)
[2019-04-29] MEDS ORDERED: ATOR80TA76 PO (09:01)
[2019-04-29] MEDS ORDERED: LISI10TA2 PO (09:01)
[2019-04-29] MEDS ORDERED: POTA10CA43 PO (09:01)
[2019-04-29] MEDS ORDERED: CITA10TA7 PO (09:01)
[2019-04-29] MEDS ORDERED: SOD POLYSTERENE 15 GM/60 ML (KAYEXALATE) UNIT DOSE PO NR (09:14)
[2019-04-29] MEDS ORDERED: DEXMEDETOMIDINE INJECTION 1,000 MCG in NS (IVPB) 240 ML IV SCH (09:30)
--- NOTE | 2019-04-29 09:44 | Diagnostic Imaging Report ---
Portable erect AP chest at 3:52 Indication: Dyspnea The appearance of the chest has improved since the prior exam of 04/28/2019 as both the heart and the interstitial densities in both lungs do seem less prominent. There is no evidence for failure, pneumonia or for pleural effusion at this time. The prior exam did note that there was distortion of the left hilum. CT was recommended for further evaluation to exclude a hilar mass. The previous CT chest exam of 02/04/2019 failed to show any sign of hilar mass on the left but that study was performed without intravenous contrast. If the patient can tolerate intravenous contrast, I would recommend that CT of the chest be performed for more sensitive evaluation of the left hilar region. The mediastinum is not widened. The osseous structures are intact. The sternotomy wires and surgical clips noted previously and are again evident and no different. IMPRESSION: 1. The appearance of the chest has improved since the prior exam as the heart has decreased in size and interstitial densities in both lungs are less prominent. There is no evidence for an acute cardiopulmonary abnormality. 2. There is no clear evidence for a mass involving the left hilum. Even so, additional imaging with intravenous contrast would be recommended for further study. Dictated by: Dictated on workstation # [id number]
[2019-04-29] MEDS: RT-ALBUTEROL/IPRATROPIUM 3 ML (DUONEB) VIAL INH SCH ×4 (10:45→22:07)
[2019-04-29 11:29] LABS: ABG BASE EXCESS -4.4 MMOL/L (-2.5-2.5); ABG OXYGEN SATURATION 91 % (94-100); ABG PCO2 34 MMHG (35-45); ABG PH 7.39 (7.37-7.43); ABG PO2 62 MMHG (79-93); ABG TCO2 20.8 MMOL/L (21.0-31.0)
[2019-04-29 11:31] LABS: ALLENS TEST POSITIVE; INSPIRED O2 21% BIPAP; PATIENT TEMP 36.6; VENTILATOR NO
[2019-04-29] MEDS: NS IV 1000 ML 1,000 ML IV SCH ×2 (13:16→15:30)
[2019-04-29] MEDS ORDERED: SPIR25TA5 PO (14:42)
--- NOTE | 2019-04-29 14:44 | NUR ---
SPOKE WITH THE PATIENT ABOUT HER MEDICATIONS. I STARTED TO GO OVER THE EXT MED HX HOWEVER SHE KEPT FALLING ASLEEP. FAMILY IN THE ROOM STATES HER SON SETS UP HER MEDICATIONS BUT SHE STATES SHE DOES IT HERSELF. I ASKED THEM TO HAVE HER SON CALL ME TO GO OVER MEDICATIONS BUT HE HAS NOT YET. I CALLED THE NUMBER ON FILE FOR HER SON AND THERE WAS NO ANSWER, THE VOICEMAIL BOX HAD NOT BEEN SET UP YET THEREFORE I COULD NOT LEAVE A MESSAGE. I HAD A LIST FAXED OVER FROM [facility] AND COMPARED THAT WITH THE EXT MED HX. THE LIST STATES LIPITOR 40MG HOWEVER AT THE LAST VISIT HERE IT WAS CHANGED TO 80MG AND THAT IS THE MOST RECENTLY FILLED STRENGTH ON THE EXT MED HX, I UPDATED IT TO 80MG. THE LIST STATES COREG 6.25MG HOWEVER 25MG BID WAS FILLED MOST RECENTLY AND THAT IS THE STRENGTH ON FILE FROM HER LAST VISIT HERE. I UPDATED IT TO THE 25MG BID. IN ADDITION TO THE LIST FROM [facility] I LEFT THE CETIRIZINE AND CEFDINIR THAT HAVE BEEN FILLED RECENTLY WELL TYLENOL OTC PRN AND BACLOFEN THAT WERE ON THE MED REC FROM BEFORE. I DID CALL THE [facility] AND VERIFY THE PAXIL WAS CHANGED TO CELEXA AND THE TRINTELLIX WAS DISCONTINUED. SHE STATES THEY ARE TRYING TO GET HER HELP HER WITH MEDICATIONS FROM HOME HEALTH.
--- NOTE | 2019-04-29 15:17 | Consultation-Cardiology ---
HPI-Cardiology Cardiology Consultation: Date of Consultation 04/29/19 Time Seen by a Provider: 09:00 Date of Admission Attending Physician Yolanda Mathews MD Admitting Physician Lizzette Cameron MD Facp Fac Ccds Consulting Physician LIZZETTE CAMERON MD, MA, FACP, FACC, [facility] [place], CCDS HPI: Chief Complaint: CC: Shortness of breath HPI Ms. Upton is a 69 year old female admitted to ICU 9 with increasing dyspnea, chills and frequent lose productive cough. She is currently on Bi-pap. She reports chest pain with coughing. No c/o palpitations, syncope, near syncope or LE swelling. She reports she has been compliant with her medications at home. Her daughter is at the bedside. Review of Systems-Cardiology Review of Systems Constitutional: chills; No fever; malaise Eyes: No vision change Ears/Nose/Throat: No epistaxis, No recent hearing loss Respiratory: As described under HPI Cardiovascular: As described under HPI Gastrointestinal: No constipation, No diarrhea, No vomiting Genitourinary: No dysuria, No hematuria Musculoskeletal: no symptoms reported Skin: No rash on exposed areas, No ulcerations on exposed areas Psychiatric/Neurological: No seizure, No focal weakness, No syncope Hematologic: No bleeding abnormalities [id number] Hx Patient Social History Alcohol Use: Past History Recreational Drug Use: No Smoking Status: Current Everyday Smoker Type Used: Cigarettes Recent Foreign Travel: No Recent Infectious Disease Expo: No Hospitalization with Isolation: Denies Immunizations Up To Date Tetanus Booster (TDap): Unknown Date of Pneumonia Vaccine: Mar 18, 2019 Date of Influenza Vaccine: Feb 15, 2019 Past Medical History PMH As described under Assessment. Family Medical History Family History: Patient reports no known family medical history. Allergies and Home Medications Allergies Coded Allergies: No Known Drug Allergies (Unverified , 05/07/17) Home Medications Acetaminophen 500 Mg Tablet, 1,000 MG PO Q4H PRN for PAIN-MILD, (Reported) Albuterol Sulfate 1 Puff Puff, 2 PUFF INH Q6H PRN for SHORTNESS OF BREATH, (Reported) Amiodarone HCl 200 Mg Tablet, 100 MG PO DAILY, (Reported) TAKES 1/2 (200MG) TABLET Aspirin 81 Mg Tablet.dr, 81 MG PO DAILY, (Reported) Atorvastatin Calcium 80 Mg Tablet, 80 MG PO HS, (Reported) Baclofen 10 Mg Tablet, 10 MG PO HS PRN for MUSCLE SPASMS, (Reported) Carvedilol 25 Mg Tablet, 25 MG PO BID, (Reported) Cefdinir 300 Mg Capsule, 300 MG PO BID, (Reported) 7 DAY SUPPLY FILLED 04-22-19 Cetirizine HCl 10 Mg Tablet, 10 MG PO DAILY PRN for ALLERGIES, (Reported) Citalopram Hydrobromide 10 Mg Tablet, 10 MG PO DAILY, (Reported) Clopidogrel Bisulfate 75 Mg Tablet, 75 MG PO DAILY, (Reported) Fluticasone/Vilanterol 1 Each Blst.w.dev, 1 PUFF IH HS, (Reported) Furosemide 40 Mg Tablet, 40 MG PO DAILY, (Reported) Gabapentin 300 Mg Capsule, 300 MG PO HS, (Reported) Ipratropium/Albuterol Sulfate 3 Ml Ampul.neb, 3 ML NEB QID PRN for SHORTNESS OF BREATH, (Reported) Lisinopril 10 Mg Tablet, 10 MG PO DAILY, (Reported) Metformin HCl 1,000 Mg Tablet, 1,000 MG PO BID, (Reported) Nicotine 1 Each Patch.td24, 21 MG TD DAILY, (Reported) Potassium Chloride 10 Meq Capsule.er, 10 MEQ PO DAILY, (Reported) Ropinirole HCl 1 Mg Tablet, 1 MG PO HS, (Reported) Spironolactone 25 Mg Tablet, 25 MG PO DAILY, (Reported) Triamterene/Hydrochlorothiazid 1 Each Tablet, 1 TAB PO DAILY, (Reported) Trospium Chloride 20 Mg Tablet, 20 MG PO BID, (Reported) Patient Home Medication List Home Medication List Reviewed: Yes Physical Exam-Cardiology Physical Exam Vital Signs/I&O 04/29/19 04/29/19 04/29/19 04/29/19 03:42 04:00 04:00 04:00 Temp 36.1 35.8 Pulse 71 Resp 20 B/P (MAP) 138/50 (79) Pulse Ox 96 O2 Delivery NIV Bilevel NIV Bilevel O2 Flow Rate 25.00 FiO2 25 04/29/19 04/29/19 04/29/19 04/29/19 05:00 06:00 06:43 06:44 Pulse 59 75 58 57 Resp 20 23 20 B/P (MAP) 120/83 (95) 142/59 (86) Pulse Ox 96 96 95 O2 Delivery NIV Bilevel NIV Bilevel O2 Flow Rate 25.00 25.00 25.00 04/29/19 04/29/19 04/29/19 04/29/19 07:00 08:00 09:00 10:00 Pulse 68 54 69 56 Resp 22 21 21 18 B/P (MAP) 132/52 (78) 121/54 (76) 140/62 (88) 128/50 (76) Pulse Ox 97 96 96 97 O2 Delivery NIV Bilevel NIV Bilevel NIV Bilevel NIV Bilevel O2 Flow Rate 25.00 25.00 25.00 25.00 04/29/19 04/29/19 04/29/19 04/29/19 10:45 10:45 11:00 12:00 Pulse 79 81 99 Resp 27 39 36 B/P (MAP) 133/61 (85) 143/61 (88) Pulse Ox 95 92 93 O2 Delivery NIV Bilevel NIV Bilevel NIV Bilevel O2 Flow Rate 21.00 21.00 21.00 21.00 04/29/19 04/29/19 04/29/19 13:00 13:09 14:50 Pulse 101 Resp 32 B/P (MAP) 121/60 (80) Pulse Ox 88 O2 Delivery NIV Bilevel NIV Bilevel NIV Bilevel O2 Flow Rate 21.00 25.00 40.00 04/29/19 00:00 Intake Total 1010 ml Balance 1010 ml Capillary Refill : Less Than 3 Seconds Constitutional: AAO x 3, other (cachexia) HEENT: PERRL, hearing is well preserved Respiratory: No accessory muscle use, No respiratory distress; chest expansion is symmetric, chest is bilaterally symmetric, other (fair air entry) Cardiovascular: regular rate-rhythm; No JVD; S1 and S2, systolic murmur (soft), other (ACW tenderness with palpation) Gastrointestinal: No tender; soft, audible bowel sounds Extremities: no lower extremity edema bilateral Neurologic/Psychiatric: grossly intact (moves all extremiteis) Skin: No rash on exposed areas, No ulcerations on exposed areas Data Review Labs Laboratory Tests 04/28/19 18:20: White Blood Count 16.1H, Red Blood Count 5.41, Hemoglobin 12.4, Hematocrit 41, Mean Corpuscular Volume 76L, Mean Corpuscular Hemoglobin 23L, Mean Corpuscular Hemoglobin Concent 30L, Red Cell Distribution Width 17.6H, Platelet Count 348, Mean Platelet Volume 10.6H, Neutrophils (%) (Auto) 81H, Lymphocytes (%) (Auto) 13, Monocytes (%) (Auto) 6, Eosinophils (%) (Auto) 0, Basophils (%) (Auto) 0, Neutrophils # (Auto) 13.0H, Lymphocytes # (Auto) 2.1, Monocytes # (Auto) 0.9, Eosinophils # (Auto) 0.0, Basophils # (Auto) 0.1, Neutrophils % (Manual) 79, Lymphocytes % (Manual) 10, Monocytes % (Manual) 7, Eosinophils % (Manual) 0, Basophils % (Manual) 0, Band Neutrophils 4, Anisocytosis SLIGHT, Prothrombin Time 13.4, INR Comment 1.0, Activated Partial Thromboplast Time 33, Sodium Level 137, Potassium Level 5.8H, Chloride Level 99, Carbon Dioxide Level 23, Anion Gap 15H, Blood Urea Nitrogen 34H, Creatinine 1.51H, Estimat Glomerular Filtration Rate 34, BUN/Creatinine Ratio 23, Glucose Level 230H, Calcium Level 10.2H, Corrected Calcium 9.8, Total Bilirubin 0.4, Aspartate Amino Transf (AST/SGOT) 14 , Alanine Aminotransferase (ALT/SGPT) 11, Alkaline Phosphatase 113, Troponin I 0.032H, B-Type Natriuretic Peptide 2206.0H, Total Protein 8.1, Albumin 4.5 04/28/19 18:30: Lactic Acid Level 1.51 04/28/19 18:33: Blood Gas Puncture Site LT BRACHIAL, Blood Gas Patient Temperature 36.2, Arterial Blood pH 7.23*L, Arterial Blood Partial Pressure CO2 63H, Arterial Bloo d Partial Pressure O2 174H, Arterial Blood HCO3 26, Arterial Blood Total CO2 27.8, Arterial Blood Oxygen Saturation 99, Arterial Blood Base Excess -1.0, Jossue Test NA, Blood Gas Ventilator Setting NO, Blood Gas Inspired Oxygen 8 04/28/19 19:52: Blood Gas Puncture Site RIGHT RADIAL, Blood Gas Patient Temperature 97.6, Arterial Blood pH 7.24*L, Arterial Blood Partial Pressure CO2 59H, Arterial Blood Partial Pressure O2 52L, Arterial Blood HCO3 24, Arterial Blood Total CO2 26.1, Arterial Blood Oxygen Saturation 76L, Arterial Blood Base Excess -2.3, Jossue Test YES-POS, Blood Gas Ventilator Setting NO, Blood Gas Inspired Oxygen 40 04/28/19 23:45: Troponin I 0.059H 04/29/19 00:03: Urine Color YELLOW, Urine Clarity CLEAR, Urine pH 5.5, Urine Specific Erwin >=1.030, Urine Protein NEGATIVE, Urine Glucose (UA) NEGATIVE, Urine Ketones NEGATIVE, Urine Nitrite NEGATIVE, Urine Bilirubin NEGATIVE, Urine Urobilinogen 0.2, Urine Leukocyte Esterase NEGATIVE, Urine RBC (Auto) NEGATIVE, Urine RBC NONE, Urine WBC NONE, Urine Squamous Epithelial Cells 0-2, Urine Crystals NONE, Urine Bacteria NEGATIVE, Urine Casts NONE, Urine Mucus NEGATIVE, Urine Yeast LARGEH, Urine Culture Indicated CULTURE PENDING 04/29/19 03:15: White Blood Count 10.9, Red Blood Count 4.74, Hemoglobin 11.0L, Hematocrit 36, Mean Corpuscular Volume 77L, Mean Corpuscular Hemoglobin 23L, Mean Corpuscular Hemoglobin Concent 30L, Red Cell Distribution Width 17.2H, Platelet Count 233, Mean Platelet Volume 10.3, Neutrophils (%) (Auto) 92H, Lymphocytes (%) (Auto) 8L , Monocytes (%) (Auto) 1, Eosinophils (%) (Auto) 0, Basophils (%) (Auto) 0, Neutrophils # (Auto) 10.0H, Lymphocytes # (Auto) 0.9L, Monocytes # (Auto) 0.1, Eosinophils # (Auto) 0.0, Basophils # (Auto) 0.0, Sodium Level 137, Potassium Level 5.8H, Chloride Level 104, Carbon Dioxide Level 17L, Anion Gap 16H, Blood Urea Nitrogen 36H, Creatinine 1.26, Estimat Glomerular Filtration Rate 42, BUN/Creatinine Ratio 29, Glucose Level 176H, Calcium Level 9.2, Corrected Calcium 9.4, Phosphorus Level 3.5, Magnesium Level 2.1, Total Bilirubin 0.3, Aspartate Amino Transf (AST/SGOT) 12, Alanine Aminotransferase (ALT/SGPT) < 6, Alkaline Phosphatase 93, Total Protein 6.9, Albumin 3.8 04/29/19 06:00: Troponin I 0.095H 04/29/19 11:20: Blood Gas Puncture Site RIGHT RADIAL, Blood Gas Patient Temperature 36.6, Arterial Blood pH 7.39, Arterial Blood Partial Pressure CO2 34L, Arterial Blood Partial Pressure O2 62L, Arterial Blood HCO3 20L, Arterial Blood Total CO2 20.8L , Arterial Blood Oxygen Saturation 91L, Arterial Blood Base Excess -4.4L, Jossue Test POSITIVE, Blood Gas Ventilator Setting NO, Blood Gas Inspired Oxygen 21% BIPAP Microbiology 04/28/19 Influenza Types A,B Antigen (ANATOLY) - Final, Complete Laboratory Tests 04/28/19 18:20 04/29/19 03:15 A/P-Cardiology Assessment/Admission Diagnosis Acute exacerbation of COPD Ac on chronic systolic CHF due to severe ischemic cardiomyopathy Type 2 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 S/p CABG in 2012. Card cath of 03/04/19: 40% LMCA, multiple 60% in LAD, 60- 70% prox LCX, 100% mid LCX, 70-80% distal OM2 at distal bifurcation, 100% mid RCA in a long stented segment, patent DAIGLE to LAD, patent stented L subclavian, patent SVG to distal LCX, LVEDP 21, LVEF 10% Echo of 03/02/19: LVEF 15-20%, mod enlargement of LA, mod MR and TR, RVSP 57 mmHg - refuses Life Vest Pulmonary hypertension, probably secondary to L heart failure H/o L-sided, ischemic foot ulcer, improved after L SFA intervention on 02/15/19 and improvement of L TBI from less than 0.3 to 0.72. Considerable disease on the R, but no symptoms or ischemic ulcers on the R PAD - Angio and intervention of 02/15/19: Long total occlusion of the left superficial femoral artery to which successful balloon angioplasty was carried out with reduction of stenosis to less than 30%; other lesions included 70% to 80% stenosis of the right external iliac and the right common femoral and of the left ant tibial in its proximal portion H/o COPD and asthma Abnormal ECG: NSR with PVCs, LVH with repol abnormality H/o left CEA - details unknown HTN HLP DM Type 2 Chronic tobacco use - cessation advised Hyperkalemia Discussion and Recomendations Acute exacerbation of COPD - management per medical/pulmonary services Acute on chronic systolic CHF - treat with diuretics D/c supplemental K Treat hyperkalemia with kayexelate Monitor labs Clinical Quality Measures DVT/VTE Risk/Contraindication: Risk Factor Score Per Nursin RFS Level Per Nursing on Admit: 4+=Very High JOSEPH,ALI MD FACP FAC CCDS Apr 29, 2019 15:17 POS
[2019-04-29] MEDS ORDERED: FUROSEMIDE 40 MG/4 ML INJ (LASIX) IVP NR (16:00)
[2019-04-29] MEDS ORDERED: NON-FORMULARY MEDICATION 1 EA EA (Carvedilol 25 MG) PO SCH (21:00)
[2019-04-29] MEDS: CARVEDILOL 12.5 MG (COREG) TABLET PO SCH (21:13)
[2019-04-29] MEDS: ACETAMINOPHEN 500 MG TAB (TYLENOL) PO PRN (21:13)
--- NOTE | 2019-04-29 21:54 | History & Physical ---
HPI History of Present Illness: 69 yo F with multiple chronic medical conditions that presented to ER with increased shortness of breath for the last 4 days. States that she has been taking her medications and has not missed any doses. Denies any sick contacts. Denies any fever or chills. States that she has been taking her breathing treatments w/o any improvement. She has a baseline oxygen need at 2L NC Source: patient Exam Limitations: no limitations Date seen by provider: Apr 29, 2019 Time Seen by Provider: 09:45 Attending Physician Vincent Dang MD PCP Lizzette Cameron MD Facp Facc Ccds Consult Date of Admission Apr 28, 2019 at 20:25 Home Medications Home Medications Reviewed patient Home Medication Reconciliation performed by pharmacy medication reconciliations retail pharmacy technician and/or nursing. Patients Allergies have been reviewed. Allergies Coded Allergies: No Known Drug Allergies (Unverified , 05/07/17) FHF-[id number]-Rukhzd Hx Patient Social History Alcohol Use: Past History Recreational Drug Use: No Smoking Status: Current Everyday Smoker Type Used: Cigarettes Recent Foreign Travel: No Contact w/other who traveled: No Recent Hopitalizations: No Recent Infectious Disease Expo: No Immunizations Up To Date Tetanus Booster (TDap): Unknown Date of Pneumonia Vaccine: Mar 18, 2019 Date of Influenza Vaccine: Feb 15, 2019 Past Medical History Systolic CHF COPD HTN HLD PVD DM Tobacco Abuse Family Medical History Significant Family History: No Pertinent Family Hx Family History: Patient reports no known family medical history. Review of Systems ([facility]) Constitutional: No chills, No fever; malaise, weakness EENTM: no symptoms reported; No mouth pain, No nose congestion, No nose pain, No throat pain Respiratory: cough, dyspnea on exertion, orthopnea, short of breath Cardiovascular: No chest pain, No edema, No palpitations Gastrointestinal: no symptoms reported; No abdominal pain, No constipation, No diarrhea, No nausea, No vomiting Genitourinary: No dysuria, No frequency, No hematuria : No Musculoskeletal: no symptoms reported; No back pain, No joint pain, No muscle pain Skin: no symptoms reported; No lesions, No rash Psychiatric/Neurological: Anxiety Reviewed Test Results Reviewed Test Results Lab Laboratory Tests Test 04/28/19 23:45 04/29/19 00:03 04/29/19 03:15 04/29/19 06:00 Range/Units Troponin I 0.059 H 0.095 H <0.028 NG/ML Urine Color YELLOW Urine Clarity CLEAR Urine pH 5.5 5-9 Urine Specific [place] >=1.030 1.016-1.022 Urine Protein NEGATIVE NEGATIVE Urine Glucose (UA) NEGATIVE NEGATIVE Urine Ketones NEGATIVE NEGATIVE Urine Nitrite NEGATIVE NEGATIVE Urine Bilirubin NEGATIVE NEGATIVE Urine Urobilinogen 0.2 < = 1.0 MG/DL Urine Leukocyte Esterase NEGATIVE NEGATIVE Urine RBC (Auto) NEGATIVE NEGATIVE Urine RBC NONE /HPF Urine WBC NONE /HPF Urine Squamous Epithelial Cells 0-2 /HPF Urine Crystals NONE /LPF Urine Bacteria NEGATIVE /HPF Urine Casts NONE /LPF Urine Mucus NEGATIVE /LPF Urine Yeast LARGE H /HPF Urine Culture Indicated CULTURE PENDING White Blood Count 10.9 4.3-11.0 10^3/uL Red Blood Count 4.74 4.35-5.85 10^6/uL Hemoglobin 11.0 L 11.5-16.0 G/DL Hematocrit 36 35-52 % Mean Corpuscular Volume 77 L 80-99 FL Mean Corpuscular Hemoglobin 23 L 25-34 PG Mean Corpuscular Hemoglobin Concent 30 L 32-36 G/DL Red Cell Distribution Width 17.2 H 10.0-14.5 % Platelet Count 233 130-400 10^3/uL Mean Platelet Volume 10.3 7.4-10.4 FL Neutrophils (%) (Auto) 92 H 42-75 % Lymphocytes (%) (Auto) 8 L 12-44 % Monocytes (%) (Auto) 1 0-12 % Eosinophils (%) (Auto) 0 0-10 % Basophils (%) (Auto) 0 0-10 % Neutrophils # (Auto) 10.0 H 1.8-7.8 X 10^3 Lymphocytes # (Auto) 0.9 L 1.0-4.0 X 10^3 Monocytes # (Auto) 0.1 0.0-1.0 X 10^3 Eosinophils # (Auto) 0.0 0.0-0.3 10^3/uL Basophils # (Auto) 0.0 0.0-0.1 10^3/uL Sodium Level 137 135-145 MMOL/L Potassium Level 5.8 H 3.6-5.0 MMOL/L Chloride Level 104 98-107 MMOL/L Carbon Dioxide Level 17 L 21-32 MMOL/L Anion Gap 16 H 5-14 MMOL/L Blood Urea Nitrogen 36 H 7-18 MG/DL Creatinine 1.26 0.60-1.30 MG/DL Estimat Glomerular Filtration Rate 42 BUN/Creatinine Ratio 29 Glucose Level 176 H 70-105 MG/DL Calcium Level 9.2 8.5-10.1 MG/DL Corrected Calcium 9.4 8.5-10.1 MG/DL Phosphorus Level 3.5 2.3-4.7 MG/DL Magnesium Level 2.1 1.6-2.4 MG/DL Total Bilirubin 0.3 0.1-1.0 MG/DL Aspartate Amino Transf (AST/SGOT) 12 5-34 U/L Alanine Aminotransferase (ALT/SGPT) < 6 0-55 U/L Alkaline Phosphatase 93 40-136 U/L Total Protein 6.9 6.4-8.2 GM/DL Albumin 3.8 3.2-4.5 GM/DL Test 04/29/19 11:20 Range/Units Blood Gas Puncture Site RIGHT RADIAL Blood Gas Patient Temperature 36.6 Arterial Blood pH 7.39 7.37-7.43 Arterial Blood Partial Pressure CO2 34 L 35-45 MMHG Arterial Blood Partial Pressure O2 62 L 79-93 MMHG Arterial Blood HCO3 20 L 23-27 MMOL/L Arterial Blood Total CO2 20.8 L 21.0-31.0 MMOL/L Arterial Blood Oxygen Saturation 91 L 94-100 % Arterial Blood Base Excess -4.4 L -2.5-2.5 MMOL/L Jossue Test POSITIVE Blood Gas Ventilator Setting NO Blood Gas Inspired Oxygen 21% BIPAP Radiology NAME: MARIA DE [facility] REC#: [id number] PT STATUS: REG ER : 1950 PHYSICIAN: ROSE HOOKER MD ADMIT DATE: 04/28/19/ER Signed Date of Exam:04/28/19 CHEST 1 VIEW, AP/PA ONLY EXAMINATION: Chest 1 view HISTORY: Short of breath COMPARISON: 04/07/2019 FINDINGS: Median sternotomy wires are aligned. There are coronary artery bypass graft markers. Vascular stent projects over the upper mediastinum. Lungs are hyperinflated. There is mild to moderate pulmonary edema. There is distortion of the left hilum. Heart size normal. IMPRESSION: 1. Hyperinflated lungs with mild to moderate pulmonary edema. 2. Distortion of the left hilum, consider CT for further evaluation and to exclude an underlying mass. Dictated by: Dictated on workstation # [id number] Dict: 04/28/191931 Trans: 04/28/191940 BEATRICE [id number] Interpreted by: CHINTAN DAVILA MD Electronically signed by: CHINTAN DAVILA MD 04/28/191940 Physical Exam-([facility]) Physical Exam Vital Signs VS - Last 72 Hours, by Label POS 04/28/19 04/28/19 04/28/19 04/28/19 18:14 18:20 18:30 19:01 Temp 36.2 Pulse 105 103 Resp 28 31 B/P (MAP) 195/87 (123) Pulse Ox 95 100 99 O2 Delivery Room Air OxyMask OxyMask O2 Flow Rate 10.00 40.00 8.00 04/28/19 04/28/19 04/28/19 04/28/19 22:42 22:49 22:49 22:52 Temp 36.2 36.2 Pulse 88 93 105 92 Resp 20 31 B/P (MAP) 138/60 (123) Pulse Ox 100 100 95 O2 Delivery NIV Bilevel O2 Flow Rate 40.00 04/28/19 04/28/19 04/28/19 04/28/19 22:55 22:55 23:00 23:15 Temp 36.2 36.2 Pulse 92 92 86 89 Resp 26 22 26 26 B/P (MAP) 150/63 (92) 150/63 (92) 119/86 (97) 125/60 (81) Pulse Ox 100 100 100 99 O2 Delivery NIV Bilevel NIV Bilevel NIV Bilevel NIV Bilevel O2 Flow Rate 30.00 40.00 40.00 04/28/19 04/28/19 04/28/19 04/29/19 23:30 23:35 23:45 00:00 Temp 36.0 Pulse 84 91 Resp 20 24 B/P (MAP) 115/56 (75) 124/58 (80) Pulse Ox 99 99 O2 Delivery NIV Bilevel NIV Bilevel NIV Bilevel O2 Flow Rate 40.00 40.00 FiO2 40 04/29/19 04/29/19 04/29/19 04/29/19 00:00 00:00 01:00 01:00 Pulse 92 88 88 Resp 27 26 B/P (MAP) 142/63 (89) 154/81 (105) Pulse Ox 100 98 O2 Delivery NIV Bilevel NIV Bilevel NIV Bilevel O2 Flow Rate 40.00 40.00 FiO2 30 04/29/19 04/29/19 04/29/19 04/29/19 01:16 01:57 02:00 03:00 Pulse 83 79 87 Resp 25 19 30 B/P (MAP) 118/52 (74) 112/50 (70) Pulse Ox 98 96 97 O2 Delivery NIV Bilevel NIV Bilevel NIV Bilevel NIV Bilevel O2 Flow Rate 30.00 25.00 25.00 25.00 04/29/19 04/29/19 04/29/19 04/29/19 03:42 04:00 04:00 04:00 Temp 36.1 35.8 Pulse 71 Resp 20 B/P (MAP) 138/50 (79) Pulse Ox 96 O2 Delivery NIV Bilevel NIV Bilevel O2 Flow Rate 25.00 FiO2 25 04/29/19 04/29/19 04/29/19 04/29/19 05:00 06:00 06:43 06:44 Pulse 59 75 58 57 Resp 20 23 20 B/P (MAP) 120/83 (95) 142/59 (86) Pulse Ox 96 96 95 O2 Delivery NIV Bilevel NIV Bilevel O2 Flow Rate 25.00 25.00 25.00 04/29/19 04/29/19 04/29/19 04/29/19 07:00 08:00 08:30 09:00 Pulse 68 54 69 Resp 22 21 21 B/P (MAP) 132/52 (78) 121/54 (76) 140/62 (88) Pulse Ox 97 96 96 O2 Delivery NIV Bilevel NIV Bilevel NIV Bilevel NIV Bilevel O2 Flow Rate 25.00 25.00 25.00 FiO2 25 04/29/19 04/29/19 04/29/19 04/29/19 10:00 10:45 10:45 11:00 Pulse 56 79 81 Resp 18 27 39 B/P (MAP) 128/50 (76) 133/61 (85) Pulse Ox 97 95 92 O2 Delivery NIV Bilevel NIV Bilevel NIV Bilevel O2 Flow Rate 25.00 21.00 21.00 21.00 04/29/19 04/29/19 04/29/19 04/29/19 12:00 12:30 12:45 13:00 Pulse 99 98 101 Resp 36 32 B/P (MAP) 143/61 (88) 121/60 (80) Pulse Ox 93 88 O2 Delivery NIV Bilevel NIV Bilevel NIV Bilevel O2 Flow Rate 21.00 21.00 FiO2 21 04/29/19 04/29/19 04/29/19 04/29/19 13:09 14:00 14:50 15:00 Pulse 78 B/P (MAP) 122/59 (80) 112/78 (89) Pulse Ox 95 O2 Delivery NIV Bilevel NIV Bilevel NIV Bilevel NIV Bilevel O2 Flow Rate 25.00 25.00 40.00 40.00 04/29/19 04/29/19 04/29/19 04/29/19 15:00 15:19 15:30 16:00 Temp 36.8 B/P (MAP) 112/78 (89) Pulse Ox 95 93 O2 Delivery NIV Bilevel Nasal Cannula Nasal Cannula O2 Flow Rate 25.00 2.00 2.00 04/29/19 04/29/19 04/29/19 04/29/19 16:00 16:30 17:00 18:00 Pulse 96 88 73 Resp 39 19 B/P (MAP) 122/66 (84) 110/60 (77) 128/50 (76) Pulse Ox 96 94 100 O2 Delivery Nasal Cannula Nasal Cannula Nasal Cannula Nasal Cannula O2 Flow Rate 2.00 2.00 2.00 2.00 04/29/19 04/29/19 18:41 20:00 Temp 36.8 Pulse Ox 100 O2 Delivery Nasal Cannula O2 Flow Rate 3.00 Capillary Refill : Less Than 3 Seconds General Appearance: thin (elderly female, mild distress) HEENT: PERRL/EOMI Neck: non-tender, full range of motion Respiratory: chest non-tender, wheezing Cardiovascular: normal peripheral pulses, regular rate, rhythm Gastrointestinal: normal bowel sounds, non tender, soft, no organomegaly Back: no CVA tenderness Extremities: no pedal edema, no calf tenderness, normal capillary refill Neurologic/Psychiatric: oven drier tender II-XII nml as tested, no motor/sensory deficits, alert, normal mood/affect, oriented x 3 Skin: other (Wound on left foot) Lymphatic: no adenopathy Assessment/Plan Assessment/Plan Admission Status: Inpatient Order (span 2 midnights) Reason for Inpatient Admission: Increased oxygen need, patient on bipap, requires ICU monitoring (1) Acute respiratory failure with hypoxia and hypercapnia Status: Acute Assessment & Plan: - Patient currently on bipap, Dr Salazar consulted and managing, appreciate recommendations, will begin to titrate once ABG improved (2) Acute on chronic systolic (congestive) heart failure Status: Acute Assessment & Plan: - Dr Camreon consulted and managing, appreciate recommendations (3) COPD exacerbation Status: Acute (4) PAD (peripheral artery disease) Status: Chronic Assessment & Plan: - Wound present, will notify Dr Shelton since patient follows with him as outpatient (5) Ischemic cardiomyopathy Status: Chronic (6) CAD (coronary artery disease) Status: Chronic Qualifiers: Qualified Codes: I25.10 - Atherosclerotic heart disease of [place] coronary artery without angina pectoris (7) Non-insulin dependent type 2 diabetes mellitus Status: Chronic (8) Essential (primary) hypertension Status: Chronic (9) DVT prophylaxis Assessment & Plan: - Lovenox Clinical Quality Measures DVT/VTE Risk/Contraindication: Risk Factor Score Per Nursin RFS Level Per Nursing on Admit: 4+=Very High VINCENT DANG MD Apr 29, 2019 21:53 POS
[2019-04-30] VITALS (19 sets, daily range): BP systolic 116–176; BP diastolic 57–100
[2019-04-30] MEDS: methylPREDNISolone 40 MG/ML (Solu-MEDROL) VIAL IV SCH ×5 (00:58→23:38)
[2019-04-30] MEDS: RT-ALBUTEROL/IPRATROPIUM 3 ML (DUONEB) VIAL INH SCH ×5 (01:58→19:53)
[2019-04-30 03:14] LABS: BASOPHILS % (AUTO) 0 % (0-10); EOSINOPHILS % (AUTO) 0 % (0-10); HEMATOCRIT 34 % (35-52); HEMOGLOBIN 9.8 G/DL (11.5-16.0); LYMPHOCYTES # (AUTO) 0.9 X 10^3 (1.0-4.0); LYMPHOCYTES % (AUTO) 9 % (12-44); MEAN CORPUSCULAR HEMOGLOBIN 23 PG (25-34); MEAN CORPUSCULAR HGB CONC 29 G/DL (32-36); MEAN CORPUSCULAR VOLUME 80 FL (80-99); MEAN PLATELET VOLUME 10.7 FL (7.4-10.4); MONOCYTES # (AUTO) 0.4 X 10^3 (0.0-1.0); MONOCYTES % (AUTO) 4 % (0-12); NEUTROPHILS # (AUTO) 8.6 X 10^3 (1.8-7.8); NEUTROPHILS % (AUTO) 86 % (42-75); PLATELET COUNT 183 10^3/uL (130-400); RED CELL DISTRIBUTION WIDTH 17.1 % (10.0-14.5)
[2019-04-30 03:45] LABS: CREATININE SERUM 1.29 MG/DL (0.60-1.30); POTASSIUM 4.4 MMOL/L (3.6-5.0)
[2019-04-30 03:46] LABS: CALCIUM 8.6 MG/DL (8.5-10.1); PHOSPHORUS 3.9 MG/DL (2.3-4.7)
--- NOTE | 2019-04-30 05:06 | Pulmonary Consultation ---
History of Present Illness History of Present Illness Date of Admission Allergies and Home Medications Allergies Coded Allergies: No Known Drug Allergies (Unverified , 05/07/17) Home Medications Acetaminophen 500 Mg Tablet, 1,000 MG PO Q4H PRN for PAIN-MILD, (Reported) Albuterol Sulfate 1 Puff Puff, 2 PUFF INH Q6H PRN for SHORTNESS OF BREATH, (Reported) Amiodarone HCl 200 Mg Tablet, 100 MG PO DAILY, (Reported) TAKES 1/2 (200MG) TABLET Aspirin 81 Mg Tablet.dr, 81 MG PO DAILY, (Reported) Atorvastatin Calcium 80 Mg Tablet, 80 MG PO HS, (Reported) Baclofen 10 Mg Tablet, 10 MG PO HS PRN for MUSCLE SPASMS, (Reported) Carvedilol 25 Mg Tablet, 25 MG PO BID, (Reported) Cefdinir 300 Mg Capsule, 300 MG PO BID, (Reported) 7 DAY SUPPLY FILLED 04-22-19 Cetirizine HCl 10 Mg Tablet, 10 MG PO DAILY PRN for ALLERGIES, (Reported) Citalopram Hydrobromide 10 Mg Tablet, 10 MG PO DAILY, (Reported) Clopidogrel Bisulfate 75 Mg Tablet, 75 MG PO DAILY, (Reported) Fluticasone/Vilanterol 1 Each Blst.w.dev, 1 PUFF IH HS, (Reported) Furosemide 40 Mg Tablet, 40 MG PO DAILY, (Reported) Gabapentin 300 Mg Capsule, 300 MG PO HS, (Reported) Ipratropium/Albuterol Sulfate 3 Ml Ampul.neb, 3 ML NEB QID PRN for SHORTNESS OF BREATH, (Reported) Lisinopril 10 Mg Tablet, 10 MG PO DAILY, (Reported) Metformin HCl 1,000 Mg Tablet, 1,000 MG PO BID, (Reported) Nicotine 1 Each Patch.td24, 21 MG TD DAILY, (Reported) Potassium Chloride 10 Meq Capsule.er, 10 MEQ PO DAILY, (Reported) Ropinirole HCl 1 Mg Tablet, 1 MG PO HS, (Reported) Spironolactone 25 Mg Tablet, 25 MG PO DAILY, (Reported) Triamterene/Hydrochlorothiazid 1 Each Tablet, 1 TAB PO DAILY, (Reported) Trospium Chloride 20 Mg Tablet, 20 MG PO BID, (Reported) Past Zfymjtv-Bgtmfc-Hcamtg Hx Patient Social History Alcohol Use: Past History Number of Drinks Today: AA Alcohol Beverage of Choice: Beer Recreational Drug Use: No Smoking Status: Current Everyday Smoker Type Used: Cigarettes Recent Foreign Travel: No Contact w/Someone Who Travel: No Recent Infectious Disease Expo: No Recent Hopitalizations: No Physical Abuse: No Sexual Abuse: No Mistreated: No Fear: No Immunizations Up To Date Tetanus Booster (TDap): Unknown PED Vaccines UTD: Yes Date of Pneumonia Vaccine: Mar 18, 2019 Date of Influenza Vaccine: Feb 15, 2019 Seasonal Allergies Seasonal Allergies: No Past Medical History Surgeries: Yes Cardiac, CABG, Hysterectomy, Open Heart Surgery Respiratory: Yes (OXYGEN PRN) Asthma, COPD Currently Using CPAP: No Currently Using BIPAP: No Cardiac: Yes Coronary Artery Disease, Hypertension Neurological: Yes Stroke Female Reproductive Disorders: Denies 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 No Pertinent Family Hx Sepsis Event Evaluation Height, Weight, BMI Height: 5'4.00" Weight: 130lbs. 9.0oz. [id number]; 18.00 BMI Method:Estimated Exam Exam Vital Signs Date Time Temp Pulse Resp B/P (MAP) Pulse Ox O2 Delivery O2 Flow Rate FiO2 04/30/19 04:00 66 20 162/66 (98) 96 NIV Bilevel 25.00 04/30/19 03:50 NIV Bilevel 25 04/30/19 03:10 NIV Bilevel 25.00 04/30/19 03:00 86 28 154/76 (102) 94 NIV Bilevel 21.00 04/30/19 02:22 NIV Bilevel 21.00 04/30/19 02:00 80 27 160/66 (97) 98 Nasal Cannula 2.00 04/30/19 01:58 96 Nasal Cannula 1.00 04/30/19 01:00 76 25 116/57 (76) 96 Nasal Cannula 2.00 04/30/19 01:00 80 04/30/19 00:00 36.2 04/30/19 00:00 73 20 116/57 (76) 97 Nasal Cannula 2.00 04/30/19 00:00 Nasal Cannula 2.00 04/29/19 23:00 72 20 146/55 (85) 99 Nasal Cannula 2.00 04/29/19 22:07 98 Nasal Cannula 2.00 04/29/19 22:00 70 21 99 Nasal Cannula 2.00 04/29/19 21:00 72 19 142/53 (82) 98 Nasal Cannula 2.00 04/29/19 20:00 36.8 04/29/19 20:00 84 30 133/61 (85) 97 Nasal Cannula 2.00 04/29/19 20:00 Nasal Cannula 2.00 04/29/19 19:00 86 04/29/19 19:00 86 29 134/62 (86) 98 Nasal Cannula 2.00 04/29/19 18:41 100 Nasal Cannula 3.00 04/29/19 18:00 73 19 128/50 (76) 100 Nasal Cannula 2.00 04/29/19 17:00 88 39 110/60 (77) 94 Nasal Cannula 2.00 04/29/19 16:30 Nasal Cannula 2.00 04/29/19 16:00 96 122/66 (84) 96 Nasal Cannula 2.00 04/29/19 16:00 36.8 04/29/19 15:30 Nasal Cannula 2.00 04/29/19 15:19 93 Nasal Cannula 2.00 04/29/19 15:00 112/78 (89) 95 NIV Bilevel 25.00 04/29/19 15:00 112/78 (89) NIV Bilevel 40.00 04/29/19 14:50 NIV Bilevel 40.00 04/29/19 14:00 78 122/59 (80) 95 NIV Bilevel 25.00 04/29/19 13:09 NIV Bilevel 25.00 04/29/19 13:00 101 32 121/60 (80) 88 NIV Bilevel 21.00 04/29/19 12:45 98 04/29/19 12:30 NIV Bilevel 21 04/29/19 12:00 99 36 143/61 (88) 93 NIV Bilevel 21.00 04/29/19 11:00 81 39 133/61 (85) 92 NIV Bilevel 21.00 04/29/19 10:45 NIV Bilevel 21.00 04/29/19 10:45 79 27 95 21.00 04/29/19 10:00 56 18 128/50 (76) 97 NIV Bilevel 25.00 04/29/19 09:00 69 21 140/62 (88) 96 NIV Bilevel 25.00 04/29/19 08:30 NIV Bilevel 25 04/29/19 08:00 54 21 121/54 (76) 96 NIV Bilevel 25.00 04/29/19 07:00 68 22 132/52 (78) 97 NIV Bilevel 25.00 04/29/19 06:44 57 20 95 25.00 04/29/19 06:43 58 04/29/19 06:00 75 23 142/59 (86) 96 NIV Bilevel 25.00 I & O 04/30/19 07:00 Intake Total 1650 ml Output Total 1530 ml Balance 120 ml Height & Weight Height: 5'4.00" Weight: 130lbs. 9.0oz. 58.995107rp; 18.00 BMI Method:Estimated Capillary Refill: Less Than 3 Seconds Gastrointestinal: normal bowel sounds, non tender, soft, no organomegaly Results Lab Laboratory Tests 04/28/19 18:20 04/29/19 03:15 04/30/19 03:01 Assessment/Plan Assessment/Plan Acute on chronic respiratory failure -Continue BiPAP QHS and PRN for now. -Will trail off pt this AM -SVNS Q 4 -Oxygen -Solumedrol 40 IV Q 6 -Continue Cefepime for now -Check CT of chest with contrast to r/o mass COPDAE Acute on chronic CHF -Cardiology following -Lasix 40mg IV daily CAD NSTEMI -Cardiology following MARGARITA CHAMORRO DO Apr 30, 2019 05:06 POS
[2019-04-30] MEDS: NS IV 1000 ML 1,000 ML IV SCH ×2 (05:24→17:24)
[2019-04-30] MEDS: CEFEPIME INJECTION 2,000 MG in WATER (STERILE) FOR INJECTION 20 ML IV SCH (06:20)
[2019-04-30] MEDS ORDERED: NS IV 500 ML 500 ML IV ONE (08:45)
[2019-04-30] MEDS ORDERED: lisINopril 10 MG (PRINIVIL) TABLET PO SCH (09:00)
[2019-04-30] MEDS ORDERED: FUROSEMIDE 40 MG/4 ML INJ (LASIX) IVP SCH (09:00)
[2019-04-30] MEDS: AMIODARONE 200 MG (CORDARONE) TAB PO SCH (09:16)
[2019-04-30] MEDS: ASPIRIN E.C. 81 MG (ECOTRIN) TAB PO SCH (09:16)
[2019-04-30] MEDS: CARVEDILOL 12.5 MG (COREG) TABLET PO SCH ×2 (09:17→19:54)
[2019-04-30] MEDS: CLOPIDOGREL 75 MG (PLAVIX) TABLET PO SCH (09:18)
[2019-04-30] MEDS: NICOTINE 7 MG (NICODERM) PATCH TD SCH (09:18)
--- NOTE | 2019-04-30 09:22 | Progress Note - Cardiology ---
Cardiology SOAP Progress Note Subjective: Weak and tired and short of breath No cp or palp or syncope or swelling Objective: I&O/Vital Signs 04/29/19 04/29/19 04/29/19 04/30/19 22:00 22:07 23:00 00:00 Pulse 70 72 Resp 21 20 B/P (MAP) 146/55 (85) Pulse Ox 99 98 99 O2 Delivery Nasal Cannula Nasal Cannula Nasal Cannula Nasal Cannula O2 Flow Rate 2.00 2.00 2.00 2.00 04/30/19 04/30/19 04/30/19 04/30/19 00:00 00:00 01:00 01:00 Temp 36.2 Pulse 73 80 76 Resp 20 25 B/P (MAP) 116/57 (76) 116/57 (76) Pulse Ox 97 96 O2 Delivery Nasal Cannula Nasal Cannula O2 Flow Rate 2.00 2.00 04/30/19 04/30/19 04/30/19 04/30/19 01:58 02:00 02:22 03:00 Pulse 80 86 Resp 27 28 B/P (MAP) 160/66 (97) 154/76 (102) Pulse Ox 96 98 94 O2 Delivery Nasal Cannula Nasal Cannula NIV Bilevel NIV Bilevel O2 Flow Rate 1.00 2.00 21.00 21.00 04/30/19 04/30/19 04/30/19 04/30/19 03:10 03:50 04:00 05:00 Pulse 66 64 Resp 20 16 B/P (MAP) 162/66 (98) 164/67 (99) Pulse Ox 96 94 O2 Delivery NIV Bilevel NIV Bilevel NIV Bilevel NIV Bilevel O2 Flow Rate 25.00 25.00 25.00 FiO2 25 04/30/19 04/30/19 04/30/19 04/30/19 06:00 07:00 07:00 07:25 Pulse 62 65 62 72 Resp 16 14 23 B/P (MAP) 168/86 (113) 165/100 (121) Pulse Ox 89 89 88 O2 Delivery NIV Bilevel NIV Bilevel O2 Flow Rate 25.00 25.00 21.00 04/30/19 04/30/19 08:00 09:00 Pulse 75 65 B/P (MAP) 171/94 (119) 170/66 (100) Pulse Ox 97 98 O2 Delivery NIV Bilevel NIV Bilevel O2 Flow Rate 25.00 25.00 04/30/19 00:00 Intake Total 1400 ml Output Total 825 ml Balance 575 ml Weight (Pounds): 130 Weight (Ounces): 9.0 Weight (Calculated Kilograms): 58.973613 Constitutional: AAO x 3, other (cachexia) Respiratory: No accessory muscle use, No respiratory distress; chest expansion is symmetric, chest is bilaterally symmetric, other (fair air entry) Cardiovascular: regular rate-rhythm; No JVD; S1 and S2, systolic murmur (soft), other (ACW tenderness with palpation) Gastrointestional: No tender; soft, audible bowel sounds Extremities: no lower extremity edema bilateral Neurologic/Psychiatric: oriented x 3, other (moves all limbs equally) Skin: No rash on exposed areas, No ulcerations on exposed areas Results/Procedures: Labs Laboratory Tests 04/29/19 11:20: Blood Gas Puncture Site RIGHT RADIAL, Blood Gas Patient Temperature 36.6, Arterial Blood pH 7.39, Arterial Blood Partial Pressure CO2 34L, Arterial Blood Partial Pressure O2 62L, Arterial Blood HCO3 20L, Arterial Blood Total CO2 20.8L , Arterial Blood Oxygen Saturation 91L, Arterial Blood Base Excess -4.4L, Jossue Test POSITIVE, Blood Gas Ventilator Setting NO, Blood Gas Inspired Oxygen 21% BIPAP 04/30/19 03:01: White Blood Count 10.0, Red Blood Count 4.19L, Hemoglobin 9.8L, Hematocrit 34L, Mean Corpuscular Volume 80, Mean Corpuscular Hemoglobin 23L, Mean Corpuscular Hemoglobin Concent 29L, Red Cell Distribution Width 17.1H, Platelet Count 183, Mean Platelet Volume 10.7H, Neutrophils (%) (Auto) 86H, Lymphocytes (%) (Auto) 9L, Monocytes (%) (Auto) 4, Eosinophils (%) (Auto) 0, Basophils (%) (Auto) 0, Neutrophils # (Auto) 8.6H, Lymphocytes # (Auto) 0.9L, Monocytes # (Auto) 0.4, Eosinophils # (Auto) 0.0, Basophils # (Auto) 0.0, Sodium Level 140, Potassium Level 4.4, Chloride Level 106, Carbon Dioxide Level 19L, Anion Gap 15H, Blood Urea Nitrogen 43H, Creatinine 1.29, Estimat Glomerular Filtration Rate 41, BUN/Creatinine Ratio 33, Glucose Level 193H, Calcium Level 8.6, Phosphorus Level 3.9, Magnesium Level 2.0 Microbiology 04/28/19 Blood Culture - Preliminary, Resulted No growth 04/28/19 Influenza Types A,B Antigen (ANATOLY) - Final, Complete Laboratory Tests 04/28/19 18:20 04/29/19 03:15 04/30/19 03:01 A/P: Assessment: Acute exacerbation of COPD Ac on chronic systolic CHF due to severe ischemic cardiomyopathy Type 2 [place] likely secondary to hypoxia Slow atrial flutter with 2:1 AV conduction vs sinus tach on ECG of 04/06/19 CAD. S/p CABG in 2012. Card cath of 03/04/19: 40% LMCA, multiple 60% in LAD, 60- 70% prox LCX, 100% mid LCX, 70-80% distal OM2 at distal bifurcation, 100% mid RCA in a long stented segment, patent DAIGLE to LAD, patent stented L subclavian, patent SVG to distal LCX, LVEDP 21, LVEF 10% Echo of 03/02/19: LVEF 15-20%, mod enlargement of LA, mod MR and TR, RVSP 57 mmHg - refuses Life Vest Pulmonary hypertension, probably secondary to L heart failure H/o L-sided, ischemic foot ulcer, improved after L SFA intervention on 02/15/19 and improvement of L TBI from less than 0.3 to 0.72. Considerable disease on the R, but no symptoms or ischemic ulcers on the R PAD - Angio and intervention of 02/15/19: Long total occlusion of the left superficial femoral artery to which successful balloon angioplasty was carried out with reduction of stenosis to less than 30%; other lesions included 70% to 80% stenosis of the right external iliac and the right common femoral and of the left ant tibial in its proximal portion H/o COPD and asthma Abnormal ECG: NSR with PVCs, LVH with repol abnormality H/o left CEA - details unknown HTN HLP DM Type 2 Chronic tobacco use - cessation advised Hyperkalemia at presentation, now resolved Plan: * Currently hypertensive and tachycardic. Adjust meds (see orders) * Continue diuretic * Monitor labs closely * Management of ac exac of COPD is with the Med and Pulm Svces * Complex management and guarded prognosis due to multiple comorbidities NOE RUIZ MD FACP FACC CCDS Apr 30, 2019 09:22 POS
[2019-04-30] MEDS ORDERED: lisINopril 10 MG (PRINIVIL) TABLET PO ONE (09:30)
[2019-04-30] MEDS ORDERED: ALPRAZolam 0.25 MG (XANAX) TAB PO ONE (10:00)
--- NOTE | 2019-04-30 10:00 | Progress Note - Hospitalist ---
Subjective HPI/CC On Admission Date Seen by Provider: Apr 30, 2019 Time Seen by Provider: 09:15 Subjective/Events-last exam Patient admits to less shortness of breath at rest still severely short of breath with any activity. Staff states she is extremely anxious with normal vital signs and good oxygen levels with significant improvement in wheezing with no accessory muscle use when sleeping. Focused Exam Lactate Level 04/28/19 18:30: Lactic Acid Level 1.51 Objective Exam Vital Signs Vital Signs Date Time Temp Pulse Resp B/P (MAP) Pulse Ox O2 Delivery O2 Flow Rate FiO2 04/30/19 09:00 65 170/66 (100) 98 NIV Bilevel 25.00 04/30/19 07:25 23 04/30/19 03:50 25 04/30/19 00:00 36.2 Capillary Refill : Less Than 3 Seconds General Appearance: Anxious, Chronically ill Respiratory: No Accessory Muscle Use, No Respiratory Distress, Other (No wheezing noted this morning she has significant diminished breath sounds posteriorly and anterior chest is clear) Cardiovascular: Regular Rate, Rhythm, No Edema, No Gallop, No JVD, No Murmur, Normal Peripheral Pulses Results/Procedures Lab Laboratory Tests 04/30/19 03:01 Patient resulted labs reviewed. Assessment/Plan Assessment and Plan Assess & Plan/Chief Complaint (1) Acute respiratory failure with hypoxia and hypercapnia Status: Acute Assessment & Plan: - Patient currently on bipap, Dr Salazar consulted and managing, appreciate recommendations, will begin to titrate once ABG improved 04/30/19: CO2 retention significantly improving respiratory status improving. 4 secondary anxiety major component of this patient's problem with this time we will try low-dose Xanax 0.125 mg now then every 8 hours when necessary. (2) Acute on chronic systolic (congestive) heart failure Status: Acute Assessment & Plan: - Dr Cameron consulted and managing, appreciate recommendations (3) COPD exacerbation Status: Acute (4) PAD (peripheral artery disease) Status: Chronic Assessment & Plan: - Wound present, will notify Dr Shelton since patient follows with him as outpatient (5) Ischemic cardiomyopathy Status: Chronic (6) CAD (coronary artery disease) Status: Chronic Qualifiers: Qualified Codes: I25.10 - Atherosclerotic heart disease of [place] coronary artery without angina pectoris (7) Non-insulin dependent type 2 diabetes mellitus Status: Chronic (8) Essential (primary) hypertension Status: Chronic (9) DVT prophylaxis Assessment & Plan: - [facility] Critical Care Critically Ill Patient Clinical Quality Measures DVT/VTE Risk/Contraindication: Risk Factor Score Per Nursin RFS Level Per Nursing on Admit: 4+=Very High ANIL DUNN MD Apr 30, 2019 10:00 POS
--- NOTE | 2019-04-30 10:13 | Diagnostic Imaging Report ---
Indication: COPD and respiratory failure. Portable chest obtained at 03:35 a.m. and compared to yesterday. There is poststernotomy change. The heart is normal in size. There are extensive chronic appearing increased interstitial markings. There is hyperinflation compatible with COPD. There is no new consolidation or pneumothorax or pleural fluid. IMPRESSION: COPD changes and chronic interstitial changes are similar to yesterday. There is no new infiltrate or pneumothorax or pleural fluid. Dictated by: Dictated on workstation # [id number]
[2019-04-30] MEDS ORDERED: IOHEXOL 350 MG/ML 100 ML (OMNIPAQUE 350) VIAL IV ONE (12:00)
[2019-04-30] MEDS ORDERED: HOLD METFORMIN - RECEIVED CONTRAST 20 ML VIAL IV SCH (12:00)
[2019-04-30] MEDS ORDERED: NS 100 ML (IVPB) BAG IV ONE (12:00)
--- NOTE | 2019-04-30 12:18 | Diagnostic Imaging Report ---
PROCEDURE: CT chest with contrast only. TECHNIQUE: Multiple contiguous axial images were obtained through the chest after administration of intravenous contrast. Auto Exposure Controls were utilized during the CT exam to meet ALARA standards for radiation dose reduction. DATE: April 30, 2019 COMPARISON: April 30, 2019 chest radiograph. INDICATION: 69-year-old female, hypoxia. History of sepsis. FINDINGS: There are upper lobe predominant findings of emphysema. There is dependent somewhat nodular airspace consolidation in the left lower lobe on axial image 103 and adjacent sequential images. There are adjacent areas of potential tree-in-bud type nodularity. There is prominent respiratory motion artifact at this level. There is no otherwise identified potential pulmonary nodule or lung mass. There is no additional focal airspace consolidation. There is no pneumothorax. There is no pleural effusion. There is no identified pulmonary embolus. The main pulmonary artery measures 3.1 cm in diameter which is above upper limits of normal and may reflect pulmonary artery hypertension. There are coronary artery calcifications and prominent additional findings of atherosclerotic disease. There is no pericardial effusion. There are mildly prominent hilar lymph nodes bilaterally measuring up to approximately 9 mm in short axis. There is no abnormally enlarged axillary lymph node or otherwise noted mediastinal lymph node specifically meeting CT size criteria for adenopathy. The patient is status post cholecystectomy. There are multilevel degenerative changes of the spine. There are median sternotomy wires. There is a compression fracture of L1 with complete vertebral body height loss. There is retropulsion beyond the expected posterior vertebral body margin measuring 7 mm with associated high-grade spinal stenosis. There is also a compression deformity of L3 with approximately 90% height loss centrally and mild retropulsion without high-grade bony stenosis of the spinal canal. Comparison imaging is not available to assess possible chronicity of findings. IMPRESSION: CT CHEST. 1. Compression deformity of L1 with complete vertebral body height loss and retropulsion measuring 7 mm with associated high-grade spinal stenosis. This fracture is of unclear exact age. 2. Additional age-indeterminate compression deformity of L3 without high-grade spinal stenosis at this level. 3. Nonspecific somewhat nodular airspace consolidation in the left lower lobe which could relate to aspiration, pneumonia, or other inflammatory etiology. This is new since February 04, 2019. Neoplastic etiology is significantly less likely. Follow-up imaging to confirm resolution would be recommended. 4. Upper lobe predominant findings of emphysema. 5. Findings consistent with pulmonary artery hypertension. No evidence of pulmonary embolus. Dictated by: Dictated on workstation # [id number]
[2019-04-30] MEDS: ACETAMINOPHEN 500 MG TAB (TYLENOL) PO PRN ×2 (15:52→23:38)
--- NOTE | 2019-04-30 16:05 | NUR ---
TRANSFERRED FROM ICU TO ROOM 432. ALERT. SKIN W/D. RESP. LABORED. COLOR ASHEN. LEFT TOP OF FOOT WOUND APPROX. 1 CM OPENED AREA WITH MIN. AMT. YELLOWISH/BLOODY DRAINAGE. PT. C/O OF SEVERE PAIN IN LEFT FOOT WOUND. FAINT PEDAL PULES NIKOLAI WHEN PALPITATED. CLEANSED AREA WITH NORMAL SALINE AND MEDI-HONEY DRESSING APPLIED PER PT. INSTRUCTIONS, THEN 4 X 4 AND KERLIX APPLIED. O2 ON PER N/C AT 2.5 L/MIN. . WHEEZES SCATTERED NIKOLAI WHEN LUNGS ASCULATED. IV FLUIDS TO LEFT WRIST IN PLACE WITHOUT REDNESS OR SWELLING NOTED. GRANGER CATH IN PLACE WITH YELLOW URINE NOTED.
[2019-04-30] MEDS: ALPRAZolam 0.25 MG (XANAX) TAB PO PRN (17:19)
[2019-05-01] VITALS: BP 164/73
[2019-05-01] MEDS: RT-ALBUTEROL/IPRATROPIUM 3 ML (DUONEB) VIAL INH SCH ×7 (00:35→22:46)
[2019-05-01] MEDS: ALPRAZolam 0.25 MG (XANAX) TAB PO PRN ×2 (02:33→11:32)
[2019-05-01 04:30] VITALS: BP 161/68
[2019-05-01] MEDS ORDERED: CEFEPIME 2 GM (MAXIPIME) VIAL ONE (05:28)
[2019-05-01] MEDS ORDERED: WATER (STERILE) FOR INJECTION 20 ML ONE (05:29)
[2019-05-01] MEDS: methylPREDNISolone 40 MG/ML (Solu-MEDROL) VIAL IV SCH ×3 (05:37→20:11)
[2019-05-01] MEDS: CEFEPIME INJECTION 2,000 MG in WATER (STERILE) FOR INJECTION 20 ML IV SCH (05:37)
[2019-05-01 06:00] LABS: BASOPHILS % (AUTO) 0 % (0-10); EOSINOPHILS % (AUTO) 0 % (0-10); HEMATOCRIT 33 % (35-52); HEMOGLOBIN 9.7 G/DL (11.5-16.0); LYMPHOCYTES # (AUTO) 1.2 X 10^3 (1.0-4.0); LYMPHOCYTES % (AUTO) 9 % (12-44); MEAN CORPUSCULAR HEMOGLOBIN 23 PG (25-34); MEAN CORPUSCULAR HGB CONC 29 G/DL (32-36); MEAN CORPUSCULAR VOLUME 79 FL (80-99); MEAN PLATELET VOLUME 10.5 FL (7.4-10.4); MONOCYTES # (AUTO) 0.6 X 10^3 (0.0-1.0); MONOCYTES % (AUTO) 4 % (0-12); NEUTROPHILS # (AUTO) 11.4 X 10^3 (1.8-7.8); NEUTROPHILS % (AUTO) 86 % (42-75); PLATELET COUNT 184 10^3/uL (130-400); RED CELL DISTRIBUTION WIDTH 17.4 % (10.0-14.5); WHITE BLOOD COUNT 13.2 10^3/uL (4.3-11.0)
[2019-05-01 06:19] LABS: CALCIUM 8.2 MG/DL (8.5-10.1); CREATININE SERUM 1.09 MG/DL (0.60-1.30); MAGNESIUM 2.2 MG/DL (1.6-2.4); POTASSIUM 4.4 MMOL/L (3.6-5.0)
[2019-05-01 08:00] VITALS: BP 161/82
--- NOTE | 2019-05-01 08:08 | Diagnostic Imaging Report ---
INDICATION: Hypoxia and COPD exacerbation Comparison made with prior examination of 04/30/2019. FINDINGS: The heart size is normal. There has been previous median sternotomy and coronary artery bypass graft. There is some venous congestion. No pleural effusion or pneumothorax. Mediastinum is unremarkable. IMPRESSION: Central pulmonary venous congestion, otherwise unremarkable. Dictated by: Dictated on workstation # [id number]
[2019-05-01] MEDS: NICOTINE 7 MG (NICODERM) PATCH TD SCH (08:37)
[2019-05-01] MEDS: ASPIRIN E.C. 81 MG (ECOTRIN) TAB PO SCH (08:37)
[2019-05-01] MEDS: lisINopril 20 MG (PRINIVIL) TABLET PO SCH (08:37)
[2019-05-01] MEDS: CARVEDILOL 12.5 MG (COREG) TABLET PO SCH ×2 (08:37→20:11)
[2019-05-01] MEDS: CLOPIDOGREL 75 MG (PLAVIX) TABLET PO SCH (08:37)
[2019-05-01] MEDS: AMIODARONE 200 MG (CORDARONE) TAB PO SCH (08:37)
[2019-05-01] MEDS: ACETAMINOPHEN 500 MG TAB (TYLENOL) PO PRN (08:38)
[2019-05-01] MEDS: NS IV 1000 ML 1,000 ML IV SCH ×2 (08:38→20:11)
--- NOTE | 2019-05-01 11:41 | Progress Note - Hospitalist ---
Subjective HPI/CC On Admission Date Seen by Provider: May 01, 2019 Time Seen by Provider: 11:37 Subjective/Events-last exam Patient anxious on one hand wanting no she can go home on the other only tolerated being off BiPAP for 5 minutes before she was requesting to have it put back on asking for medication for anxiety. We have initiated 0.125 mg of alprazolam yesterday which helps a little with no evidence for sedation corroborated by nursing staff. No chest pain or significant coughing reported Focused Exam Lactate Level 04/28/19 18:30: Lactic Acid Level 1.51 Objective Exam Vital Signs Vital Signs Date Time Temp Pulse Resp B/P (MAP) Pulse Ox O2 Delivery O2 Flow Rate FiO2 05/01/19 09:57 94 Nasal Cannula 2.00 05/01/19 08:00 36.9 92 24 161/82 (108) 04/30/19 03:50 25 Capillary Refill : Less Than 3 Seconds General Appearance: Anxious, Chronically ill Respiratory: No Accessory Muscle Use, No Respiratory Distress, Decreased Breath Sounds, Other (No wheezing noted) Cardiovascular: Regular Rate, Rhythm, No Edema, No Gallop, No JVD, No Murmur Results/Procedures Lab Laboratory Tests 05/01/19 05:45 Patient resulted labs reviewed. Assessment/Plan Assessment and Plan Assess & Plan/Chief Complaint (1) Acute respiratory failure with hypoxia and hypercapnia Status: Acute Assessment & Plan: - Patient currently on bipap, Dr Salazar consulted and managing, appreciate recommendations, will begin to titrate once ABG improved 04/30/19: CO2 retention significantly improving respiratory status improving. 4 secondary anxiety major component of this patient's problem with this time we will increase alprazolam to 0.25 mg every 8 hours and monitor for sedation. We will decrease Solu-Medrol to 40 mg IV every 12 and consider switch to prednisone in the near future. (2) Acute on chronic systolic (congestive) heart failure Status: Acute Assessment & Plan: - Dr Cameron consulted and managing, appreciate recommendations (3) COPD exacerbation Status: Acute (4) PAD (peripheral artery disease) Status: Chronic Assessment & Plan: - Wound present, will notify Dr Shelton since patient follows with him as outpatient (5) Ischemic cardiomyopathy Status: Chronic (6) CAD (coronary artery disease) Status: Chronic Qualifiers: Qualified Codes: I25.10 - Atherosclerotic heart disease of [place] coronary artery without angina pectoris (7) Non-insulin dependent type 2 diabetes mellitus Status: Chronic (8) Essential (primary) hypertension Status: Chronic (9) DVT prophylaxis Assessment & Plan: - [facility] Critical Care Critically Ill Patient Clinical Quality Measures DVT/VTE Risk/Contraindication: Risk Factor Score Per Nursin RFS Level Per Nursing on Admit: 4+=Very High ANIL DUNN MD May 01, 2019 11:41 POS
[2019-05-01 12:00] VITALS: BP 169/70
--- NOTE | 2019-05-01 13:15 | Progress Note - Cardiology ---
Cardiology SOAP Progress Note Subjective: Gen weakness and malaise Short of breath No cp or palp or syncope Poor appetite No N/V Objective: I&O/Vital Signs 05/01/19 05/01/19 05/01/19 05/01/19 02:07 04:30 07:28 08:00 Temp 36.3 36.9 Pulse 69 63 92 Resp 39 29 24 B/P (MAP) 161/68 (99) 161/82 (108) Pulse Ox 100 100 99 94 O2 Delivery NIV Bilevel Nasal Cannula NIV Bilevel O2 Flow Rate 80.00 25.00 1.00 25.00 05/01/19 05/01/19 09:57 11:56 Pulse 65 Resp 26 Pulse Ox 94 100 O2 Delivery Nasal Cannula O2 Flow Rate 2.00 50.00 05/01/19 00:00 Intake Total 400 ml Output Total 300 ml Balance 100 ml Weight (Pounds): 130 Weight (Ounces): 9.0 Weight (Calculated Kilograms): [id number] Constitutional: AAO x 3, other (cachexia) Respiratory: No accessory muscle use, No respiratory distress; chest expansion is symmetric, chest is bilaterally symmetric, other (fair air entry) Cardiovascular: regular rate-rhythm; No JVD; S1 and S2, systolic murmur (soft), other (ACW tenderness with palpation) Gastrointestional: No tender; soft, audible bowel sounds Extremities: no lower extremity edema bilateral Neurologic/Psychiatric: oriented x 3, other (moves all limbs equally) Skin: No rash on exposed areas, No ulcerations on exposed areas Results/Procedures: Labs Laboratory Tests 05/01/19 05:45: White Blood Count 13.2H, Red Blood Count 4.20L, Hemoglobin 9.7L, Hematocrit 33L, Mean Corpuscular Volume 79L, Mean Corpuscular Hemoglobin 23L, Mean Corpuscular Hemoglobin Concent 29L, Red Cell Distribution Width 17.4H, Platelet Count 184, Mean Platelet Volume 10.5H, Neutrophils (%) (Auto) 86H, Lymphocytes (%) (Auto) 9L, Monocytes (%) (Auto) 4, Eosinophils (%) (Auto) 0, Basophils (%) (Auto) 0, Neutrophils # (Auto) 11.4H, Lymphocytes # (Auto) 1.2, Monocytes # (Auto) 0.6, Eosinophils # (Auto) 0.0, Basophils # (Auto) 0.0, Sodium Level 144, Potassium Level 4.4, Chloride Level 113H, Carbon Dioxide Level 19L, Anion Gap 12, Blood Urea Nitrogen 46H, Creatinine 1.09, Estimat Glomerular Filtration Rate 49, BUN/Creatinine Ratio 42, Glucose Level 142H, Calcium Level 8.2L, Phosphorus Level 4.0, Magnesium Level 2.2 Microbiology 04/28/19 Blood Culture - Preliminary, Resulted No growth 04/28/19 Influenza Types A,B Antigen (ANATOLY) - Final, Complete 04/29/19 Urine Culture - Final, Complete YEAST Mixed Bacterial Jacqui Laboratory Tests 04/30/19 03:01 05/01/19 05:45 A/P: Assessment: Acute exacerbation of COPD Ac on chronic systolic CHF due to severe ischemic cardiomyopathy Type 2 NM likely secondary to hypoxia Slow atrial flutter with 2:1 AV conduction vs sinus tach on ECG of 04/06/19 CAD. S/p CABG in 2012. Card cath of 03/04/19: 40% LMCA, multiple 60% in LAD, 60- 70% prox LCX, 100% mid LCX, 70-80% distal OM2 at distal bifurcation, 100% mid RCA in a long stented segment, patent DAIGLE to LAD, patent stented L subclavian, patent SVG to distal LCX, LVEDP 21, LVEF 10% Echo of 03/02/19: LVEF 15-20%, mod enlargement of LA, mod MR and TR, RVSP 57 mmHg - refuses Life Vest Pulmonary hypertension, probably secondary to L heart failure H/o L-sided, ischemic foot ulcer, improved after L SFA intervention on 02/15/19 and improvement of L TBI from less than 0.3 to 0.72. Considerable disease on the R, but no symptoms or ischemic ulcers on the R PAD - Angio and intervention of 02/15/19: Long total occlusion of the left superficial femoral artery to which successful balloon angioplasty was carried out with reduction of stenosis to less than 30%; other lesions included 70% to 80% stenosis of the right external iliac and the right common femoral and of the left ant tibial in its proximal portion H/o COPD and asthma Abnormal ECG: NSR with PVCs, LVH with repol abnormality H/o left CEA - details unknown HTN HLP DM Type 2 Chronic tobacco use - cessation advised Hyperkalemia at presentation, now resolved Plan: * Complex management, guarded prognosis * Continue current cardiac regimen * Monitor labs closely * Management of ac exac of COPD is with the [facility] * Advised to quit NOE Santamaria MD FACP FACC CCDS May 01, 2019 13:15 POS
[2019-05-01 16:00] VITALS: BP 183/75
[2019-05-01] MEDS: ALPRAZolam 0.25 MG (XANAX) TAB PO SCH (18:12)
[2019-05-01 20:00] VITALS: BP 181/79
[2019-05-02] VITALS: BP 187/74
[2019-05-02] MEDS: ALPRAZolam 0.25 MG (XANAX) TAB PO SCH ×3 (02:00→17:56)
[2019-05-02] MEDS: RT-ALBUTEROL/IPRATROPIUM 3 ML (DUONEB) VIAL INH SCH ×6 (02:26→23:24)
[2019-05-02 04:00] VITALS: BP 145/84
[2019-05-02] MEDS ORDERED: CEFEPIME 2 GM (MAXIPIME) VIAL ONE (05:30)
[2019-05-02] MEDS ORDERED: WATER (STERILE) FOR INJECTION 20 ML ONE (05:30)
[2019-05-02] MEDS: CEFEPIME INJECTION 2,000 MG in WATER (STERILE) FOR INJECTION 20 ML IV SCH (05:43)
[2019-05-02 06:09] LABS: BASOPHILS % (AUTO) 0 % (0-10); EOSINOPHILS % (AUTO) 0 % (0-10); HEMATOCRIT 31 % (35-52); HEMOGLOBIN 9.1 G/DL (11.5-16.0); LYMPHOCYTES # (AUTO) 1.1 X 10^3 (1.0-4.0); LYMPHOCYTES % (AUTO) 9 % (12-44); MEAN CORPUSCULAR HEMOGLOBIN 24 PG (25-34); MEAN CORPUSCULAR HGB CONC 29 G/DL (32-36); MEAN CORPUSCULAR VOLUME 81 FL (80-99); MEAN PLATELET VOLUME 11.4 FL (7.4-10.4); MONOCYTES # (AUTO) 0.6 X 10^3 (0.0-1.0); MONOCYTES % (AUTO) 5 % (0-12); NEUTROPHILS # (AUTO) 10.2 X 10^3 (1.8-7.8); NEUTROPHILS % (AUTO) 86 % (42-75); PLATELET COUNT 169 10^3/uL (130-400); RED CELL DISTRIBUTION WIDTH 17.2 % (10.0-14.5); WHITE BLOOD COUNT 11.9 10^3/uL (4.3-11.0)
[2019-05-02 06:30] LABS: CALCIUM 8.4 MG/DL (8.5-10.1); CREATININE SERUM 0.93 MG/DL (0.60-1.30); MAGNESIUM 2.3 MG/DL (1.6-2.4); PHOSPHORUS 2.6 MG/DL (2.3-4.7); POTASSIUM 4.3 MMOL/L (3.6-5.0)
--- NOTE | 2019-05-02 06:34 | Progress Note - Hospitalist ---
[facility] 05/02/19 0634: Subjective HPI/CC On Admission Date Seen by Provider: May 02, 2019 Time Seen by Provider: 08:20 Subjective/Events-last exam Patient states she wants to go home. Received Breathing treatment and tolerated it well. Patient felt short of breath after breathing treatment requiring BiPap O2 sat after breathing treatment was 99% UA showed yeast Nurse report stated a wound on the left of top foot. Review of Systems General: No Chills, No Other (fevers) Pulmonary: Dyspnea, Cough Cardiovascular: No: Chest Pain, Edema Gastrointestinal: No: Nausea, Vomiting, Abdominal Pain Objective Exam Vital Signs Vital Signs Date Time Temp Pulse Resp B/P (MAP) Pulse Ox O2 Delivery O2 Flow Rate FiO2 05/02/19 12:25 70 27 99 40.00 05/02/19 09:00 NIV Bilevel 05/02/19 08:00 37.0 181/77 (111) 04/30/19 03:50 25 Capillary Refill : Less Than 3 Seconds General Appearance: No Apparent Distress, Chronically ill, Thin Neck: Non Tender, Supple Respiratory: Chest Non Tender, Decreased Breath Sounds, Other (Increased re spiratory effort. Requiring BiPap) Cardiovascular: Regular Rate, Rhythm, No Edema, Normal Peripheral Pulses (2/4 radial pulses bilaterally) Extremity: Non Tender, No Calf Tenderness Neurologic/Psychiatric: Alert Skin: Normal Color, Warm/Dry Results/Procedures Lab Laboratory Tests 05/02/19 05:10 Patient resulted labs reviewed. Assessment/Plan Assessment and Plan Assess & Plan/Chief Complaint UTI (yeast) HFrEF of 15-20% Wound on left top foot. COPD Family members are at bedside, discuss patient wishes and consult with social work. Discuss code status. Patient needs to be off BiPap to be eligible for a senior living. Antifungal for UTI monitor Vitals and medications manage CV per Dr. Cameron Clinical Quality Measures DVT/VTE Risk/Contraindication: Risk Factor Score Per Nursin RFS Level Per Nursing on Admit: 4+=Very High TERRI CABALLERO DO 05/02/192105: Subjective Subjective/Events-last exam Pt dependent on BiPAP right now I did reach out to Dr. Salazar Pt still remains a full code Pt very cachectic and severe pulmonary disease noted Ejection fraction on Echo was 15% Review of Systems General: Fatigue Pulmonary: Dyspnea, Cough Objective Exam General Appearance: WD/WN, Chronically ill, Cachetic, Mild Distress Respiratory: Decreased Breath Sounds, Wheezing Cardiovascular: Regular Rate, Rhythm Neurologic/Psychiatric: Alert, Oriented x3, No Motor/Sensory Deficits, Normal Mood/Affect Assessment/Plan Assessment and Plan Assess & Plan/Chief Complaint Assessment: AECOPD BiPAP dependent CHF systolic dysfunction Plan: BiPAP Dr Salazar appreciated Diagnosis/Problems Diagnosis/Problems (1) Acute on chronic systolic (congestive) heart failure Status: Acute (2) COPD exacerbation Status: Acute (3) Non-insulin dependent type 2 diabetes mellitus Status: Chronic (4) PAD (peripheral artery disease) Status: Chronic (5) Ischemic cardiomyopathy Status: Chronic (6) Essential (primary) hypertension Status: Chronic (7) CAD (coronary artery disease) Status: Chronic Qualifiers: Qualified Codes: I25.10 - Atherosclerotic heart disease of [place] coronary artery without angina pectoris (8) Tobacco dependence due to cigarettes Status: Acute Supervisory-Addendum Brief Verification & Attestation Participated in pt care: history, MDM, physical Personally performed: exam, history, MDM, supervision of care Care discussed with: Medical Student Procedures: n/a Results interpretation: Verified all documentation Verification and Attestation of Medical Student E/M Service A medical student performed and documented this service in my presence. I reviewed and verified all information documented by the medical student and made modifications to such information, when appropriate. I personally performed the physical exam and medical decision making. Terri Caballero, May 02, 2019,21:06 [facility] May 02, 2019 06:34 TERRI GAMBOA DO May 02, 2019 21:06 POS
--- NOTE | 2019-05-02 07:41 | Diagnostic Imaging Report ---
EXAMINATION: Chest 1 view HISTORY: COPD exacerbation. COMPARISON: 05/01/2019 FINDINGS: Stable appearance of hyperinflated lungs with chronic prominent interstitial markings throughout. There is no focal consolidative opacities. A small amount of atelectasis is seen in the right lung base. Blunting of the costophrenic angles may represent small pleural effusions. No large pneumothorax. Stable enlarged cardiac silhouette with post CABG changes. No acute osseous abnormalities. IMPRESSION: 1. Stable chronic findings consistent with COPD. The costophrenic angles are blunted, which may represent scarring or small pleural effusions. 2. Small amount of atelectasis in the right lung base. 3. Cardiomegaly. Dictated by: Dictated on workstation # [id number]
[2019-05-02 08:00] VITALS: BP 181/77
--- NOTE | 2019-05-02 09:10 | Progress Note - Cardiology ---
Cardiology SOAP Progress Note Subjective: Currently on Bi-pap. Feels SOB is worse this morning. No c/o CP. C/O frequent lose cough. Objective: I&O/Vital Signs 05/03/19 05/03/19 00:19 03:15 Temp 36.0 36.3 Pulse 68 61 Resp B/P (MAP) 135/61 (85) 163/71 (101) Pulse Ox 96 97 O2 Delivery NIV Bilevel NIV Bilevel 05/03/19 00:00 Intake Total 720 ml Output Total 1875 ml Balance -1155 ml Weight (Pounds): 130 Weight (Ounces): 9.0 Weight (Calculated Kilograms): 58.386221 Constitutional: AAO x 3, other (thin) Respiratory: No accessory muscle use, No respiratory distress; chest expansion is symmetric, chest is bilaterally symmetric, rhonchi (scattered), other (fair air entry; lung sounds coarse) Cardiovascular: regular rate-rhythm; No JVD; S1 and S2, systolic murmur (soft), other (ACW tenderness with palpation) Gastrointestional: No tender; soft, audible bowel sounds Extremities: no lower extremity edema bilateral Neurologic/Psychiatric: oriented x 3, other (moves all limbs equally) Skin: No rash on exposed areas, No ulcerations on exposed areas Results/Procedures: Labs Laboratory Tests 05/03/19 04:05: White Blood Count 9.2, Red Blood Count 3.97L, Hemoglobin 9.2L, Hematocrit 31L, Mean Corpuscular Volume 78L, Mean Corpuscular Hemoglobin 23L, Mean Corpuscular Hemoglobin Concent 30L, Red Cell Distribution Width 17.4H, Platelet Count 144, Mean Platelet Volume 10.9H, Neutrophils (%) (Auto) 88H, Lymphocytes (%) (Auto) 9L, Monocytes (%) (Auto) 3, Eosinophils (%) (Auto) 0, Basophils (%) (Auto) 0, Neutrophils # (Auto) 8.1H, Lymphocytes # (Auto) 0.8L, Monocytes # (Auto) 0.3, Eosinophils # (Auto) 0.0, Basophils # (Auto) 0.0, Sodium Level 144, Potassium Level 4.2, Chloride Level 113H, Carbon Dioxide Level 21, Anion Gap 10, Blood Urea Nitrogen 41H, Creatinine 0.85, Estimat Glomerular Filtration Rate > 60, BUN/Creatinine Ratio 48, Glucose Level 192H, Calcium Level 8.3L, Phosphorus Level 1.7L, Magnesium Level 2.2 Microbiology 04/28/19 Blood Culture - Preliminary, Resulted No growth 04/28/19 Influenza Types A,B Antigen (ANATOLY) - Final, Complete 04/29/19 Urine Culture - Final, Complete YEAST Mixed Bacterial Jacqui Procedures NAME: MARIA DE JESUS [facility] REC#: [id number] PT STATUS: ADM IN : 1950 PHYSICIAN: VINCENT DANG MD ADMIT DATE: 04/28/19 Signed Date of Exam:05/02/19 CHEST 1 VIEW, AP/PA ONLY EXAMINATION: Chest 1 view HISTORY: COPD exacerbation. COMPARISON: 05/01/2019 FINDINGS: Stable appearance of hyperinflated lungs with chronic prominent interstitial markings throughout. There is no focal consolidative opacities. A small amount of atelectasis is seen in the right lung base. Blunting of the costophrenic angles may represent small pleural effusions. No large pneumothorax. Stable enlarged cardiac silhouette with post CABG changes. No acute osseous abnormalities. IMPRESSION: 1. Stable chronic findings consistent with COPD. The costophrenic angles are blunted, which may represent scarring or small pleural effusions. 2. Small amount of atelectasis in the right lung base. 3. Cardiomegaly. Dictated by: Dictated on workstation # [id number] Dict: 05/02/19 0732 Trans: 05/02/19 0803 [facility] [id number] Interpreted by: AUGUST MCGINNIS DO Electronically signed by: AUGUST MCGINNIS DO 05/02/19 0803 A/P: Assessment: Acute exacerbation of COPD Ac on chronic systolic CHF due to severe ischemic cardiomyopathy Type 2 PR likely secondary to hypoxia Slow atrial flutter with 2:1 AV conduction vs sinus tach on ECG of 04/06/19 CAD. S/p CABG in 2012. Card cath of 03/04/19: 40% LMCA, multiple 60% in LAD, 60- 70% prox LCX, 100% mid LCX, 70-80% distal OM2 at distal bifurcation, 100% mid RCA in a long stented segment, patent DAIGLE to LAD, patent stented L subclavian, patent SVG to distal LCX, LVEDP 21, LVEF 10% Echo of 03/02/19: LVEF 15-20%, mod enlargement of LA, mod MR and TR, RVSP 57 mmHg - refuses Life Vest Pulmonary hypertension, probably secondary to L heart failure H/o L-sided, ischemic foot ulcer, improved after L SFA intervention on 02/15/19 and improvement of L TBI from less than 0.3 to 0.72. Considerable disease on the R, but no symptoms or ischemic ulcers on the R PAD - Angio and intervention of 02/15/19: Long total occlusion of the left superficial femoral artery to which successful balloon angioplasty was carried out with reduction of stenosis to less than 30%; other lesions included 70% to 80% stenosis of the right external iliac and the right common femoral and of the left ant tibial in its proximal portion H/o COPD and asthma Abnormal ECG: NSR with PVCs, LVH with repol abnormality H/o left CEA - details unknown HTN HLP DM Type 2 Chronic tobacco use - cessation advised Hyperkalemia at presentation, now resolved Plan: * Complex management, guarded prognosis * Continue current cardiac regimen * Give diuretics today * Monitor labs closely * Anemia - management per medical services * Management of ac exac of COPD is with the Med and Pulm Svces * Advised to quit smoking JANELLE BRANNON May 02, 2019 09:09 POS
[2019-05-02] MEDS ORDERED: FUROSEMIDE 40 MG/4 ML INJ (LASIX) ONE (09:12)
[2019-05-02] MEDS: CARVEDILOL 12.5 MG (COREG) TABLET PO SCH ×2 (09:13→21:34)
[2019-05-02] MEDS: CLOPIDOGREL 75 MG (PLAVIX) TABLET PO SCH (09:13)
[2019-05-02] MEDS: ASPIRIN E.C. 81 MG (ECOTRIN) TAB PO SCH (09:13)
[2019-05-02] MEDS: AMIODARONE 200 MG (CORDARONE) TAB PO SCH (09:13)
[2019-05-02] MEDS: methylPREDNISolone 40 MG/ML (Solu-MEDROL) VIAL IV SCH ×2 (09:13→21:32)
[2019-05-02] MEDS ORDERED: FUROSEMIDE 40 MG/4 ML INJ (LASIX) IVP ONE (09:15)
[2019-05-02] MEDS: lisINopril 20 MG (PRINIVIL) TABLET PO SCH (09:18)
[2019-05-02] MEDS: NICOTINE 7 MG (NICODERM) PATCH TD SCH (09:18)
--- NOTE | 2019-05-02 10:27 | Pulmonary Progress Note ---
Subjective Date Seen by a Provider: May 02, 2019 Time Seen by a Provider: 10:15 Subjective/Events-last exam The patient is resting and appears to be in no acute distress. She is currently on BiPAP but answers questions by shaking her head. She reports that she is feeling better than she did yesterday. She is still having a cough which she says is non-productive. She denies fever, chills, or chest pain. Sepsis Event Evaluation Height, Weight, BMI Height: 5'4.00" Weight: 130lbs. 9.0oz. 58.941680zm; 18.00 BMI Method:Estimated Exam Exam Vital Signs Date Time Temp Pulse Resp B/P (MAP) Pulse Ox O2 Delivery O2 Flow Rate FiO2 05/02/19 09:00 NIV Bilevel 05/02/19 08:39 82 29 99 40.00 05/02/19 08:33 99 Nasal Cannula 5.00 05/02/19 08:00 37.0 96 18 181/77 (111) 100 NIV Bilevel 05/02/19 04:00 36.2 70 14 145/84 (104) 99 NIV Bilevel 40.00 05/02/19 02:26 70 15 95 40.00 05/02/19 00:00 36.4 71 14 187/74 (111) 100 NIV Bilevel 40.00 05/01/19 22:46 67 26 99 45.00 05/01/19 21:00 NIV Bilevel 05/01/19 20:00 36.5 67 23 181/79 (113) 100 NIV Bilevel 05/01/19 18:26 72 30 98 50.00 05/01/19 16:00 35.5 69 29 183/75 (111) 100 NIV Bilevel 05/01/19 15:03 66 20 99 50.00 05/01/19 12:00 36.0 78 24 169/70 (103) 100 NIV Bilevel 05/01/19 11:56 65 26 100 50.00 I & O 05/02/19 07:00 Intake Total 1350 ml Output Total 700 ml Balance 650 ml Height & Weight Height: 5'4.00" Weight: 130lbs. 9.0oz. 58.196243ly; 18.00 BMI Method:Estimated General Appearance: No Apparent Distress, Anxious, Chronically ill Respiratory: No Accessory Muscle Use, No Respiratory Distress, Decreased Breath Sounds Cardiovascular: Regular Rate, Rhythm, No Edema, No Gallop, No JVD, No Murmur Capillary Refill: Less Than 3 Seconds Gastrointestinal: normal bowel sounds, non tender, soft, no organomegaly Neurologic/Psychiatric: Alert Skin: Normal Color, Warm/Dry Results Lab Laboratory Tests 05/01/19 05:45 05/02/19 05:10 Assessment/Plan Assessment/Plan Acute on chronic respiratory failure -titrate BiPAP settings down -switch to HF nasal canula later today -SVNS Q 4 -Oxygen -Solumedrol 40 IV Q 6 -Continue Cefepime COPDAE Acute on chronic CHF -Cardiology following -Lasix 40mg IV daily CAD NSTEMI -Cardiology following CRIS HENNING MED STUDENT May 02, 2019 10:27 POS
[2019-05-02 12:00] VITALS: BP 198/73
[2019-05-02] MEDS ORDERED: amLODIPine 5 MG (NORVASC) TAB PO NR (12:45)
--- NOTE | 2019-05-02 12:47 | Progress Note - Cardiology ---
Cardiology SOAP Progress Note Subjective: Feels weak and tired and wiped out. "I wish to ," she says No cp or palp or syncope Shortness of breath present Multiple members of immediate family by her bedside Objective: I&O/Vital Signs 05/02/19 05/02/19 05/02/19 05/02/19 02:26 04:00 08:00 08:33 Temp 36.2 37.0 Pulse 70 70 96 Resp 15 14 18 B/P (MAP) 145/84 (104) 181/77 (111) Pulse Ox 95 99 100 99 O2 Delivery NIV Bilevel NIV Bilevel Nasal Cannula O2 Flow Rate 40.00 40.00 5.00 05/02/19 05/02/19 05/02/19 08:39 09:00 12:25 Pulse 82 70 Resp 29 27 Pulse Ox 99 99 O2 Delivery NIV Bilevel O2 Flow Rate 40.00 40.00 05/02/19 00:00 Intake Total 1030 ml Output Total 450 ml Balance 580 ml Weight (Pounds): 130 Weight (Ounces): 9.0 Weight (Calculated Kilograms): 58.206833 Constitutional: AAO x 3, other (thin) Respiratory: No accessory muscle use, No respiratory distress; chest expansion is symmetric, chest is bilaterally symmetric, rhonchi (scattered), other (fair air entry; lung sounds coarse) Cardiovascular: regular rate-rhythm; No JVD; S1 and S2, systolic murmur (soft), other (ACW tenderness with palpation) Gastrointestional: No tender; soft, audible bowel sounds Extremities: no lower extremity edema bilateral Neurologic/Psychiatric: oriented x 3, other (moves all limbs equally) Skin: No rash on exposed areas, No ulcerations on exposed areas Results/Procedures: Labs Laboratory Tests 05/02/19 05:10: White Blood Count 11.9H, Red Blood Count 3.84L, Hemoglobin 9.1L, Hematocrit 31L, Mean Corpuscular Volume 81, Mean Corpuscular Hemoglobin 24L, Mean Corpuscular Hemoglobin Concent 29L, Red Cell Distribution Width 17.2H, Platelet Count 169, Mean Platelet Volume 11.4H, Neutrophils (%) (Auto) 86H, Lymphocytes (%) (Auto) 9L, Monocytes (%) (Auto) 5, Eosinophils (%) (Auto) 0, Basophils (%) (Auto) 0, N eutrophils # (Auto) 10.2H, Lymphocytes # (Auto) 1.1, Monocytes # (Auto) 0.6, Eosinophils # (Auto) 0.0, Basophils # (Auto) 0.0, Sodium Level 144, Potassium Level 4.3, Chloride Level 114H, Carbon Dioxide Level 21, Anion Gap 9, Blood Urea Nitrogen 46H, Creatinine 0.93, Estimat Glomerular Filtration Rate 59, BUN/Creatinine Ratio 49, Glucose Level 181H, Calcium Level 8.4L, Phosphorus Level 2.6, Magnesium Level 2.3 Microbiology 04/28/19 Blood Culture - Preliminary, Resulted No growth 04/28/19 Influenza Types A,B Antigen (ANATOLY) - Final, Complete 04/29/19 Urine Culture - Final, Complete YEAST Mixed Bacterial Jacqui Laboratory Tests 05/01/19 05:45 05/02/19 05:10 A/P: Assessment: Acute exacerbation of COPD Ac on chronic systolic CHF due to severe ischemic cardiomyopathy Type 2 CO likely secondary to hypoxia Slow atrial flutter with 2:1 AV conduction vs sinus tach on ECG of 04/06/19 CAD. S/p CABG in 2012. Card cath of 03/04/19: 40% LMCA, multiple 60% in LAD, 60- 70% prox LCX, 100% mid LCX, 70-80% distal OM2 at distal bifurcation, 100% mid RCA in a long stented segment, patent DAIGLE to LAD, patent stented L subclavian, patent SVG to distal LCX, LVEDP 21, LVEF 10% Echo of 03/02/19: LVEF 15-20%, mod enlargement of LA, mod MR and TR, RVSP 57 mmHg - refuses Life Vest Pulmonary hypertension, probably secondary to L heart failure H/o L-sided, ischemic foot ulcer, improved after L SFA intervention on 02/15/19 and improvement of L TBI from less than 0.3 to 0.72. Considerable disease on the R, but no symptoms or ischemic ulcers on the R PAD - Angio and intervention of 02/15/19: Long total occlusion of the left supe rficial femoral artery to which successful balloon angioplasty was carried out with reduction of stenosis to less than 30%; other lesions included 70% to 80% stenosis of the right external iliac and the right common femoral and of the left ant tibial in its proximal portion H/o COPD and asthma Abnormal ECG: NSR with PVCs, LVH with repol abnormality H/o left CEA - details unknown HTN HLP DM Type 2 Chronic tobacco use - cessation advised Hyperkalemia at presentation, now resolved Plan: * Complex management, guarded prognosis * Add amlodipine in effort to better control bp * Give diuretics today * Monitor labs closely * Anemia - management per medical services * Management of ac exac of COPD is with the Med and Pulm Svces * Advised to quit smoking NOE RUIZ MD FACP FAC CCDS May 02, 2019 12:47 POS
--- NOTE | 2019-05-02 14:48 | NUR ---
"RD ASSESSMENT PMHx: CHF; COPD; HTN; HLD; PVD; DM PT INTERACTION: Pt was awake and pleasant during nutrition assessment. Note family present at bedside, and pt was wearing BiPAP device. Pt states current appetite is pretty poor and has been for some time. Note pt avg PO intake of <25% x2d, per chart review. Pt states following a regular diet at home, and has difficulty swallowing food sometimes. Pt states no recent issues with n/v/c at this time, with one episode of diarrhea and her last BM was 05/01. Note pt not currently on bowel regimen per chart review. Pt states no recent wt changes. Note 5# wt gain x1mon, per chart review. ABNORMAL NUTRITION-RELATED LAB VALUES LOW: Ca 8.4 HIGH: Cl 114; BUN 46; glu 181 Est. kcal needs: 0196-4740 kcal | 25-30 kcal/kg Est. Pro needs: 53-64 g Pro | 1.0-1.2 g Pro/kg PES STATEMENT: Inadequate oral intake (NI-2.1) related to loss of appetite | diarrhea as evidenced by pt (family) interview | avg PO intake <25% x2d INTERVENTION: Continue with current diet order of 2000mg Sodium diet. Add Ensure Enlive (vary) to meals TID. Provides 350 kcal and 13 g Pro per serving. Will continue to follow and reassess as pt needs and status change. MONITOR/EVALUATE: PO Intake; Plan of Care; Hydration Status; Weight Status; Lab Values Eliel Barber, MS, RD, LD"
[2019-05-02 16:50] VITALS: BP 177/74
[2019-05-02 20:40] VITALS: BP 176/80
[2019-05-02] MEDS ORDERED: PROMETHAZINE/ CODEINE SYRUP 5 ML UDC PO PRN (21:45)
[2019-05-02] MEDS: NS IV 1000 ML 1,000 ML IV SCH (21:55)
[2019-05-03] VITALS (7 sets, daily range): BP systolic 135–190; BP diastolic 61–84
[2019-05-03] MEDS: ALPRAZolam 0.25 MG (XANAX) TAB PO SCH ×3 (02:00→18:07)
[2019-05-03] MEDS: RT-ALBUTEROL/IPRATROPIUM 3 ML (DUONEB) VIAL INH SCH ×6 (03:26→21:25)
[2019-05-03 05:16] LABS: BASOPHILS % (AUTO) 0 % (0-10); EOSINOPHILS % (AUTO) 0 % (0-10); HEMATOCRIT 31 % (35-52); HEMOGLOBIN 9.2 G/DL (11.5-16.0); LYMPHOCYTES # (AUTO) 0.8 X 10^3 (1.0-4.0); LYMPHOCYTES % (AUTO) 9 % (12-44); MEAN CORPUSCULAR HEMOGLOBIN 23 PG (25-34); MEAN CORPUSCULAR HGB CONC 30 G/DL (32-36); MEAN CORPUSCULAR VOLUME 78 FL (80-99); MEAN PLATELET VOLUME 10.9 FL (7.4-10.4); MONOCYTES # (AUTO) 0.3 X 10^3 (0.0-1.0); MONOCYTES % (AUTO) 3 % (0-12); NEUTROPHILS # (AUTO) 8.1 X 10^3 (1.8-7.8); NEUTROPHILS % (AUTO) 88 % (42-75); PLATELET COUNT 144 10^3/uL (130-400); RED CELL DISTRIBUTION WIDTH 17.4 % (10.0-14.5); WHITE BLOOD COUNT 9.2 10^3/uL (4.3-11.0)
[2019-05-03 05:25] LABS: BUN/CREATININE RATIO 48; CALCIUM 8.3 MG/DL (8.5-10.1); CARBON DIOXIDE 21 MMOL/L (21-32); CHLORIDE 113 MMOL/L (98-107); CREATININE SERUM 0.85 MG/DL (0.60-1.30); GFR ESTIMATED > 60; GLUCOSE 192 MG/DL (70-105); MAGNESIUM 2.2 MG/DL (1.6-2.4); PHOSPHORUS 1.7 MG/DL (2.3-4.7); POTASSIUM 4.2 MMOL/L (3.6-5.0); SODIUM 144 MMOL/L (135-145)
[2019-05-03] MEDS ORDERED: CEFEPIME 2 GM (MAXIPIME) VIAL ONE (05:46)
[2019-05-03] MEDS: CEFEPIME INJECTION 2,000 MG in WATER (STERILE) FOR INJECTION 20 ML IV SCH (05:50)
--- NOTE | 2019-05-03 06:56 | Progress Note - Hospitalist ---
[facility] 05/03/19 0656: Subjective HPI/CC On Admission Date Seen by Provider: May 03, 2019 Time Seen by Provider: 08:25 Subjective/Events-last exam Family at bedside Patient had a bowel movement 2 days ago Appears confused Recommend family to discuss code status Patient states she feels better and wants to go home. Review of Systems General: No Chills, No Other (fevers) HEENT: No Eye Pain, No Ear Pain Pulmonary: Dyspnea; No Cough Cardiovascular: No: Chest Pain, Edema Gastrointestinal: No: Nausea, Vomiting, Abdominal Pain Objective Exam Vital Signs Vital Signs Date Time Temp Pulse Resp B/P (MAP) Pulse Ox O2 Delivery O2 Flow Rate FiO2 05/03/19 03:15 36.3 61 19 163/71 (101) 97 NIV Bilevel 05/02/19 23:21 30.00 04/30/19 03:50 25 Capillary Refill : Less Than 3 SecondsLess Than 3 Seconds General Appearance: No Apparent Distress, Chronically ill, Cachetic Neck: Non Tender, Supple Respiratory: Chest Non Tender, No Respiratory Distress, Wheezing Cardiovascular: Regular Rate, Rhythm, Normal Peripheral Pulses (2/4 radial bilaterally) Gastrointestinal: Soft Extremity: Non Tender, No Calf Tenderness Neurologic/Psychiatric: Alert Skin: Normal Color, Warm/Dry Results/Procedures Lab Laboratory Tests 05/03/19 04:05 Patient resulted labs reviewed. Assessment/Plan Assessment and Plan Assess & Plan/Chief Complaint UTI (yeast) HFrEF of 15-20% Wound on left top foot. COPD Family members are at bedside, discuss patient wishes and consult with social work. Discuss code status. Patient needs to be off BiPap to be eligible for a fci. Antifungal for UTI monitor Vitals and medications manage CV per Dr. Cameron Clinical Quality Measures DVT/VTE Risk/Contraindication: Risk Factor Score Per Nursin RFS Level Per Nursing on Admit: 4+=Very High TERRI PULLIAM DO 05/04/19 1527: Subjective Subjective/Events-last exam Will have palliative care nurse see her. Will discontinue catheter. Bowels need to move so I ordered Senna. Overall very poor prognosis, remains a full code. Review of Systems Pulmonary: Dyspnea Neurological: Confusion Objective Exam General Appearance: Anxious, Chronically ill, Cachetic, Mild Distress Respiratory: Decreased Breath Sounds, Wheezing Cardiovascular: Regular Rate, Rhythm Neurologic/Psychiatric: Alert, Disoriented Assessment/Plan Assessment and Plan Assess & Plan/Chief Complaint Discharge on hospice is what is recommended Palliative care consult Supervisory-Addendum Brief Verification & Attestation Participated in pt care: history, MDM, physical Personally performed: exam, history, MDM, supervision of care Care discussed with: Medical Student Procedures: n/a Results interpretation: Verified all documentation Verification and Attestation of Medical Student E/M Service A medical student performed and documented this service in my presence. I reviewed and verified all information documented by the medical student and made modifications to such information, when appropriate. I personally performed the physical exam and medical decision making. Terri Pulliam, May 04, 2019,15:26 DVAID SOLER May 03, 2019 06:56 TERRI PULLIAM DO May 04, 2019 15:27
--- NOTE | 2019-05-03 08:07 | Diagnostic Imaging Report ---
INDICATION: COPD exacerbation, hypoxia, hypercarbia, respiratory failure and sepsis. The exam compared with study one day prior. FINDINGS: Chronic air trapping and background COPD redemonstrated. Superimposed infiltrates in the lung bases have increased. Small amounts of pleural fluid not obviously changed. Sternal wires midline. IMPRESSION: Likely increased basilar infiltrates. No other change. Dictated by: Dictated on workstation # [id number]
[2019-05-03] MEDS: AMIODARONE 200 MG (CORDARONE) TAB PO SCH (09:14)
[2019-05-03] MEDS: methylPREDNISolone 40 MG/ML (Solu-MEDROL) VIAL IV SCH ×2 (09:14→20:41)
[2019-05-03] MEDS: CARVEDILOL 12.5 MG (COREG) TABLET PO SCH ×2 (09:14→20:41)
[2019-05-03] MEDS: lisINopril 20 MG (PRINIVIL) TABLET PO SCH (09:14)
[2019-05-03] MEDS: amLODIPine 5 MG (NORVASC) TAB PO SCH (09:14)
[2019-05-03] MEDS: NICOTINE 7 MG (NICODERM) PATCH TD SCH (09:15)
[2019-05-03] MEDS: CLOPIDOGREL 75 MG (PLAVIX) TABLET PO SCH (09:15)
[2019-05-03] MEDS: ASPIRIN E.C. 81 MG (ECOTRIN) TAB PO SCH (09:15)
[2019-05-03] MEDS ORDERED: SENNA W/DOCUSATE (SENOKOT S) TABLET PO NR (10:30)
--- NOTE | 2019-05-03 11:22 | NUR ---
PALLIATIVE CARE RN received request to se patient by Dr. Pulliam. Found patient sitting up in bed in bed, family is at bedside. She has a nasal canula on and appears to be taking very shallow breaths. Asked patient if it were okay to have a discussion, "she shook her head no", but then allowed for the discussion anyway. Hospice education provided and they agreed to allow for brochures to be delivered. Caregiver/son as well as daughter and the patient are leaning toward Hospice at discharge. CODE status discussed as well and son thought that they did not want intubation but was not firm on that. Educated on FULL CPR with compressions stressing the trauma associated with it a code situation. They will discuss and make a decision on that at a later date. Will await decision and set up informational visit when they are ready.
[2019-05-03] MEDS ORDERED: FUROSEMIDE 40 MG/4 ML INJ (LASIX) IVP ONE (11:45)
[2019-05-03] MEDS: NS IV 1000 ML 1,000 ML IV SCH (11:47)
--- NOTE | 2019-05-03 11:53 | Progress Note - Cardiology ---
Cardiology SOAP Progress Note Objective: I&O/Vital Signs 05/03/19 05/03/19 05/03/19 05/03/19 08:30 12:00 13:42 14:27 Temp 36.2 36.9 36.3 Pulse 78 80 64 Resp 24 24 B/P (MAP) 142/83 (102) 170/72 (104) Pulse Ox 98 100 98 99 O2 Delivery NIV Bilevel Nasal Cannula Nasal Cannula O2 Flow Rate 30.00 5.00 5.00 FiO2 40 05/03/19 00:00 Intake Total 720 ml Output Total 1875 ml Balance -1155 ml Weight (Pounds): 130 Weight (Ounces): 9.0 Weight (Calculated Kilograms): 58.292976 Constitutional: AAO x 3, other (thin) Respiratory: No accessory muscle use, No respiratory distress; chest expansion is symmetric, chest is bilaterally symmetric, rhonchi (scattered), other (fair air entry; lung sounds coarse) Cardiovascular: regular rate-rhythm; No JVD; S1 and S2, systolic murmur (soft), other (ACW tenderness with palpation) Gastrointestional: No tender; soft, audible bowel sounds Extremities: no lower extremity edema bilateral Neurologic/Psychiatric: oriented x 3, other (moves all limbs equally) Skin: No rash on exposed areas, No ulcerations on exposed areas Results/Procedures: Labs Laboratory Tests 05/03/19 04:05: White Blood Count 9.2, Red Blood Count 3.97L, Hemoglobin 9.2L, Hematocrit 31L, Mean Corpuscular Volume 78L, Mean Corpuscular Hemoglobin 23L, Mean Corpuscular Hemoglobin Concent 30L, Red Cell Distribution Width 17.4H, Platelet Count 144, Mean Platelet Volume 10.9H, Neutrophils (%) (Auto) 88H, Lymphocytes (%) (Auto) 9L, Monocytes (%) (Auto) 3, Eosinophils (%) (Auto) 0, Basophils (%) (Auto) 0, Neutrophils # (Auto) 8.1H, Lymphocytes # (Auto) 0.8L, Monocytes # (Auto) 0.3, Eosinophils # (Auto) 0.0, Basophils # (Auto) 0.0, Sodium Level 144, Potassium Level 4.2, Chloride Level 113H, Carbon Dioxide Level 21, Anion Gap 10, Blood Urea Nitrogen 41H, Creatinine 0.85, Estimat Glomerular Filtration Rate > 60, BUN/Creatinine Ratio 48, Glucose Level 192H, Calcium Level 8.3L, Phosphorus Level 1.7L, Magnesium Level 2.2 Microbiology 04/28/19 Blood Culture - Preliminary, Resulted No growth 04/28/19 Influenza Types A,B Antigen (ANATOLY) - Final, Complete 04/29/19 Urine Culture - Final, Complete YEAST Mixed Bacterial Jacqui Procedures NAME: MARIA DE JESUS [facility] REC#: [id number] PT STATUS: ADM IN : 1950 PHYSICIAN: VINCENT DANG MD ADMIT DATE: 04/28/19 Draft Date of Exam:05/03/19 CHEST 1 VIEW, AP/PA ONLY INDICATION: COPD exacerbation, hypoxia, hypercarbia, respiratory failure and sepsis. The exam compared with study one day prior. FINDINGS: Chronic air trapping and background COPD redemonstrated. Superimposed infiltrates in the lung bases have increased. Small amounts of pleural fluid not obviously changed. Sternal wires midline. IMPRESSION: Likely increased basilar infiltrates. No other change. Dictated on workstation # [id number] Dict: 05/03/19 0801 Trans: 05/03/19 0806 [facility] [id number] Interpreted by: REESE LORENZO Electronically signed by: A/P: Assessment: Acute exacerbation of COPD Ac on chronic systolic CHF due to severe ischemic cardiomyopathy Type 2 ME likely secondary to hypoxia Slow atrial flutter with 2:1 AV conduction vs sinus tach on ECG of 04/06/19 CAD. S/p CABG in 2012. Card cath of 03/04/19: 40% LMCA, multiple 60% in LAD, 60- 70% prox LCX, 100% mid LCX, 70-80% distal OM2 at distal bifurcation, 100% mid RCA in a long stented segment, patent DAIGLE to LAD, patent stented L subclavian, patent SVG to distal LCX, LVEDP 21, LVEF 10% Echo of 03/02/19: LVEF 15-20%, mod enlargement of LA, mod MR and TR, RVSP 57 mmHg - refuses Life Vest Pulmonary hypertension, probably secondary to L heart failure H/o L-sided, ischemic foot ulcer, improved after L SFA intervention on 02/15/19 and improvement of L TBI from less than 0.3 to 0.72. Considerable disease on the R, but no symptoms or ischemic ulcers on the R PAD - Angio and intervention of 02/15/19: Long total occlusion of the left superficial femoral artery to which successful balloon angioplasty was carried out with reduction of stenosis to less than 30%; other lesions included 70% to 80% stenosis of the right external iliac and the right common femoral and of the left ant tibial in its proximal portion H/o COPD and asthma Abnormal ECG: NSR with PVCs, LVH with repol abnormality H/o left CEA - details unknown HTN HLP DM Type 2 Chronic tobacco use - cessation advised Hyperkalemia at presentation, now resolved Plan: * Complex management, guarded prognosis * Increase amlodipine for uncontrolled HTN * Continue diuretics * Monitor labs closely * Anemia - management per medical services * Management of ac exac of COPD is with the Med and Pulm Svces * Advised to quit smoking JANELLE BRANNON May 03, 2019 11:53 POS
--- NOTE | 2019-05-03 13:32 | Progress Note - Cardiology ---
Cardiology SOAP Progress Note Subjective: Marked gen weakness and fatigue No cp or palp Shortness of breath with mild exertion No syncope Objective: I&O/Vital Signs 05/03/19 03:15 Temp 36.3 Pulse 61 Resp 19 B/P (MAP) 163/71 (101) Pulse Ox 97 O2 Delivery NIV Bilevel 05/03/19 00:00 Intake Total 720 ml Output Total 1875 ml Balance -1155 ml Weight (Pounds): 130 Weight (Ounces): 9.0 Weight (Calculated Kilograms): 58.045436 Constitutional: AAO x 3, other (thin) Respiratory: No accessory muscle use, No respiratory distress; chest expansion is symmetric, chest is bilaterally symmetric, rhonchi (scattered), other (fair air entry; lung sounds coarse) Cardiovascular: regular rate-rhythm; No JVD; S1 and S2, systolic murmur (soft), other (ACW tenderness with palpation) Gastrointestional: No tender; soft, audible bowel sounds Extremities: no lower extremity edema bilateral Neurologic/Psychiatric: oriented x 3, other (moves all limbs equally) Skin: No rash on exposed areas, No ulcerations on exposed areas Results/Procedures: Labs Laboratory Tests 05/03/19 04:05: White Blood Count 9.2, Red Blood Count 3.97L, Hemoglobin 9.2L, Hematocrit 31L, Mean Corpuscular Volume 78L, Mean Corpuscular Hemoglobin 23L, Mean Corpuscular Hemoglobin Concent 30L, Red Cell Distribution Width 17.4H, Platelet Count 144, Mean Platelet Volume 10.9H, Neutrophils (%) (Auto) 88H, Lymphocytes (%) (Auto) 9L, Monocytes (%) (Auto) 3, Eosinophils (%) (Auto) 0, Basophils (%) (Auto) 0, Neutrophils # (Auto) 8.1H, Lymphocytes # (Auto) 0.8L, Monocytes # (Auto) 0.3, Eosinophils # (Auto) 0.0, Basophils # (Auto) 0.0, Sodium Level 144, Potassium Level 4.2, Chloride Level 113H, Carbon Dioxide Level 21, Anion Gap 10, Blood Urea Nitrogen 41H, Creatinine 0.85, Estimat Glomerular Filtration Rate > 60, BUN/Creatinine Ratio 48, Glucose Level 192H, Calcium Level 8.3L, Phosphorus Level 1.7L, Magnesium Level 2.2 Microbiology 04/28/19 Blood Culture - Preliminary, Resulted No growth 04/28/19 Influenza Types A,B Antigen (ANATOLY) - Final, Complete 04/29/19 Urine Culture - Final, Complete YEAST Mixed Bacterial Jacqui A/P: Assessment: Acute exacerbation of COPD Ac on chronic systolic CHF due to severe ischemic cardiomyopathy Type 2 MT likely secondary to hypoxia Slow atrial flutter with 2:1 AV conduction vs sinus tach on ECG of 04/06/19 CAD. S/p CABG in 2012. Card cath of 03/04/19: 40% LMCA, multiple 60% in LAD, 60- 70% prox LCX, 100% mid LCX, 70-80% distal OM2 at distal bifurcation, 100% mid RCA in a long stented segment, patent DAIGLE to LAD, patent stented L subclavian, patent SVG to distal LCX, LVEDP 21, LVEF 10% Echo of 03/02/19: LVEF 15-20%, mod enlargement of LA, mod MR and TR, RVSP 57 mmHg - refuses Life Vest Pulmonary hypertension, probably secondary to L heart failure H/o L-sided, ischemic foot ulcer, improved after L SFA intervention on 02/15/19 and improvement of L TBI from less than 0.3 to 0.72. Considerable disease on the R, but no symptoms or ischemic ulcers on the R PAD - Angio and intervention of 02/15/19: Long total occlusion of the left superficial femoral artery to which successful balloon angioplasty was carried out with reduction of stenosis to less than 30%; other lesions included 70% to 80% stenosis of the right external iliac and the right common femoral and of the left ant tibial in its proximal portion H/o COPD and asthma Abnormal ECG: NSR with PVCs, LVH with repol abnormality H/o left CEA - details unknown HTN HLP DM Type 2 Chronic tobacco use - cessation advised Hyperkalemia at presentation, now resolved Plan: * Complex management, guarded prognosis * Continue current cardiac regimen * Monitor labs closely * Anemia - management per medical services * Management of ac exac of COPD is with the Med and Pulm Svces * Advised to quit smoking * I answered her and her family's CV-related questions NOE RUIZ MD FACP FAC CCDS May 03, 2019 13:32 POS
[2019-05-03] MEDS ORDERED: FUROSEMIDE 40 MG/4 ML INJ (LASIX) ONE (14:24)
--- NOTE | 2019-05-03 15:04 | ST Dysphagia Evaluation ---
Speech Evaluation-General Medical Diagnosis CHf, COPD Onset Date: Apr 29, 2019 Therapy Diagnosis Therapy Diagnosis: Oropharyngeal Dysphagia Precautions Precautions: Aspiration Precautions/Isolations: Aspiration Referral Referring Physician: Dr. Salazar Medical History Pertinent Medical History: COPD, HTN Reviewed History: Yes Social History Current Living Status: Alone Speech PLF/Current-Dysphagia Prior Level of Function Patient lived in her own home where she was independent for much of her daily needs. Subjective Patient was pleasant and cooperative with the Bedside Dysphagia Evaluation. Cognitive Status Patient Orientation: Person, Place, Situation Oral Motor Skills Dentition: Edentalous Denture Type: Full- Upper Current Food Consistancy: Regular, Thin Liquids Ability to Follow Directions: Good Patient was on regular diet texture prior to BDE. Oral Expression Ability: No Impairment Voice Voice Phonatory-Based Quality: Breathy Voice Pitch: Normal Voice Loudness: Mildly Soft/Quiet Face Facial Symmetry: Symmetrical Oral-Facial Assessment Oral-Facial Dentition: Normal Labial Seal Description: Weak Smile: Normal Puff Cheeks: Reduced Strength Lingual Protrusion: Normal Lingual ROM: Normal Lingual Strength: Normal Pharynx Velopharyngeal Move.: Normal Volitional Dry Swallow: Yes Voluntary Cough: Yes Can Clear Throat Volitionally: Yes Dysphagia Evaluation Consistencies Presented: Thin Liquid, Mechanical Soft, Pureed Oral phase is within normal range of function for all consistencies presented. Pharyngeal phase is within normal range of function for all consistencies presented. Dietary Recommendations: Mechanical Soft Liquid Recommendations: Thin Swallowing Precautions: Alternate Liquids/Solids, Decreased Bolus 1/2 Tsp, Liquids from Straw, Liquids from Spoon, Small Bites and Sips, Sitting Upright 90 Degrees, Sitting 90 Degrees 30 Post Intake Dysphagia Evaluation Summary Patient is a pleasant 69 year old female who was admitted due to decreased respiratory function. The patient has multiple medical diagnosis. She is on continuous O2 at home. She is noted to continue to be a current smoker. She was evaluated at bedside for swallow function per Dr. Salazar. Patient was presented 1/2 tsp of thin x2, small sips via straw of thin x2 without s/s of aspiration. Patient was given 1/2 tsp of puree and mechanical soft with oral and pharyngeal stages within functional limits. No overt s/s of aspiration noted. Patient's family states she often coughs with oral intake, to the point that she doesn't like to go out to eat any more. Patient is recommended for a Dysphagia II diet level with thin liquids. This information was provided to her nurse as well as written on the white board in her room. Barriers to Learning Patient's age, medical status Speech Short Term Goals Short Term Goals Short Term Goals 1) Patient will tolerate least restrictive diet level without s/s of aspiration at 90% or greater. 2) Patient/caregiver will utilize compensatory strategies as trained at 90% or greater with minimal cues. Speech Chcf Goals Chcf Goals The patient will maintain adequate nutrition/hydration via safe, effective swallow function. Speech-Plan Patient/Family Goals Patient/Family Goals: The patient plans on returning home with family support upon hospital discharge. Treatment Plan Speech Therapy Treatment Plan: Continue Plan of Care Patient will be receiving follow up care from . Treatment Duration: May 06, 2019 Frequency: 2 times per week Estimated Hrs Per Day: .25 hour per day Rehab Potential: Fair Barriers to Learning: Patient's age and medical status Pt/Family Agrees to Plan: Yes Safety Risks/Education Teaching Recipient: Patient, Family Teaching Methods: Discussion Response to Teaching: Verbalize Understanding Education Topics Provided: Safety of oral intake, diet level Time Speech Therapy Time In: 14:35 Speech Therapy Time Out: 14:50 Total Billed Time: 15 Billed Treatment Time 1MARIAMA Julia NARVAEZCYN ST May 03, 2019 15:04 POS
--- NOTE | 2019-05-03 15:44 | Pulmonary Progress Note ---
Subjective Time Seen by a Provider: 15:44 Sepsis Event Evaluation Height, Weight, BMI Height: 5'4.00" Weight: 130lbs. 9.0oz. 58.141355kc; 18.00 BMI Method:Estimated Exam Exam Vital Signs Date Time Temp Pulse Resp B/P (MAP) Pulse Ox O2 Delivery O2 Flow Rate FiO2 05/03/19 14:27 36.3 64 99 40 05/03/19 13:42 98 Nasal Cannula 5.00 05/03/19 12:00 36.9 80 24 170/72 (104) 100 Nasal Cannula 5.00 05/03/19 08:30 36.2 78 24 142/83 (102) 98 NIV Bilevel 30.00 05/03/19 03:15 36.3 61 19 163/71 (101) 97 NIV Bilevel 05/03/19 00:19 36.0 68 19 135/61 (85) 96 NIV Bilevel 05/02/19 23:21 71 31 93 30.00 05/02/19 21:00 96 NIV Bilevel 5.00 05/02/19 20:40 36.2 81 24 176/80 (112) 96 NIV Bilevel 05/02/19 20:00 68 36 99 30.00 05/02/19 16:50 36.2 81 24 177/74 (108) 94 NIV Bilevel I & O 05/03/19 07:00 Intake Total 870 ml Output Total 2075 ml Balance -1205 ml Height & Weight Height: 5'4.00" Weight: 130lbs. 9.0oz. 58.012266kr; 18.00 BMI Method:Estimated General Appearance: No Apparent Distress, Chronically ill, Cachetic Neck: Non Tender, Supple Respiratory: Chest Non Tender, No Respiratory Distress, Wheezing Cardiovascular: Regular Rate, Rhythm, Normal Peripheral Pulses (2/4 radial bilaterally) Capillary Refill: Less Than 3 Seconds Gastrointestinal: normal bowel sounds, non tender, soft, no organomegaly Extremity: Non Tender, No Calf Tenderness Neurologic/Psychiatric: Alert Skin: Normal Color, Warm/Dry Results Lab Laboratory Tests 05/02/19 05:10 05/03/19 04:05 Assessment/Plan Assessment/Plan Acute on chronic respiratory failure -titrate BiPAP settings down -SVNS Q 4 -Oxygen -Solumedrol -Cefepime COPDAE Acute on chronic CHF -Cardiology following -Lasix 40mg IV daily CAD NSTEMI -Cardiology following MARGARITA CHAMORRO DO May 03, 2019 15:44 POS
--- NOTE | 2019-05-03 16:11 | NUR ---
PALLIATIVE CARE RN in to see patient to see if she and her family had the opportunity to discuss hospice. Patient indicated that they had and that they would like to visit with [facility] and [facility]. I will set up informational meetings with both starting around 1145 tomorrow morning.
[2019-05-03] MEDS: SENNA W/DOCUSATE (SENOKOT S) TABLET PO SCH (20:42)
[2019-05-04] MEDS: ALPRAZolam 0.25 MG (XANAX) TAB PO SCH ×3 (01:33→17:21)
[2019-05-04] MEDS: NS IV 1000 ML 1,000 ML IV SCH ×2 (01:35→15:30)
[2019-05-04] MEDS: RT-ALBUTEROL/IPRATROPIUM 3 ML (DUONEB) VIAL INH SCH ×6 (02:17→23:12)
[2019-05-04] MEDS ORDERED: CEFEPIME 2 GM (MAXIPIME) VIAL ONE (06:20)
[2019-05-04] MEDS ORDERED: WATER (STERILE) FOR INJECTION 20 ML ONE (06:20)
[2019-05-04 06:27] LABS: BASOPHILS % (AUTO) 0 % (0-10); EOSINOPHILS % (AUTO) 0 % (0-10); HEMATOCRIT 32 % (35-52); HEMOGLOBIN 9.4 G/DL (11.5-16.0); LYMPHOCYTES # (AUTO) 0.7 X 10^3 (1.0-4.0); LYMPHOCYTES % (AUTO) 10 % (12-44); MEAN CORPUSCULAR HEMOGLOBIN 23 PG (25-34); MEAN CORPUSCULAR HGB CONC 30 G/DL (32-36); MEAN CORPUSCULAR VOLUME 79 FL (80-99); MEAN PLATELET VOLUME 11.6 FL (7.4-10.4); MONOCYTES # (AUTO) 0.4 X 10^3 (0.0-1.0); MONOCYTES % (AUTO) 5 % (0-12); NEUTROPHILS # (AUTO) 6.4 X 10^3 (1.8-7.8); NEUTROPHILS % (AUTO) 85 % (42-75); PLATELET COUNT 151 10^3/uL (130-400); RED CELL DISTRIBUTION WIDTH 16.9 % (10.0-14.5); WHITE BLOOD COUNT 7.5 10^3/uL (4.3-11.0)
[2019-05-04 06:49] LABS: BUN/CREATININE RATIO 44; CALCIUM 8.6 MG/DL (8.5-10.1); CARBON DIOXIDE 28 MMOL/L (21-32); CHLORIDE 110 MMOL/L (98-107); CREATININE SERUM 0.78 MG/DL (0.60-1.30); GFR ESTIMATED > 60; GLUCOSE 250 MG/DL (70-105); MAGNESIUM 2.1 MG/DL (1.6-2.4); PHOSPHORUS 1.4 MG/DL (2.3-4.7); SODIUM 145 MMOL/L (135-145)
[2019-05-04 08:00] VITALS: BP 134/61
--- NOTE | 2019-05-04 08:00 | Diagnostic Imaging Report ---
INDICATION: Respiratory failure FINDINGS: Air trapping and COPD chronic. Sternal wires midline. The heart size upper limits but stable. Prominence of the lung markings chronic. IMPRESSION: Stable chronic findings Dictated by: Dictated on workstation # [id number]
--- NOTE | 2019-05-04 09:17 | Pulmonary Progress Note ---
Sepsis Event Evaluation Height, Weight, BMI Height: 5'4.00" Weight: 130lbs. 9.0oz. 58.735460cy; 18.00 BMI Method:Estimated Exam Exam Vital Signs Date Time Temp Pulse Resp B/P (MAP) Pulse Ox O2 Delivery O2 Flow Rate FiO2 05/03/19 21:25 71 28 96 30.00 05/03/19 20:35 36.8 66 28 190/83 (118) 95 Nasal Cannula 5.00 05/03/19 20:15 NIV Bilevel 05/03/19 16:30 36.8 69 28 182/84 (116) 97 Nasal Cannula 5.00 05/03/19 14:27 36.3 64 99 40 05/03/19 13:42 98 Nasal Cannula 5.00 05/03/19 12:00 36.9 80 24 170/72 (104) 100 Nasal Cannula 5.00 I & O 05/04/19 07:00 Intake Total 1620 ml Output Total 2650 ml Balance -1030 ml Height & Weight Height: 5'4.00" Weight: 130lbs. 9.0oz. 58.872334rt; 18.00 BMI Method:Estimated General Appearance: No Apparent Distress, Chronically ill, Cachetic Neck: Non Tender, Supple Respiratory: Chest Non Tender, No Respiratory Distress, Wheezing Cardiovascular: Regular Rate, Rhythm, Normal Peripheral Pulses (2/4 radial bilaterally) Capillary Refill: Less Than 3 Seconds Gastrointestinal: normal bowel sounds, non tender, soft, no organomegaly Extremity: Non Tender, No Calf Tenderness Neurologic/Psychiatric: Alert Skin: Normal Color, Warm/Dry Results Lab Laboratory Tests 05/03/19 04:05 05/04/19 05:36 Assessment/Plan Assessment/Plan Acute on chronic respiratory failure - BiPAP -SVNS Q 4 -Oxygen -Solumedrol -Cefepime COPDAE Acute on chronic CHF -Cardiology following -Lasix 40mg IV daily CAD NSTEMI -Cardiology following MARGARITA CHAMORRO DO May 04, 2019 09:17
[2019-05-04] MEDS: CEFEPIME INJECTION 2,000 MG in WATER (STERILE) FOR INJECTION 20 ML IV SCH (09:20)
[2019-05-04] MEDS: methylPREDNISolone 40 MG/ML (Solu-MEDROL) VIAL IV SCH ×2 (09:44→21:04)
[2019-05-04] MEDS: FUROSEMIDE 40 MG/4 ML INJ (LASIX) IVP SCH (09:44)
[2019-05-04] MEDS: NICOTINE 7 MG (NICODERM) PATCH TD SCH (09:44)
[2019-05-04] MEDS: SENNA W/DOCUSATE (SENOKOT S) TABLET PO SCH ×2 (09:45→21:04)
[2019-05-04] MEDS: CLOPIDOGREL 75 MG (PLAVIX) TABLET PO SCH (09:45)
[2019-05-04] MEDS: lisINopril 20 MG (PRINIVIL) TABLET PO SCH (09:45)
[2019-05-04] MEDS: ASPIRIN E.C. 81 MG (ECOTRIN) TAB PO SCH (09:45)
[2019-05-04] MEDS: AMIODARONE 200 MG (CORDARONE) TAB PO SCH (09:45)
[2019-05-04] MEDS: amLODIPine 5 MG (NORVASC) TAB PO SCH (09:45)
[2019-05-04] MEDS: CARVEDILOL 12.5 MG (COREG) TABLET PO SCH ×2 (09:48→21:04)
--- NOTE | 2019-05-04 11:58 | Progress Note - Hospitalist ---
[facility] 05[facility] 1158: Subjective HPI/CC On Admission Date Seen by Provider: May 04, 2019 Time Seen by Provider: 08:20 Subjective/Events-last exam Patient states she is doing better Patient appears to have difficulty breathing No family was at bedside Family will be having meeting with [facility] at 1145 today. Review of Systems General: No Chills, No Other (fevers) HEENT: No Head Aches, No Eye Pain, No Ear Pain Pulmonary: Dyspnea, Cough Cardiovascular: No: Chest Pain, Edema Gastrointestinal: No: Nausea, Vomiting, Abdominal Pain Objective Exam Vital Signs Vital Signs Date Time Temp Pulse Resp B/P (MAP) Pulse Ox O2 Delivery O2 Flow Rate FiO2 05/04/19 09:00 99 Nasal Cannula 2.00 05/04/19 08:00 35.9 89 18 134/61 (85) 05/03/19 14:27 40 Capillary Refill : Less Than 3 SecondsLess Than 3 Seconds General Appearance: Chronically ill, Cachetic Neck: Non Tender, Supple Respiratory: Chest Non Tender, No Respiratory Distress, Decreased Breath Sounds, Other (Using Bipap at time) Cardiovascular: Regular Rate, Rhythm, No Edema, Normal Peripheral Pulses (2/4 bilaterally radial) Extremity: Non Tender, No Calf Tenderness Neurologic/Psychiatric: Alert Skin: Normal Color, Warm/Dry Results/Procedures Lab Laboratory Tests 05/04/19 05:36 Patient resulted labs reviewed. Assessment/Plan Assessment and Plan Assess & Plan/Chief Complaint HFrEF of 15-20% Wound on left top foot. COPD Family consulting with hospice today. monitor Vitals and medications manage CV per Dr. Cameron Clinical Quality Measures DVT/VTE Risk/Contraindication: Risk Factor Score Per Nursin RFS Level Per Nursing on Admit: 4+=Very High TERRI CABALLERO DO 05/04/196: Subjective Subjective/Events-last exam Pt appears to be very declines [facility] will be consulted and come see her today Pt just wants to go home Dementia noted Pt mostly on BiPAP Very Poor prognosis and need the code status addressed. She needs to be DNR Review of Systems General: Fatigue Pulmonary: Dyspnea Objective Exam General Appearance: Chronically ill, Cachetic, Moderate Distress Respiratory: Decreased Breath Sounds, Wheezing Cardiovascular: Regular Rate, Rhythm Neurologic/Psychiatric: Alert, Oriented x3, No Motor/Sensory Deficits, Normal Mood/Affect Assessment/Plan Assessment and Plan Assess & Plan/Chief Complaint Hospice at [place] Prognosis poor Supervisory-Addendum Brief Verification & Attestation Participated in pt care: history, MDM, physical Personally performed: exam, history, MDM, supervision of care Care discussed with: Medical Student Procedures: n/a Results interpretation: Verified all documentation Verification and Attestation of Medical Student E/M Service A medical student performed and documented this service in my presence. I reviewed and verified all information documented by the medical student and made modifications to such information, when appropriate. I personally performed the physical exam and medical decision making. Terri Caballero, May 04, 2019,21:25 [facility] May 04, 2019 11:58 TERRI CABALLERO DO May 04, 2019 21:26
[2019-05-04 12:00] VITALS: BP 179/76
[2019-05-04] MEDS ORDERED: LORA2ORA PO (12:38)
[2019-05-04] MEDS ORDERED: MORP20SO PO (12:38)
--- NOTE | 2019-05-04 14:21 | NUR ---
PALLIATIVE CARE RN/DISCHARGE PLANNING: Patient and her two children met with [facility] this morning. Spoke with Nathaniel/son and he reports choice is for [facility]. Patient will NOT discharge today due to needing to get son's house ready for equipment delivery. I will sent clinical information to [facility] and have them call Nathaniel to arrange equipment delivery for tomorrow morning.
[2019-05-04 16:45] VITALS: BP 181/97
--- NOTE | 2019-05-04 18:29 | Progress Note - Cardiology ---
Cardiology SOAP Progress Note Subjective: Marked gen weakness No cp Short of breath with mild activity No palp or syncope Wishes to go home Objective: I&O/Vital Signs 05/04/19 05/04/19 05/04/19 05/04/19 08:00 09:00 10:13 12:00 Temp 35.9 36.4 Pulse 89 63 Resp 18 18 B/P (MAP) 134/61 (85) 179/76 (110) Pulse Ox 96 99 95 97 O2 Delivery Nasal Cannula Nasal Cannula Nasal Cannula Nasal Cannula O2 Flow Rate 5.00 2.00 5.00 5.00 05/04/19 15:31 Pulse Ox 95 O2 Flow Rate 3.00 05/04/19 00:00 Intake Total 620 ml Output Total 2650 ml Balance -2030 ml Weight (Pounds): 130 Weight (Ounces): 9.0 Weight (Calculated Kilograms): 58.093757 Constitutional: AAO x 3, other (thin) Respiratory: No accessory muscle use, No respiratory distress; chest expansion is symmetric, chest is bilaterally symmetric, rhonchi (scattered), other (fair air entry; lung sounds coarse) Cardiovascular: regular rate-rhythm; No JVD; S1 and S2, systolic murmur (soft), other (ACW tenderness with palpation) Gastrointestional: No tender; soft, audible bowel sounds Extremities: no lower extremity edema bilateral Neurologic/Psychiatric: oriented x 3, other (moves all limbs equally) Skin: No rash on exposed areas, No ulcerations on exposed areas Results/Procedures: Labs Laboratory Tests 05/04/19 05:36: White Blood Count 7.5, Red Blood Count 4.03L, Hemoglobin 9.4L, Hematocrit 32L, Mean Corpuscular Volume 79L, Mean Corpuscular Hemoglobin 23L, Mean Corpuscular Hemoglobin Concent 30L, Red Cell Distribution Width 16.9H, Platelet Count 151, Mean Platelet Volume 11.6H, Neutrophils (%) (Auto) 85H, Lymphocytes (%) (Auto) 10L, Monocytes (%) (Auto) 5, Eosinophils (%) (Auto) 0, Basophils (%) (Auto) 0, Neutrophils # (Auto) 6.4, Lymphocytes # (Auto) 0.7L, Monocytes # (Auto) 0.4, Eosinophils # (Auto) 0.0, Basophils # (Auto) 0.0, Sodium Level 145, Potassium Level 4.0, Chloride Level 110H, Carbon Dioxide Level 28, Anion Gap 7, Blood Urea Nitrogen 34H, Creatinine 0.78, Estimat Glomerular Filtration Rate > 60, BUN/Creatinine Ratio 44, Glucose Level 250H, Calcium Level 8.6, Phosphorus Level 1.4L, Magnesium Level 2.1 Microbiology 04/29/19 Urine Culture - Final, Complete YEAST Mixed Bacterial Jacqui 04/28/19 Blood Culture - Final, Complete No growth 04/28/19 Influenza Types A,B Antigen (ANATOLY) - Final, Complete Laboratory Tests 05/03/19 04:05 05/04/19 05:36 A/P: Assessment: Acute exacerbation of COPD Ac on chronic systolic CHF due to severe ischemic cardiomyopathy Type 2 MS likely secondary to hypoxia Slow atrial flutter with 2:1 AV conduction vs sinus tach on ECG of 04/06/19 CAD. S/p CABG in 2012. Card cath of 03/04/19: 40% LMCA, multiple 60% in LAD, 60- 70% prox LCX, 100% mid LCX, 70-80% distal OM2 at distal bifurcation, 100% mid RCA in a long stented segment, patent DAIGLE to LAD, patent stented L subclavian, patent SVG to distal LCX, LVEDP 21, LVEF 10% Echo of 03/02/19: LVEF 15-20%, mod enlargement of LA, mod MR and TR, RVSP 57 mmHg - refuses Life Vest Pulmonary hypertension, probably secondary to L heart failure H/o L-sided, ischemic foot ulcer, improved after L SFA intervention on 02/15/19 and improvement of L TBI from less than 0.3 to 0.72. Considerable disease on the R, but no symptoms or ischemic ulcers on the R PAD - Angio and intervention of 02/15/19: Long total occlusion of the left superficial femoral artery to which successful balloon angioplasty was carried out with reduction of stenosis to less than 30%; other lesions included 70% to 80% stenosis of the right external iliac and the right common femoral and of the left ant tibial in its proximal portion H/o COPD and asthma Abnormal ECG: NSR with PVCs, LVH with repol abnormality H/o left CEA - details unknown HTN HLP DM Type 2 Chronic tobacco use - cessation advised Hyperkalemia at presentation, now resolved Plan: * Complex management, guarded prognosis * Continue current cardiac regimen * Monitor labs closely * Management of ac exac of COPD and anemia is with the Med and Pulm Svces * We have advised her to quit tobacco use NOE RUIZ MD FACP FACC CCDS May 04, 2019 18:29
[2019-05-04 20:52] VITALS: BP 180/77
[2019-05-05] VITALS: BP 170/66
[2019-05-05] MEDS: RT-ALBUTEROL/IPRATROPIUM 3 ML (DUONEB) VIAL INH SCH ×3 (02:45→11:07)
[2019-05-05 04:00] VITALS: BP 172/72
[2019-05-05] MEDS: NS IV 1000 ML 1,000 ML IV SCH (04:12)
[2019-05-05] MEDS: ALPRAZolam 0.25 MG (XANAX) TAB PO SCH ×2 (04:12→11:14)
[2019-05-05 06:50] LABS: BASOPHILS % (AUTO) 0 % (0-10); EOSINOPHILS % (AUTO) 0 % (0-10); HEMATOCRIT 33 % (35-52); HEMOGLOBIN 9.8 G/DL (11.5-16.0); LYMPHOCYTES # (AUTO) 0.7 X 10^3 (1.0-4.0); LYMPHOCYTES % (AUTO) 7 % (12-44); MEAN CORPUSCULAR HEMOGLOBIN 23 PG (25-34); MEAN CORPUSCULAR HGB CONC 30 G/DL (32-36); MEAN CORPUSCULAR VOLUME 78 FL (80-99); MEAN PLATELET VOLUME 11.3 FL (7.4-10.4); MONOCYTES # (AUTO) 0.3 X 10^3 (0.0-1.0); MONOCYTES % (AUTO) 3 % (0-12); NEUTROPHILS # (AUTO) 8.7 X 10^3 (1.8-7.8); NEUTROPHILS % (AUTO) 90 % (42-75); PLATELET COUNT 179 10^3/uL (130-400); WHITE BLOOD COUNT 9.7 10^3/uL (4.3-11.0)
[2019-05-05 07:05] LABS: BAND NEUTROPHILS 0 %; LYMPHOCYTES % (MANUAL) 4 %; MONOCYTES % (MANUAL) 3 %; NEUTROPHILS % (MANUAL) 93 %
[2019-05-05 07:06] LABS: BASOPHILS % (MANUAL) 0 %; EOSINOPHILS % (MANUAL) 0 %; RBC MORPH NORMAL
[2019-05-05 07:17] LABS: BUN/CREATININE RATIO 40; CALCIUM 8.3 MG/DL (8.5-10.1); CARBON DIOXIDE 29 MMOL/L (21-32); CHLORIDE 105 MMOL/L (98-107); CREATININE SERUM 0.72 MG/DL (0.60-1.30); GFR ESTIMATED > 60; GLUCOSE 223 MG/DL (70-105); PHOSPHORUS 1.8 MG/DL (2.3-4.7); POTASSIUM 3.9 MMOL/L (3.6-5.0); SODIUM 146 MMOL/L (135-145)
--- NOTE | 2019-05-05 07:54 | Diagnostic Imaging Report ---
CLINICAL INDICATION: Patient with COPD. Exacerbation with hypoxia. EXAM: Portable chest X-ray upright view. COMPARISON: Chest X-ray dated 05/04/2019. FINDINGS: Stable cardiomegaly. Pulmonary vasculature is within normal limits. Stable increased lung markings throughout both lungs which may represent atelectasis and/or scarring. There is no interval lung infiltrate. There is no pleural effusion or pneumothorax. Stable postoperative changes to the chest with sternotomy wires. IMPRESSION: 1: Stable chest X-ray exam with no interval lung infiltrate. 2: Stable cardiomegaly with postoperative change to the chest. There is no significant pulmonary vascular congestion. Dictated by: Dictated on workstation # [id number]
[2019-05-05 08:00] VITALS: BP 195/82
[2019-05-05] MEDS: methylPREDNISolone 40 MG/ML (Solu-MEDROL) VIAL IV SCH (08:58)
[2019-05-05] MEDS: SENNA W/DOCUSATE (SENOKOT S) TABLET PO SCH (08:58)
[2019-05-05] MEDS: CARVEDILOL 12.5 MG (COREG) TABLET PO SCH (08:58)
[2019-05-05] MEDS: FUROSEMIDE 40 MG/4 ML INJ (LASIX) IVP SCH (08:58)
[2019-05-05] MEDS: AMIODARONE 200 MG (CORDARONE) TAB PO SCH (08:58)
[2019-05-05] MEDS: NICOTINE 7 MG (NICODERM) PATCH TD SCH (08:58)
[2019-05-05] MEDS: lisINopril 20 MG (PRINIVIL) TABLET PO SCH (08:58)
[2019-05-05] MEDS: ASPIRIN E.C. 81 MG (ECOTRIN) TAB PO SCH (08:58)
[2019-05-05] MEDS: CLOPIDOGREL 75 MG (PLAVIX) TABLET PO SCH (08:58)
[2019-05-05] MEDS: amLODIPine 5 MG (NORVASC) TAB PO SCH (08:58)
--- NOTE | 2019-05-05 10:49 | Pulmonary Progress Note ---
Subjective Date Seen by a Provider: May 05, 2019 Time Seen by a Provider: 10:35 Subjective/Events-last exam The patient is awake and alert, sitting in her recliner. She reports feeling better today than she did yesterday. 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 She reports that the cough has improved. She also states that her shortness of breath is greatly improved. She denies chest pain, fever, or chills. She is asking when she will be able to go home. She believes that she is to be discharged home today. She has no other concerns at this time. Sepsis Event Evaluation Height, Weight, BMI Height: 5'4.00" Weight: 130lbs. 9.0oz. 58.709264yt; 18.00 BMI Method:Estimated Exam Exam Vital Signs Date Time Temp Pulse Resp B/P (MAP) Pulse Ox O2 Delivery O2 Flow Rate FiO2 05/05/19 08:00 36.4 84 24 195/82 (119) 96 Nasal Cannula 3.00 05/05/19 08:00 Nasal Cannula 2.00 05/05/19 07:37 95 Nasal Cannula 3.00 05/05/19 04:00 36.4 65 20 172/72 (105) 99 Nasal Cannula 3.00 05/05/19 02:45 97 Nasal Cannula 3.00 05/05/19 00:00 36.4 93 20 170/66 (100) 98 Nasal Cannula 3.00 05/04/19 23:12 96 Nasal Cannula 3.00 05/04/19 20:52 36.7 70 26 180/77 (111) 95 Nasal Cannula 3.00 05/04/19 20:30 NIV Bilevel 05/04/19 18:15 76 29 94 30.00 05/04/19 16:45 36.6 78 28 181/97 (125) 96 Nasal Cannula 3.00 05/04/19 15:31 95 3.00 05/04/19 12:00 36.4 63 18 179/76 (110) 97 Nasal Cannula 5.00 I & O 05/05/19 07:00 Intake Total 1220 ml Output Total 1425 ml Balance -205 ml Height & Weight Height: 5'4.00" Weight: 130lbs. 9.0oz. 58.612688il; 18.00 BMI Method:Estimated General Appearance: No Apparent Distress, Chronically ill, Cachetic Neck: Non Tender, Supple Respiratory: Chest Non Tender, Decreased Breath Sounds, Wheezing Cardiovascular: Regular Rate, Rhythm, No Edema Capillary Refill: Less Than 3 Seconds Gastrointestinal: normal bowel sounds, non tender, soft, no organomegaly Extremity: Non Tender, No Calf Tenderness, No Pedal Edema Neurologic/Psychiatric: Alert, Oriented x3, No Motor/Sensory Deficits, Normal Mood/Affect Skin: Normal Color, Warm/Dry Results Lab Laboratory Tests 05/04/19 05:36 05/05/19 05:52 Assessment/Plan Assessment/Plan Acute on chronic respiratory failure - nasal canula @ 2L -SVNS Q 4 -Oxygen -Solumedrol -Cefepime - DC on 05/05 COPDAE Acute on chronic CHF -Cardiology following -Lasix 40mg IV daily CAD NSTEMI -Cardiology following CRIS HENNING MED STUDENT May 05, 2019 10:49
--- NOTE | 2019-05-05 11:22 | Discharge Summary ---
[facility] 05/05/19 1122: Diagnosis/Chief Complaint Date of Admission Apr 28, 2019 at 20:25 Date of Discharge May 05, 2019 Discharge Date: May 04, 2019 Discharge Time: 10:57 Primary Care Katja Devine Discharge Diagnosis COPD exacerbation (1) Acute on chronic systolic (congestive) heart failure Status: Acute (2) COPD exacerbation Status: Acute (3) Non-insulin dependent type 2 diabetes mellitus Status: Chronic (4) PAD (peripheral artery disease) Status: Chronic (5) Ischemic cardiomyopathy Status: Chronic (6) Essential (primary) hypertension Status: Chronic (7) CAD (coronary artery disease) Status: Chronic (8) Tobacco dependence due to cigarettes Status: Acute Discharge Summary Procedures/Consulations Pulmonology - Dr. Salazar Cardiology - Dr. Cameron Discharge Physical Exam Allergies: Coded Allergies: No Known Drug Allergies (Unverified , 05/07/17) Vitals & I&Os Vital Signs Date Time Temp Pulse Resp B/P (MAP) Pulse Ox O2 Delivery O2 Flow Rate FiO2 05/05/19 08:00 36.4 84 24 195/82 (119) 96 Nasal Cannula 3.00 05/03/19 14:27 40 General Appearance: No Apparent Distress, Chronically ill, Cachetic Respiratory: Chest Non Tender, Lungs Clear, No Respiratory Distress, Decreased Breath Sounds Cardiovascular: Regular Rate, Rhythm, No Edema, Normal Peripheral Pulses (2/4 radial pulse bilaterally) Gastrointestinal: Non Tender, Soft Extremity: Non Tender, No Calf Tenderness Neurologic/Psychiatric: Alert, Normal Mood/Affect Hospital Course Was the Problem List Reviewed?: Yes Patient was admitted on 04/28/19 and discharged on 05/05/19. Patient was admitted for COPD exacerbation. Dr. Cameron (Cardiology), Dr. Salazar (Pulmonology), and Dr. Caballero (Hospitalist) provided care for the patient. Past Medical History is significant for COPD, PAD, Ischemic cardiomyopathy. ABG, CBC, CMP, UA, Chest x-ray and Chest CT. WBC was elevated on 04/28 but has resolved. ABG showed resolved acidosis, Hyperkalemia on CMP resolved, and GFR has increased to 60. Chest x-ray showed Stable chest X-ray exam with no interval lung infiltrate. and Stable cardiomegaly with postoperative change to the chest. with no significant pulmonary vascular congestion. [facility] was consulted and will arrange for medical equipment needed as patient lives with son. Patient is to follow medications and follow - up appointments as outlined in the discharge instructions. The followoing information is only a summary of the patient admission while at [facility] and is not all inclusive. Please review entire chart for more information. Labs (last 24 hrs) Laboratory Tests 05/05/19 05:52: White Blood Count 9.7, Red Blood Count 4.21L, Hemoglobin 9.8L, Hematocrit 33L, Mean Corpuscular Volume 78L, Mean Corpuscular Hemoglobin 23L, Mean Corpuscular Hemoglobin Concent 30L, Red Cell Distribution Width 17.0H, Platelet Count 179, Mean Platelet Volume 11.3H, Neutrophils (%) (Auto) 90H, Lymphocytes (%) (Auto) 7L, Monocytes (%) (Auto) 3, Eosinophils (%) (Auto) 0, Basophils (%) (Auto) 0, Neutrophils # (Auto) 8.7H, Lymphocytes # (Auto) 0.7L, Monocytes # (Auto) 0.3, Eosinophils # (Auto) 0.0, Basophils # (Auto) 0.0, Neutrophils % (Manual) 93, Lymphocytes % (Manual) 4, Monocytes % (Manual) 3, Eosinophils % (Manual) 0, Basophils % (Manual) 0, Band Neutrophils 0, Blood Morphology Comment NORMAL, Sodium Level 146H, Potassium Level 3.9, Chloride Level 105, Carbon Dioxide Level 29, Anion Gap 12, Blood Urea Nitrogen 29H, Creatinine 0.72, Estimat Glomerular Filtration Rate > 60, BUN/Creatinine Ratio 40, Glucose Level 223H, Calcium Level 8.3L, Phosphorus Level 1.8L, Magnesium Level 2.0 Microbiology 04/29/19 Urine Culture - Final, Complete YEAST Mixed Bacterial Jacqui 04/28/19 Blood Culture - Final, Complete No growth 04/28/19 Influenza Types A,B Antigen (ANATOLY) - Final, Complete Patient resulted labs reviewed. Pending Labs Laboratory Tests 05/05/19 05:52: White Blood Count 9.7, Red Blood Count 4.21, Hemoglobin 9.8, Hematocrit 33, Mean Corpuscular Volume 78, Mean Corpuscular Hemoglobin 23, Mean Corpuscular Hemoglobin Concent 30, Red Cell Distribution Width 17.0, Platelet Count 179, Mean Platelet Volume 11.3, Neutrophils (%) (Auto) 90, Lymphocytes (%) (Auto) 7, Monocytes (%) (Auto) 3, Eosinophils (%) (Auto) 0, Basophils (%) (Auto) 0, Neutrophils # (Auto) 8.7, Lymphocytes # (Auto) 0.7, Monocytes # (Auto) 0.3, Eosinophils # (Auto) 0.0, Basophils # (Auto) 0.0, Neutrophils % (Manual) 93, Lymphocytes % (Manual) 4, Monocytes % (Manual) 3, Eosinophils % (Manual) 0, Basophils % (Manual) 0, Band Neutrophils 0, Blood Morphology Comment NORMAL, Sodium Level 146, Potassium Level 3.9, Chloride Level 105, Carbon Dioxide Level 29, Anion Gap 12, Blood Urea Nitrogen 29, Creatinine 0.72, Estimat Glomerular Filtration Rate > 60, BUN/Creatinine Ratio 40, Glucose Level 223, Calcium Level 8.3, Phosphorus Level 1.8, Magnesium Level 2.0 Discharge Home Medications: Active Scripts Active Lorazepam Intensol (Lorazepam) 2 Mg/1 Ml Oral.conc 2 Mg PO Q2H PRN Morphine Sulfate 20 Mg/5 Ml Solution 20 Mg PO Q3HR PRN 7 Days Reported Spironolactone 25 Mg Tablet 25 Mg PO DAILY Potassium Chloride 10 Meq Capsule.er 10 Meq PO DAILY Cefdinir 300 Mg Capsule 300 Mg PO BID 7 Days 7 DAY SUPPLY FILLED 04-22-19 Citalopram HBr (Citalopram Hydrobromide) 10 Mg Tablet 10 Mg PO DAILY Atorvastatin Calcium 80 Mg Tablet 80 Mg PO HS Carvedilol 25 Mg Tablet 25 Mg PO BID Triamterene-Hctz 37.5-25 mg Tb (Triamterene/Hydrochlorothiazid) 1 Each Tablet 1 Tab PO DAILY Lisinopril 10 Mg Tablet 10 Mg PO DAILY Iprat-Albut 0.5-3(2.5) mg/3 ml (Ipratropium/Albuterol Sulfate) 3 Ml Ampul.neb 3 Ml NEB QID PRN Cetirizine HCl 10 Mg Tablet 10 Mg PO DAILY PRN Baclofen 10 Mg Tablet 10 Mg PO HS PRN Nicotine Patch (Nicotine) 1 Each Patch.td24 21 Mg TD DAILY Metformin HCl 1,000 Mg Tablet 1,000 Mg PO BID Clopidogrel (Clopidogrel Bisulfate) 75 Mg Tablet 75 Mg PO DAILY Tylenol Extra Strength (Acetaminophen) 500 Mg Tablet 1,000 Mg PO Q4H PRN Ropinirole HCl 1 Mg Tablet 1 Mg PO HS Proair Hfa (Albuterol Sulfate) 1 Puff Puff 2 Puff INH Q6H PRN Gabapentin 300 Mg Capsule 300 Mg PO HS Trospium Chloride 20 Mg Tablet 20 Mg PO BID Breo Ellipta 100-25 Mcg INH (Fluticasone/Vilanterol) 1 Each Blst.w.dev 1 Puff IH HS Furosemide 40 Mg Tablet 40 Mg PO DAILY Aspirin EC (Aspirin) 81 Mg Tablet.dr 81 Mg PO DAILY Amiodarone HCl 200 Mg Tablet 100 Mg PO DAILY TAKES 1/2 (200MG) TABLET Instructions to patient/family Please see electronic discharge instructions given to patient. Clinical Quality Measures Admission Status Admission Status: Inpatient Order (span 2 midnights) Reason for Inpatient Admission: COPD exacerbation DVT/VTE Risk/Contraindication: Risk Factor Score Per Nursin RFS Level Per Nursing on Admit: 4+=Very High TERRI CABALLERO DO 05/06/19 0632: Diagnosis/Chief Complaint Discharge Diagnosis (1) Acute on chronic systolic (congestive) heart failure Status: Acute (2) Non-insulin dependent type 2 diabetes mellitus Status: Chronic (3) PAD (peripheral artery disease) Status: Chronic (4) Essential (primary) hypertension Status: Chronic (5) CAD (coronary artery disease) Status: Chronic (6) Ischemic cardiomyopathy Status: Chronic Discharge Summary Discharge Physical Exam Allergies: Coded Allergies: No Known Drug Allergies (Unverified , 05/07/17) General Appearance: Chronically ill, Cachetic, Mild Distress Respiratory: Decreased Breath Sounds Cardiovascular: Regular Rate, Rhythm Neurologic/Psychiatric: Alert, Disoriented Hospital Course Was the Problem List Reviewed?: Yes Hospital course: Pt had an uncomplicated but lengthy hospital course of seven days when she came in for acute on-chronic respiratory failure, she required BiPAP most of the time and aggressive care but it was found that she really needed to be on hospice and did enroll in hospice at [facility]. They will arrange BiPAP at night so she will rest better and hospice medications were prescribed and Pt was discharged in stable condition but prognosis is extremely poor. Discussion & Recommendations Discharge Planning: <30 minutes discharge planning Supervisory-Addendum Brief Verification & Attestation Participated in pt care: history, MDM, physical Personally performed: exam, history, MDM, supervision of care Care discussed with: Medical Student Procedures: n/a Results interpretation: Verified all documentation Verification and Attestation of Medical Student E/M Service A medical student performed and documented this service in my presence. I reviewed and verified all information documented by the medical student and made modifications to such information, when appropriate. I personally performed the physical exam and medical decision making. Terri Caballero, May 06, 2019,06:32 Problem Qualifiers (1) CAD (coronary artery disease): Coronary Disease-Associated Artery/Lesion type: rampart artery [place] vs. transplanted heart: rampart heart Associated angina: without angina Qualified Codes: I25.10 - Atherosclerotic heart disease of rampart coronary artery without angina pectoris [facility] STUDTOD May 05, 2019 11:22 TERRI CABALLERO DO May 06, 2019 06:32
--- NOTE | 2019-05-05 12:52 | NUR ---
PALLIATIVE CARE RN in to talk with patient and daughter. [place] the daughter was concerned about discharge due to the fact that patient was still short of breath. Educated them at length about the severity of patient's lung disease, and helped them to recognize that she is at her prior level of function and O2 delivery and that this was as good as we were getting her. They question nutrition and asked about a feeding tube, I discussed the reasons patient was having difficulty eating and the risks of the feeding tube placement. I suggested that she would be better off to eat when she wanted, small soft meals that she didn't have to chew much. Also suggest ensure nutritional supplements if she cannot eat a full meal. Cautioned them about the milk products that may cause increased phlegm and or diarrhea. Not sure they fully understand the gravity/severity of her lung disease....hope hospice will help with that.
[2019-05-05 13:40] VITALS: BP 195/82
[2019-05-05] MEDS ORDERED: RT-ADVAIR HFA 115/21 MCG PER PUFF IH SCH (20:00)
== END 2019-05-05 13:41 | disposition hospice, home (50) | DRG 189 ==
LOC: EDUNIT# 18:11 → ER 18:12 → ICU 20:25 → 4TH 04-30 16:05
PROVIDERS: ADMIT Family Medicine; ATTEND Family Medicine
DX: J96.21 Acute and chronic respiratory failure with hypoxia (principal); J96.22 Acute and chronic respiratory failure with hypercapnia; I11.0 Hypertensive heart disease with heart failure; I50.23 Acute on chronic systolic (congestive) heart failure; J44.1 Chronic obstructive pulmonary disease with (acute) exacerbation; I21.A1 Myocardial infarction type 2; I48.92 Unspecified atrial flutter; R64 Cachexia; B37.49 Other urogenital candidiasis; I25.5 Ischemic cardiomyopathy; I25.10 Atherosclerotic heart disease of native coronary artery without angina pectoris; I27.22 Pulmonary hypertension due to left heart disease; I08.1 Rheumatic disorders of both mitral and tricuspid valves; E11.51 Type 2 diabetes mellitus with diabetic peripheral angiopathy without gangrene; I70.245 Atherosclerosis of native arteries of left leg with ulceration of other part of foot; L97.529 Non-pressure chronic ulcer of other part of left foot with unspecified severity; I70.201 Unspecified atherosclerosis of native arteries of extremities, right leg; E78.5 Hyperlipidemia, unspecified; E87.5 Hyperkalemia; F17.210 Nicotine dependence, cigarettes, uncomplicated; F41.9 Anxiety disorder, unspecified; M81.0 Age-related osteoporosis without current pathological fracture; M19.91 Primary osteoarthritis, unspecified site; Z95.1 Presence of aortocoronary bypass graft; Z99.81 Dependence on supplemental oxygen; Z85.3 Personal history of malignant neoplasm of breast; Z92.21 Personal history of antineoplastic chemotherapy; Z86.73 Personal history of transient ischemic attack (TIA), and cerebral infarction without residual deficits; Z79.84 Long term (current) use of oral hypoglycemic drugs
CPT/HCPCS: 36415; 71045; 71260; 80048; 80053; 81000; 82805; 83605; 83735; 83880; 84100; 84484; 85007; 85025; 85027; 85610; 85730; 87040; 87081; 87088; 87804; 93005; 94640; 94660; 94760; 96361; 96374; 96375